=== PATIENT | female | born 1945 | race Two or more races ===

== ENCOUNTER 2024-02-03 14:28 | Inpatient (IN) | payer OTHER, MEDICARE, SELFPAY ==
[2024-02-03] VITALS (9 sets, daily range): BP systolic 108–140; BP diastolic 51–75; PULSE 58–90; RESP 14–18; TEMP 36.4–38.4; O2SAT 94–100; BMI 18.3; BMI 18.8
--- NOTE | 2024-02-03 14:46 | XR_ITS ---
Examination: CT maxillofacial, without intravenous contrast. 2-D sagittal reconstructions. 3-D reconstructions. Date and time of exam:February 03, 2024 at 1745 hours INDICATIONS: Patient fell today with injury to the face, facial pain CTDI: vol (mGy):13.5 DLP: (mGycm):289 Technique: Multiple axial images of maxillofacial region, 3.0 mm slice thickness. 2-D sagittal and coronal reconstructions. 3-D reconstructions. Low dose protocols were performed. One or more of the following dose reduction techniques were used; automated exposure control, adjustment of the mA and/or KV according to patient size, use of iterative reconstruction technique. Findings: Frontal sinuses intact Orbital rims intact No nasal bone fracture No depression zygomatic arches Pterygoid plates maxilla and the mandible intact IMPRESSION: No acute facial fracture.
--- NOTE | 2024-02-03 14:46 | XR_ITS ---
Examination: AP chest single view TECHNIQUE: AP portable semiupright chest single view Exam date and time: February 03, 2024 1518 hours Comparison November 03, 2023 INDICATIONS: Onset SOB today. FINDINGS: Normal heart size Left subclavian Port-A-Cath tip satisfactory position Mild vascular congestion. No lobar pneumonia or pulmonary edema Prominent osteopenia IMPRESSION: Mild vascular congestion
--- NOTE | 2024-02-03 14:46 | EKG_ITS ---
[facility] Test Date: 2024-02-03 Pat Name: DIMAS MAGDALENO Department: Room: - Gender: Female State'S Attorney: : 1945 Requested By: Laron Bowers Order Number: [id number] Reading MD: Laron Bowers Measurements Intervals [place] Rate: 60 P: 66 MI: 186 QRS: 34 QRSD: 83 T: 54 QT: 436 QTc: 436 Interpretive Statements SINUS RHYTHM MINIMAL ST DEPRESSION [0.025+ mV ST DEPRESSION] Compared to ECG 11/19/2023 04:00:02 ST (T wave) deviation now present Atrial fibrillation no longer present /store/S0/[id number].pdf
--- NOTE | 2024-02-03 14:47 | XR_ITS ---
Examination: CT brain head without contrast. 2-D sagittal coronal reconstructions Date and time of exam:February 03, 2024 1745 hours Comparison 11/14/2023 INDICATIONS: Patient fell today with injury to the head, head pain CTDI: vol (mGy):4.2 DLP: (mGycm):941 Technique: Multiple CT axial sections of the brain have been obtained, 5 mm slice thickness. Contrast has not been administered. 2-D sagittal, coronal reconstructions have been obtained Low dose protocols were performed. One or more of the following dose reduction techniques were used; automated exposure control, adjustment of the mA and/or KV according to patient size, use of iterative reconstruction technique. Findings: No significant ventricular enlargement. Intra-axial or extra-axial hemorrhage density is not seen. No mass effect or midline shift Basal cisterns are not remarkable. Fourth ventricle is midline. There is a large defect in the right frontal bone 28 mm, most consistent with fracture, not seen on the 11/14/2023 exam Impression: Negative for acute hemorrhage, mass effect or midline shift There is a large bony defect in the right frontal bone, likely posttraumatic, not seen on the CT brain scan 11/14/2023, the appearance should be clinically correlated, recommend close clinical observation of this patient and CT brain scans follow-up as clinically warranted
--- NOTE | 2024-02-03 14:47 | XR_ITS ---
Examination: CT abdomen with intravenous contrast CT pelvis with intravenous contrast 2-D coronal reconstructions 2-D sagittal reconstructions Date and time of exam:January 14, 2024 at 1812 hours INDICATIONS: Patient fell today with into the abdomen, abdomen pain. CTDI: vol (mGy) 14.09 DLP: (mGycm) 432 Technique: Multiple axial sections of the abdomen and pelvis have been obtained. 64 slice high-resolution scanner used. 3 mm axial sections have been obtained, post intravenous injection 100 cc Isovue-370 2-D sagittal, coronal reconstructions obtained. Low dose protocols were performed. One or more of the following dose reduction techniques were used; automated exposure control, adjustment of the mA and/or KV according to patient size, use of iterative reconstruction technique. Findings: No liver splenic or renal laceration End-stage right hydronephrotic sac again noted, described on CT abdomen 11/14/2023 Abdominal aorta intact, no free blood in the abdomen Contracted gallbladder Negative for pneumoperitoneum Normal appendix Again noted large soft tissue tumor mass in the right tim-pelvis, which has further increased in size compared to the 11/14/2023 exam Transverse dimension of this solid pelvic mass is 11.5 cm compared to 8.1 cm on 11/14/2023 Urinary bladder is intact Sacral segments bones of the pelvis and hips intact IMPRESSION: No abdominal parenchymal laceration Abdominal aorta intact with no free blood in the pelvis Enlarging soft tissue tumor mass in the right hemipelvis
--- NOTE | 2024-02-03 14:47 | XR_ITS ---
Examination: CT lumbar spine, without contrast. 2-D sagittal reconstructions. 2-D coronal reconstructions. 3-D reconstructions. Date and time of exam:February 03, 2024 at 1753 hours INDICATIONS: Patient fell today lower back, lower back pain CTDI: vol (mGy):14.9 DLP: (mGycm):452 Technique: Multiple 1.25 mm axial sections of the lumbar spine without intravenous contrast have been obtained. 2-D sagittal and coronal reconstructions have been obtained. 3-D reconstructions have been obtained. Low dose protocols were performed. One or more of the following dose reduction techniques were used; automated exposure control, adjustment of the mA and/or KV according to patient size, use of iterative reconstruction technique. Findings: Significant osteopenia Grade 1 anterolisthesis L4 on L5 No acute lumbar fracture Lumbar pedicles, laminae, transverse and posterior spinous processes intact L4-L5 moderate overall spinal stenosis, 3 mm central lumbar disc bulge, facet arthropathy and thickening of ligamentum flavum circumferentially narrowing the thecal sac There is a end-stage right renal hydronephrotic sac IMPRESSION: No lumbar fracture End-stage right renal hydronephrotic sac, noted on the CT scan abdomen 11/14/2023
--- NOTE | 2024-02-03 14:47 | XR_ITS ---
Examination: CT thoracic spine, without contrast. 2-D sagittal reconstructions. 2-D coronal reconstructions. 3-D reconstructions. Date and time of exam:February 03, 2024 1553 hours INDICATIONS: Patient fell today with injury to the upper back, upper back pain CTDI: vol (mGy):12.6 DLP: (mGycm):393 Technique: Multiple 1.25 mm axial sections of the thoracic spine without intravenous contrast have been obtained. 2-D sagittal and coronal reconstructions have been obtained. 3-D reconstructions have been obtained. Low dose protocols were performed. One or more of the following dose reduction techniques were used; automated exposure control, adjustment of the mA and/or KV according to patient size, use of iterative reconstruction technique. Findings: Adequate alignment thoracic vertebral bodies on the lateral view No thoracic vertebral body compression fracture Mild diffuse thoracic disc narrowing Thoracic pedicles, laminae and transverse processes intact IMPRESSION: No acute thoracic fracture
--- NOTE | 2024-02-03 14:47 | XR_ITS ---
Examination: CTA chest with intravenous contrast 2-D reconstructions 3-D reconstructions, vascular Date and time of exam: February 03, 2024 1803 hours Hypoxia shortness of breath chest pain today after falling CTDI: vol (mGy) 6.55 DLP: (mGycm) 203 Technique: Multiple axial sections of the thorax have been obtained. 3 mm slice thickness, from below the hemidiaphragms to above the apices of the lungs. Mediastinal and lung density settings have been obtained. 2-D sagittal and coronal reconstructions. 3-D angiographic renderings, 3-D volume renderings, 3D post processing, vascular maximum intensity projections obtained. Contrast administered is 60 cc Isovue-300. Low dose protocols were performed. One or more of the following dose reduction techniques were used; automated exposure control, adjustment of the mA and/or KV according to patient size, use of iterative reconstruction technique. Findings: Thoracic aorta intact No pulmonary artery emboli No hemopericardium No pneumothorax pulmonary contusion or hemothorax 3 mm pulmonary nodule right upper lobe image 67 6 mm pulmonary nodule right upper lobe image 85 6 mm pulmonary nodule posterior left lung image 156 Manubrium thoracic vertebral bodies intact Ribs appear intact IMPRESSION: Negative for pulmonary artery emboli No pneumothorax pulmonary contusion or hemothorax Subcentimeter pulmonary nodules as above, recommend 6 month follow-up CT chest without contrast to document stability of these pulmonary nodules
--- NOTE | 2024-02-03 14:47 | XR_ITS ---
Examination: CT cervical spine without contrast 2-D sagittal reconstructions 2-D coronal reconstructions 3-D reconstructions. Exam date and time:February 03, 2024 1745 hours INDICATIONS: Patient fell today with injury to the neck, neck pain CTDI:vol (mGy) 11.4 DLP: (mGycm) 264 Technique: Multiple 2 mm axial sections of the cervical spine have been obtained. The coronal and sagittal reconstructions have been obtained. 3-D reconstructions have been obtained. Low dose protocols were performed. One or more of the following dose reduction techniques were used; automated exposure control, adjustment of the mA and/or KV according to patient size, use of iterative reconstruction technique. Findings: Axial sections demonstrate intact base of the skull. C1 exhibit satisfactory relationship to the odontoid. No acute cervical vertebral body fracture seen. Alignment posterior spinous processes satisfactory. Impression: No acute cervical fracture.
--- NOTE | 2024-02-03 15:15 | EDNOTE_ITS ---
Altered Mental Status RME/HPI General Stated Complaint: AMS Time Seen by Provider: 02/03/24 14:39 Arrival date/time: 02/03/24 14:28 RME / HPI RME / HPI narrative: This section includes all my notes and documentations, including HPI, PE, MDM, Procedure Notes, and PLAN. Laron Tapia MD HPI: 79 year old female with history of dementia, diffuse B-cell lymphoma with abdominal metastases, AFib on Eliquis, CKD presents to the ED BIBA from home for evaluation of altered mental status today. Per medics report, family on scene stated at around 01:40 this morning patient was found on the bathroom floor, time down unknown. Reported they assisted her up and into bed. Noted as the day progressed patient appears is confused and slower to respond. On their arrival noted patient to be GCS of 13, evidently at baseline is GCS of 14. Prehospital BS 86. While in the ED patient does not know why she is here and unable to provide any additional history. ROS: Unobtainable due to mental status. Physical Exam: General: Alert and orientedx0. No acute distress. Eyes: Conjunctivae and lids clear. EOMI. PERRL. ENT: No nasal congestion. Pharynx normal. Tympanic membrane normal bilaterally. Neck: Supple. No lymphadenopathy. No JVD. Heart: RRR. Lungs: No respiratory distress. Air movement moderately diminished with wheezing. Chest: No tenderness. Abdomen: Soft and nontender. Normal bowel sounds. No distension. No rebound or guarding. Back: No CVA tenderness. Legs: No clubbing, cyanosis, edema. Skin: Warm and dry. Neuro: Alert and oriented X 0. Musculoskeletal: All major joints and bones are not tender. I ordered Solu-Medrol and DuoNeb and diagnostic tests. At 6 PM, the care of the patient was transferred to Dr. Juarez. Laron Tapia MD Related Data Home Medications ?Medication ?Instructions ?Recorded ?Confirmed amiodarone 200 mg tablet 200 mg PO DAILY 02/03/24 02/03/24 apixaban 2.5 mg tablet (Eliquis) 2.5 mg PO BID 02/03/24 02/03/24 Allergies Allergy/AdvReac Type Severity Reaction Status Date / Time Penicillins Allergy Severe Rash Verified 02/03/24 15:28 Review of Systems Review of Systems ROS Unobtainable: unobtainable due to mental status Past Medical History Past Medical History CARDIAC: Positive Cardiac Disorders (a.fib) and Hypertension RESPIRATORY: Positive Pneumonia OTHER HISTORY: Positive Falls, Chemotherapy, Radiation Therapy and Cancer (lymphoma) Social History SMOKING STATUS: Never smoker ED Exam Narrative Physical exam: As noted in HPI Course Quality Measures none Orders Category Date Time Status Bedside COVID-19 Antigen Test NOW Care 02/03/24 14:45 Active Bedside Influenza A&B Antigen Test NOW Care 02/03/24 14:45 Completed COVID-19 Screening Questionnaire NOW Care 02/03/24 20:[address] Screening NOW Care 02/03/24 14:47 Active Decision to Admit X1 Care 02/03/24 20:02 Completed EKG (ED ONLY) *Do not use* NOW Care 02/03/24 14:46 Completed Saline [Insert IV] NOW Care 02/03/24 14:46 Active Straight [In and Out Catheter] X1 Care 02/03/24 14:[address] abdomen pelvis w con Stat Exams 02/03/24 14:[address] angio chest Stat Exams 02/03/24 14:[address] cervical spine wo con Stat Exams 02/03/24 14:[address] facial bones wo con Stat Exams 02/03/24 14:[address] head/brain wo con Stat Exams 02/03/24 14:[address] lumbar spine wo con Stat Exams 02/03/24 14:[address] thoracic spine wo con Stat Exams 02/03/24 14:47 Completed EKG (ED Only) Stat Exams 02/03/24 14:46 Draft XR chest 1V portable Stat Exams 02/03/24 14:46 Completed ABG [Arterial Blood Gas] Stat Lab 02/03/24 15:09 Completed Alcohol, Blood Medical Stat Lab 02/03/24 15:09 Completed Ammonia Stat Lab 02/03/24 15:09 Completed BNP [B-Type Natriuretic Peptide] Stat Lab 02/03/24 15:09 Completed Blood Culture (Lab) Stat Lab 02/03/24 15:09 Results CBC Stat Lab 02/03/24 15:09 Completed CK [Creatine Kinase] Stat Lab 02/03/24 15:09 Completed CMP [Comprehensive Metabolic Panel] Stat Lab 02/03/24 15:09 Completed CRP [C-Reactive Protein] Stat Lab 02/03/24 15:09 Completed D-Dimer Stat Lab 02/03/24 15:09 Completed ESR [Sed Rate (ESR)] Stat Lab 02/03/24 15:09 Completed Lactate (Lactic Acid) Stat Lab 02/03/24 15:09 Completed Magnesium Stat Lab 02/03/24 15:09 Completed PT [Prothrombin Time with INR] Stat Lab 02/03/24 15:09 Completed PTT [Partial Thromboplastin Time] Stat Lab 02/03/24 15:09 Completed Procalcitonin Stat Lab 02/03/24 15:09 Completed RSV [Respiratory Syncytial Virus Ag] Stat Lab 02/03/24 15:44 Completed TSH [Thyroid Stimulating Hormone] Stat Lab 02/03/24 15:09 Completed Troponin I Stat Lab 02/03/24 15:09 Completed UA [Urinalysis] Stat Lab 02/03/24 15:19 Completed Acetaminophen Supp [Tylenol Supp] Med 02/03/24 18:25 Discontinued 650 mg SD X1 ONE Albuterol/Ipratr Rt Digna [Duoneb Rt Digna] Med 02/03/24 14:46 Discontinued 3 ml INH X1 ONE Cefepime Inj [Maxipime Inj] 2 gm Med 02/03/24 18:36 Discontinued Sodium Chloride 0.9% (P) [Ns 0.9% (P)] 50 ml IV X1 MethylPREDNISolone.* [SoluMEDROL Inj] Med 02/03/24 14:46 Discontinued 125 mg IVP X1 ONE Sodium Chloride 0.9% 1000 ml [Ns] 1,000 ml Med 02/03/24 18:25 Discontinued IV 999 mls/hr Vital Signs Vital signs: Vital Signs Temperature 101.2 F H 02/03/24 15:07 Pulse Rate 66 02/03/24 15:07 Respiratory Rate 18 02/03/24 15:07 Blood Pressure 140/70 H 02/03/24 15:07 Pulse Oximetry (%) 98 02/03/24 15:07 Oxygen Delivery Method Room Air 02/03/24 15:07 Pulse ox is 98% on room air which is adequate. Altered Mental Status MDM Narrative MDM Narrative:: Shantel Tierney am scribing for and in the presence of Dr. Tapia. Patient data External records reviewed:: [facility] previous records (I reviewed admission from 11/15/2023 through 11/21/2023) and EMS form Clinical information provided by:: patient Social determinants that could affect healthcare access:: none Patient has the following chronic illnesses:: dementia, diffuse B-cell lymphoma with abdominal metastases, AFib on Eliquis, CKD How is presenting disease/condition affected by chronic disease/condition?: exacerbated by Evaluation data The following diagnostics were reviewed and interpreted by me:: lab results, radiology exam(s) and EKG tracing(s) (My interpretation of the EKG is: Sinus rhythm (60 bpm) with nonspecific ST-T changes. Laron Tapia MD) Lab and/or radiology exams considered but not ordered:: None Interpretation Summary: Ordering Physician: Laron Tapia MD Date of Service: 02/03/24 Procedure(s): XR chest 1V portable Accession Number(s): [id number] cc: Laron Tapia MD; Landon Stevens MD~ Examination: AP chest single view TECHNIQUE: AP portable semiupright chest single view Exam date and time: February 03, 2024 1518 hours Comparison November 03, 2023 INDICATIONS: Onset SOB today. FINDINGS: Normal heart size Left subclavian Port-A-Cath tip satisfactory position Mild vascular congestion. No lobar pneumonia or pulmonary edema Prominent osteopenia IMPRESSION: Mild vascular congestion Dictated By: Landon Stevens MD Signed By: <Electronically signed by Landon Stevens MD in OV> 02/03/24 1548 Medications / Prescriptions Medications or Prescriptions considered but not ordered:: None Medication administrations:: Medication Administration History Amiodarone HCl (Amiodarone Hcl 200 Mg Tablet) 200 mg PO QDAY GENE Stop: 03/05/24 08:59 Last Admin: 02/04/24 09:16 Dose: 200 mg Documented By: CATARINA Heparin Sodium (Porcine) (Heparin Sod Inj 5000 Unit/Ml Vial) 5,000 unit SC Q12HR GENE Stop: 02/17/24 20:59 Last Admin: 02/04/24 21:28 Dose: 5,000 unit Documented By: RAVI Co-signed By: FF Admin: 02/04/24 09:16 Dose: 5,000 unit Documented By: CATARINA Co-signed By: CARISSA Admin: 02/03/24 20:57 Dose: Not Given Documented By: GB Non-Admin Reason: Patient Refused Cefepime HCl 1 gm/ Sodium (Chloride) 50 mls @ 100 mls/hr IV QDAY@1400 [facility] Stop: 02/11/24 13:59 Last Admin: 02/04/24 13:19 Dose: 100 mls/hr Documented By: CATARINA Ondansetron HCl (Ondansetron Inj 2 Mg/Ml Inj 2 Ml) 4 mg IV Q6H PRN; Protocol PRN Reason: NAUSEA OR VOMITING Stop: 03/04/24 20:06 Pantoprazole Sodium (Pantoprazole Inj 40 Mg Vial) 40 mg IVP QDAY GENE Stop: 03/05/24 08:59 Last Admin: 02/04/24 09:17 Dose: 40 mg Documented By: CATARINA Sennosides (Senna Tablet) 1 tab PO QDAY PRN; Protocol PRN Reason: CONSTIPATION Stop: 03/05/24 11:53 Discontinued Medications Acetaminophen (Acetaminophen Supp 650 Mg Supp) 650 mg SD X1 ONE Stop: 02/03/24 18:26 Last Admin: 02/03/24 18:41 Dose: 650 mg Documented By: ANOOP Albuterol/Ipratropium (Albuterol/Ipratropium (Duoneb) Rt Digna 3 Ml Nebu) 3 ml INH X1 ONE Stop: 02/03/24 14:47 Last Admin: 02/03/24 15:20 Dose: 3 ml Documented By: ANNE Sodium Chloride (Ns) 1,000 mls @ 999 mls/hr IV .Q1H1M ONE Stop: 02/03/24 19:25 Last Infusion: 02/03/24 19:48 Dose: Infused Documented By: Admin: 02/03/24 18:33 Dose: 999 mls/hr Documented By: ANOOP Cefepime HCl 2 gm/ Sodium (Chloride) 50 mls @ 100 mls/hr IV X1 ONE Stop: 02/03/24 19:05 Last Infusion: 02/03/24 19:48 Dose: Infused Documented By: Admin: 02/03/24 18:52 Dose: 100 mls/hr Documented By: LUPE Comments: ok to give Sodium Chloride (Ns) 1,000 mls @ 75 mls/hr IV .[id number] GENE Stop: 02/04/24 20:14 Last Admin: 02/04/24 13:19 Dose: 75 mls/hr Documented By: Infusion: 02/04/24 09:53 Dose: Infused Documented By: Admin: 02/03/24 20:33 Dose: 75 mls/hr Documented By: FERNANDO Methylprednisolone Sodium Succinate (Methylprednisolone Sod Succ 62.5 Mg/Ml 2ml Vial) 125 mg IVP X1 ONE Stop: 02/03/24 14:47 Last Admin: 02/03/24 15:30 Dose: 125 mg Documented By: AM See above Consultations Consultation(s) initiated? (list below): No Diagnosis Most likely diagnosis given after review of the tests above:: Altered mental status Admission Indicated Admission indicated?: not indicated Explain why admission is indicated or not indicated:: Patient signed out to Dr. Juarez pending head CT. Admission Request Was there a request for admission?: No Disposition Plan Disposition Plan: other (specify) (Patient signed out to Dr. Juarez pending CT's. ) Discharge Plan Plan Patient Disposition: Admit Acute Care w/in Hospital Problem List Clinical Impression: Acute febrile illness, History of pelvic mass, Acute alteration in mental status, Acute dehydration
--- NOTE | 2024-02-03 15:16 | PD.EDADULT ---
ED General RME/HPI General Stated complaint: AMS Time Seen by Provider: 02/03/24 14:39 Arrival date/time: 02/03/24 14:28 Related Data Allergies Allergy/AdvReac Type Severity Reaction Status Date / Time Penicillins Allergy Severe Rash Verified 11/03/23 17:20 Course Orders Category Date Time Status Bedside COVID-19 Antigen Test NOW Care 02/03/24 14:45 Active Bedside Influenza A&B Antigen Test NOW Care 02/03/24 14:[address] Screening NOW Care 02/03/24 14:47 Active EKG (ED ONLY) *Do not use* NOW Care 02/03/24 14:46 Completed Saline [Insert IV] NOW Care 02/03/24 14:46 Active Straight [In and Out Catheter] X1 Care 02/03/24 14:[address] abdomen pelvis w con Stat Exams 02/03/24 14:[address] angio chest Stat Exams 02/03/24 14:[address] cervical spine wo con Stat Exams 02/03/24 14:[address] facial bones wo con Stat Exams 02/03/24 14:[address] head/brain wo con Stat Exams 02/03/24 14:[address] lumbar spine wo con Stat Exams 02/03/24 14:[address] thoracic spine wo con Stat Exams 02/03/24 14:47 Ordered EKG (ED Only) Stat Exams 02/03/24 14:46 Ordered XR chest 1V portable Stat Exams 02/03/24 14:46 Ordered ABG [Arterial Blood Gas] Stat Lab 02/03/24 14:49 Ordered Alcohol, Blood Medical Stat Lab 02/03/24 14:49 Ordered Ammonia Stat Lab 02/03/24 14:49 Ordered BNP [B-Type Natriuretic Peptide] Stat Lab 02/03/24 14:49 Ordered Blood Culture (Lab) Stat Lab 02/03/24 14:49 Ordered CBC Stat Lab 02/03/24 14:49 Ordered CK [Creatine Kinase] Stat Lab 02/03/24 14:49 Ordered CMP [Comprehensive Metabolic Panel] Stat Lab 02/03/24 14:49 Ordered CRP [C-Reactive Protein] Stat Lab 02/03/24 14:49 Ordered D-Dimer Stat Lab 02/03/24 14:49 Ordered ESR [Sed Rate (ESR)] Stat Lab 02/03/24 14:49 Ordered Lactate (Lactic Acid) Stat Lab 02/03/24 14:49 Ordered Magnesium Stat Lab 02/03/24 14:49 Ordered PT [Prothrombin Time with INR] Stat Lab 02/03/24 14:49 Ordered PTT [Partial Thromboplastin Time] Stat Lab 02/03/24 14:49 Ordered Procalcitonin Stat Lab 02/03/24 14:49 Ordered RSV [Respiratory Syncytial Virus Ag] Stat Lab 02/03/24 14:49 Ordered TSH [Thyroid Stimulating Hormone] Stat Lab 02/03/24 14:49 Ordered Troponin I Stat Lab 02/03/24 14:49 Ordered UA [Urinalysis] Stat Lab 02/03/24 14:50 Ordered Albuterol/Ipratr Rt Digna [Duoneb Rt Digna] Med 02/03/24 14:46 Discontinued 3 ml INH X1 ONE MethylPREDNISolone.* [SoluMEDROL Inj] Med 02/03/24 14:46 Discontinued 125 mg IVP X1 ONE Vital Signs Vital signs: Vital Signs Temperature 101.2 F H 02/03/24 15:07 Pulse Rate 66 02/03/24 15:07 Respiratory Rate 18 02/03/24 15:07 Blood Pressure 140/70 H 02/03/24 15:07 Pulse Oximetry (%) 98 02/03/24 15:07 Oxygen Delivery Method Room Air 02/03/24 15:07 MDM Evaluation data The following diagnostics were reviewed and interpreted by me:: EKG tracing(s) (My interpretation of the EKG is: Sinus rhythm (60 bpm) with nonspecific ST-T changes. Laron Tapia MD) Medications Medication administrations:: Medication Administration History Discontinued Medications Albuterol/Ipratropium (Albuterol/Ipratropium (Duoneb) Rt Digna 3 Ml Nebu) 3 ml INH X1 ONE Stop: 02/03/24 14:47 Methylprednisolone Sodium Succinate (Methylprednisolone Sod Succ 62.5 Mg/Ml 2ml Vial) 125 mg IVP X1 ONE Stop: 02/03/24 14:47 Discharge Plan Patient/Caregiver Discharge Instructions Print Language: Malian
[2024-02-03] MEDS: ALBUTEROL/IPRATROPIUM (Duoneb) RT SOL 3 ML NEBU INH (15:20)
[2024-02-03 15:23] LABS: Base Excess 2 (-3-3); HCO3 26 mEq/L (20-26); Inspired Oxygen, FIO2 21 %; O2 Saturation 95 % (91-98); PCO2 37 mmHg (32.0-48.0); PO2 65 mmHg (83-108); pH, Arterial 7.46 (7.35-7.45)
[2024-02-03 15:25] LABS: Allen Test Performed/OK; Basophils % (Auto) 0 % (0-2.5); Eosinophils # (Auto) 0.1 Thou/mm3 (0.0-0.5); Eosinophils % (Auto) 0 % (0-10); Hematocrit 36.3 % (36.0-46.0); Hemoglobin 11.6 g/dL (12.0-16.0); Immature Granulocytes % (Auto) 0 % (0-0); Immature Granulocytes Auto 0.05 Thou/mm3 (0.00-0.00); Lymphocytes # (Auto) 0.7 Thou/mm3 (1.0-4.8); Lymphocytes % (Auto) 5 % (10-50); Mean Corpuscular Hemoglobin 26.9 pg (25.0-35.0); Mean Corpuscular Volume 84 fL (80-100); Monocytes # (Auto) 1.2 Thou/mm3 (0.0-0.8); Monocytes % (Auto) 9 % (0-12); Neutrophils # (Auto) 11.1 Thou/mm3 (1.8-7.7); Neutrophils % (Auto) 84 % (37-80); Nucleated Red Blood Cell % 0 /100 WBC (0); Platelet Count 225 Thou/mm3 (140-440); Puncture Site Right Radial; RDW Standard Deviation 52.9 fL (36.4-46.3); Red Blood Count 4.31 Miln/mm3 (4.00-5.20); White Blood Count 13.2 Thou/mm3 (3.6-11.0)
[2024-02-03] MEDS: MethylPREDNISolone SOD SUCC 62.5 MG/ML 2ML VIAL 125 MG IVP (15:30)
[2024-02-03 15:35] LABS: Collection Type, Urine Clean Catch; Squamous Epithelial Cell,Urine 0 /hpf (0-5)
[2024-02-03 15:38] LABS: Ammonia < 10 uMol/L (11-32)
[2024-02-03 15:40] LABS: Prothrombin Time 10.9 Seconds (9.0-12.2)
[2024-02-03 15:41] LABS: B-Type Natriuretic Peptide 83 pg/mL (0-100)
[2024-02-03 15:54] LABS: Bacteria,Urine Rare; Bilirubin,Urine Negative (Negative); Blood,Urine 1+ (Negative); Clarity,Urine Clear (Clear/Hazy); Color,Urine Lt-Yellow (Lt Yel-Yel); Glucose, Urine Negative (Negative); Ketones,Urine Negative (Negative); Leukocyte Esterase,Urine Negative (Negative); Nitrite,Urine Negative (Negative); PH,Urine 6.5 (5.0-7.0); Protein,Urine 1+ (Neg - Trace); RBC,Urine 18 /hpf (0-3); Specific Gravity,Urine 1.017 (1.001-1.035); Urobilinogen,Urine Negative mg/dL (0.0-1.0); WBC,Urine < 1 /hpf (0-5)
[2024-02-03 16:03] LABS: Sed Rate (ESR) 21 mm/hr (0-30)
[2024-02-03 16:24] LABS: Alanine Aminotransferase < 7 U/L (10-49); Albumin, Serum 4.1 gm/dL (3.4-4.8); Albumin/Globulin Ratio 1.9 (1.2-2.2); Alcohol, Blood Medical < 3.0 mg/dL (0-10.0); Alkaline Phosphatase 96 U/L (46-116); Anion Gap 7 (7-16); Aspartate Amino Transferase 20 U/L (0-34); BUN/Creatinine Ratio 14 Ratio (12-20); Bilirubin,Total 0.7 mg/dL (0.3-1.2); Blood Urea Nitrogen 24 mg/dL (9-23); Calcium 9.1 mg/dL (8.3-10.6); Calcium (Corrected) 9.1 mg/dL (8.5-10.1); Carbon Dioxide 23.4 mMol/L (20.0-31.0); Chloride 103 mMol/L (98-107); Creatine Kinase 39 U/L (34-171); Creatinine (Component) 1.7 mg/dL (0.6-1.3); Estimated Creatinine Clearance 19.2 mL/min (>60); Globulin 2.2 gm/dL (2.3-3.5); Glucose 109 mg/dL (74-106); Magnesium 1.9 mg/dL (1.6-2.6); Osmolality,Calculated 271 (275-295); Potassium 4.2 mMol/L (3.4-5.1); Procalcitonin 0.13 ng/ml (0.0-0.49); Sodium 133 mMol/L (136-145); Thyroid Stimulating Hormone 3.35 uIU/mL (0.55-4.78); Total Protein 6.3 gm/dL (5.7-8.2); Troponin I < 0.020 ng/mL (0.0-0.045); eGFR 30 See Note
[2024-02-03 16:41] LABS: Respiratory Syncytial Virus Ag Negative (Negative)
[2024-02-03 17:24] LABS: D-Dimer < 250 ng/mL (<600)
[2024-02-03] MEDS: SODIUM CHLORIDE 0.9% 1000 ML 1,000 ML 999 ML IV (18:33)
--- NOTE | 2024-02-03 18:37 | PD.EDADDENDU ---
Emergency Room Addendum Addendum Narrative: 6:[address] Juarez's note: This patient had come in much earlier during the day shift; the previous doctor was not aware that she had a fever upon presentation. Her temperature was 101.2 rectally. Patient is awake but disoriented x 3. She has clear speech and she is able to talk without any distress. Her mucosa are very dry. She has no pain. I ordered a liter of normal saline IV wide open and 650 of Tylenol per rectum. I also gave her cefepime 2 g IV empirically; she is allergic to penicillin. I am waiting for her CAT scan results. Patient will have to be admitted to the hospital. Her lactic acid and also her procalcitonin are negative. At 6:45 PM, some of the CAT scans are back and they are all negative. The CT of the abdomen and pelvis with IV contrast shows an enlargement of her pelvic mass at 11.5 cm. Then I looked at her old records and it seems like that her previous CAT scan of the abdomen and pelvis with IV contrast done on 11/14/2023 showed that same pelvic mass at 8.1 cm; therefore, this tumor is enlarging. On abdominal exam, she says that she has no abdominal pain; however when I palpate her pelvis she says that it hurts in the suprapubic and right pelvic areas, without guarding or rebound tenderness. There is no abdominal distention. At 7 PM, I discussed this case with Dr. Gomez, her PMD, who informed me that patient has lymphoma and she will be started on chemotherapy soon. She does not want admit her herself but she will call the resident to admit the pt. to the hospital.
[2024-02-03] MEDS: ACETAMINOPHEN SUPP 650 MG SUPP PR (18:41)
[2024-02-03] MEDS: CEFEPIME INJ 2 GM in SODIUM CHLORIDE 0.9% (P) 50 ML IV (18:52)
--- NOTE | 2024-02-03 20:06 | PD.RESHP ---
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 Son was present at bedside to help provide further history given patient's clinical status. He states that patient was found on bathroom floor at 1 AM in the morning, and appeared to be slightly confused and slow to respond. Patient is taking care of by son and daughter, who do not report any decreased appetite, nausea, vomiting, or diarrhea. However, he does note patient has orthostatic hypotension. Son also states that at baseline patient's mentation waxes and wanes throughout the day, where she is at her best in the middle of the day and declines in the evening. Primary concern of family is that patient had a fall on Eliquis and were instructed to bring patient to the ED if she experienced any falls. Son also notes that patient is to have chemotherapy within the next week with oncologist in [place]. Last chemotherapy was approximately 1 year ago. ED course: Initial vitals: BP 140/70, temp 101.2 ?F, on room air WBC 13.2, chronic anemia (Hgb 11.6, BL 11), Cr 1.7 BL 1.0), CK wnl, Trop wnl, BMP wnl, Pro-Garret wnl, lactate wnl CT A/P: Enlarging soft tissue mass in right hemipelvis CTA chest: 2 subcentimeter nodules and right lung, 1 subcentimeter nodule in left lung CT head: Negative for hemorrhage, fracture in right frontal bone CT spine and face: Negative for fractures CXR: Mild vascular congestion PMHx: as noted above Medications: eliquis 2.5 mg BID, amiodarone 200 mg daily SHx: denies smoking, alcohol, or illicit drug use Review of Systems Review of Systems Systems Reviewed: All systems reviewed, normal except as documented Exam Vital Signs Temp Pulse Resp BP Pulse Ox O2 Del Method 98.7 F 64 16 117/74 97 Room Air 02/03/24 18:41 02/03/24 19:23 02/03/24 19:23 02/03/24 19:23 02/03/24 19:23 02/03/24 19:23 Narrative Exam General: alert, orientated to self and place, no acute distress, able to speak full sentences HEENT: NC/AT, mucous membranes moist, bilateral sclera anicteric Cardiovascular: systolic murmur appreciated at right sternal border, regular rate and rhythm, S1/S2 present Pulmonary: clear to auscultation bilaterally, no rales/rhonchi/wheezes Abdominal: mild tenderness to palpation in LLQ, soft, non-distended, no rebound/guarding Musculoskeletal: normal ROM, no peripheral edema Skin: warm and dry, intact, no rashes Results: Labs 02/05/24 05:05 02/05/24 05:05 Labs: Short CBC 02/03/24 Range/Units 15:09 WBC 13.2 H (3.6-11.0) Thou/mm3 Hgb 11.6 L (12.0-16.0) g/dL Hct 36.3 (36.0-46.0) % Plt Count 225 (140-440) Thou/mm3 BMP 02/03/24 15:09 Sodium 133 L Potassium 4.2 Chloride 103 Carbon Dioxide 23.4 BUN 24 H Creatinine 1.7 H Glucose 109 H Calcium 9.1 Cardiac Enzymes 02/03/24 Range/Units 15:09 Total Creatine Kinase 39 (34-171) U/L Troponin I < 0.020 (0.0-0.045) ng/mL Liver Function 02/03/24 Range/Units 15:09 Total Bilirubin 0.7 (0.3-1.2) mg/dL AST 20 (0-34) U/L ALT < 7 L (10-49) U/L Alkaline Phosphatase 96 (46-116) U/L Albumin 4.1 (3.4-4.8) gm/dL Urine 02/03/24 Range/Units 15:19 Urine Color Lt-Yellow (Lt Yel-Yel) Urine Clarity Clear (Clear/Hazy) Urine pH 6.5 (5.0-7.0) Ur Specific [place] 1.017 (1.001-1.035) Urine Protein 1+ A (Neg - Trace) Urine Glucose (UA) Negative (Negative) ABG Interpretation ABG results: 02/03/24 15:09 ABG pH 7.46 H ABG pCO2 37 ABG pO2 65 L ABG HCO3 26 ABG O2 Saturation 95 ABG Base Excess 2 Quality Measures Quality Measures none Advance care planning discussed with:: patient Medications Home Medications and Allergies Home Medications ?Medication ?Instructions ?Recorded ?Confirmed ?Type amiodarone 200 mg tablet 200 mg PO DAILY 02/03/24 02/03/24 History apixaban 2.5 mg tablet (Eliquis) 2.5 mg PO BID 02/03/24 02/03/24 History Allergies Allergy/AdvReac Type Severity Reaction Status Date / Time Penicillins Allergy Severe Rash Verified 02/03/24 15:28 Visit Medications Discontinued Medications Acetaminophen (Acetaminophen Supp 650 Mg Supp) 650 mg OH X1 ONE Stop: 02/03/24 18:26 Last Admin: 02/03/24 18:41 Dose: 650 mg Albuterol/Ipratropium (Albuterol/Ipratropium (Duoneb) Rt Digna 3 Ml Nebu) 3 ml INH X1 ONE Stop: 02/03/24 14:47 Last Admin: 02/03/24 15:20 Dose: 3 ml Sodium Chloride (Ns) 1,000 mls @ 999 mls/hr IV .Q1H1M ONE Stop: 02/03/24 19:25 Last Infusion: 02/03/24 19:48 Dose: Infused Cefepime HCl 2 gm/ Sodium (Chloride) 50 mls @ 100 mls/hr IV X1 ONE Stop: 02/03/24 19:05 Last Infusion: 02/03/24 19:48 Dose: Infused Methylprednisolone Sodium Succinate (Methylprednisolone Sod Succ 62.5 Mg/Ml 2ml Vial) 125 mg IVP X1 ONE Stop: 02/03/24 14:47 Last Admin: 02/03/24 15:30 Dose: 125 mg Assessment & Plan Plan Sofia Hill is a 79-year-old female with past medical history of lymphoma status post remission and recurrence with abdominal (and pulmonary?) metastasis, CKD, dementia, atrial fibrillation on Eliquis who is admitted for acute encephalopathy and acute kidney injury in setting of CKD. #Acute encephalopathy #SIRS Presents after being found on bathroom floor for unknown period of time. Patient cannot recall events leading up to hospitalization. Family reports patient has had good appetite without episodes of nausea, vomiting, or diarrhea. Son does report that patient has history of orthostatic hypotension. SIRS 2/: T 101.2 ?F, WBC 13.2. No source. CK, procal, and lactate wnl. ? Cefepime 1 g IV twice daily ? Patient has penicillin allergy, deferred Zosyn ? NS at 75 mL/h ? Follow-up urine and blood cultures ? Physical therapy #Acute on chronic kidney injury #Acute kidney injury #CKD, stage IIIb ? Nephrology consulted, appreciate recommendations ? IVF as above #Atrial fibrillation ? Amiodarone 200 mg PO daily ? Eliquis held in setting of fall Hospital management: Disposition: 2-3 hospital nights Fluids: IVF, NS at 75 mL/hr Diet: regular Lines: peripheral DVT prophylaxis: heparin SC BID GI prophylaxis: not indicated CODE STATUS: full code ----- Plan discussed with attending physician Dr. Valeria Cam MD PGY-1 Internal Medicine Attending Provider Attestation/Addendum I reviewed labs, imaging, EKG, home medications and prior available records. Face to face evaluation was performed by me. I have personally examined the patient and discussed assessment and plan with the IM team. I reviewed the resident note and agree with the plan with exceptions as below. 79-year-old female with history of dementia and diffuse B-cell lymphoma with abdominal mass, A-fib on Eliquis, who presented with generalized weakness, altered mental status, and fall. She was found to have SIRS/possible sepsis and KARMEN. SIRS/possible sepsis: Her fevers and leukocytosis can be in the setting of viral illness versus malignancy versus bacterial infection of unclear source. Given that the patient is immunocompromised due to lymphoma, will empirically start IV cefepime and send blood/urine cultures. Will start IV Zosyn. Trend WBC. Tylenol as needed for fevers. KARMEN: Possibly due to dehydration. Started IV fluids. Monitor kidney function. Avoid nephrotoxins. Renally dosed medication Acute encephalopathy: In the setting of history of baseline dementia. Likely in the setting of acute febrile illness versus dehydration versus pain. Management of the underlying conditions as above. Treatment of pain as needed. Atrial fibrillation on Eliquis: Resume amiodarone. Holding Eliquis in the setting of frequent falls. Discussed resuming with her configuration management advisor. Fall: Likely in the setting of weakness and deconditioning from acute febrile illness. Obtain PT evaluation. Management of the febrile illness as above.
[2024-02-03] MEDS: SODIUM CHLORIDE 0.9% 1000 ML 1,000 ML 75 ML IV (20:33)
--- NOTE | 2024-02-03 23:35 | PC.NURSE ---
spoke with patients son and caregiver CYNDEE over the telephone to obtain admission questions.
[2024-02-04] VITALS (11 sets, daily range): BP systolic 105–125; BP diastolic 49–69; PULSE 58–65; RESP 16–17; TEMP 36.1–37; O2SAT 96–100; BMI 19.0
[2024-02-04 06:05] LABS: Basophils % (Auto) 0 % (0-2.5); Eosinophils % (Auto) 0 % (0-10); Hematocrit 37.3 % (36.0-46.0); Hemoglobin 11.9 g/dL (12.0-16.0); Immature Granulocytes % (Auto) 0 % (0-0); Immature Granulocytes Auto 0.03 Thou/mm3 (0.00-0.00); Lymphocytes # (Auto) 0.4 Thou/mm3 (1.0-4.8); Lymphocytes % (Auto) 4 % (10-50); Mean Corpuscular HGB Conc 31.9 g/dl (31.0-37.0); Mean Corpuscular Hemoglobin 26.9 pg (25.0-35.0); Mean Corpuscular Volume 84 fL (80-100); Monocytes # (Auto) 0.2 Thou/mm3 (0.0-0.8); Monocytes % (Auto) 3 % (0-12); Neutrophils # (Auto) 7.9 Thou/mm3 (1.8-7.7); Neutrophils % (Auto) 93 % (37-80); Nucleated Red Blood Cell % 0 /100 WBC (0); Platelet Count 195 Thou/mm3 (140-440); RDW Standard Deviation 52.8 fL (36.4-46.3); Red Blood Count 4.42 Miln/mm3 (4.00-5.20); White Blood Count 8.5 Thou/mm3 (3.6-11.0)
[2024-02-04 07:16] LABS: Anion Gap 8 (7-16); BUN/Creatinine Ratio 19 Ratio (12-20); Blood Urea Nitrogen 29 mg/dL (9-23); Calcium 9.4 mg/dL (8.3-10.6); Carbon Dioxide 24.3 mMol/L (20.0-31.0); Chloride 105 mMol/L (98-107); Creatinine (Component) 1.5 mg/dL (0.6-1.3); Estimated Creatinine Clearance 22.5 mL/min (>60); Glucose 133 mg/dL (74-106); Magnesium 2.2 mg/dL (1.6-2.6); Osmolality,Calculated 281 (275-295); Phosphorous 4.3 mg/dL (2.4-5.1); Potassium 4.5 mMol/L (3.4-5.1); Sodium 137 mMol/L (136-145); eGFR 35 See Note
[2024-02-04] MEDS: HEPARIN SOD INJ 5000 UNIT/ML VIAL SC ×2 (09:16→21:28)
[2024-02-04] MEDS: AMIODARONE HCL 200 MG TABLET PO (09:16)
[2024-02-04] MEDS: PANTOPRAZOLE INJ 40 MG VIAL IVP (09:17)
--- NOTE | 2024-02-04 11:21 | ESCONSULT_ITS ---
History of Present Illness Data of Consult Consult date: 02/04/24 Requesting Physician: Sg Shaw MD Primary Care Provider: Sandip Gomez MD Consult Narrative Reason for consult: KARMEN History of present illness: Ms. Hill is a 79-year-old lady who is well-known to me from my clinic with past medical history significant for metastatic non-small cell lymphoma (under the care of Dr. Julito Meier), CKD stage III, dementia, atrial fibrillation-on Eliquis presented to the emergency department with altered mental status. No family around. Chart review done. Apparently she was found laying on her bathroom floor with confusion and slow to respond that son called the paramedics and she was brought to the emergency department. In the ER she was noted to have orthostatic hypotension confused. Being on Eliquis patient had extensive workup in the emergency department to rule out brain bleed. Patient supposed to have chemotherapy with Dr. Murguia next week. I had a phone appointment last week with the patient and she was able to converse with me. In the emergency department blood pressure 140/70, temp 101.2 WBC 13.2, hemoglobin 11.6, Platelets 2 sodium 133, potassium 4.2, BUN 24, creatinine 1.7 ( Baseline creatinine 1.2) lactic acid 1, phosphorus 4.3, LFTs normal, ammonia normal, BNP normal, TSH normal, Pro-Garret normal urinalysis shows 1+ protein/18 RBCs and 1+ blood. CT A/P: Enlarging soft tissue mass in right hemipelvis CTA chest: 2 subcentimeter nodules and right lung, 1 subcentimeter nodule in left lung CT head: Negative for hemorrhage, fracture in right frontal bone CT spine and face: Negative for fractures CXR: Mild vascular congestion I was called by the ER provider for KARMEN. Hospitalist team admitted and renal was consulted for KARMEN. Patient was started on IV fluids. This morning she seems to be more Conversant. cc:: cc: Sg Shaw MD Review of Systems Review of Systems Narrative Review of Systems: Limited due to her mental status. She is able to recognize me. Denies any chest pain, shortness of breath does admit to having lower abdominal discomfort probably from the mass. Past Medical History Past Medical History NEUROLOGIC: Positive Neurological Disorders and Dementia CARDIAC: Positive Cardiac Disorders, Atrial Fibrillation and Hypertension; Negative Congestive Heart Failure RESPIRATORY: Positive Respiratory Disorders and Pneumonia; Negative Chronic Obstructive Pulmonary Disease (COPD) or Asthma GASTROINTESTINAL: Negative Gastrointestinal Disorders GENITOURINARY: Positive Genitourinary Disorders and Chronic Kidney Disease; Negative Renal Disease REPRODUCTIVE: Negative Pelvic Inflammatory Disease MUSCULOSKELETAL: Negative Musculoskeletal Disorders ENT: Negative History of ENT Problems ENDOCRINE: Negative Endocrine Disorders, Diabetes Mellitus Type 1 or Diabetes Mellitus Type 2 HEMATOLOGIC: Negative Blood Disorders or Sickle Cell Disease OTHER HISTORY: Positive Falls, Chemotherapy, Radiation Therapy and Cancer (hodgkins lymphoma, mass to abdomen); Negative Autoimmune Disease, Blood Transfusions, Organ Transplant, MRSA, VRSA, Vancomycin-Resistant Enterococci, Human Immunodeficiency Virus (HIV), Chicken Pox, Measles, Mumps, Rubella ([place] Measles), Pertussis or Clostridium Difficile Family History FAMILY HISTORY: Negative Family Psychiatric Problems, Family Respiratory Disorders, Family Cardiac Disorders, Family Gastrointestinal Problems, Family Genitourinary Problems, Family Endocrine Disorders, Family Reproductive Disorders, Family Musculoskeletal Disorders, Family Cancer, Family Surgery or Family Anesthesia Reaction Surgical History SURGICAL: Negative Cardiac Surgery, Endocrine Surgery, Ear Surgery, Abdominal Surgery, Nephrectomy, Joint Replacement, Neurologic Surgery, Mastectomy or Organ Transplant Social History SMOKING STATUS: Never smoker Meds Home Medications and Allergies Home Medications ?Medication ?Instructions ?Recorded ?Confirmed ?Type amiodarone 200 mg tablet 200 mg PO DAILY 02/03/24 02/03/24 History apixaban 2.5 mg tablet (Eliquis) 2.5 mg PO BID 02/03/24 02/03/24 History Allergies Allergy/AdvReac Type Severity Reaction Status Date / Time Penicillins Allergy Severe Rash Verified 02/03/24 15:28 Exam Vital Signs Temp Pulse Resp BP Pulse Ox O2 Del Method 36.2 C 63 16 121/54 L 96 Room Air 02/04/24 08:00 02/04/24 09:16 02/04/24 08:00 02/04/24 09:16 02/04/24 08:00 02/04/24 08:00 Narrative Exam GENERAL APPEARANCE: Fragile lady currently seen in medical floor NECK: Neck supple, no JVD or bruit CARDIOVASCULAR: Heart regular, no murmurs LUNGS/CHEST: Chest clear to auscultation. No rales, rhonchi, wheezing ABDOMEN: Soft, discomfort noted in the lower abdomen fullness noted in the lower abdomen. Normal bowel sounds. EXTREMITIES: No edema, clubbing or cyanosis. SKIN: Skin exam normal without any rashes MUSCULOSKELETAL: In bed NEUROLOGICAL : slow in response although alert and awake Results Labs 02/04/24 05:03 02/04/24 05:03 Labs: Short CBC 02/03/24 02/04/24 Range/Units 15:09 05:03 WBC 13.2 H 8.5 (3.6-11.0) Thou/mm3 Hgb 11.6 L 11.9 L (12.0-16.0) g/dL Hct 36.3 37.3 (36.0-46.0) % Plt Count 225 195 D (140-440) Thou/mm3 BMP 02/03/24 02/04/24 15:09 05:03 Sodium 133 L 137 Potassium 4.2 4.5 Chloride 103 105 Carbon Dioxide 23.4 24.3 BUN 24 H 29 H Creatinine 1.7 H 1.5 H Glucose 109 H 133 H Calcium 9.1 9.4 Cardiac Enzymes 02/03/24 Range/Units 15:09 Total Creatine Kinase 39 (34-171) U/L Troponin I < 0.020 (0.0-0.045) ng/mL Liver Function 02/03/24 Range/Units 15:09 Total Bilirubin 0.7 (0.3-1.2) mg/dL AST 20 (0-34) U/L ALT < 7 L (10-49) U/L Alkaline Phosphatase 96 (46-116) U/L Albumin 4.1 (3.4-4.8) gm/dL Urine 02/03/24 Range/Units 15:19 Urine Color Lt-Yellow (Lt Yel-Yel) Urine Clarity Clear (Clear/Hazy) Urine pH 6.5 (5.0-7.0) Ur Specific [place] 1.017 (1.001-1.035) Urine Protein 1+ A (Neg - Trace) Urine Glucose (UA) Negative (Negative) ABG Interpretation ABG results: 02/03/24 15:09 ABG pH 7.46 H ABG pCO2 37 ABG pO2 65 L ABG HCO3 26 ABG O2 Saturation 95 ABG Base Excess 2 Assessment & Plan Assessment and plan (1) Acute renal failure (ARF): Status: Acute Assessment and plan: Acute on chronic renal failure secondary to prerenal azotemia. Baseline creatinine 1.2. Continue with gentle IV fluids. CT showed no hydronephrosis. (2) Acute dehydration: Status: Acute Assessment and plan: Continue with gentle IV fluids (3) Acute alteration in mental status: Status: Acute Assessment and plan: Secondary to metabolic encephalopathy. Today she seems to be improving (4) Paroxysmal A-fib: Status: Acute Assessment and plan: History of paroxysmal A-fib-on amiodarone and Eliquis rate controlled (5) History of pelvic mass: Status: Acute Assessment and plan: Patient has a huge pelvic mass on CT.. Under the care of Dr. Murguia (6) Lymphoma: Status: Acute Assessment and plan: Patient has a huge pelvic mass on CT, bilateral pulmonary nodules--metastatic lymphoma.. Under the care of Dr. Murguia Additional Assessment & Plan Additional Plan: Thank you Dr. Gandhi for allowing me to participate in the care of Ms. Black
[2024-02-04] MEDS: SODIUM CHLORIDE 0.9% 1000 ML 1,000 ML 75 ML IV (13:19)
[2024-02-04] MEDS: CEFEPIME INJ 1 GM in SODIUM CHLORIDE 0.9% (P) 50 ML IV (13:19)
[2024-02-04 15:01] LABS: Cardiac Risk Estimate 2.5 RATIO (3.7-5.6); Cholesterol 173 mg/dL (132-200); HDL Cholesterol 68 mg/dL (40-60); LDL Cholesterol,Calculated 96 mg/dL (0-130); Triglycerides 45 mg/dL (30-150)
--- NOTE | 2024-02-04 15:40 | ESPR_ITS ---
<Statement entered by Ozzie Faustin DO - 02/04/24 21:52> Senior attestation: Patient was examined and case was reviewed with team including attending physician. Note reviewed, I agree with most of its contents and agree with the patient's care. Pending final blood cultures, will continue cefepime, physical therapy ordered. Ozzie Faustin DO PGY-3 Documentation for date of: 02/04/24 Subjective Subjective Interval history: Patient seen at bedside Patient admitted overnight for acute encephalopathy Patient is alert oriented x 3, recalls events leading to her fall Patient follows up with oncologist in [place] Per chart review patient's blood culture from previous visit were positive for bacteremia Will continue IV antibiotics Pending physical therapy evaluation Scheduled senna as needed for constipation Will continue to monitor patient Exam Vital Signs Temp Pulse Resp BP Pulse Ox O2 Del Method 98.6 F 61 16 105/49 L 97 Room Air 02/04/24 15:35 02/04/24 15:35 02/04/24 15:35 02/04/24 15:35 02/04/24 15:35 02/04/24 15:35 Narrative Exam General: Alert and oriented x 3, no acute distress, able to speak full sentences, slow to respond HEENT: NC/AT, mucous membranes moist, bilateral sclera anicteric Cardiovascular: Regular rate and rhythm, S1/S2 present Pulmonary: clear to auscultation bilaterally, no rales/rhonchi/wheezes Abdominal: mild generalized tenderness to palpation, soft, non-distended, no rebound/guarding Musculoskeletal: normal ROM, no peripheral edema Skin: warm and dry, intact, no rashes Objective Labs 02/06/24 05:14 02/06/24 05:14 Labs: Laboratory Results - last 24 hr 02/03/24 02/03/24 02/03/24 15:09 15:19 15:44 WBC RBC Hgb Hct MCV MCH MCHC RDW Std Deviation Plt Count Neut % (Auto) Lymph % (Auto) [place] % (Auto) Eos % (Auto) Baso % (Auto) Neut # (Auto) Lymph # (Auto) [place] # (Auto) Eos # (Auto) Baso # (Auto) Immature Gran # (Auto) Absolute Nucleated RBC Immature Gran % Nucleated RBC % ESR 21 PT 10.9 INR 1.0 APTT 27.0 D-Dimer < 250 Sodium 133 L Potassium 4.2 Chloride 103 Carbon Dioxide 23.4 Anion Gap 7 BUN 24 H Creatinine 1.7 H Estim Creat Clear Calc 19.2 L eGFR 30 L BUN/Creatinine Ratio 14 Glucose 109 H Calculated Osmolality 271 L Calcium 9.1 Corrected Calcium 9.1 Phosphorus Magnesium 1.9 Total Bilirubin 0.7 AST 20 ALT < 7 L Alkaline Phosphatase 96 Total Creatine Kinase 39 Troponin I < 0.020 C-Reactive Prot, Quant 1.0 H B-Natriuretic Peptide 83 Total Protein 6.3 Albumin 4.1 Globulin 2.2 L Albumin/Globulin Ratio 1.9 Triglycerides Cholesterol LDL Cholesterol, Calc HDL Cholesterol Cholesterol/HDL Ratio Procalcitonin 0.13 TSH 3.35 Ur Collection Type Clean Catch Urine Color Lt-Yellow Urine Clarity Clear Urine pH 6.5 Ur Specific [place] 1.017 Urine Protein 1+ A Urine Glucose (UA) Negative Urine Ketones Negative Urine Blood 1+ A Urine Nitrite Negative Urine Bilirubin Negative Urine Urobilinogen (Auto) Negative Ur Leukocyte Esterase Negative Urine RBC 18 H Urine WBC < 1 Ur Squamous Epith Cells 0 Urine Bacteria Rare Ethyl Alcohol < 3.0 RSV Rapid Negative 02/04/24 05:03 WBC 8.5 RBC 4.42 Hgb 11.9 L Hct 37.3 MCV 84 MCH 26.9 MCHC 31.9 RDW Std Deviation 52.8 H Plt Count 195 D Neut % (Auto) 93 H Lymph % (Auto) 4 L [place] % (Auto) 3 Eos % (Auto) 0 Baso % (Auto) 0 Neut # (Auto) 7.9 H Lymph # (Auto) 0.4 L [place] # (Auto) 0.2 Eos # (Auto) 0.0 Baso # (Auto) 0.0 Immature Gran # (Auto) 0.03 H Absolute Nucleated RBC 0.00 Immature Gran % 0 Nucleated RBC % 0 ESR PT INR APTT D-Dimer Sodium 137 Potassium 4.5 Chloride 105 Carbon Dioxide 24.3 Anion Gap 8 BUN 29 H Creatinine 1.5 H Estim Creat Clear Calc 22.5 L eGFR 35 L BUN/Creatinine Ratio 19 Glucose 133 H Calculated Osmolality 281 Calcium 9.4 Corrected Calcium Phosphorus 4.3 Magnesium 2.2 Total Bilirubin AST ALT Alkaline Phosphatase Total Creatine Kinase Troponin I C-Reactive Prot, Quant B-Natriuretic Peptide Total Protein Albumin Globulin Albumin/Globulin Ratio Triglycerides 45 Cholesterol 173 LDL Cholesterol, Calc 96 HDL Cholesterol 68 H Cholesterol/HDL Ratio 2.5 L Procalcitonin TSH Ur Collection Type Urine Color Urine Clarity Urine pH Ur Specific [place] Urine Protein Urine Glucose (UA) Urine Ketones Urine Blood Urine Nitrite Urine Bilirubin Urine Urobilinogen (Auto) Ur Leukocyte Esterase Urine RBC Urine WBC Ur Squamous Epith Cells Urine Bacteria Ethyl Alcohol RSV Rapid ABG Interpretation ABG results: 02/03/24 15:09 ABG pH 7.46 H ABG pCO2 37 ABG pO2 65 L ABG HCO3 26 ABG O2 Saturation 95 ABG Base Excess 2 Quality Measures Quality Measures none Advance care planning discussed with:: patient Assessment & Plan Assessment Current Active Medications: Generic Name Dose Route Start Last Admin Trade Name Freq PRN Reason Stop Dose Admin Amiodarone HCl 200 mg 02/04/24 09:00 02/04/24 09:16 Amiodarone Hcl 200 Mg Tablet PO 03/05/24 08:59 200 mg QDAY GENE Administration Heparin Sodium (Porcine) 5,000 unit 02/03/24 21:00 02/04/24 09:16 Heparin Sod Inj 5000 Unit/Ml Vial SC 02/17/24 20:59 5,000 unit Q12HR GENE Administration Sodium Chloride 1,000 mls @ 75 mls/hr 02/03/24 20:15 02/04/24 13:19 Ns IV 02/04/24 20:14 75 mls/hr .[id number] GENE Administration Cefepime HCl 1 gm/ Sodium 50 mls @ 100 mls/hr 02/04/24 14:00 02/04/24 13:19 Chloride IV 02/11/24 13:59 100 mls/hr QDAY@1400 GENE Administration Ondansetron HCl 4 mg 02/03/24 20:07 Ondansetron Inj 2 Mg/Ml Inj 2 Ml IV 03/04/24 20:06 Q6H PRN NAUSEA OR VOMITING Protocol Pantoprazole Sodium 40 mg 02/04/24 09:00 02/04/24 09:17 Pantoprazole Inj 40 Mg Vial IVP 03/05/24 08:59 40 mg QDAY GENE Administration Sennosides 1 tab 02/04/24 11:54 Senna Tablet PO 03/05/24 11:53 QDAY PRN CONSTIPATION Protocol Plan Assessment and plan: Summary: Ms. 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 #Acute on chronic encephalopathy #SIRS 2/ # Dementia Presents after being found on bathroom floor for unknown period of time. Patient was not able to recall events leading up to hospitalization on admission. On admission SIRS 2/: T 101.2 ?F, WBC 13.2. No source. CK, procal, and lactate wnl. She has waxing and waning mentation throughout the day per son, son is a reliable historian, patient lives with son at home. UA was negative for leukocyte esterase, nitrites, patient denies dysuria. 02/03: Patient alert and oriented x 3, recalls events leading to hospitalization, per family at bedside patient is back to baseline. Plan: ?Continue cefepime 1 g IV twice daily ?Continue NS at 75 mL/h ? Follow-up urine and blood cultures ?Referred to physical therapy -Monitor vitals closely -Follow CBC CMP in a.m. # Status post ground-level fall # History of orthostatic hypotension Per son patient has history of orthostatic hypotension. Patient presented status post ground-level fall, denies hitting head. Patient is on Eliquis at home for A-fib. Face CT, head CT, lumbar spine CT and thoracic spine CT negative Plan: -Obtain orthostatic vitals -Physical therapy evaluation -Continue maintenance fluid #Acute on chronic kidney injury #Acute kidney injury #CKD, stage IIIb Patient's kidney injury likely prerenal as kidney function is improving with IV fluids Plan: ?Nephrology consulted, appreciate recommendations ?Will continue IVF as above -Avoid nephrotoxic agents -Renally dose medications #Atrial fibrillation [id number] score 3 Patient's home medication include amiodarone and Eliquis 2.5 mg Plan: ? Amiodarone 200 mg PO daily ? Eliquis held in setting of fall -Continue telemonitoring #Lymphoma by history Patient has history of lymphoma with abdominal and pulmonary metastasis CT abdomen pelvis shows Enlarging of soft tissue tumor mass in the right hemipelvis Patient follows up with oncologist in [place] Suspicion of pulmonary metastasis as CTA chest positive for pulmonary nodules Plan: -Continue outpatient follow-up Hospital management: Disposition: 2-3 hospital nights Fluids: IVF, NS at 75 mL/hr Diet: regular Lines: peripheral DVT prophylaxis: heparin SC BID GI prophylaxis: not indicated CODE STATUS: full code Case discussed with Attending Dr. Yi and Dr. Faustin PGY3. Randall Mancilla PGY1 Attending Provider Attestation/Addendum I have discussed and was present for the essential components of the history, physical examination, diagnosis, and treatment plan with the resident. I agree with the patient's care as documented by the resident and amended herein by me. Fidel Yi, DO. Although this document has been carefully reviewed, there may still be some phonetic and other typographical errors. These errors are purely grammatical due to imperfections in the software program and should not be construed in any way to compromise the substance of the patient's medical care during this visit.
[2024-02-05] VITALS (8 sets, daily range): BP systolic 114–136; BP diastolic 54–87; PULSE 51–68; RESP 15–19; TEMP 36.4–36.9; O2SAT 95–99; BMI 19.0
[2024-02-05 05:49] LABS: Basophils % (Auto) 0 % (0-2.5); Eosinophils # (Auto) 0.2 Thou/mm3 (0.0-0.5); Eosinophils % (Auto) 1 % (0-10); Hematocrit 33.1 % (36.0-46.0); Hemoglobin 10.9 g/dL (12.0-16.0); Immature Granulocytes % (Auto) 0 % (0-0); Immature Granulocytes Auto 0.05 Thou/mm3 (0.00-0.00); Lymphocytes # (Auto) 0.3 Thou/mm3 (1.0-4.8); Lymphocytes % (Auto) 3 % (10-50); Mean Corpuscular HGB Conc 32.9 g/dl (31.0-37.0); Mean Corpuscular Hemoglobin 27.8 pg (25.0-35.0); Mean Corpuscular Volume 84 fL (80-100); Monocytes # (Auto) 1.3 Thou/mm3 (0.0-0.8); Monocytes % (Auto) 11 % (0-12); Neutrophils # (Auto) 10.3 Thou/mm3 (1.8-7.7); Neutrophils % (Auto) 85 % (37-80); Nucleated Red Blood Cell % 0 /100 WBC (0); Platelet Count 173 Thou/mm3 (140-440); RDW Standard Deviation 53.1 fL (36.4-46.3); Red Blood Count 3.92 Miln/mm3 (4.00-5.20); White Blood Count 12.1 Thou/mm3 (3.6-11.0)
[2024-02-05 06:50] LABS: Anion Gap 9 (7-16); BUN/Creatinine Ratio 21 Ratio (12-20); Blood Urea Nitrogen 31 mg/dL (9-23); Calcium 8.7 mg/dL (8.3-10.6); Carbon Dioxide 20.1 mMol/L (20.0-31.0); Chloride 105 mMol/L (98-107); Creatinine (Component) 1.5 mg/dL (0.6-1.3); Estimated Creatinine Clearance 22.5 mL/min (>60); Glucose 72 mg/dL (74-106); Osmolality,Calculated 273 (275-295); Potassium 4.3 mMol/L (3.4-5.1); Sodium 134 mMol/L (136-145); eGFR 35 See Note
[2024-02-05] MEDS: PANTOPRAZOLE INJ 40 MG VIAL IVP (10:25)
[2024-02-05] MEDS: AMIODARONE HCL 200 MG TABLET PO (10:26)
[2024-02-05] MEDS: HEPARIN SOD INJ 5000 UNIT/ML VIAL SC (10:26)
--- NOTE | 2024-02-05 12:06 | PD.RESPRO ---
Documentation for date of: 02/05/24 Subjective Subjective Interval history: Ms. Hill is a 79-year-old lady who is well-known to me from my clinic with past medical history significant for metastatic non-small cell lymphoma (under the care of Dr. Julito Meier), CKD stage III, dementia, atrial fibrillation-on Eliquis presented to the emergency department with altered mental status. No family around. Chart review done. Apparently she was found laying on her bathroom floor with confusion and slow to respond that son called the paramedics and she was brought to the emergency department. In the ER she was noted to have orthostatic hypotension confused. Being on Eliquis patient had extensive workup in the emergency department to rule out brain bleed. Patient supposed to have chemotherapy with Dr. Murguia next week. I had a phone appointment last week with the patient and she was able to converse with me. In the emergency department blood pressure 140/70, temp 101.2 WBC 13.2, hemoglobin 11.6, Platelets 2 sodium 133, potassium 4.2, BUN 24, creatinine 1.7 ( Baseline creatinine 1.2) lactic acid 1, phosphorus 4.3, LFTs normal, ammonia normal, BNP normal, TSH normal, Pro-Garret normal urinalysis shows 1+ protein/18 RBCs and 1+ blood. CT A/P: Enlarging soft tissue mass in right hemipelvis CTA chest: 2 subcentimeter nodules and right lung, 1 subcentimeter nodule in left lung CT head: Negative for hemorrhage, fracture in right frontal bone CT spine and face: Negative for fractures CXR: Mild vascular congestion I was called by the ER provider for KARMEN. Hospitalist team admitted and renal was consulted for KARMEN. Patient was started on IV fluids. This morning she seems to be more conversant. 02/04: Patient seen and examined on the floors. Patient resting comfortably in bed. Patient appears somewhat disoriented, conversant, alert. Urinary output not measured. Sodium 134, potassium 4.3, bicarb 20.1, BUN 31, creatinine 1.5, eGFR 35. Exam Vital Signs Temp Pulse Resp BP Pulse Ox O2 Del Method 98.1 F 60 18 124/72 97 Room Air 02/05/24 08:00 02/05/24 10:26 02/05/24 08:00 02/05/24 10:26 02/05/24 08:00 02/05/24 08:00 Narrative Exam PE: Gen: Well-developed and well-nourished. HEENT: NCAT, PERRLA, EOMI, MMM, anicteric conjunctivae. CVS: normal S1 and S2. RRR. No M/R/G. Resp: CTA B/L. No rhonchi, rales, crackles or wheezing. Abd: soft, non-tender, non-distended. MSK: Good ROM in BUE & BLE. No edema or rash. Neuro: Patient still disoriented, slow in response Objective Labs 02/05/24 05:05 02/05/24 05:05 Labs: Laboratory Results - last 24 hr 02/04/24 02/05/24 05:03 05:05 WBC 12.1 H D RBC 3.92 L Hgb 10.9 L Hct 33.1 L MCV 84 MCH 27.8 MCHC 32.9 RDW Std Deviation 53.1 H Plt Count 173 Neut % (Auto) 85 H Lymph % (Auto) 3 L [place] % (Auto) 11 Eos % (Auto) 1 Baso % (Auto) 0 Neut # (Auto) 10.3 H Lymph # (Auto) 0.3 L [place] # (Auto) 1.3 H Eos # (Auto) 0.2 Baso # (Auto) 0.0 Immature Gran # (Auto) 0.05 H Absolute Nucleated RBC 0.00 Immature Gran % 0 Nucleated RBC % 0 Sodium 134 L Potassium 4.3 Chloride 105 Carbon Dioxide 20.1 Anion Gap 9 BUN 31 H Creatinine 1.5 H Estim Creat Clear Calc 22.5 L eGFR 35 L BUN/Creatinine Ratio 21 H Glucose 72 L D Calculated Osmolality 273 L Calcium 8.7 Triglycerides 45 Cholesterol 173 LDL Cholesterol, Calc 96 HDL Cholesterol 68 H Cholesterol/HDL Ratio 2.5 L ABG Interpretation ABG results: 02/03/24 15:09 ABG pH 7.46 H ABG pCO2 37 ABG pO2 65 L ABG HCO3 26 ABG O2 Saturation 95 ABG Base Excess 2 Quality Measures Quality Measures VTE prophylaxis Advance care planning discussed with:: patient Assessment & Plan Assessment Current Active Medications: Generic Name Dose Route Start Last Admin Trade Name Freq PRN Reason Stop Dose Admin Amiodarone HCl 200 mg 02/04/24 09:00 02/05/24 10:26 Amiodarone Hcl 200 Mg Tablet PO 03/05/24 08:59 200 mg QDAY GENE Administration Apixaban 2.5 mg 02/05/24 10:45 Apixaban 2.5 Mg Tablet PO 03/06/24 10:44 BID GENE Cefepime HCl 1 gm/ Sodium 50 mls @ 100 mls/hr 02/04/24 14:00 02/04/24 13:19 Chloride IV 02/11/24 13:59 100 mls/hr QDAY@1400 GENE Administration Sodium Chloride 250 mls @ 75 mls/hr 02/05/24 10:41 Ns IV 02/05/24 14:00 .Q3H20M GENE Ondansetron HCl 4 mg 02/03/24 20:07 Ondansetron Inj 2 Mg/Ml Inj 2 Ml IV 03/04/24 20:06 Q6H PRN NAUSEA OR VOMITING Protocol Pantoprazole Sodium 40 mg 02/04/24 09:00 02/05/24 10:25 Pantoprazole Inj 40 Mg Vial IVP 03/05/24 08:59 40 mg QDAY GENE Administration Sennosides 1 tab 02/04/24 11:54 Senna Tablet PO 03/05/24 11:53 QDAY PRN CONSTIPATION Protocol Plan 79-year-old female with past medical history of lymphoma status post remission and recurrence with abdominal (and pulmonary?) metastasis, CKD, dementia, atrial fibrillation on Eliquis who is admitted for acute encephalopathy and acute kidney injury in setting of CKD. #Acute on chronic kidney injury #Acute kidney injury #CKD, stage IIIb Acute on chronic renal failure secondary to prerenal azotemia. Baseline creatinine 1.2. Continue with gentle IV fluids. CT showed no hydronephrosis. Plan: -Avoid nephrotoxic agents -Renally dose medications -Monitor daily labs #Acute on chronic encephalopathy-much better #SIRS 2/4 # Dementia # Status post ground-level fall # History of orthostatic hypotension #Atrial fibrillation #Lymphoma by history Management as per primary team. Thank you for chest pain the care of this patient. Plan of care discussed with attending Dr. Gomez. William Espinoza MD PGY-1 Attending Provider Attestation/Addendum Patient seen and examined with resident physician Dr. Espinoza. Note reviewed, agree with findings and recommendations. Patient today seems to be more alert and awake although still disoriented. Creatinine improved with IV fluids. Renal mohamud stable for discharge. She has an outpatient oncologist in [place].
[2024-02-05] MEDS: APIXABAN 2.5 MG TABLET PO ×2 (12:19→21:33)
[2024-02-05] MEDS: SODIUM CHLORIDE 0.9% 250 ML 250 ML 75 ML IV ×2 (12:19→17:29)
--- NOTE | 2024-02-05 13:14 | ESPR_ITS ---
<Statement entered by Ozzie Faustin DO - 02/05/24 15:15> Senior attestation: Patient was examined and case was reviewed with team including attending physician. Note reviewed, I agree with most of its contents and agree with the patient's care. Blood cultures negative on 24 hour preliminary reads, will continue Cefepime for now until blood cultures are negative at 48 hours. Will resume home eliquis dose today. Will give gentle fluids today 500 cc total at 75 cc/hr. PT advised SNF, however patient's son advises that patient would prefer home with home health. Ozzie Faustin DO PGY-3 Documentation for date of: 02/05/24 Subjective Subjective Interval history: Patient seen at bedside Patient is alert oriented x 3, reports she is anxious to go home Per chart review patient's blood culture from previous visit were positive for bacteremia Will follow blood cultures today, if negative will discontinue cefepime Physical therapy recommended discharge to intermediate facility, patient's son at bedside requests discharge to home with home health. Resumed home dose Eliquis. Scheduled senna as needed for constipation Will continue to monitor patient Exam Vital Signs Temp Pulse Resp BP Pulse Ox O2 Del Method 97.8 F 55 L 19 122/56 L 99 Room Air 02/05/24 12:00 02/05/24 12:00 02/05/24 12:00 02/05/24 12:00 02/05/24 12:00 02/05/24 12:00 Narrative Exam General: Alert and oriented x 3, no acute distress, able to speak full sentences, slow to respond HEENT: NC/AT, mucous membranes moist, bilateral sclera anicteric Cardiovascular: Regular rate and rhythm, S1/S2 present Pulmonary: clear to auscultation bilaterally, no rales/rhonchi/wheezes Abdominal: mild generalized tenderness to palpation, soft, non-distended, no rebound/guarding Musculoskeletal: normal ROM, no peripheral edema Skin: warm and dry, intact, no rashes Objective Labs 02/06/24 05:14 02/06/24 05:14 Labs: Laboratory Results - last 24 hr 02/04/24 02/05/24 05:03 05:05 WBC 12.1 H D RBC 3.92 L Hgb 10.9 L Hct 33.1 L MCV 84 MCH 27.8 MCHC 32.9 RDW Std Deviation 53.1 H Plt Count 173 Neut % (Auto) 85 H Lymph % (Auto) 3 L [place] % (Auto) 11 Eos % (Auto) 1 Baso % (Auto) 0 Neut # (Auto) 10.3 H Lymph # (Auto) 0.3 L [place] # (Auto) 1.3 H Eos # (Auto) 0.2 Baso # (Auto) 0.0 Immature Gran # (Auto) 0.05 H Absolute Nucleated RBC 0.00 Immature Gran % 0 Nucleated RBC % 0 Sodium 134 L Potassium 4.3 Chloride 105 Carbon Dioxide 20.1 Anion Gap 9 BUN 31 H Creatinine 1.5 H Estim Creat Clear Calc 22.5 L eGFR 35 L BUN/Creatinine Ratio 21 H Glucose 72 L D Calculated Osmolality 273 L Calcium 8.7 Triglycerides 45 Cholesterol 173 LDL Cholesterol, Calc 96 HDL Cholesterol 68 H Cholesterol/HDL Ratio 2.5 L ABG Interpretation ABG results: 02/03/24 15:09 ABG pH 7.46 H ABG pCO2 37 ABG pO2 65 L ABG HCO3 26 ABG O2 Saturation 95 ABG Base Excess 2 Quality Measures Quality Measures VTE prophylaxis Advance care planning discussed with:: patient and child Assessment & Plan Assessment Current Active Medications: Generic Name Dose Route Start Last Admin Trade Name Freq PRN Reason Stop Dose Admin Amiodarone HCl 200 mg 02/04/24 09:00 02/05/24 10:26 Amiodarone Hcl 200 Mg Tablet PO 03/05/24 08:59 200 mg QDAY GENE Administration Apixaban 2.5 mg 02/05/24 10:45 02/05/24 12:19 Apixaban 2.5 Mg Tablet PO 03/06/24 10:44 2.5 mg BID GENE Administration Cefepime HCl 1 gm/ Sodium 50 mls @ 100 mls/hr 02/04/24 14:00 02/04/24 13:19 Chloride IV 02/11/24 13:59 100 mls/hr QDAY@1400 GENE Administration Sodium Chloride 250 mls @ 75 mls/hr 02/05/24 10:41 02/05/24 12:19 Ns IV 02/05/24 14:00 75 mls/hr .Q3H20M GENE Administration Ondansetron HCl 4 mg 02/03/24 20:07 Ondansetron Inj 2 Mg/Ml Inj 2 Ml IV 03/04/24 20:06 Q6H PRN NAUSEA OR VOMITING Protocol Pantoprazole Sodium 40 mg 02/06/24 09:00 Pantoprazole 40 Mg Tablet PO 03/05/24 08:59 QDAY GENE Sennosides 1 tab 02/04/24 11:54 Senna Tablet PO 03/05/24 11:53 QDAY PRN CONSTIPATION Protocol Plan Assessment and plan: Summary: Ms. 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 #Acute on chronic encephalopathy #SIRS 2/4 # Dementia Presents after being found on bathroom floor for unknown period of time. Patient was not able to recall events leading up to hospitalization on admission. On admission SIRS 2/4: T 101.2 ?F, WBC 13.2. No source. CK, procal, and lactate wnl. She has waxing and waning mentation throughout the day per son, son is a reliable historian, patient lives with son at home. UA was negative for leukocyte esterase, nitrites, patient denies dysuria. Patient alert and oriented x 3, recalls events leading to hospitalization, per family at bedside patient is back to baseline. Plan: ?Continue cefepime 1 g IV twice daily ?Patient will be given a 250 cc bolus of NS today ?Follow-up urine and blood cultures ?Referred to physical therapy -Monitor vitals closely -Follow CBC CMP in a.m. -Physical therapy recommends intermediate facility for discharge, patient wants to go home with home health. # Status post ground-level fall # History of orthostatic hypotension Per son patient has history of orthostatic hypotension. Patient presented status post ground-level fall, denies hitting head. Patient is on Eliquis at home for A-fib. Face CT, head CT, lumbar spine CT and thoracic spine CT negative Orthostatic vitals negative Plan: -Fall precautions -Referral to physical therapy #Acute on chronic kidney injury #Acute kidney injury #CKD, stage IIIb Patient's kidney injury likely prerenal as kidney function is improving with IV fluids Plan: ?Nephrology consulted, appreciate recommendations ?Will continue IVF as above -Avoid nephrotoxic agents -Renally dose medications #Atrial fibrillation [id number] score 3 Patient's home medication include amiodarone and Eliquis 2.5 mg Plan: ? Amiodarone 200 mg PO daily ? Resumed Eliquis 2.5 mg twice daily -Continue telemonitoring #Lymphoma by history Patient has history of lymphoma with abdominal and pulmonary metastasis CT abdomen pelvis shows Enlarging of soft tissue tumor mass in the right hemipelvis Patient follows up with oncologist in [place] Suspicion of pulmonary metastasis as CTA chest positive for pulmonary nodules Plan: -Continue outpatient follow-up Hospital management: Disposition: 2-3 hospital nights Fluids: IVF, NS at 75 mL/hr Diet: regular Lines: peripheral DVT prophylaxis: Eliquis GI prophylaxis: not indicated CODE STATUS: full code Case discussed with Attending Dr. Oswald and Dr. Faustin PGY3. Randall Mancilla PGY1 Attending Provider Attestation/Addendum Face to face evaluation was performed by me. I have personally seen and examined the patient. I discussed the assessment and plan with the entire medicine team. I reviewed available medical records, imaging studies, laboratory results. I agree with the above subjective data, objective findings, assessment and plan except as corrected by me or noted below Acute kidney injury, likely prerenal due to dehydration low oral intake on chronic kidney disease stage IIIa?B Generalized weakness History of atrial fibrillation on amiodarone as well as low-dose Eliquis 2.5 mg twice daily Ground-level fall -Gentle IV hydration, avoid nephrotoxic agents, therapy Continue home amiodarone as well as Eliquis DVT prophylaxis covered with Eliquis
[2024-02-05] MEDS: CEFEPIME INJ 1 GM in SODIUM CHLORIDE 0.9% (P) 50 ML IV (14:23)
[2024-02-06] VITALS: BP 141/66; PULSE 57; RESP 17; TEMP 36.6; O2SAT 97
[2024-02-06 04:00] VITALS: BP 136/71; PULSE 53; PULSE 56; RESP 17; TEMP 36.6; O2SAT 99
[2024-02-06 05:53] LABS: Basophils % (Auto) 1 % (0-2.5); Eosinophils # (Auto) 0.3 Thou/mm3 (0.0-0.5); Eosinophils % (Auto) 3 % (0-10); Hematocrit 36.2 % (36.0-46.0); Hemoglobin 11.8 g/dL (12.0-16.0); Immature Granulocytes % (Auto) 0 % (0-0); Immature Granulocytes Auto 0.03 Thou/mm3 (0.00-0.00); Lymphocytes # (Auto) 0.4 Thou/mm3 (1.0-4.8); Lymphocytes % (Auto) 4 % (10-50); Mean Corpuscular HGB Conc 32.6 g/dl (31.0-37.0); Mean Corpuscular Volume 83 fL (80-100); Monocytes # (Auto) 1.2 Thou/mm3 (0.0-0.8); Monocytes % (Auto) 14 % (0-12); Neutrophils # (Auto) 6.8 Thou/mm3 (1.8-7.7); Neutrophils % (Auto) 78 % (37-80); Nucleated Red Blood Cell % 0 /100 WBC (0); Platelet Count 240 Thou/mm3 (140-440); RDW Standard Deviation 51.1 fL (36.4-46.3); Red Blood Count 4.37 Miln/mm3 (4.00-5.20); White Blood Count 8.8 Thou/mm3 (3.6-11.0)
[2024-02-06 06:00] VITALS: BMI 19.0
[2024-02-06 06:17] LABS: Anion Gap 6 (7-16); BUN/Creatinine Ratio 18 Ratio (12-20); Blood Urea Nitrogen 25 mg/dL (9-23); Calcium 9.2 mg/dL (8.3-10.6); Carbon Dioxide 26.1 mMol/L (20.0-31.0); Chloride 104 mMol/L (98-107); Creatinine (Component) 1.4 mg/dL (0.6-1.3); Estimated Creatinine Clearance 24.1 mL/min (>60); Glucose 82 mg/dL (74-106); Osmolality,Calculated 275 (275-295); Potassium 4.4 mMol/L (3.4-5.1); Sodium 136 mMol/L (136-145); eGFR 38 See Note
[2024-02-06 08:00] VITALS: BP 112/55; PULSE 52; RESP 17; TEMP 37.1; O2SAT 97
[2024-02-06 08:20] VITALS: PULSE 53
[2024-02-06 08:45] VITALS: BP 112/55; PULSE 52
[2024-02-06] MEDS: AMIODARONE HCL 200 MG TABLET PO (08:45)
[2024-02-06] MEDS: PANTOPRAZOLE 40 MG TABLET PO (08:45)
[2024-02-06] MEDS: APIXABAN 2.5 MG TABLET PO (08:46)
--- NOTE | 2024-02-06 10:28 | PC.CM ---
Addendum entered by Sadie Terry RN 02/07/24 10:36: Home health orders sent to [facility]. Original Note: HH orders sent to [facility] through [employer], awaiting response.
--- NOTE | 2024-02-06 13:04 | ESDS_ITS ---
<Statement entered by Ozzie Faustin DO - 02/06/24 15:36> Senior attestation: Patient was examined and case was reviewed with team including attending physician. Note reviewed, I agree with most of its contents and agree with the patient's care. Ozzie Faustin DO PGY-3 Planned Discharge Date 02/06/24 DS: Providers Provider Date of admission: 02/03/24 20:07 Primary care physician: Sandip Gomez MD Admitting Provider: Sg Shaw MD Attending Provider on Admission: Lukasz Yi DO Consults: 02/03/24 20:12 Referral Physical Therapy Routine Comment: Physician Instructions: 02/05/24 11:01 Referral Occupational Therapy Stat Comment: OT!!!! Attending Provider on DC: Didier Oswald MD Discharging Provider: Didier Oswald MD Anticipated date of discharge: 02/06/24 DS: Diagnosis Problem List Completed Was Problem List Reviewed/Reconciled?: Yes Hospital Course Hospital Course Hospital course: Hospital Course: Ms. Kinney is a 79-year-old female medical history of lymphoma status post remission and recurrence with abdominal metastasis, CKD, dementia, atrial fibrillation on Eliquis who was admitted to [facility] for acute on chronic encephalopathy. Patient underlying dementia but per patient's family patient's mental status status worsened, patient was SIRS positive on admission, labs significant for acute kidney injury. Patient was given IV fluids, nephrology was consulted, patient was given IV antibiotics due to concern of underlying infection, patient's blood culture were negative, urine culture negative and no source infection was identified hence antibiotics were discontinued. Physical therapy evaluation was done who recommended care home facility placement, patient's son declined SNF and home health and wanted patient to be discharged home. Further plan is to discharge patient home and follow-up with primary care physician in 1 week with [facility]. Recommend outpatient Holter monitoring due to events of bradycardia and follow-up with wearing apparel presser outpatient to optimize medications for atrial fibrillation. Patient is stable for discharge. Patient to follow-up with oncology outpatient. Discharge Diagnoses: #Acute on chronic encephalopathy #Acute on chronic kidney injury #Acute kidney injury #CKD, stage IIIb # SIRS 2/4 # Dementia # Status post ground-level fall # History of orthostatic hypotension #Atrial fibrillation #Lymphoma by history Case discussed with Attending Dr. Oswald and Dr. Faustin PGY3. Randall Mancilla PGY1 Status at Discharge Functional status at discharge: uses cane/walker Overall status at discharge: patient is progressing back to baseline Time Spent with Patient Time attestation: Total time spent providing and/or coordinating discharge services: Greater than 30 mins. Time spent: Greater than 30 minutes Exam Vital Signs Temp Pulse Resp BP Pulse Ox O2 Del Method 98.8 F 52 L 17 112/55 L 97 Room Air 02/06/24 08:00 02/06/24 08:45 02/06/24 08:00 02/06/24 08:45 02/06/24 08:00 02/06/24 08:00 Narrative Exam General: Alert and oriented x 2, no acute distress, able to speak full sentences, slow to respond HEENT: NC/AT, mucous membranes moist, bilateral sclera anicteric Cardiovascular: Regular rate and rhythm, S1/S2 present Pulmonary: clear to auscultation bilaterally, no rales/rhonchi/wheezes Abdominal: mild generalized tenderness to palpation, soft, non-distended, no rebound/guarding Musculoskeletal: normal ROM, no peripheral edema Skin: warm and dry, intact, no rashes Discharge Plan Plan Patient Disposition: HOME (Self Care) Patient condition on transfer: Stable Care Plan Goals: Follow up with PCP in 1 week with repeat CMP. Continue Home Medications. Encourage Oral Fluid Intake. Recommend follow up with cardiology outpatient for Holter Monitoring. Consider changeing Amiodarone due to episodes of bradycardia after discussion with Petroleum Production Engineer. Prescriptions/Referrals Prescriptions/Med Rec: Continued amiodarone 200 mg Tablet 200 mg PO DAILY Eliquis 2.5 mg Tablet 2.5 mg PO BID Referrals: Sandip Gomez MD [Primary Care Provider] - Patient/Caregiver Discharge Instructions Discharge Activity: as per physical therapy Other Discharge Activity Instructions:: Follow up with PCP in 1 week with repeat CMP. Continue Home Medications. Encourage Oral Fluid Intake. Recommend follow up with cardiology outpatient for Holter Monitoring. Consider changeing Amiodarone due to episodes of bradycardia after discussion with Petroleum Production Engineer. Education Materials: The Science of Slips, Trips, and Falls, Preventing Falls in the Home, Fall Prevention Assessing Risk Print Language: Cameroonian Stand Alone Forms: [facility] Award Info., Patient Portal Info Letter Discharge Order Discharge Orders: Discharge (Routine); Ordered 02/06/24 Ordered By: Didier (HOSPITALIST) Margret Quality Discharge Quality Measures VTE prophylaxis
--- NOTE | 2024-02-06 13:11 | ESPR_ITS ---
Documentation for date of: 02/06/24 Subjective Subjective Interval history: Ms. Hill is a 79-year-old lady who is well-known to me from my clinic with past medical history significant for metastatic non-small cell lymphoma (under the care of Dr. Julito Meier), CKD stage III, dementia, atrial fibrillation-on Eliquis presented to the emergency department with altered mental status. No family around. Chart review done. Apparently she was found laying on her bathroom floor with confusion and slow to respond that son called the paramedics and she was brought to the emergency department. In the ER she was noted to have orthostatic hypotension confused. Being on Eliquis patient had extensive workup in the emergency department to rule out brain bleed. Patient supposed to have chemotherapy with Dr. Murguia next week. I had a phone appointment last week with the patient and she was able to converse with me. In the emergency department blood pressure 140/70, temp 101.2 WBC 13.2, hemoglobin 11.6, Platelets 2 sodium 133, potassium 4.2, BUN 24, creatinine 1.7 ( Baseline creatinine 1.2) lactic acid 1, phosphorus 4.3, LFTs normal, ammonia normal, BNP normal, TSH normal, Pro-Garret normal urinalysis shows 1+ protein/18 RBCs and 1+ blood. CT A/P: Enlarging soft tissue mass in right hemipelvis CTA chest: 2 subcentimeter nodules and right lung, 1 subcentimeter nodule in left lung CT head: Negative for hemorrhage, fracture in right frontal bone CT spine and face: Negative for fractures CXR: Mild vascular congestion I was called by the ER provider for KARMEN. Hospitalist team admitted and renal was consulted for KARMEN. Patient was started on IV fluids. This morning she seems to be more conversant. 02/04: Patient seen and examined on the floors. Patient resting comfortably in bed. Patient appears somewhat disoriented, conversant, alert. Urinary output not measured. Sodium 134, potassium 4.3, bicarb 20.1, BUN 31, creatinine 1.5, eGFR 35. 02/05: Patient seems on the floors. Patient was comfortable in bed. Patient alert, oriented, conversant. Notes poor memory, attributes to poor sleep. Kidney function continues to improve: BUN 25, creatinine 1.4, eGFR 38. Patient cleared for discharge from nephrology perspective. Exam Vital Signs Temp Pulse Resp BP Pulse Ox O2 Del Method 98.8 F 52 L 17 112/55 L 97 Room Air 02/06/24 08:00 02/06/24 08:45 02/06/24 08:00 02/06/24 08:45 02/06/24 08:00 02/06/24 08:00 Narrative Exam PE: Gen: Well-developed and well-nourished. HEENT: NCAT, PERRLA, EOMI, MMM, anicteric conjunctivae. CVS: normal S1 and S2. RRR. No M/R/G. Resp: CTA B/L. No rhonchi, rales, crackles or wheezing. Abd: soft, non-tender, non-distended. MSK: Good ROM in BUE & BLE. No edema or rash. Neuro: Patient oriented, poor memory. Objective Labs 02/06/24 05:14 02/06/24 05:14 Labs: Laboratory Results - last 24 hr 02/06/24 05:14 WBC 8.8 RBC 4.37 Hgb 11.8 L Hct 36.2 MCV 83 MCH 27.0 MCHC 32.6 RDW Std Deviation 51.1 H Plt Count 240 D Neut % (Auto) 78 Lymph % (Auto) 4 L Beckham % (Auto) 14 H Eos % (Auto) 3 Baso % (Auto) 1 Neut # (Auto) 6.8 Lymph # (Auto) 0.4 L Beckham # (Auto) 1.2 H Eos # (Auto) 0.3 Baso # (Auto) 0.0 Immature Gran # (Auto) 0.03 H Absolute Nucleated RBC 0.00 Immature Gran % 0 Nucleated RBC % 0 Sodium 136 Potassium 4.4 Chloride 104 Carbon Dioxide 26.1 Anion Gap 6 L BUN 25 H Creatinine 1.4 H Estim Creat Clear Calc 24.1 L eGFR 38 L BUN/Creatinine Ratio 18 Glucose 82 Calculated Osmolality 275 Calcium 9.2 ABG Interpretation ABG results: 02/03/24 15:09 ABG pH 7.46 H ABG pCO2 37 ABG pO2 65 L ABG HCO3 26 ABG O2 Saturation 95 ABG Base Excess 2 Quality Measures Quality Measures VTE prophylaxis Advance care planning discussed with:: patient and child Assessment & Plan Assessment Current Active Medications: Generic Name Dose Route Start Last Admin Trade Name Freq PRN Reason Stop Dose Admin Amiodarone HCl 200 mg 02/04/24 09:00 02/05/24 10:26 Amiodarone Hcl 200 Mg Tablet PO 03/05/24 08:59 200 mg QDAY GENE Administration Apixaban 2.5 mg 02/05/24 10:45 Apixaban 2.5 Mg Tablet PO 03/06/24 10:44 BID GENE Cefepime HCl 1 gm/ Sodium 50 mls @ 100 mls/hr 02/04/24 14:00 02/04/24 13:19 Chloride IV 02/11/24 13:59 100 mls/hr QDAY@1400 GENE Administration Sodium Chloride 250 mls @ 75 mls/hr 02/05/24 10:41 Ns IV 02/05/24 14:00 .Q3H20M GENE Ondansetron HCl 4 mg 02/03/24 20:07 Ondansetron Inj 2 Mg/Ml Inj 2 Ml IV 03/04/24 20:06 Q6H PRN NAUSEA OR VOMITING Protocol Pantoprazole Sodium 40 mg 02/04/24 09:00 02/05/24 10:25 Pantoprazole Inj 40 Mg Vial IVP 03/05/24 08:59 40 mg QDAY GENE Administration Sennosides 1 tab 02/04/24 11:54 Senna Tablet PO 03/05/24 11:53 QDAY PRN CONSTIPATION Protocol Plan 79-year-old female with past medical history of lymphoma status post remission and recurrence with abdominal (and pulmonary?) metastasis, CKD, dementia, atrial fibrillation on Eliquis who is admitted for acute encephalopathy and acute kidney injury in setting of CKD. #Acute on chronic kidney injury #Acute kidney injury #CKD, stage IIIb Acute on chronic renal failure secondary to prerenal azotemia. Baseline creatinine 1.2. Continue with gentle IV fluids. CT showed no hydronephrosis. Kidney function improving. Plan: -Avoid nephrotoxic agents -Renally dose medications -Monitor daily labs -Cleared for discharge from nephrology perspective. #Acute on chronic encephalopathy-much better #SIRS 2/4 # Dementia # Status post ground-level fall # History of orthostatic hypotension #Atrial fibrillation #Lymphoma by history Management as per primary team. Thank you for allowing me to participate in the care of this patient. Plan of care discussed with attending Dr. Gomez. William Espinoza MD PGY-1 Attending Provider Attestation/Addendum Patient seen and examined with resident physician Dr. Espinoza. Note reviewed, agree with findings and recommendations. Renal mohamud stable for discharge. Follow-up with Dr. Murguia on Wednesday. Plan of care discussed with son at bedside
--- NOTE | 2024-02-06 13:12 | PD.ADDDSCHGE ---
Addendum Discharge Addendum Date of report being addended: 02/06/24 Narrative: Face to face evaluation was performed by me. I have personally seen and examined the patient. I discussed the assessment and plan with the entire medicine team. I reviewed available medical records, imaging studies, laboratory results. I agree with the above subjective data, objective findings, assessment and plan except as corrected by me or noted below Acute kidney injury, likely prerenal etiology cannot rule out ATN, on CKD stage IIIa?B History of atrial fibrillation on Ketan Murali and amiodarone Acute encephalopathy, due to above, likely metabolic History of weakness. Family would like to take her home, they do not even want home health. Patient to follow-up with PCP after discharge. Patient having bradycardia intermittently looks like sinus still, monitor heart rate recommend referral to cardiology for Holter monitor in case amiodarone needs to be stopped or decreased.
== END 2024-02-06 10:45 | disposition home health service (06) | DRG 71 ==
LOC: SERX 18:51 → SERHOLD 20:42 → S3SX 23:01
PROVIDERS: Emergency Medicine; Admitting Provider Student in an Organized Health Care Education/Training Program; Emergency Provider Emergency Medicine; PCP Internal Medicine; Visit Provider Student in an Organized Health Care Education/Training Program
DX: G93.40 Encephalopathy, unspecified (principal); C79.89 Secondary malignant neoplasm of other specified sites; C85.90 Non-Hodgkin lymphoma, unspecified, unspecified site; R65.10 Systemic inflammatory response syndrome (SIRS) of non-infectious origin without acute organ dysfunction; N17.9 Acute kidney failure, unspecified; Z79.01 Long term (current) use of anticoagulants; I48.91 Unspecified atrial fibrillation; N18.32 Chronic kidney disease, stage 3b; F03.90 Unspecified dementia, unspecified severity, without behavioral disturbance, psychotic disturbance, mood disturbance, and anxiety; R91.1 Solitary pulmonary nodule; E86.0 Dehydration; I95.1 Orthostatic hypotension
CPT/HCPCS: 36415; 36600; 70450; 70486; 71045; 71275; 72125; 72128; 72131; 74177; 80048; 80053; 80061; 80320; 81001; 82140; 82550; 82803; 83605; 83735; 83880; 84100; 84145; 84443; 84484; 85025; 85379; 85610; 85652; 85730; 86140; 87040; 87400; 87634; 87811; 93005; 93225; 94640; 96365; 96375; 97162; 99285; A4649; A9270; J0692; J1643; J2470; J2919; J7030; J7050; Q9967; G0480; J1644

== ENCOUNTER 2024-02-06 16:00 | Inpatient (IN) | payer OTHER, MEDICARE, SELFPAY ==
[2024-02-06] VITALS (10 sets, daily range): BP systolic 129–149; BP diastolic 52–63; PULSE 58–90; RESP 14–20; TEMP 36.8–37.4; O2SAT 95–99; BMI 20.9
--- NOTE | 2024-02-06 16:34 | XR_ITS ---
Examination: CT brain head without contrast. 2-D sagittal coronal reconstructions Date and time of exam:February 09, 2024 1738 hrs. Comparison: February 03, 2024 Indications: Onset altered mental status today CTDI: vol (mGy):45.2 DLP: (mGycm):939 Technique: Multiple CT axial sections of the brain have been obtained, 5 mm slice thickness. Contrast has not been administered. 2-D sagittal, coronal reconstructions have been obtained Low dose protocols were performed. One or more of the following dose reduction techniques were used; automated exposure control, adjustment of the mA and/or KV according to patient size, use of iterative reconstruction technique. Findings: No significant ventricular enlargement. 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 No mass effect or midline shift Basal cisterns are not remarkable. Fourth ventricle is midline. The large right frontal bone defect is again noted,, consider osteolytic lesion destroying the right frontal bone, axial image 23, measuring 26 mm. 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
--- NOTE | 2024-02-06 16:34 | EKG_ITS ---
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
[2024-02-06 16:43] LABS: Basophils % (Auto) 0 % (0-2.5); Eosinophils # (Auto) 0.2 Thou/mm3 (0.0-0.5); Eosinophils % (Auto) 2 % (0-10); Hematocrit 39.5 % (36.0-46.0); Hemoglobin 12.8 g/dL (12.0-16.0); Immature Granulocytes % (Auto) 0 % (0-0); Immature Granulocytes Auto 0.04 Thou/mm3 (0.00-0.00); Lymphocytes # (Auto) 0.5 Thou/mm3 (1.0-4.8); Lymphocytes % (Auto) 4 % (10-50); Mean Corpuscular HGB Conc 32.4 g/dl (31.0-37.0); Mean Corpuscular Hemoglobin 27.1 pg (25.0-35.0); Mean Corpuscular Volume 84 fL (80-100); Monocytes # (Auto) 1.2 Thou/mm3 (0.0-0.8); Monocytes % (Auto) 12 % (0-12); Neutrophils # (Auto) 8.3 Thou/mm3 (1.8-7.7); Neutrophils % (Auto) 81 % (37-80); Nucleated Red Blood Cell % 0 /100 WBC (0); Platelet Count 261 Thou/mm3 (140-440); RDW Standard Deviation 52.2 fL (36.4-46.3); Red Blood Count 4.72 Miln/mm3 (4.00-5.20); White Blood Count 10.3 Thou/mm3 (3.6-11.0)
--- NOTE | 2024-02-06 16:50 | EDNOTE_ITS ---
Altered Mental Status RME/HPI General Chief Complaint: Altered Mental Status Stated Complaint: POSSIBLE STROKE Time Seen by Provider: 02/06/24 16:07 Arrival date/time: 02/06/24 16:00 RME / HPI RME / HPI narrative: Patient was just discharged from the hospital for metabolic encephalitis and delirium. Went to sleep around 11 AM and woke up confused, not speaking and not obeying commands. She has a history of prior episodes similar to this without any physical findings in the past. 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 On arrival patient does have left-sided facial droop but is moving arms and legs and when asked questions, simply answers that is a very good question . Related Data Home Medications ?Medication ?Instructions ?Recorded ?Confirmed amiodarone 200 mg tablet 200 mg PO DAILY 02/03/24 02/06/24 apixaban 2.5 mg tablet (Eliquis) 2.5 mg PO BID 02/03/24 02/06/24 Allergies Allergy/AdvReac Type Severity Reaction Status Date / Time Penicillins Allergy Severe Rash Verified 02/03/24 15:28 Review of Systems Review of Systems ROS Unobtainable: unobtainable due to mental status Narrative Review of Systems: Patient denies any headache or chest pain. Beyond that, her answer is that is a very good question . ED Exam General General appearance: Present alert and in no apparent distress Head Head exam: Present atraumatic Eye Eye exam: Present PERRL and EOMI ENT ENT exam: Present normal oropharynx Neck Neck exam: Present normal inspection Chest Chest inspection: Present normal inspection Respiratory Respiratory exam: Present normal lung sounds bilaterally Cardiovascular Cardiovascular exam: Present regular rate and normal rhythm Abdominal Exam Abdominal exam: Present soft and normal bowel sounds Extremities Exam Extremities exam: Present normal inspection Back Exam Back exam: Present normal inspection Neurological Exam Neurological exam: Present alert and other (See HPI. Unable to have the patient walk for neurological examination. Only the mandibular part of her treatment is drooping.) Psychiatric Psychiatric exam: Present flat affect Skin Skin exam: Present warm and dry Course Quality Measures none Orders Category Date Time Status Bedside COVID-19 Antigen Test NOW Care 02/07/24 00:17 Active Bedside Influenza A&B Antigen Test NOW Care 02/07/24 00:17 Completed COVID-19 Screening Questionnaire NOW Care 02/07/24 01:30 Active Decision to Admit X1 Care 02/07/24 01:30 Completed EKG (ED ONLY) *Do not use* NOW Care 02/06/24 16:35 Completed Saline [Insert IV] NOW Care 02/07/24 00:17 Active Referral Physical Therapy Stat Cons 02/06/24 19:45 Completed Ensure Max Protein Diet 02/06/[address] angio stroke protocol Stat Exams 02/07/24 02:[address] head/brain wo con Stat Exams 02/06/24 16:[address] stroke protocol Stat Exams 02/07/24 02:48 Completed EKG (ED Only) Stat Exams 02/06/24 16:34 Draft XR chest 1V portable Stat Exams 02/07/24 00:18 Completed ABG [Arterial Blood Gas] Stat Lab 02/07/24 01:46 Completed BNP [B-Type Natriuretic Peptide] Stat Lab 02/07/24 00:30 Completed Blood Culture (Lab) Stat Lab 02/07/24 00:42 Results CBC Stat Lab 02/06/24 16:00 Completed CMP [Comprehensive Metabolic Panel] Stat Lab 02/06/24 16:00 Completed CRP [C-Reactive Protein] Stat Lab 02/07/24 00:30 Completed ESR [Sed Rate (ESR)] Stat Lab 02/07/24 00:30 Completed Lactate (Lactic Acid) Stat Lab 02/07/24 00:30 Completed Magnesium Stat Lab 02/07/24 00:30 Completed [place] Screen Stat Lab 02/07/24 00:30 Received Procalcitonin Stat Lab 02/07/24 00:30 Completed RSV [Respiratory Syncytial Virus Ag] Stat Lab 02/07/24 00:48 Completed Strep A Rapid Stat Lab 02/07/24 00:48 Completed TSH [Thyroid Stimulating Hormone] Stat Lab 02/07/24 00:30 Completed Troponin I Stat Lab 02/06/24 16:00 Completed Troponin I Stat Lab 02/07/24 00:30 Completed UA [Urinalysis] Stat Lab 02/06/24 17:04 Completed Urine Culture Stat Lab 02/06/24 17:04 Completed Acetaminophen Supp [Tylenol Supp] Med 02/07/24 00:18 Discontinued 650 mg DC X1 ONE Ketorolac Inj [Toradol Inj] Med 02/07/24 00:18 Discontinued 7.5 mg IVP X1 ONE Sodium Chloride 0.9% 1000 ml [Ns] 1,000 ml Med 02/07/24 00:16 Discontinued IV 999 mls/hr Sodium Chloride 0.9% 1000 ml [Ns] 1,000 ml Med 02/07/24 00:53 Discontinued IV 999 mls/hr Vancomycin Inj 1,000 mg Med 02/07/24 00:40 Discontinued Sodium Chloride 0.9% 250 ml [Ns] 250 ml IV X1 cefTRIAXone/D5w 1gm IV premix [Rocephin/D5w 1gm IV Med 02/07/24 00:16 Discontinued premix] 50 ml IV X1 Reevaluation(s) Reevaluation #1: 1801 Patient is now alert and oriented and normally conversive. Vital Signs Vital signs: Vital Signs Temperature 98.3 F 02/06/24 16:06 Pulse Rate 60 02/06/24 16:06 Respiratory Rate 19 02/06/24 16:06 Blood Pressure 140/52 H 02/06/24 16:06 Pulse Oximetry (%) 98 02/06/24 16:06 Oxygen Delivery Method Room Air 02/06/24 16:06 Altered Mental Status Patient data External records reviewed:: [facility] previous records Clinical information provided by:: patient and EMS Social determinants that could affect healthcare access:: none Patient has the following chronic illnesses:: Dementia and delirium How is presenting disease/condition affected by chronic disease/condition?: caused by Evaluation data The following diagnostics were reviewed and interpreted by me:: lab results Lab and/or radiology exams considered but not ordered:: NA Interpretation Summary: NA Medications / Prescriptions Medications or Prescriptions considered but not ordered:: NA Medication administrations:: Medication Administration History Acetaminophen (Acetaminophen Supp 650 Mg Supp) 650 mg DC Q6HR PRN PRN Reason: [id number] Stop: 03/08/24 03:31 Amiodarone HCl (Amiodarone Hcl 200 Mg Tablet) 200 mg PO QDAY GENE Stop: 03/09/24 08:59 Last Admin: 02/09/24 09:01 Dose: Not Given Documented By: SS Non-Admin Reason: NPO Admin: 02/08/24 09:42 Dose: Not Given Documented By: MGD Non-Admin Reason: Patient Refused Apixaban (Apixaban 2.5 Mg Tablet) 2.5 mg PO BID GENE Stop: 03/10/24 20:59 Last Admin: 02/09/24 21:10 Dose: Not Given Documented By: WB Non-Admin Reason: Unable to Swallow Comments: Dr. Cam aware. Ok to hold Atorvastatin Calcium (Atorvastatin Calcium 20 Mg Tablet) 40 mg PO HS GENE Stop: 03/08/24 20:59 Last Admin: 02/09/24 21:10 Dose: Not Given Documented By: WB Non-Admin Reason: Unable to Swallow Comments: Dr. Cam aware. Ok to hold Admin: 02/08/24 20:55 Dose: Not Given Documented By: NL Non-Admin Reason: Patient Refused Admin: 02/07/24 21:15 Dose: Not Given Documented By: NL Non-Admin Reason: Patient Refused Dexamethasone Sodium Phosphate (Dexamethasone Sod Phos Inj 10 Mg/Ml Vial) 4 mg IV Q6H GENE Stop: 03/08/24 08:59 Last Admin: 02/10/24 03:04 Dose: 4 mg Documented By: WB Comments: Admin: 02/09/24 21:06 Dose: 4 mg Documented By: Admin: 02/09/24 14:31 Dose: 4 mg Documented By: Admin: 02/09/24 08:58 Dose: 4 mg Documented By: Admin: 02/09/24 03:15 Dose: 4 mg Documented By: Admin: 02/08/24 20:45 Dose: 4 mg Documented By: Admin: 02/08/24 16:36 Dose: 4 mg Documented By: PATRICK Comments: back from mri Admin: 02/08/24 08:10 Dose: 4 mg Documented By: Admin: 02/08/24 02:42 Dose: 4 mg Documented By: Admin: 02/07/24 21:11 Dose: 4 mg Documented By: Admin: 02/07/24 16:25 Dose: 4 mg Documented By: Admin: 02/07/24 08:42 Dose: 4 mg Documented By: MGD Cefepime HCl 2 gm/ Sodium (Chloride) 50 mls @ 100 mls/hr IV Q8HR GENE Stop: 02/14/24 13:59 Last Admin: 02/10/24 05:29 Dose: 100 mls/hr Documented By: Infusion: 02/09/24 21:39 Dose: Infused Documented By: Admin: 02/09/24 21:09 Dose: 100 mls/hr Documented By: Infusion: 02/09/24 14:57 Dose: Infused Documented By: Admin: 02/09/24 14:27 Dose: 100 mls/hr Documented By: Infusion: 02/09/24 05:46 Dose: Infused Documented By: Admin: 02/09/24 05:16 Dose: 100 mls/hr Documented By: Infusion: 02/08/24 21:14 Dose: Infused Documented By: Admin: 02/08/24 20:44 Dose: 100 mls/hr Documented By: Infusion: 02/08/24 17:05 Dose: Infused Documented By: Admin: 02/08/24 16:35 Dose: 100 mls/hr Documented By: Infusion: 02/08/24 05:57 Dose: Infused Documented By: Admin: 02/08/24 05:27 Dose: 100 mls/hr Documented By: Infusion: 02/07/24 21:39 Dose: Infused Documented By: Admin: 02/07/24 21:09 Dose: 100 mls/hr Documented By: Infusion: 02/07/24 13:49 Dose: Infused Documented By: Admin: 02/07/24 13:19 Dose: 100 mls/hr Documented By: MGD Sodium Chloride (Ns) 1,000 mls @ 50 mls/hr IV .Q20H ONE Stop: 02/10/24 10:26 Last Admin: 02/09/24 14:43 Dose: 50 mls/hr Documented By: SAMANTHA Ondansetron HCl (Ondansetron Inj 2 Mg/Ml Inj 2 Ml) 4 mg IV Q6H PRN; Protocol PRN Reason: NAUSEA OR VOMITING Stop: 03/08/24 03:31 Pantoprazole Sodium (Pantoprazole Inj 40 Mg Vial) 40 mg IVP QDAY GENE Stop: 03/08/24 08:59 Last Admin: 02/09/24 08:58 Dose: 40 mg Documented By: Admin: 02/08/24 08:10 Dose: 40 mg Documented By: Admin: 02/07/24 08:42 Dose: 40 mg Documented By: MGD Discontinued Medications Acetaminophen (Acetaminophen Supp 650 Mg Supp) 650 mg DC X1 ONE Stop: 02/07/24 00:19 Last Admin: 02/07/24 00:42 Dose: 650 mg Documented By: AARON Apixaban (Apixaban 2.5 Mg Tablet) 2.5 mg PO BID [facility] Stop: 03/09/24 14:59 Aspirin (Aspirin 300 Mg Supp) 300 mg DC X1 ONE Stop: 02/07/24 04:54 Last Admin: 02/07/24 05:18 Dose: 300 mg Documented By: FERNANDO Aspirin (Aspirin 81 Mg Chew) 81 mg PO QDAY GENE Stop: 03/08/24 08:59 Last Admin: 02/08/24 09:43 Dose: Not Given Documented By: PATRICK Non-Admin Reason: Patient Refused Admin: 02/07/24 08:41 Dose: 81 mg Documented By: PATRICK Dexamethasone Sodium Phosphate (Dexamethasone Sod Phos Inj 10 Mg/Ml Vial) 10 mg IV X1 ONE Stop: 02/07/24 03:33 Last Admin: 02/07/24 04:55 Dose: 10 mg Documented By: BRI Ceftriaxone Sodium/Dextrose (Rocephin/D5w 1gm Iv Premix) 50 mls @ 100 mls/hr IV X1 ONE Stop: 02/07/24 00:45 Last Infusion: 02/07/24 01:14 Dose: Infused Documented By: Admin: 02/07/24 00:43 Dose: 100 mls/hr Documented By: AARON Sodium Chloride (Ns) 1,000 mls @ 999 mls/hr IV .Q1H1M ONE Stop: 02/07/24 01:16 Last Infusion: 02/07/24 01:43 Dose: Infused Documented By: Admin: 02/07/24 00:40 Dose: 999 mls/hr Documented By: AARON Vancomycin HCl 1,000 mg/ (Sodium Chloride) 250 mls @ 150 mls/hr IV X1 ONE Stop: 02/07/24 02:19 Last Infusion: 02/07/24 02:35 Dose: Infused Documented By: Admin: 02/07/24 00:49 Dose: 150 mls/hr Documented By: AARON Sodium Chloride (Ns) 1,000 mls @ 999 mls/hr IV .Q1H1M ONE Stop: 02/07/24 01:53 Last Infusion: 02/07/24 02:35 Dose: Infused Documented By: Admin: 02/07/24 00:59 Dose: 999 mls/hr Documented By: AARON Sodium Chloride (Ns) 1,000 mls @ 75 mls/hr IV .[id number] [facility] Stop: 03/08/24 03:44 Last Admin: 02/09/24 05:15 Dose: 75 mls/hr Documented By: Infusion: 02/09/24 05:05 Dose: Infused Documented By: Admin: 02/08/24 15:45 Dose: 75 mls/hr Documented By: Infusion: 02/08/24 14:10 Dose: Infused Documented By: Admin: 02/08/24 00:50 Dose: 75 mls/hr Documented By: Infusion: 02/07/24 18:15 Dose: Infused Documented By: Admin: 02/07/24 04:55 Dose: 75 mls/hr Documented By: BRI Cefepime HCl 2 gm/ Sodium (Chloride) 50 mls @ 100 mls/hr IV X1 ONE Stop: 02/07/24 05:14 Last Infusion: 02/07/24 05:34 Dose: Infused Documented By: Admin: 02/07/24 04:54 Dose: 100 mls/hr Documented By: BRI Magnesium Sulfate (Magnesium Sulfate Ivpb) 2 gm in 50 mls @ 25 mls/hr IV X1 ONE Stop: 02/08/24 11:38 Last Admin: 02/08/24 09:46 Dose: 25 mls/hr Documented By: PATRICK Ketorolac Tromethamine (Ketorolac Inj 30 Mg/Ml Vial) 7.5 mg IVP X1 ONE Stop: 02/07/24 00:19 Last Admin: 02/07/24 00:41 Dose: 7.5 mg Documented By: AARON Mupirocin (Mupirocin Oint 2% 22 Gm Tube) 0 gm TOP X1 ONE Stop: 02/08/24 15:04 Last Admin: 02/08/24 16:37 Dose: 1 appln Documented By: PATRICK Pharmacy Consult (Vancomycin Pharmacy To Dose 1 Each Each) 1 each IV QDAY PRN PRN Reason: PROTOCOL Stop: 03/08/24 08:59 noted Consultations Consultation(s) initiated? (list below): Yes Diagnosis Most likely diagnosis given after review of the tests above:: Delirium Admission Indicated Admission indicated?: not indicated Admission Request Was there a request for admission?: No Disposition Plan Disposition Plan: other (specify) (Care transitioned, pending placement) Discharge Plan Plan Patient Disposition: Admit Acute Care w/in Hospital Problem List Clinical Impression: Fever, AMS (altered mental status)
[2024-02-06 17:10] LABS: Collection Type, Urine Clean Catch
[2024-02-06 17:13] LABS: Alanine Aminotransferase 9 U/L (10-49); Albumin, Serum 4.2 gm/dL (3.4-4.8); Albumin/Globulin Ratio 1.8 (1.2-2.2); Alkaline Phosphatase 103 U/L (46-116); Anion Gap 6 (7-16); Aspartate Amino Transferase 14 U/L (0-34); BUN/Creatinine Ratio 20 Ratio (12-20); Bilirubin,Total 0.5 mg/dL (0.3-1.2); Blood Urea Nitrogen 28 mg/dL (9-23); Calcium 9.3 mg/dL (8.3-10.6); Calcium (Corrected) 9.3 mg/dL (8.5-10.1); Carbon Dioxide 27.4 mMol/L (20.0-31.0); Chloride 101 mMol/L (98-107); Creatinine (Component) 1.4 mg/dL (0.6-1.3); Estimated Creatinine Clearance 30.3 mL/min (>60); Globulin 2.3 gm/dL (2.3-3.5); Glucose 81 mg/dL (74-106); Osmolality,Calculated 272 (275-295); Potassium 4.2 mMol/L (3.4-5.1); Sodium 134 mMol/L (136-145); Total Protein 6.5 gm/dL (5.7-8.2); Troponin I < 0.020 ng/mL (0.0-0.045); eGFR 38 See Note
[2024-02-06 17:24] LABS: Bilirubin,Urine Negative (Negative); Blood,Urine 1+ (Negative); Clarity,Urine Clear (Clear/Hazy); Color,Urine Colorless (Lt Yel-Yel); Glucose, Urine Negative (Negative); Ketones,Urine Negative (Negative); Leukocyte Esterase,Urine Negative (Negative); Nitrite,Urine Negative (Negative); PH,Urine 6.5 (5.0-7.0); Protein,Urine Trace (Neg - Trace); RBC,Urine 7 /hpf (0-3); Specific Gravity,Urine 1.014 (1.001-1.035); Squamous Epithelial Cell,Urine < 1 /hpf (0-5); Urobilinogen,Urine Negative mg/dL (0.0-1.0); WBC,Urine 1 /hpf (0-5)
--- NOTE | 2024-02-06 19:10 | PC.NURSE ---
Assume care for this 79 year old female and got full report from Ludwig RN. I spoke with pediatric social worker and the plan of care for this Pt is to hold the Pt in the ER till the morning so PT can eval the Pt for possible SNF placement. Pt is a GCS of 12, family at bedside. Pt was provide with raúl-care, given new lien, gown, and warm blankets. Pt on nurse monitoring. Pt given ensure protein drink. Call light within reach.
--- NOTE | 2024-02-06 19:26 | PC.CC ---
Pt Sofia Hill is a 79 yr old female to ED for possible stroke. Pt D/c from hospital floor this AM 02/06/2024. From provider documentation, family declined SNF. There are no supporting SS notes regrading family meeting and family declining SNF. [employer] approached by ED attending Dr. Mari, with pts son Dilip Hill [phone], requesting SNF placement at this time. Per pts son, family is unable to care for pt currently in the home. Pt has increased weakness and is max assist with all her needs. Upon review of pts chart, [employer] SUPER[employer] was able to inform family that pt will need a PT eval , which will be completed on 02/07/24. Inquiry will be sent for placement and authorization. [employer] SUPER[employer] CC will provide updates on insurance review and outcome and present accepting SNFs. Pt will remain in ED over night pending PT eval and inquiry upload and auth.
--- NOTE | 2024-02-06 22:35 | PC.NURSE ---
Pt clam at this time, easily to arouse, not c/o of any discomfort.
[2024-02-07] VITALS (18 sets, daily range): BP systolic 105–145; BP diastolic 50–72; PULSE 48–80; RESP 14–26; TEMP 35.9–39.2; O2SAT 93–100; BMI 12.0
--- NOTE | 2024-02-07 00:18 | XR_ITS ---
Examination: AP chest single view TECHNIQUE: AP portable semiupright chest single view Exam date and time: February 07, 2024 at 1235 hours Comparison February 03, 2024 INDICATIONS: Sepsis protocol FINDINGS: Normal heart size No lobar pneumonia or pulmonary edema Left subclavian Port-A-Cath tip satisfactory position Prominent osteopenia IMPRESSION: No pneumonia or pulmonary edema
[2024-02-07] MEDS: SODIUM CHLORIDE 0.9% 1000 ML 1,000 ML 999 ML IV ×2 (00:40→00:59)
[2024-02-07] MEDS: KETOROLAC INJ 30 MG/ML VIAL 7.5 MG IVP (00:41)
[2024-02-07] MEDS: ACETAMINOPHEN SUPP 650 MG SUPP PR (00:42)
[2024-02-07] MEDS: cefTRIAXone/D5w 1gm IV premix 50 ML IV (00:43)
[2024-02-07] MEDS: Vancomycin Inj 1,000 MG in SODIUM CHLORIDE 0.9% 250 ML 250 ML 150 MG IV (00:49)
--- NOTE | 2024-02-07 00:49 | PD.EDADDENDU ---
Emergency Room Addendum Addendum Narrative: I took over the care from Domingo Muñoz NP at 11 PM on 02/06/2024, see his notes for complete H&P and ED course. I reviewed all diagnostic test results. My interpretation of the EKG is sinus rhythm with nonspecific ST-T changes. My interpretation of the chest x-ray is no acute findings. Blood tests and urine tests are unremarkable, including negative troponin X 2. At this point, diagnoses include chest pain due to anxiety, she improved with Ativan. Recommended more outpatient cardiac workup. Based on my best medical judgment, made decision no further evaluation or treatment indicated at this time. Patient understands and agrees to the discharge instructions customized and printed, see below. Discharge instructions from Dr. Tapia: 1. After extensive evaluation, there is no life-threatening condition. Such as heart attack or pulmonary embolism (blood clots in your lungs) or pneumothorax (collapsed lung). 2. Your symptoms may be due to underlying stress or anxiety or nerves. This is fairly common. 3. Take Xanax as needed. Whether this helps or not will be valuable information to your private doctors. 4. See a private doctor on 02/08/2024. To make sure there is no serious underlying heart condition, ask to help you get more tests for your heart that cannot be done here in the ER. Such as Holter Monitor (cardiac monitoring at home from a day to even a month), heart stress test (on treadmill or with medication), echocardiogram (imaging of your heart structures), heart catherization (checking for blockages in your heart arteries), and a referral to see a [employer]. 5. Seek immediate medical care with worsening or with any concerns. Laron Tapia MD
[2024-02-07 00:51] LABS: Lactate (Lactic Acid) 0.9 mMol/L (0.4-2.0)
[2024-02-07 01:00] LABS: Sed Rate (ESR) 33 mm/hr (0-30)
[2024-02-07 01:18] LABS: B-Type Natriuretic Peptide 108 pg/mL (0-100)
[2024-02-07 01:20] LABS: Strep A Rapid Negative (Negative)
[2024-02-07 01:31] LABS: Respiratory Syncytial Virus Ag Negative (Negative)
[2024-02-07 01:33] LABS: Procalcitonin 0.16 ng/ml (0.0-0.49); Thyroid Stimulating Hormone 4.01 uIU/mL (0.55-4.78); Troponin I < 0.020 ng/mL (0.0-0.045)
[2024-02-07 01:43] LABS: C-Reactive Protein 0.9 mg/dL (0.0-0.9)
[2024-02-07 01:52] LABS: Base Excess -4 (-3-3); HCO3 20 mEq/L (20-26); O2 Saturation 100 % (91-98); PCO2 30 mmHg (32.0-48.0); PO2 163 mmHg (83-108); pH, Arterial 7.43 (7.35-7.45)
[2024-02-07 01:53] LABS: Allen Test Not Performed; Inspired O2, VO2 Liters 2 L/min; Puncture Site Left Radial
--- NOTE | 2024-02-07 01:59 | PC.NURSE ---
Joslyn alert called at 0157hr.
--- NOTE | 2024-02-07 01:59 | PC.NURSE ---
[facility] CASE# [id number].
--- NOTE | 2024-02-07 02:02 | PC.NURSE ---
Hermelinda Rojas assessing Pt at this time
--- NOTE | 2024-02-07 02:27 | XR_ITS ---
Examination: CTA carotids with intravenous contrast CTA brain, head with intravenous contrast. 2-D sagittal, coronal reconstructions. 3-D reconstructions. Exam date and time: February 06, 2022 0252 hrs. Indications: Stroke alert, onset focal neurologic deficit, altered mental status, weakness in the right arm and leg beginning one hour ago CTDI: vol (mGy) 15.78 DLP: (mGycm) 412 Technique: Multiple CTA axial brain, head carotid images post intravenous contrast injection 75 cc, [id number]. 2-D sagittal, coronal reconstructions. 3-D reconstructions, 3-D post processing including vascular maximum intensity projection images. Low dose protocols were performed. One or more of the following dose reduction techniques were used; automated exposure control, adjustment of the mA and/or KV according to patient size, use of iterative reconstruction technique. Findings: No significant common carotid carotid bifurcation or internal carotid artery stenoses Essentially codominant vertebral arteries with no critical stenoses No cerebral large vessel arterial occlusions, thrombus, dissection or cerebral aneurysm Impression: No significant neck arterial stenoses No cerebral large vessel arterial occlusions, thrombus, dissection or cerebral aneurysm
--- NOTE | 2024-02-07 02:44 | ESCONSULT_ITS ---
Tele Neuro Consultation Consultation Date 02/07/24 Most Recent Vital Signs Last Vital Signs Temp 98.9 F 02/07/24 02:35 Pulse 60 02/07/24 01:00 Resp 17 02/07/24 01:00 BP 136/55 H 02/07/24 01:00 Pulse Ox 99 02/07/24 01:00 O2 Del Method Room Air 02/07/24 00:16 Consultation Narrative [facility] Tele[facility]rology Consult [facility] Patient Name:???DIMAS MAGDALENO Date of :???1945 Identification Number:??? Date of Service:???02/07/2024 01:58:51 Diagnosis:?G93.49 - Encephalopathy Multifactorial Impression: ?the patient presents with recurrent altered mental status, not following commands, aphasic. On exam NIHSS is 10 with aphasia and RLE weakness. She is outside the window for IV thrombolysis. Family insists she was normal at baseline when she got home 02/05 at 1124AM but later became worse. She currently has a fever, has dementia, and KARMEN so highly likely metabolic/infectious encephalopathy. However she does have risk factors such as afib and metastatic lymphoma, so stroke cannot be ruled out so CTA will be done to assess for LVO. If CTA shows no LVO, MRI will also be needed. Our recommendations are outlined below. Recommendations: ? Stroke/Telemetry Floor ? Neuro Checks ? Bedside Swallow Eval ? DVT Prophylaxis ? IV Fluids, Normal Saline ? Head of Bed 30 Degrees ? Euglycemia and Avoid Hyperthermia (PRN Acetaminophen) ? Hold Anticoagulation for Now ? Aspirin per rectum ? Antihypertensives PRN if Blood pressure is greater than 220/120 or there is a concern for End organ damage/contraindications for permissive HTN. If blood pressure is greater than 220/120 give labetalol PO or IV or Vasotec IV with a goal of 15% reduction in BP during the first 24 hours. ?Please f/u CTA to rule out LVO. I will followup CTA results. However, if you receive a report that shows large vessel occlusion please call [facility] for a Dr to Dr call so I can help facilitate LEX consultation. ?If no LVO, then admit for further stroke workup. ?Get WORKUP for TOXIC/METABOLIC/INFECTIOUS causes Sign Out: ? Discussed with Emergency Department Provider Advanced Imaging: Advanced imaging has been ordered. Results pending. Metrics: Last Known Well: 02/06/2024 11:24:00 Dispatch Time: 02/07/2024 01:58:51 Arrival Time: 02/06/2024 16:00:00 Initial Response Time: 02/07/2024 02:01:33Symptoms: confusion. Initial patient interaction: 02/07/2024 02:20:10 NIHSS Assessment Completed: 02/07/2024 02:22:48Patient is not a candidate for Thrombolytic. Thrombolytic Medical Decision: 02/07/2024 02:25:58Patient was not deemed candidate for Thrombolytic because of following reasons: LKW outside 4.[address] head showed no acute hemorrhage or acute core infarct. Primary Provider Notified of Diagnostic Impression and Management Plan on: 02/07/2024 02:38:43 History of Present Illness:Patient is a 79 year old Female. Patient was brought by EMS for symptoms of confusion. 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 She has been to ED a few times recently, presents for altered mental status. the patient was discharged yesterday after coming in for acute renal injury and pneumonia. She was recommended to go to SNF but family declined and took her home. LKW per the family was 11:24am yesterday morning after she got home she was okay and talking with her son. After that they called EMS because she was getting unresponsive. She is not following commands. She currently has a fever. Prior visits was also for altered mental status. Yesterday after discharge she was weak and not eating well with diarrhea and also altered. At baseline, she is hard of hearing, has dementia, uses walker, can go to the bathroom on her own. Past Medical History: ?Atrial Fibrillation, lymphoma, dementia Medications: Anticoagulant use:??Yes?eliquis No Antiplatelet use Reviewed EMR for current medications Allergies:? Reviewed Social History: Unable To Obtain Due To Patient Status :?Patient Is Confused Family History: There is no family history of premature cerebrovascular disease pertinent to this consultation ROS : 14 Points Review of Systems was performed and was negative except mentioned in HPI. Past Surgical History: There Is No Surgical History Contributory To Today?s Visit Examination: BP(136/55),?Pulse(60), 1A: Level of Consciousness - Requires repeated stimulation to arouse?+ 2 1B: Ask Month and Age - Could Not Answer Either Question Correctly?+ 2 1C: Blink Eyes & Squeeze Hands - Performs 0 Tasks?+ 2 2: Test Horizontal Extraocular Movements - Normal?+ 0 3: Test Visual Baldwin - No Visual Loss?+ 0 4: Test Facial Palsy (Use Grimace if Obtunded) - Normal symmetry?+ 0 5A: Test Left Arm Motor Drift - No Drift for 10 Seconds?+ 0 5B: Test Right Arm Motor Drift - No Drift for 10 Seconds?+ 0 6A: Test Left Leg Motor Drift - No Drift for 5 Seconds?+ 0 6B: Test Right Leg Motor Drift - No Movement?+ 4 7: Test Limb Ataxia (FNF/Heel-Gonzalez) - Does Not Understand?+ 0 8: Test Sensation - Normal; No sensory loss?+ 0 9: Test Language/Aphasia - Severe Aphasia: Fragmentary Expression, Inference Ne eded, Cannot Identify Materials?+ 2 10: Test Dysarthria - Normal?+ 0 11: Test Extinction/Inattention - No abnormality?+ 0 NIHSS Score:?12 NIHSS Free Text :?she can name a couple items only Pre-Morbid Modified [place] Scale:3 Points = Moderate disability; requiring some help, but able to walk without assistance Spoke with :?ED physician on video This consult was conducted in real time using interactive audio and video technology. Patient was informed of the technology being used for this visit and agreed to proceed. Patient located in hospital and provider located at home/office setting. Patient is being evaluated for possible acute neurologic impairment and high probability of imminent or life-threatening deterioration. I spent total of 30 minutes providing care to this patient, including time for face to face visit via telemedicine, review of medical records, imaging studies and discussion of findings with providers, the patient and/or family. Dr Shashi Rojas [facility] For Inpatient follow-up with [facility] physician please call [facility] at . As we are not an outpatient service for any post hospital discharge needs please contact the hospital for assistance. If you have any questions for the [facility] physicians or need to reconsult for clinical or diagnostic changes please contact us via [facility] at .
--- NOTE | 2024-02-07 02:48 | XR_ITS ---
Examination: CT brain head without contrast. 2-D sagittal coronal reconstructions Date and time of exam:February 07, 2024 0252 hrs. Indications: Stroke alert, onset altered mental status focal neurologic deficit beginning one hour ago, onset altered mental status February 06, 2024 CTDI: vol (mGy):42.1 DLP: (mGycm):920 Technique: Multiple CT axial sections of the brain have been obtained, 5 mm slice thickness. Contrast has not been administered. 2-D sagittal, coronal reconstructions have been obtained Low dose protocols were performed. One or more of the following dose reduction techniques were used; automated exposure control, adjustment of the mA and/or KV according to patient size, use of iterative reconstruction technique. Findings: No significant ventricular enlargement. Intra-axial or extra-axial hemorrhage density is not seen. No mass effect or midline shift Basal cisterns are not remarkable. Fourth ventricle is midline. Again noted 33 x 32 mm right frontal bone lesion with soft tissue component Impression: Negative for acute hemorrhage, mass effect or midline shift Again noted 33 x 32 mm right frontal bone lesion with soft tissue component, differential would include primary or metastatic osseous lesion, recommend MRI brain follow-up pre and postcontrast Consider metastatic plain film bone survey follow-up as well as whole body bone scan
--- NOTE | 2024-02-07 03:25 | PRELIM_ITS ---
CT scan of the head without intravenous contrast (axial sections with sagittal and coronal reformats) February 07, 2024 0250 hoursClinical history: AMS Findings:There is no evidence of intracranial hemo rrhage or midline shift. No definitive wedge-shaped acute infarcts are detected. There are periventri cular and subcortical white matter hypodensities, compatible with chronic small vessel ischemia. Ther e is moderate volume loss. There is a 3.3 x 2.4 x 3 cm ill-defined lytic lesion in the right frontal calvarium, with central sclerotic area, soft tissue component in the right frontal scalp (measuring up to 5 mm in maximum thickness), eroding the outer table of the right frontal calvarium and a dural/ subdural component, measuring up to 4 mm in maximum thickness. The visualized paranasal sinuses are c lear. There is partial opacification of the left mastoid air cells.Impression:No evidence of acute in farct, intracranial hemorrhage or midline shift. Right frontal calvarial lesion as described, of conc tomás for primary/secondary neoplasm. Recommend follow-up. Chronic small vessel ischemia and volume los s.Discussion Details: Results verbally communicated to : Dr. Blanco at 03:13 AM 02/07/2024 Repo rt Electronically Signed By: Donaldo Kwon 02/07/2024 3:24:40 AM [EST]
--- NOTE | 2024-02-07 03:26 | PRELIM_ITS ---
CT angiogram of the head and neck with intravenous contrast (axial sections with sagittal and coronal reformats) February 07, 2024 0252 hours Clinical History: altered mental status and Right leg weakne ssComparison: Compared with concurrent non-contrast CT head study performed today.Findings:Head: Raul lei of ground-glass opacity noted in the cavernous, clinoid and supraclinoid segments of bilateral in ternal carotid arteries causing mild stenosis. The internal carotid, middle and anterior cerebral art eries are otherwise patent bilaterally. The intracranial vertebral arteries are patent. The vertebrob asilar junction, basilar and posterior cerebral arteries are patent. No evidence of large vessel occl usion, critical stenosis or aneurysm.Neck: The aortic arch to the extent visualized as well as the or igins of the right brachiocephalic, left common carotid, and left subclavian arteries are patent. Garret cified atheromatous plaques are noted in the right carotid bulb and right proximal internal carotid a rtery causing minimal stenosis. The common carotid arteries, carotid bulbs, and internal and external carotid arteries are otherwise patent. The origins of the vertebral arteries are unremarkable. The v ertebral arteries are codominant. No evidence of vascular occlusion, critical stenosis, dissection or aneurysm. The soft tissues of the neck are unremarkable. Degenerative changes are identified in the spine. There are hemangiomas in the C7 and T3 vertebral bodies. Emphysematous changes are noted in th e lungs. Impression: Head: No evidence of large vessel occlusion, critical stenosis or aneurysm.Other findings as described above. Neck: No evidence of vascular occlusion, critical stenosis, dissection or aneurysm.Other findings as described above. Discussion Details: Results verbally communicated to : Dr. Blanco at 03:22 AM 02/07/2024 Report Electronically Signed By: Donaldo Kwon 02/07/2024 3:25 :34 AM [EST]
--- NOTE | 2024-02-07 03:32 | ECHO_ITS ---
Transthoracic Echo Report Ht (in): 66 Wt (lb): 130 Exam Location: Portable Status: Emergency Smearer: Bettie Horton Indications: Procedure Performed: BP: 106 / 57 HR: 57 Rhythm: Bradycardia Technical Quality: Fair Contrast: Agitated Saline Total Dose (mL): MEASUREMENTS (Male / Female) Normal Values 2D ECHO LV Diastolic Diameter PLAX 4.2 cm 4.2 - 5.9 / 3.9 - 5.3 cm LV Systolic Diameter PLAX 2.6 cm IVS Diastolic Thickness 0.9 cm 0.6 - 1.0 / 0.6 - 0.9 cm LVPW Diastolic Thickness 0.9 cm 0.6 - 1.0 / 0.6 - 0.9 cm LV Relative Wall Thickness 0.4 LVOT Diameter 1.7 cm LA Volume Index 25.7 cm?/m? 16 - 28 cm?/m? Ascending Aorta Diameter 2.4 cm M-MODE Aortic Root Diameter MM 2.1 cm LA Systolic Diameter MM 3.3 cm LA Ao Ratio MM 1.6 AV Cusp Separation MM 1.7 cm DOPPLER AV Peak Velocity 244.5 cm/s AV Peak Gradient 23.9 mmHg AV Mean Gradient 10.5 mmHg AV Velocity Time Integral 54.4 cm AI Peak Velocity 384.5 cm/s AI Peak Gradient 59.1 mmHg AI Pressure Half Time 453.5 ms LVOT Peak Velocity 149.0 cm/s LVOT Peak Gradient 8.9 mmHg LVOT Velocity Time Integral 33.6 cm LVOT Cardiac Index 2625.7 cm?/min?m? AV Area Cont Eq vti 1.4 cm? AV Area Cont Eq pk 1.4 cm? MV Peak Velocity 119.0 cm/s MV Peak Gradient 5.7 mmHg MV Mean Velocity 72.1 cm/s MV Mean Gradient 3.0 mmHg MV Area PHT 3.0 cm? MR Peak Velocity 240.0 cm/s MR Peak Gradient 23.0 mmHg Mitral E Point Velocity 112.0 cm/s Mitral A Point Velocity 112.0 cm/s Mitral E to A Ratio 1.0 LV E' Lateral Velocity 8.2 cm/s Mitral E to LV E' Lateral Ratio 13.7 LV E' Septal Velocity 7.1 cm/s Mitral E to LV E' Septal Ratio 15.8 TR Peak Velocity 177.0 cm/s TR Peak Gradient 12.5 mmHg FINDINGS Left Ventricle Normal left ventricular size, wall thickness, systolic function with no obvious regional wall motion abnormalities. The ejection fraction is visually estimated at 60-65 %. Right Ventricle The right ventricle is normal in size and systolic function. The estimated right ventricular systoli c pressure, 26mmHg. RAP 5. Left Atrium The left atrium is normal by two-dimensional, color flow and Doppler imaging with no structural abnormalities, no thrombus formation present. Right Atrium The right atrium is normal by two-dimensional imaging, color flow and Doppler imaging with no struct ural abnormalities, no thrombus formation present. Atrial Septum The interatrial septum appears normal with no evidence of a shunt. Aorta The aorta is normal by two-dimensional, color flow and Doppler interrogation. Mitral Valve The mitral valve is normal by two-dimensional, color flow and Doppler interrogation. There is mild m itral valve regurgitation. Aortic Valve The aortic valve is trileaflet. Mild stenosis, mean gradient 12mmHg, vmax 2.6m/s. There is moderate aortic valve regurgitation. Tricuspid Valve The tricuspid valve is normal by two-dimensional, color flow and Doppler interrogation. There is mil d tricuspid valve regurgitation. Pulmonic Valve There is no significant pulmonic valve regurgitation. Vessels The pulmonary artery appears normal. The inferior vena cava pulmonary and hepatic veins appear samaria l. Pericardium The pericardium is normal by two-dimensional imaging. There is no significant pericardial effusion. CONCLUSIONS Indication: Stroke Negative bubble study. No evidence of PFO or ASD. Consider MEAGAN if high clinical suspicion. Normal LV size and function. Estimated EF 60-65% Normal RV size and function. Mild AV stenosis, mean gradient 12mmHg, vmax 2.6m/s. Mild to moderate AI. Mild MR, TR. Fabio Wagner (Electronically Signed) Final Date: 07 February 2024 16:33
--- NOTE | 2024-02-07 03:34 | ESHP_ITS ---
Addendum History & Physical Addendum Date of report being addended: 02/07/24 Narrative: Attending's attestation: I reviewed labs, imaging, EKG, home medications and prior available records. Face to face evaluation was performed by me. I have personally examined the patient and discussed assessment and plan with the IM team. I reviewed the resident note and agree with the plan with exceptions as below. 79-year-old female with history of A-fib on Eliquis, dementia, lymphoma with abd ominal metastases, who presented with fevers, altered mental status, and reported right sided weakness. She was admitted for CVA workup. CVA symptoms: CT head is negative for acute bleed however showed 3.3 x 2.4 x 3 cm ill-defined lytic lesion in the right frontal calvarium with concern for malignancy. Patient does have history of lymphoma with metastases. Unclear if this is related to her initial presentation versus other etiologies such as acute febrile illness or dehydration. CTA of the head/neck is negative for major vessel occlusion. Will admit and start IV fluids. Management of fevers as needed. Ordered brain MRI. Consult neurology for further recommendations. Acute febrile illness: Differential diagnosis includes viral illness versus lymphoma versus bacterial infection. Tylenol as needed for fevers. Send blood cultures. Trend WBC.
--- NOTE | 2024-02-07 03:55 | PD.EDADDENDU ---
Emergency Room Addendum Addendum Narrative: I took over the care from Dr. Mari at 6 PM on 02/06/2024, see his notes for complete H&P and ED course. I reviewed all diagnostic test results. I discussed the case with our hospitalist. About the presentation and exam and diagnostics and treatments here. And need of further care in the hospital. Will accept the patient. Laron Tapia MD
--- NOTE | 2024-02-07 04:27 | PD.RESHP ---
Documentation for date of: 02/07/24 HPI History of Present Illness History of present illness: 79-year-old female with past medical history of lymphoma status post remission and recurrence with abdominal metastasis, history of CKD, dementia, A-fib on Eliquis who was recently admitted to [facility] for acute on chronic encephalopathy, discharged yesterday to home as family declined group home placement. Patient was here for sepsis that was causing acute metabolic encephalopathy. After appropriate treatment patient was discharged yesterday to home. However today son stating that after getting home initially she was doing well however throughoutthe day she was feeling more weak, she was able to follow some commands but has been having a severe diarrhea, foul-smelling, and patient was progressively getting worse, feeling weak, and reached the point where she was not able to follow commands, was completely encephalopathic. At that point son decided to bring her in for further workup. Last well-known per son was at 11:24 AM yesterday morning after she got home, she was okay and talking with her son. Also at baseline she is hard of hearing, has dementia, uses a walker, however is able to go bathroom and dress by her own. Patient was seen in ED today, en route, stroke alert was called, they did a CT head which was negative for hemorrhage, mass or midline shift, Showed large right frontal lobe defect, differentials would include osteolytic lesion destroying the right frontal lobe. However teleneuro did not consulted in the morning,after acute encephalopathy workup, at 02/06/2024, at 16;50 patient was discharged home. Today at 0049 patient was Biba due to worsening mentation. In ED patient had 1 episode of fever, sepsis alert was initiated, sepsis workup was done, WBC was negative, lactic acid was negative Pro-Garret was negative, CMP revealed creatinine of 1.4, BUN is 28. We received a call to admit the patient for sepsis of unknown origin. When we evaluated the patient patient was AOx0, was not completely following the commands, patient was not like this 4 days ago, this is not appears to be her baseline, for that reason we called the stroke alert, teleneuro was consulted, CTA was negative for any acute LVO, CT head(update) read right frontal calvarium lesion, concern of primary/secondary neoplasm Patient will be admitted for acute encephalopathy secondary due to sepsis versus primary/secondary malignancy as well as CVA/TIA rule out. PMHx: as noted above Medications: eliquis 2.5 mg BID, amiodarone 200 mg daily SHx: Per note. denies smoking, alcohol, or illicit drug use Review of Systems Review of Systems ROS Unobtainable: unobtainable due to mental status Exam Vital Signs Temp Pulse Resp BP Pulse Ox O2 Del Method O2 Flow Rate 98.5 F 53 L 16 111/54 L 100 High Flow Nasal Cannula 2 02/07/24 03:00 02/07/24 03:00 02/07/24 03:00 02/07/24 03:00 02/07/24 03:00 02/07/24 03:00 02/07/24 03:00 Narrative Exam GENERAL: no acute distress, AAO x0, not folloing comands HEENT: Head AT/ NC. Mucous membranes moist. PERRL. NECK: Supple, no lymphadenopathy, no carotid bruits. CARDIOVASCULAR: systolic murmur appreciated at right sternal border, regular rate and rhythm, S1/S2 present RESPIRATORY: CTAB. No wheezing, rhonchi, crackles. GASTROINTESTINAL: Abdomen soft, non tender Bowel sounds present in all 4 quadrants. MUSCULOSKELETAL:? No cyanosis or edema, no visible joint swelling. 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 Results: Labs 02/06/24 16:00 02/06/24 16:00 Labs: Short CBC 02/06/24 Range/Units 16:00 WBC 10.3 (3.6-11.0) Thou/mm3 Hgb 12.8 (12.0-16.0) g/dL Hct 39.5 (36.0-46.0) % Plt Count 261 (140-440) Thou/mm3 BMP 02/06/24 16:00 Sodium 134 L Potassium 4.2 Chloride 101 Carbon Dioxide 27.4 BUN 28 H Creatinine 1.4 H Glucose 81 Calcium 9.3 Cardiac Enzymes 02/06/24 02/07/24 Range/Units 16:00 00:30 Troponin I < 0.020 < 0.020 (0.0-0.045) ng/mL Liver Function 02/06/24 Range/Units 16:00 Total Bilirubin 0.5 (0.3-1.2) mg/dL AST 14 (0-34) U/L ALT 9 L (10-49) U/L Alkaline Phosphatase 103 (46-116) U/L Albumin 4.2 (3.4-4.8) gm/dL Urine 02/06/24 Range/Units 17:04 Urine Color Colorless A (Lt Yel-Yel) Urine Clarity Clear (Clear/Hazy) Urine pH 6.5 (5.0-7.0) Ur Specific [place] 1.014 (1.001-1.035) Urine Protein Trace (Neg - Trace) Urine Glucose (UA) Negative (Negative) ABG Interpretation ABG results: 02/07/24 01:46 ABG pH 7.43 ABG pCO2 30 L ABG pO2 163 H ABG HCO3 20 ABG O2 Saturation 100 H ABG Base Excess -4 L Quality Measures Quality Measures none Advance care planning discussed with:: child Medications Home Medications and Allergies Home Medications ?Medication ?Instructions ?Recorded ?Confirmed ?Type amiodarone 200 mg tablet 200 mg PO DAILY 02/03/24 02/06/24 History apixaban 2.5 mg tablet (Eliquis) 2.5 mg PO BID 02/03/24 02/06/24 History Allergies Allergy/AdvReac Type Severity Reaction Status Date / Time Penicillins Allergy Severe Rash Verified 02/03/24 15:28 Visit Medications Acetaminophen (Acetaminophen Supp 650 Mg Supp) 650 mg VA Q6HR PRN PRN Reason: [id number] Stop: 03/08/24 03:31 Dexamethasone Sodium Phosphate (Dexamethasone Sod Phos Inj 10 Mg/Ml Vial) 4 mg IV Q6H GENE Stop: 03/08/24 08:59 Sodium Chloride (Ns) 1,000 mls @ 75 mls/hr IV .[id number] GENE Stop: 03/08/24 03:44 Cefepime HCl 2 gm/ Sodium (Chloride) 50 mls @ 100 mls/hr IV Q8HR GENE Stop: 02/14/24 04:22 Ondansetron HCl (Ondansetron Inj 2 Mg/Ml Inj 2 Ml) 4 mg IV Q6H PRN; Protocol PRN Reason: NAUSEA OR VOMITING Stop: 03/08/24 03:31 Pantoprazole Sodium (Pantoprazole Inj 40 Mg Vial) 40 mg IVP QDAY GENE Stop: 03/08/24 08:59 Pharmacy Consult (Vancomycin Pharmacy To Dose 1 Each Each) 1 each IV QDAY GENE Stop: 03/08/24 08:59 Discontinued Medications Acetaminophen (Acetaminophen Supp 650 Mg Supp) 650 mg VA X1 ONE Stop: 02/07/24 00:19 Last Admin: 02/07/24 00:42 Dose: 650 mg Dexamethasone Sodium Phosphate (Dexamethasone Sod Phos Inj 10 Mg/Ml Vial) 10 mg IV X1 ONE Stop: 02/07/24 03:33 Ceftriaxone Sodium/Dextrose (Rocephin/D5w 1gm Iv Premix) 50 mls @ 100 mls/hr IV X1 ONE Stop: 02/07/24 00:45 Last Infusion: 02/07/24 01:14 Dose: Infused Sodium Chloride (Ns) 1,000 mls @ 999 mls/hr IV .Q1H1M ONE Stop: 02/07/24 01:16 Last Infusion: 02/07/24 01:43 Dose: Infused Vancomycin HCl 1,000 mg/ (Sodium Chloride) 250 mls @ 150 mls/hr IV X1 ONE Stop: 02/07/24 02:19 Last Infusion: 02/07/24 02:35 Dose: Infused Sodium Chloride (Ns) 1,000 mls @ 999 mls/hr IV .Q1H1M ONE Stop: 02/07/24 01:53 Last Infusion: 02/07/24 02:35 Dose: Infused Ketorolac Tromethamine (Ketorolac Inj 30 Mg/Ml Vial) 7.5 mg IVP X1 ONE Stop: 02/07/24 00:19 Last Admin: 02/07/24 00:41 Dose: 7.5 mg Assessment & Plan Plan 79-year-old female with past medical history of lymphoma status post remission and recurrence of his abdominal metastasis, history of CKD, dementia, A-fib on Eliquis was admitted for acute encephalopathy secondary due to sepsis versus primary/secondary malignancy as well as CVA/TIA rule out #Acute encephalopathy DDx would include metabolic in the setting of sepsis vs primary/secondary malignancy vs CVA/TIA CTA was negative for LVO CT head showed right frontal calvarium lesion, concern of primary/secondary neoplasm -Stroke alert was activated -NIH score 12 -Patient is not a candidate for tPA -Admit to telemetry -Neurocheck every 4 hours -Seizure precaution -Head of bed elevation 30 degree -N.p.o. for now -Bedside swallow evaluation -Lipitor 40 mg daily -Aspirin 300 VA was given , continue with 81 daily -Decadron daily to avoid elavation of intracranial pressure -Tylenol as needed as needed to avoid hyperthermia -Keep euglycemic state -Hemoglobin A1c follow-up with results -MR head/brain with and without contrast -Dr Holguin was consulted recommendations appreciated -Follow-up with EEG -Physical therapy evaluation -Hold Eliquis history of A-fib -DVT with SCDs due to decreased risk of bleeding -Control risk factors such as hypertension, hyperlipidemia -Continue close monitor and follow-up with the results #SIRS #Fever of unknown origin Patient met 2 out of 4 SIRS criteria, tachypneic, febrile Stroke alert initiated WBC, lactic acid and Pro-Garret is negative -Follow-up with blood culture/urine culture -Cefepime, patient is allergic to penicillin -Vancomycin -IVF -Continue monitor vital signs, follow-up with the lab results #CKD stage IIIb -IVF -Avoid nephrotoxic agents -Renally dose meds #A-fib -Patient patient is n.p.o. -Holding Eliquis to avoid bleeding, pending MRI -Amiodarone 200 mg p.o. after swallow evaluation restart # hx of Lymphoma CT concerns for primary/secondary neoplasm -Dr. Tapia was consuted , recs are appreciated Disposition: Telemetry DVT prophylaxis: SCDs, holding Eliquis GI prophylaxis: PPI Diet: N.p.o. Lines: PIV CODE STATUS:Full code Patient care was discussed with attending physician Dr. Valeria Blanco MD PGY-2 Attending Provider Attestation/Addendum I reviewed labs, imaging, EKG, home medications and prior available records. Face to face evaluation was performed by me. I have personally examined the patient and discussed assessment and plan with the IM team. I reviewed the resident note and agree with the plan with exceptions as below. 79-year-old female with history of A-fib on Eliquis, dementia, lymphoma with abdominal metastases, who presented with fevers, altered mental status, and reported right sided weakness. She was admitted for CVA workup. CVA symptoms: CT head is negative for acute bleed however showed 3.3 x 2.4 x 3 cm ill-defined lytic lesion in the right frontal calvarium with concern for malignancy. Patient does have history of lymphoma with metastases. Unclear if this is related to her initial presentation versus other etiologies such as acute febrile illness or dehydration. CTA of the head/neck is negative for major vessel occlusion. Will admit and start IV fluids. Management of fevers as needed. Ordered brain MRI. Consult neurology for further recommendations. Acute febrile illness: Differential diagnosis includes viral illness versus lymphoma versus bacterial infection. Tylenol as needed for fevers. Send blood cultures. Trend WBC.
[2024-02-07] MEDS: CEFEPIME INJ 2 GM in SODIUM CHLORIDE 0.9% (P) 50 ML IV ×3 (04:54→21:09)
[2024-02-07] MEDS: SODIUM CHLORIDE 0.9% 1000 ML 1,000 ML 75 ML IV (04:55)
[2024-02-07] MEDS: DEXAMETHASONE SOD PHOS INJ 10 MG/ML VIAL IV (04:55)
[2024-02-07] MEDS: ASPIRIN 300 MG SUPP PR (05:18)
[2024-02-07 06:14] LABS: Basophils % (Auto) 0 % (0-2.5); Eosinophils # (Auto) 0.1 Thou/mm3 (0.0-0.5); Eosinophils % (Auto) 1 % (0-10); Hemoglobin 10.3 g/dL (12.0-16.0); Immature Granulocytes % (Auto) 1 % (0-0); Immature Granulocytes Auto 0.06 Thou/mm3 (0.00-0.00); Lymphocytes # (Auto) 0.5 Thou/mm3 (1.0-4.8); Lymphocytes % (Auto) 5 % (10-50); Mean Corpuscular HGB Conc 32.2 g/dl (31.0-37.0); Mean Corpuscular Hemoglobin 27.6 pg (25.0-35.0); Mean Corpuscular Volume 86 fL (80-100); Monocytes # (Auto) 1.5 Thou/mm3 (0.0-0.8); Monocytes % (Auto) 13 % (0-12); Neutrophils # (Auto) 9.3 Thou/mm3 (1.8-7.7); Neutrophils % (Auto) 81 % (37-80); Nucleated Red Blood Cell % 0 /100 WBC (0); Platelet Count 201 Thou/mm3 (140-440); RDW Standard Deviation 53.6 fL (36.4-46.3); Red Blood Count 3.73 Miln/mm3 (4.00-5.20); White Blood Count 11.5 Thou/mm3 (3.6-11.0)
[2024-02-07 07:03] LABS: Alanine Aminotransferase < 7 U/L (10-49); Albumin, Serum 3.2 gm/dL (3.4-4.8); Albumin/Globulin Ratio 1.8 (1.2-2.2); Alkaline Phosphatase 70 U/L (46-116); Anion Gap 7 (7-16); Aspartate Amino Transferase 10 U/L (0-34); BUN/Creatinine Ratio 19 Ratio (12-20); Bilirubin,Total 0.4 mg/dL (0.3-1.2); Blood Urea Nitrogen 27 mg/dL (9-23); Calcium (Corrected) 8.6 mg/dL (8.5-10.1); Carbon Dioxide 23.5 mMol/L (20.0-31.0); Cardiac Risk Estimate 2.9 RATIO (3.7-5.6); Chloride 106 mMol/L (98-107); Cholesterol 140 mg/dL (132-200); Creatinine (Component) 1.4 mg/dL (0.6-1.3); Estimated Creatinine Clearance 24.1 mL/min (>60); Globulin 1.8 gm/dL (2.3-3.5); Glucose 91 mg/dL (74-106); HDL Cholesterol 49 mg/dL (40-60); LDL Cholesterol,Calculated 80 mg/dL (0-130); Magnesium 1.8 mg/dL (1.6-2.6); Osmolality,Calculated 277 (275-295); Sodium 136 mMol/L (136-145); Triglycerides 53 mg/dL (30-150); eGFR 38 See Note
[2024-02-07] MEDS: ASPIRIN 81 MG CHEW PO (08:41)
[2024-02-07] MEDS: PANTOPRAZOLE INJ 40 MG VIAL IVP (08:42)
[2024-02-07] MEDS: DEXAMETHASONE SOD PHOS INJ 10 MG/ML VIAL 4 MG IV ×3 (08:42→21:11)
--- NOTE | 2024-02-07 09:22 | PCS.ST ---
Swallow Evaluation completed. See report for details. Recommend Dysphagia 2 diet. Oral dysphagia with functional pharyngeal swallow.
--- NOTE | 2024-02-07 10:26 | XR_ITS ---
Examination: Metastatic bone survey, 15 views TECHNIQUE: Bruce skull, AP chest, AP pelvis, AP right femur, AP left femur, AP right humerus, AP left humerus, AP right forearm, AP left forearm, AP right tibia-fibula, AP left tibia fibula, lateral cervical spine, lateral skull lateral thoracic spine lateral lumbar spine 15 views views Exam date and time: 02/08/2023 1040 hours INDICATIONS: Frontal osteolytic bone lesion on CT brain scan this week FINDINGS: Lateral skull demonstrates osteolytic parietal lesion 11 mm AP film demonstrates the osteolytic lesion in the right frontal bone 37 mm Normal heart size Lungs are clear Suspicious for subtle osteolytic lesions left femoral head neck and intertrochanteric region No vertebral body fracture IMPRESSION: Osteolytic lesions right frontal bone, parietal bone, suspicious for osteolytic lesions left hip Considerable body bone scan follow-up
--- NOTE | 2024-02-07 10:55 | PC.SS ---
Update: MRI is pending. Neurology recommendations are pending.
--- NOTE | 2024-02-07 13:09 | ESCONSULT_ITS ---
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 Patient has had several recurrences including . in the abdominal region being followed by medical oncologist in [place], Dr. Murguia. Recent CT showed enlarging soft tissue tumor mass in the right hemipelvis. Patient was recently admitted with acute metabolic encephalopathy but now admitted for apparent sepsis. Brain CT showed showed 33 x 32 mm right frontal bone lesion with soft tissue component. Bone survey ordered. Brain MRI pending. cc:: cc: Lukasz Yi DO Past Medical History Past Medical History Comments PMH COMMENT: Diffuse large B-cell lymphoma for many years. Chronic kidney disease atrial fibrillation Meds Home Medications and Allergies Home Medications ?Medication ?Instructions ?Recorded ?Confirmed ?Type amiodarone 200 mg tablet 200 mg PO DAILY 02/03/24 02/06/24 History apixaban 2.5 mg tablet (Eliquis) 2.5 mg PO BID 02/03/24 02/06/24 History Allergies Allergy/AdvReac Type Severity Reaction Status Date / Time Penicillins Allergy Severe Rash Verified 02/03/24 15:28 Exam Vital Signs Temp Pulse Resp BP Pulse Ox O2 Del Method O2 Flow Rate 97.0 F 56 L 17 135/61 H 100 Nasal Cannula 2 02/07/24 12:20 02/07/24 12:20 02/07/24 12:20 02/07/24 12:20 02/07/24 12:20 02/07/24 12:20 02/07/24 12:20 Narrative Exam Patient appearing tired but in no acute distress Results Labs 02/07/24 05:54 02/07/24 05:54 Labs: Short CBC 02/06/24 02/07/24 Range/Units 16:00 05:54 WBC 10.3 11.5 H (3.6-11.0) Thou/mm3 Hgb 12.8 10.3 L D (12.0-16.0) g/dL Hct 39.5 32.0 L (36.0-46.0) % Plt Count 261 201 D (140-440) Thou/mm3 BMP 02/06/24 02/07/24 16:00 05:54 Sodium 134 L 136 Potassium 4.2 4.0 Chloride 101 106 Carbon Dioxide 27.4 23.5 BUN 28 H 27 H Creatinine 1.4 H 1.4 H Glucose 81 91 Calcium 9.3 8.0 L Cardiac Enzymes 02/06/24 02/07/24 Range/Units 16:00 00:30 Troponin I < 0.020 < 0.020 (0.0-0.045) ng/mL Liver Function 02/06/24 02/07/24 Range/Units 16:00 05:54 Total Bilirubin 0.5 0.4 (0.3-1.2) mg/dL AST 14 10 (0-34) U/L ALT 9 L < 7 L (10-49) U/L Alkaline Phosphatase 103 70 D (46-116) U/L Albumin 4.2 3.2 L D (3.4-4.8) gm/dL Urine 02/06/24 Range/Units 17:04 Urine Color Colorless A (Lt Yel-Yel) Urine Clarity Clear (Clear/Hazy) Urine pH 6.5 (5.0-7.0) Ur Specific [place] 1.014 (1.001-1.035) Urine Protein Trace (Neg - Trace) Urine Glucose (UA) Negative (Negative) ABG Interpretation ABG results: 02/07/24 01:46 ABG pH 7.43 ABG pCO2 30 L ABG pO2 163 H ABG HCO3 20 ABG O2 Saturation 100 H ABG Base Excess -4 L Assessment and Plan Additional Assessment & Plan Additional Plan: 1. History of diffuse large B-cell lymphoma prior chemotherapy in [place] and radiation to head and neck sites at [facility] 2. Appears to have active disease in the pelvis and skull region. 3. Awaiting bone survey and MRI of the brain. 4. Receving supportive care for atrial fibrillation fever of unknown origin cephalopathy. 5. Will follow. Thank for allowing me to evaluate this patient
--- NOTE | 2024-02-07 15:08 | PD.RESPRO ---
Documentation for date of: 02/07/24 Subjective Subjective Interval history: Patient seen at bedside. She is a 79-year-old female with a past medical history of lymphedema diffuse large B-cell lymphoma status post remission and metastasis who was recently discharged after being admitted for acute encephalopathy. Per son at bedside, patient seems to be doing better after discharge but about 6 hours later was difficult to converse with and seemed even worse than before admission after which she was brought into the ED. He also mentioned that patient had large bowel movements that were loose. At bedside, patient is AAOx0, recognizes son and states he is name but is not oriented to her person. Head CT was done and showed frontal bone lesion suspicious for osseous metastatic disease. Bone survey ordered, pending brain MRI. Per stroke protocol, echocardiogram also ordered, pending results. Will continue aspirin for now and follow-up with imaging. Patient's oncologist Dr. Tapia also consulted, appreciate recommendations. Neurology consulted. As patient was febrile on admission, the patient was started on IV cefepime. Will continue antibiotics, pending blood cultures. Exam Vital Signs Temp Pulse Resp BP Pulse Ox O2 Del Method O2 Flow Rate 97.0 F 56 L 17 135/61 H 100 Nasal Cannula 2 02/07/24 12:20 02/07/24 12:20 02/07/24 12:20 02/07/24 12:20 02/07/24 12:20 02/07/24 12:20 02/07/24 12:20 Narrative Exam GENERAL: AAOX0 NEURO: STUDIO RECEPTIONIST grossly intact, moves extremities x4 HEENT: Moist mucosa. Eyes open, symmetrical, & clear CARDIO: No chest pain on palpation. Heart RRR, no obvious murmurs PULM: No noted coughing/dyspnea. Lungs CTA B/L GI: Abdomen soft, nondistended, no pain on palpation. BSx4 URO/[employer]:: No further abnormalities noted. SKIN/MSK/EXT: No wounds/rashes/edema/amputations, no pain on palpation. Pedal pulses present B/L Objective Labs 02/08/24 04:54 02/08/24 04:54 Labs: Laboratory Results - last 24 hr 02/06/24 02/06/24 02/07/24 16:00 17:04 00:30 WBC 10.3 RBC 4.72 Hgb 12.8 Hct 39.5 MCV 84 MCH 27.1 MCHC 32.4 RDW Std Deviation 52.2 H Plt Count 261 Neut % (Auto) 81 H Lymph % (Auto) 4 L [place] % (Auto) 12 Eos % (Auto) 2 Baso % (Auto) 0 Neut # (Auto) 8.3 H Lymph # (Auto) 0.5 L [place] # (Auto) 1.2 H Eos # (Auto) 0.2 Baso # (Auto) 0.0 Immature Gran # (Auto) 0.04 H Absolute Nucleated RBC 0.00 Immature Gran % 0 Nucleated RBC % 0 ESR 33 H Puncture Site ABG pH ABG pCO2 ABG pO2 ABG HCO3 ABG O2 Saturation ABG Base Excess Oxygen Liter Flow Sodium 134 L Potassium 4.2 Chloride 101 Carbon Dioxide 27.4 Anion Gap 6 L BUN 28 H Creatinine 1.4 H Estim Creat Clear Calc 30.3 L eGFR 38 L BUN/Creatinine Ratio 20 Glucose 81 Calculated Osmolality 272 L Lactic Acid 0.9 Calcium 9.3 Corrected Calcium 9.3 Magnesium 2.0 Total Bilirubin 0.5 AST 14 ALT 9 L Alkaline Phosphatase 103 Troponin I < 0.020 < 0.020 C-Reactive Prot, Quant 0.9 B-Natriuretic Peptide 108 H Total Protein 6.5 Albumin 4.2 Globulin 2.3 Albumin/Globulin Ratio 1.8 Triglycerides Cholesterol LDL Cholesterol, Calc HDL Cholesterol Cholesterol/HDL Ratio Procalcitonin 0.16 TSH 4.01 Ur Collection Type Clean Catch Urine Color Colorless A Urine Clarity Clear Urine pH 6.5 Ur Specific [place] 1.014 Urine Protein Trace Urine Glucose (UA) Negative Urine Ketones Negative Urine Blood 1+ A Urine Nitrite Negative Urine Bilirubin Negative Urine Urobilinogen (Auto) Negative Ur Leukocyte Esterase Negative Urine RBC 7 H Urine WBC 1 Ur Squamous Epith Cells < 1 Urine Bacteria None RSV Rapid Group A Strep Rapid 02/07/24 02/07/24 02/07/24 00:48 01:46 05:54 WBC 11.5 H RBC 3.73 L Hgb 10.3 L D Hct 32.0 L MCV 86 MCH 27.6 MCHC 32.2 RDW Std Deviation 53.6 H Plt Count 201 D Neut % (Auto) 81 H Lymph % (Auto) 5 L [place] % (Auto) 13 H Eos % (Auto) 1 Baso % (Auto) 0 Neut # (Auto) 9.3 H Lymph # (Auto) 0.5 L [place] # (Auto) 1.5 H Eos # (Auto) 0.1 Baso # (Auto) 0.0 Immature Gran # (Auto) 0.06 H Absolute Nucleated RBC 0.00 Immature Gran % 1 H Nucleated RBC % 0 ESR Puncture Site Left Radial ABG pH 7.43 ABG pCO2 30 L ABG pO2 163 H ABG HCO3 20 ABG O2 Saturation 100 H ABG Base Excess -4 L Oxygen Liter Flow 2 Sodium 136 Potassium 4.0 Chloride 106 Carbon Dioxide 23.5 Anion Gap 7 BUN 27 H Creatinine 1.4 H Estim Creat Clear Calc 24.1 L eGFR 38 L BUN/Creatinine Ratio 19 Glucose 91 Calculated Osmolality 277 Lactic Acid Calcium 8.0 L Corrected Calcium 8.6 Magnesium 1.8 Total Bilirubin 0.4 AST 10 ALT < 7 L Alkaline Phosphatase 70 D Troponin I C-Reactive Prot, Quant B-Natriuretic Peptide Total Protein 5.0 L Albumin 3.2 L D Globulin 1.8 L Albumin/Globulin Ratio 1.8 Triglycerides 53 Cholesterol 140 LDL Cholesterol, Calc 80 HDL Cholesterol 49 Cholesterol/HDL Ratio 2.9 L Procalcitonin TSH Ur Collection Type Urine Color Urine Clarity Urine pH Ur Specific [place] Urine Protein Urine Glucose (UA) Urine Ketones Urine Blood Urine Nitrite Urine Bilirubin Urine Urobilinogen (Auto) Ur Leukocyte Esterase Urine RBC Urine WBC Ur Squamous Epith Cells Urine Bacteria RSV Rapid Negative Group A Strep Rapid Negative ABG Interpretation ABG results: 02/07/24 01:46 ABG pH 7.43 ABG pCO2 30 L ABG pO2 163 H ABG HCO3 20 ABG O2 Saturation 100 H ABG Base Excess -4 L Quality Measures Quality Measures none Advance care planning discussed with:: child Assessment & Plan Assessment Current Active Medications: Generic Name Dose Route Start Last Admin Trade Name Freq PRN Reason Stop Dose Admin Acetaminophen 650 mg 02/07/24 03:32 Acetaminophen Supp 650 Mg Supp RI 03/08/24 03:31 Q6HR PRN [id number] Aspirin 81 mg 02/07/24 09:00 02/07/24 08:41 Aspirin 81 Mg Chew PO 03/08/24 08:59 81 mg QDAY GENE Administration Atorvastatin Calcium 40 mg 02/07/24 21:00 Atorvastatin Calcium 20 Mg Tablet PO 03/08/24 20:59 HS GENE Dexamethasone Sodium Phosphate 4 mg 02/07/24 09:00 02/07/24 08:42 Dexamethasone Sod Phos Inj 10 Mg/Ml Vial IV 03/08/24 08:59 4 mg Q6H GENE Administration Sodium Chloride 1,000 mls @ 75 mls/hr 02/07/24 03:45 02/07/24 04:55 Ns IV 03/08/24 03:44 75 mls/hr .[id number] GENE Administration Cefepime HCl 2 gm/ Sodium 50 mls @ 100 mls/hr 02/07/24 14:00 02/07/24 13:19 Chloride IV 02/14/24 13:59 100 mls/hr Q8HR GENE Administration Ondansetron HCl 4 mg 02/07/24 03:32 Ondansetron Inj 2 Mg/Ml Inj 2 Ml IV 03/08/24 03:31 Q6H PRN NAUSEA OR VOMITING Protocol Pantoprazole Sodium 40 mg 02/07/24 09:00 02/07/24 08:42 Pantoprazole Inj 40 Mg Vial IVP 03/08/24 08:59 40 mg QDAY GENE Administration Plan Summary: The patient is a 79-year-old female with past medical history of lymphoma status post remission and recurrence with abdominal (and pulmonary?) metastasis, CKD, dementia, atrial fibrillation on Eliquis who is admitted for acute encephalopathy and acute kidney injury in setting of CKD. #Acute on chronic encephalopathy #SIRS 2/4 # Dementia Presents after being found on bathroom floor for unknown period of time. Patient was not able to recall events leading up to hospitalization on admission. On admission SIRS 2/4: T 101.2 ?F, WBC 13.2. No source. CK, procal, and lactate wnl. She has waxing and waning mentation throughout the day per son, son is a reliable historian, patient lives with son at home. UA was negative for leukocyte esterase, nitrites, patient denies dysuria. Patient alert and oriented x 3, recalls events leading to hospitalization, per family at bedside patient is back to baseline. Plan: ?Continue IV cefepime ?Follow-up urine and blood cultures -Pending brain MRI -Neurology consulted, appreciate recommendations -Monitor vitals closely -Follow CBC CMP in a.m. -Physical therapy recommends residential facility for discharge, family is agreeable. #Acute on chronic kidney injury #Acute kidney injury #CKD, stage IIIb Patient's kidney injury likely prerenal Plan: ?Will continue IVF at 75 cc/h -Avoid nephrotoxic agents -Renally dose medications #Atrial fibrillation [id number] score 3 Patient's home medication include amiodarone and Eliquis 2.5 mg Plan: ?Will restart amiodarone 200 mg PO daily ? Holding Eliquis 2.5 mg twice daily -Continue telemonitoring #Lymphoma by history Patient has history of lymphoma with abdominal and pulmonary metastasis CT abdomen pelvis shows Enlarging of soft tissue tumor mass in the right hemipelvis Patient follows up with oncologist in [place] Suspicion of pulmonary metastasis as CTA chest positive for pulmonary nodules Plan: -Oncologist consulted, appreciate recommendations -Bone survey ordered # Status post ground-level fall # History of orthostatic hypotension Per son patient has history of orthostatic hypotension. Patient presented status post ground-level fall, denies hitting head. Patient is on Eliquis at home for A-fib. Face CT, head CT, lumbar spine CT and thoracic spine CT negative Orthostatic vitals negative Plan: -Fall precautions -Referral to physical therapy Hospital management: Disposition: 2-3 hospital nights Fluids: IVF, NS at 75 mL/hr Diet: Dysphagia 2 Lines: peripheral DVT prophylaxis: SCDs GI prophylaxis: not indicated CODE STATUS: full code Case was discussed with attending physician, Dr Kd Turner MD PGY-1 Attending Provider Attestation/Addendum I have discussed and was present for the essential components of the history, physical examination, diagnosis, and treatment plan with the resident. I agree with the patient's care as documented by the resident and amended herein by me. Fidel Yi DO. Although this document has been carefully reviewed, there may still be some phonetic and other typographical errors. These errors are purely grammatical due to imperfections in the software program and should not be construed in any way to compromise the substance of the patient's medical care during this visit.
--- NOTE | 2024-02-07 18:35 | PD.RESCONSUL ---
HPI Data of Consult Patient: known to practice within the last 3 years Consult date: 02/07/24 Requesting Physician: Lukasz Yi DO Admitting Provider: Sg Shaw MD Attending Provider: Lukasz Yi DO Primary Care Provider: Physician No Primary/Family Consult Narrative Reason for consult: Afib History of present illness: HISTORY OF PRESENT ILLNESS : Patient currently nonverbal and history obtained from chart review. 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 She subsequently developed severe diarrhea which progressed as well as the weakness eventually confusion ensued and patient stopped following commands. At baseline patient is hearing impaired, has dementia and uses a walker to ambulate. She is able to perform some ADLs independently including bathing and dressing herself. Patient had a recent discharge on 02/05 for acute metabolic encephalopathy secondary to sepsis. Patient also had another recent discharge for COVID-pneumonia on 11/05/2023. Patient came back to the emergency department for altered mental status along with shortness of breath on 11/15/2023. ED course: CT head was negative for hemorrhage, mass effect or midline shift. A large frontal lobe defect was shown. CTA was significant for right frontal calvarium lesion, concern of primary/secondary neoplasm. CR was elevated at 1.4 and BUN 28 patient also had a temperature spike of 102.6F. Patient was given normal saline IVF 1L bolus, ceftriaxone and vancomycin IV. Transthoracic echocardiogram completed on 02/07/2024 findings include: Negative bubble study. No evidence of PFO or ASD. Consider MEAGAN if high clinical suspicion. Normal LV size and function. Estimated EF 60-65% Normal RV size and function. Mild AV stenosis, mean gradient 12mmHg, vmax 2.6m/s. Mild to moderate AI. Mild MR, TR. Patient was admitted for acute metabolic encephalopathy secondary to sepsis. Cardiology was consulted for A-fib HOME MEDICATIONS: ? Amiodarone 200 Mg p.o. daily ? Eliquis 2.5 Mg p.o. twice daily ? Olanzapine 2.5 Mg at bedtime cc:: cc: Lukasz Yi, DO Review of Systems Review of Systems ROS Unobtainable: unobtainable due to mental status Past Medical History Past Medical History Comments PMH COMMENT: Past medical history: ? Diffuse large B-cell lymphoma ? Paroxysmal atrial fibrillation ? Protein calorie malnutrition ? Progressive senile dementia ? CKD stage IIIb Exam Vital Signs Temp Pulse Resp BP Pulse Ox O2 Del Method O2 Flow Rate 98.2 F 62 18 143/62 H 100 Nasal Cannula 1 02/07/24 16:00 02/07/24 16:00 02/07/24 16:00 02/07/24 16:00 02/07/24 16:00 02/07/24 16:00 02/07/24 16:00 Narrative Exam General: Alert and oriented x 0, Non verbal Patient not able to provide much history and appears confused Eyes: Pupils are equal and reactive to light bilaterally. HEENT: Atraumatic, normocephalic. No JVD noted. Mucosa moist. Cardiovascular: Normal S1 and S2. Normal rate and regular rhythm. 2 or 6 ejection systolic murmur noted aortic area no peripheral pitting edema noted. Respiratory: No respiratory distress. Lungs are clear to auscultation bilaterally. No wheezing or crackles heard. Abdomen: Soft, nontender, nondistended. Skin: No rash. Warm to touch. Musculoskeletal: No gross injuries. Able to move all 4 extremities. Psych: Normal affect and mood Results Labs 02/07/24 05:54 02/07/24 05:54 Labs: Short CBC 02/07/24 Range/Units 05:54 WBC 11.5 H (3.6-11.0) Thou/mm3 Hgb 10.3 L D (12.0-16.0) g/dL Hct 32.0 L (36.0-46.0) % Plt Count 201 D (140-440) Thou/mm3 BMP 02/07/24 05:54 Sodium 136 Potassium 4.0 Chloride 106 Carbon Dioxide 23.5 BUN 27 H Creatinine 1.4 H Glucose 91 Calcium 8.0 L Cardiac Enzymes 02/07/24 Range/Units 00:30 Troponin I < 0.020 (0.0-0.045) ng/mL Liver Function 02/07/24 Range/Units 05:54 Total Bilirubin 0.4 (0.3-1.2) mg/dL AST 10 (0-34) U/L ALT < 7 L (10-49) U/L Alkaline Phosphatase 70 D (46-116) U/L Albumin 3.2 L D (3.4-4.8) gm/dL ABG Interpretation ABG results: 02/07/24 01:46 ABG pH 7.43 ABG pCO2 30 L ABG pO2 163 H ABG HCO3 20 ABG O2 Saturation 100 H ABG Base Excess -4 L Quality Measures Quality Measures none Advance care planning discussed with:: child Medications Home Medications and Allergies Home Medications ?Medication ?Instructions ?Recorded ?Confirmed ?Type amiodarone 200 mg tablet 200 mg PO DAILY 02/03/24 02/06/24 History apixaban 2.5 mg tablet (Eliquis) 2.5 mg PO BID 02/03/24 02/06/24 History Allergies Allergy/AdvReac Type Severity Reaction Status Date / Time Penicillins Allergy Severe Rash Verified 02/03/24 15:28 Visit Medications Acetaminophen (Acetaminophen Supp 650 Mg Supp) 650 mg MN Q6HR PRN PRN Reason: [id number] Stop: 03/08/24 03:31 Aspirin (Aspirin 81 Mg Chew) 81 mg PO QDAY GENE Stop: 03/08/24 08:59 Last Admin: 02/07/24 08:41 Dose: 81 mg Atorvastatin Calcium (Atorvastatin Calcium 20 Mg Tablet) 40 mg PO HS GENE Stop: 03/08/24 20:59 Dexamethasone Sodium Phosphate (Dexamethasone Sod Phos Inj 10 Mg/Ml Vial) 4 mg IV Q6H GENE Stop: 03/08/24 08:59 Last Admin: 02/07/24 16:25 Dose: 4 mg Sodium Chloride (Ns) 1,000 mls @ 75 mls/hr IV .[id number] GENE Stop: 03/08/24 03:44 Last Admin: 02/07/24 04:55 Dose: 75 mls/hr Cefepime HCl 2 gm/ Sodium (Chloride) 50 mls @ 100 mls/hr IV Q8HR GENE Stop: 02/14/24 13:59 Last Admin: 02/07/24 13:19 Dose: 100 mls/hr Ondansetron HCl (Ondansetron Inj 2 Mg/Ml Inj 2 Ml) 4 mg IV Q6H PRN; Protocol PRN Reason: NAUSEA OR VOMITING Stop: 03/08/24 03:31 Pantoprazole Sodium (Pantoprazole Inj 40 Mg Vial) 40 mg IVP QDAY GENE Stop: 03/08/24 08:59 Last Admin: 02/07/24 08:42 Dose: 40 mg Discontinued Medications Acetaminophen (Acetaminophen Supp 650 Mg Supp) 650 mg MN X1 ONE Stop: 02/07/24 00:19 Last Admin: 02/07/24 00:42 Dose: 650 mg Aspirin (Aspirin 300 Mg Supp) 300 mg MN X1 ONE Stop: 02/07/24 04:54 Last Admin: 02/07/24 05:18 Dose: 300 mg Dexamethasone Sodium Phosphate (Dexamethasone Sod Phos Inj 10 Mg/Ml Vial) 10 mg IV X1 ONE Stop: 02/07/24 03:33 Last Admin: 02/07/24 04:55 Dose: 10 mg Ceftriaxone Sodium/Dextrose (Rocephin/D5w 1gm Iv Premix) 50 mls @ 100 mls/hr IV X1 ONE Stop: 02/07/24 00:45 Last Infusion: 02/07/24 01:14 Dose: Infused Sodium Chloride (Ns) 1,000 mls @ 999 mls/hr IV .Q1H1M ONE Stop: 02/07/24 01:16 Last Infusion: 02/07/24 01:43 Dose: Infused Vancomycin HCl 1,000 mg/ (Sodium Chloride) 250 mls @ 150 mls/hr IV X1 ONE Stop: 02/07/24 02:19 Last Infusion: 02/07/24 02:35 Dose: Infused Sodium Chloride (Ns) 1,000 mls @ 999 mls/hr IV .Q1H1M ONE Stop: 02/07/24 01:53 Last Infusion: 02/07/24 02:35 Dose: Infused Cefepime HCl 2 gm/ Sodium (Chloride) 50 mls @ 100 mls/hr IV X1 ONE Stop: 02/07/24 05:14 Last Infusion: 02/07/24 05:34 Dose: Infused Ketorolac Tromethamine (Ketorolac Inj 30 Mg/Ml Vial) 7.5 mg IVP X1 ONE Stop: 02/07/24 00:19 Last Admin: 02/07/24 00:41 Dose: 7.5 mg Pharmacy Consult (Vancomycin Pharmacy To Dose 1 Each Each) 1 each IV QDAY PRN PRN Reason: PROTOCOL Stop: 03/08/24 08:59 Assessment & Plan Plan A 72-year-old female with a past medical history of diffuse large B-cell lymphoma status post radiation to head and neck sites at [facility] and chemotherapy in [place] and was in remission with recurrence to abdominal, was on treatment until March, CKD stage 3B, protein calorie malnutrition versus cachexia, progressive senile dementia as well as history of paroxysmal atrial fibrillation was brought into the emergency department initially for altered mental status diarrhea at home.Patient was admitted for acute metabolic encephalopathy secondary to sepsis. Cardiology was consulted for A-fib. 1. Paroxysmal atrial fibrillation with SVR Patient confused and unable to give any history of any chest pain/pressure or palpitations. EKG on admission showed sinus rhythm, rate 60 and repeat EKG showed sinus bradycardia with rate 59. At home patient on metoprolol XL and amiodarone 200 Mg p.o. daily. From telemetry review patient does not appear to be in A-fib on this admission. [id number] 3; 3.2% stroke risk per year [age, female] HAS-BLED : 1 points; low risk for major bleeding Transthoracic echocardiogram completed on 02/07/2024 findings include: Negative bubble study. No evidence of PFO or ASD. Consider MEAGAN if high clinical suspicion. Normal LV size and function. Estimated EF 60-65% Normal RV size and function. Mild AV stenosis, mean gradient 12mmHg, vmax 2.6m/s. Mild to moderate AI. Mild MR, TR. Plan: ? Recommend to resume home medication amiodarone 200 Mg p.o. daily for rhythm control. ? Patient may need to restart metoprolol XL for rate control if the blood pressure and heart rate are permissible. ? Recommend to resume anticoagulation with Eliquis 2.5 Mg p.o. twice daily if no further procedures planned ? Recommend to maintain potassium greater than 4 and Mg greater than 2 at all times to prevent any arrhythmias 2. Acute metabolic encephalopathy secondary to fever of unknown origin On admission SIRS 2/4 for tachypnea and temperature 102.6 F Blood and urine cultures currently pending and no obvious source of infection. Continue management as per primary team 3. History of diffuse large B-cell lymphoma s/p treatment in remission with recurrence in the abdomen on treatment until March status post radiation to head and neck sites at [facility] and chemotherapy in [place] Dr. Tapia, radiation oncologist was consulted. Brain CT showed showed 33 x 32 mm right frontal bone lesion with soft tissue component. Bone survey ordered. Brain MRI pending. Continue management as per radiation oncology 4. CKD stage III And admission CR 1.4. From chart review baseline appears to be between 1.2?1.4 Continue management as per primary team 5. Protein calorie malnutrition with cachexia 6 . Progressive senile dementia with possible delirium 7. Poor oral intake and patient is mildly dehydrated Continue management as per primary team Continue rest of management as per primary team. We are grateful to be able to participate in Ms. Hill's care. Thank you for the consult Plan of care discussed with attending [employer], Dr Kristy Eastman MD PGY 1 Attending Provider Attestation/Addendum I have personally seen and examined the patient separately on the above date of service and discussed the plan of care with the resident. I reviewed the resident Dr. Eastman consultation note and agree with the resident findings and plan in the note above and have also edited the documentation to reflect my findings and plan. Patient well-known to me from previous admission as well as my clinic recently A 72-year-old female with a past medical history of paroxysmal atrial fibrillation on amiodarone, metoprolol and Eliquis diagnosed in 2023, lymphoma status post treatment and was in remission with recurrence to abdominal, was on treatment until March, CKD stage 3, protein calorie malnutrition versus cachexia, progressive senile dementia as well as history of paroxysmal atrial fibrillation, recent COVID in December 2023, was brought into the emergency department initially for altered mental status and diarrhea at home. Patient unable to provide much history most of the history is obtained from the chart review. Patient apparently be discharged from the hospital yesterday and now been readmitted for further evaluation of altered mental status and ruling out stroke. Recommendations patient does have a history of paroxysmal atrial fibrillation but appears to be in sinus rhythm. Recommend to continue amiodarone 200 mg once daily and to maintain a sinus rhythm. Patient was on Eliquis 2.5 mg twice daily which was stopped and lieu of possible procedures. Recommend to restart Eliquis 2.5 mg twice daily given her age is almost 80 years and weight is less than 60 kg. Also patient to be restarted on metoprolol XL and heart rate and blood pressure permissible. Blood pressure appears to be adequately controlled. Rest of the vital signs appear to be normal and he is on nasal cannula at 1 L/min. Echocardiogram today does show again a mild aortic valve stenosis and not much change from the previous echocardiogram. Transthoracic echocardiogram completed on 02/07/2024 findings include: Negative bubble study. No evidence of PFO or ASD. Consider MEAGAN if high clinical suspicion. Normal LV size and function. Estimated EF 60-65% Normal RV size and function. Mild AV stenosis, mean gradient 12mmHg, vmax 2.6m/s. Mild to moderate AI. Mild MR, TR. Management of rest of the medical conditions as per primary team and other consultants. Thank you for the consult and allowing me to participate in the care of the patient. Cardiology will continue to follow. Fabio Wagner M.D. Interventional Cardiology
--- NOTE | 2024-02-07 23:52 | PD.NEUROCONS ---
History of Present Illness Data of Consult Requesting Physician: Lukasz Yi DO Primary Care Provider: Physician No Primary/Family Consult Narrative cc:: cc: Lukasz Yi, DO Meds Home Medications and Allergies Home Medications ?Medication ?Instructions ?Recorded ?Confirmed ?Type amiodarone 200 mg tablet 200 mg PO DAILY 02/03/24 02/06/24 History apixaban 2.5 mg tablet (Eliquis) 2.5 mg PO BID 02/03/24 02/06/24 History Allergies Allergy/AdvReac Type Severity Reaction Status Date / Time Penicillins Allergy Severe Rash Verified 02/03/24 15:28 Exam - Neurology Vital Signs Temp Pulse Resp BP Pulse Ox O2 Del Method O2 Flow Rate 98.2 F 64 19 127/72 99 Nasal Cannula 1 02/07/24 20:00 02/07/24 20:00 02/07/24 20:00 02/07/24 20:00 02/07/24 20:00 02/07/24 20:00 02/07/24 20:00 Results Labs 02/07/24 05:54 02/07/24 05:54 Labs: Short CBC 02/07/24 Range/Units 05:54 WBC 11.5 H (3.6-11.0) Thou/mm3 Hgb 10.3 L D (12.0-16.0) g/dL Hct 32.0 L (36.0-46.0) % Plt Count 201 D (140-440) Thou/mm3 BMP 02/07/24 05:54 Sodium 136 Potassium 4.0 Chloride 106 Carbon Dioxide 23.5 BUN 27 H Creatinine 1.4 H Glucose 91 Calcium 8.0 L Cardiac Enzymes 02/07/24 Range/Units 00:30 Troponin I < 0.020 (0.0-0.045) ng/mL Liver Function 02/07/24 Range/Units 05:54 Total Bilirubin 0.4 (0.3-1.2) mg/dL AST 10 (0-34) U/L ALT < 7 L (10-49) U/L Alkaline Phosphatase 70 D (46-116) U/L Albumin 3.2 L D (3.4-4.8) gm/dL ABG Interpretation ABG results: 02/07/24 01:46 ABG pH 7.43 ABG pCO2 30 L ABG pO2 163 H ABG HCO3 20 ABG O2 Saturation 100 H ABG Base Excess -4 L
[2024-02-08] VITALS (8 sets, daily range): BP systolic 119–140; BP diastolic 58–97; PULSE 54–67; RESP 16–21; TEMP 36.2–36.6; O2SAT 93–100; BMI 17.4
--- NOTE | 2024-02-08 | XR_ITS ---
Examinations: MRI Brain without intravenous contrast. MRA brain without intravenous contrast. MRA carotids without intravenous contrast 3-D vascular reconstructions Date and time of exam: February 08, 2024 1254 hours INDICATIONS: Delirium, altered mental status this week, confused, unable to speak Comparison: 11/18/2023 Technique: Multiple axial and sagittal images of the brain have been obtained MRA brain carotid images without contrast obtained, including 3-D postprocessing, vascular maximum intensity projection images Findings: Sellaturcica is not enlarged. The optic chiasm and infundibular stalk are not remarkable. Prepontine and interpeduncular cisterns are not enlarged. No localized enlargement of the medulla or alessandro. Fourth ventricle and cerebellar tonsils normal in position. Subacute hemorrhage is not seen. Fourth ventricle is midline. Mass in the cerebellopontine angle region is not evident. 7th and 8th nerve complexes exhibits symmetry. Globes are symmetrical with no retro-orbital mass. Increased white matter signal is again noted Diffusion-weighted images demonstrate no foci restricted diffusion Again noted right frontal bone lesion likely osseous metastatic disease Mass-effect upon the ventricular system is not identified. MRA brain images severely degraded by patient motion Impression: No interval acute infarct Again noted right frontal bone lesion
[2024-02-08] MEDS: SODIUM CHLORIDE 0.9% 1000 ML 1,000 ML 75 ML IV ×2 (00:50→15:45)
--- NOTE | 2024-02-08 00:58 | ESPR_ITS ---
Documentation for date of: 02/07/24 Subjective Subjective Interval history: Patient is a 79-year-old female with lymphoma status post remission and recurrence with abdominal metastasis, history of CKD, dementia, A-fib on Eliquis who was recently admitted to [facility] for altered mental status, discharged after being treated for sepsis, to home as family declined long term placement. As the weakness got progressively worse, with severe foul-smelling diarrhea, with altered mental status to the point of not able to follow commands, patient's son decided to bring her back for further workup and management. Workup in the ER: CT head was negative for acute intracranial abnormalities but large right frontal lobe defect with a differential diagnosis of osteolytic lesion involving the right frontal bone: concern of primary/secondary neoplasm and radiologist recommended further workup with skeletal survey/whole-body bone scan. Patient got admitted for acute encephalopathy due to sepsis, bony lesion involving the right frontal bone concerning for primary/secondary malignancy as well as CVA/TIA rule out. Neurology was consulted to evaluate further. No witnessed seizures or behavioral changes or worsening headaches or recent fall reported. Exam - Neurology Vital Signs Temp Pulse Resp BP Pulse Ox O2 Del Method O2 Flow Rate 97.2 F 60 18 120/62 100 Nasal Cannula 1 02/08/24 00:00 02/08/24 00:00 02/08/24 00:00 02/08/24 00:00 02/08/24 00:00 02/08/24 00:00 02/08/24 00:00 Narrative Exam GENERAL APPEARANCE: Well-developed, thin built female in no acute distress. HEENT: Normocephalic, atraumatic, extraocular movements intact. Pupils: Equal reacting to light NECK: Supple, no JVD or bruits. CARDIOVASULAR: Heart: S1, S2 heard, irregular without S3-S4 or murmur no rubs or gallops. LUNGS/CHEST: Clear to auscultation bilaterally. No rails, rhonchi, or wheezing. Normal inspection. ABDOMEN: Soft, nontender, with normal bowel sounds. No pulsatile masses. No rebound, rigidity, or guarding. Normal inspection and palpation. EXTREMITIES: Normal inspection and palpation. No edema, clubbing or cyanosis. SKIN: Warm and dry without rashes. Normal inspection. MUSCULOSKELETAL: No cervical, thoracic, lumbar or midline bony tenderness. Normal inspection. NEURO: Alert, awake and oriented x1. Cranial nerves: II through XII grossly intact. Speech and language: Hypophonic, hard to understand her speech. Rest of exam: Limited, no signs of meningeal irritation noted. PSYCHIATRIC: Limited Objective Labs 02/07/24 05:54 02/07/24 05:54 Labs: Laboratory Results - last 24 hr 02/07/24 02/07/24 02/07/24 00:30 00:48 01:46 WBC RBC Hgb Hct MCV MCH MCHC RDW Std Deviation Plt Count Neut % (Auto) Lymph % (Auto) Geary % (Auto) Eos % (Auto) Baso % (Auto) Neut # (Auto) Lymph # (Auto) Geary # (Auto) Eos # (Auto) Baso # (Auto) Immature Gran # (Auto) Absolute Nucleated RBC Immature Gran % Nucleated RBC % ESR 33 H Puncture Site Left Radial ABG pH 7.43 ABG pCO2 30 L ABG pO2 163 H ABG HCO3 20 ABG O2 Saturation 100 H ABG Base Excess -4 L Oxygen Liter Flow 2 Sodium Potassium Chloride Carbon Dioxide Anion Gap BUN Creatinine Estim Creat Clear Calc eGFR BUN/Creatinine Ratio Glucose Calculated Osmolality Lactic Acid 0.9 Calcium Corrected Calcium Magnesium 2.0 Total Bilirubin AST ALT Alkaline Phosphatase Troponin I < 0.020 C-Reactive Prot, Quant 0.9 B-Natriuretic Peptide 108 H Total Protein Albumin Globulin Albumin/Globulin Ratio Triglycerides Cholesterol LDL Cholesterol, Calc HDL Cholesterol Cholesterol/HDL Ratio Procalcitonin 0.16 TSH 4.01 RSV Rapid Negative Group A Strep Rapid Negative 02/07/24 05:54 WBC 11.5 H RBC 3.73 L Hgb 10.3 L D Hct 32.0 L MCV 86 MCH 27.6 MCHC 32.2 RDW Std Deviation 53.6 H Plt Count 201 D Neut % (Auto) 81 H Lymph % (Auto) 5 L Geary % (Auto) 13 H Eos % (Auto) 1 Baso % (Auto) 0 Neut # (Auto) 9.3 H Lymph # (Auto) 0.5 L Geary # (Auto) 1.5 H Eos # (Auto) 0.1 Baso # (Auto) 0.0 Immature Gran # (Auto) 0.06 H Absolute Nucleated RBC 0.00 Immature Gran % 1 H Nucleated RBC % 0 ESR Puncture Site ABG pH ABG pCO2 ABG pO2 ABG HCO3 ABG O2 Saturation ABG Base Excess Oxygen Liter Flow Sodium 136 Potassium 4.0 Chloride 106 Carbon Dioxide 23.5 Anion Gap 7 BUN 27 H Creatinine 1.4 H Estim Creat Clear Calc 24.1 L eGFR 38 L BUN/Creatinine Ratio 19 Glucose 91 Calculated Osmolality 277 Lactic Acid Calcium 8.0 L Corrected Calcium 8.6 Magnesium 1.8 Total Bilirubin 0.4 AST 10 ALT < 7 L Alkaline Phosphatase 70 D Troponin I C-Reactive Prot, Quant B-Natriuretic Peptide Total Protein 5.0 L Albumin 3.2 L D Globulin 1.8 L Albumin/Globulin Ratio 1.8 Triglycerides 53 Cholesterol 140 LDL Cholesterol, Calc 80 HDL Cholesterol 49 Cholesterol/HDL Ratio 2.9 L Procalcitonin TSH RSV Rapid Group A Strep Rapid ABG Interpretation ABG results: 02/07/24 01:46 ABG pH 7.43 ABG pCO2 30 L ABG pO2 163 H ABG HCO3 20 ABG O2 Saturation 100 H ABG Base Excess -4 L Assessment & Plan Assessment and plan (1) Abnormal CT of brain: Status: Acute Assessment and plan: Right frontal bone lesion: Suspicious for primary/secondary malignancy follow-up with MRI brain and EEG, bone scan when it becomes available (2) AMS (altered mental status): Status: Acute Assessment and plan: Continue to monitor for any behavioral problems or seizures (3) Paroxysmal A-fib: Status: Chronic Assessment and plan: Continue with rate control and Eliquis
[2024-02-08] MEDS: DEXAMETHASONE SOD PHOS INJ 10 MG/ML VIAL 4 MG IV ×4 (02:42→20:45)
[2024-02-08] MEDS: CEFEPIME INJ 2 GM in SODIUM CHLORIDE 0.9% (P) 50 ML IV ×3 (05:27→20:44)
[2024-02-08 05:43] LABS: Basophils % (Auto) 0 % (0-2.5); Eosinophils % (Auto) 0 % (0-10); Hematocrit 36.3 % (36.0-46.0); Hemoglobin 11.6 g/dL (12.0-16.0); Immature Granulocytes % (Auto) 1 % (0-0); Immature Granulocytes Auto 0.06 Thou/mm3 (0.00-0.00); Lymphocytes # (Auto) 0.4 Thou/mm3 (1.0-4.8); Lymphocytes % (Auto) 4 % (10-50); Mean Corpuscular Hemoglobin 27.3 pg (25.0-35.0); Mean Corpuscular Volume 85 fL (80-100); Monocytes # (Auto) 0.3 Thou/mm3 (0.0-0.8); Monocytes % (Auto) 3 % (0-12); Neutrophils # (Auto) 9.6 Thou/mm3 (1.8-7.7); Neutrophils % (Auto) 93 % (37-80); Nucleated Red Blood Cell % 0 /100 WBC (0); Platelet Count 227 Thou/mm3 (140-440); RDW Standard Deviation 52.4 fL (36.4-46.3); Red Blood Count 4.25 Miln/mm3 (4.00-5.20); White Blood Count 10.3 Thou/mm3 (3.6-11.0)
[2024-02-08 06:02] LABS: Partial Thromboplastin Time 25.3 Seconds (22.0-36.0); Prothrombin Time 10.5 Seconds (9.0-12.2)
[2024-02-08 06:34] LABS: Alanine Aminotransferase < 7 U/L (10-49); Albumin, Serum 3.7 gm/dL (3.4-4.8); Albumin/Globulin Ratio 1.9 (1.2-2.2); Alkaline Phosphatase 75 U/L (46-116); Anion Gap 10 (7-16); Aspartate Amino Transferase 11 U/L (0-34); BUN/Creatinine Ratio 21 Ratio (12-20); Bilirubin,Total 0.5 mg/dL (0.3-1.2); Blood Urea Nitrogen 27 mg/dL (9-23); Calcium (Corrected) 9.2 mg/dL (8.5-10.1); Carbon Dioxide 20.2 mMol/L (20.0-31.0); Chloride 105 mMol/L (98-107); Creatinine (Component) 1.3 mg/dL (0.6-1.3); Estimated Creatinine Clearance 27.2 mL/min (>60); Glucose 118 mg/dL (74-106); Magnesium 1.9 mg/dL (1.6-2.6); Osmolality,Calculated 276 (275-295); Phosphorous 3.8 mg/dL (2.4-5.1); Potassium 4.4 mMol/L (3.4-5.1); Sodium 135 mMol/L (136-145); Total Protein 5.7 gm/dL (5.7-8.2); eGFR 42 See Note
--- NOTE | 2024-02-08 08:03 | XR_ITS ---
Examination: Bone scan whole body, radioisotope Date and time of exam: February 09, 2024 1316 hours INDICATIONS: Osteolytic right frontal bone lesion on brain MRI February 08, 2024 Technique: Study has been performed with intravenous administration of 22.4 mci 99M technetium MDP. Anterior, posterior whole body images are obtained. Images have been obtained including the lower extremities. Findings: Abnormal increased uptake right frontal bone Abnormally increased uptake midshaft left tibia Asymmetric uptake about the left foot which may be positional IMPRESSION: Positive bone scan, increased uptake right frontal bone midshaft left tibia, differential would include metastatic disease
[2024-02-08] MEDS: PANTOPRAZOLE INJ 40 MG VIAL IVP (08:10)
[2024-02-08] MEDS: Magnesium Sulfate 2 GM Ivpb 2 GM/50 ML BAG IV (09:46)
--- NOTE | 2024-02-08 10:26 | ESPR_ITS ---
Documentation for date of: 02/08/24 Subjective Subjective Interval history: Patient was seen and examined at bedside this AM. No acute exents overnight. Patient tolerating diet, adequate urine output and A&O xO Patient non verbal. From telemetry review patient rate controlled with HR 60-80S overnight with no Afib Continue Amiodarone po and resume Eliquis once no further procedures planned Exam Vital Signs Temp Pulse Resp BP Pulse Ox O2 Del Method O2 Flow Rate 97.5 F 66 17 136/66 H 95 Nasal Cannula 1 02/08/24 08:00 02/08/24 08:00 02/08/24 08:00 02/08/24 08:00 02/08/24 08:00 02/08/24 08:00 02/08/24 08:00 Narrative Exam General: Alert and oriented x 0, Non verbal Patient not able to provide much history and appears confused Eyes: Pupils are equal and reactive to light bilaterally. HEENT: Atraumatic, normocephalic. No JVD noted. Mucosa moist. Cardiovascular: Normal S1 and S2. Normal rate and regular rhythm. 2 or 6 ejection systolic murmur noted aortic area no peripheral pitting edema noted. Respiratory: No respiratory distress. Lungs are clear to auscultation bilaterally. No wheezing or crackles heard. Abdomen: Soft, nontender, nondistended. Skin: No rash. Warm to touch. Musculoskeletal: No gross injuries. Able to move all 4 extremities. Psych: Normal affect and mood Objective Labs 02/09/24 04:43 02/09/24 04:43 Labs: Laboratory Results - last 24 hr 02/08/24 04:54 WBC 10.3 RBC 4.25 Hgb 11.6 L Hct 36.3 MCV 85 MCH 27.3 MCHC 32.0 RDW Std Deviation 52.4 H Plt Count 227 Neut % (Auto) 93 H Lymph % (Auto) 4 L Alexander % (Auto) 3 Eos % (Auto) 0 Baso % (Auto) 0 Neut # (Auto) 9.6 H Lymph # (Auto) 0.4 L Alexander # (Auto) 0.3 Eos # (Auto) 0.0 Baso # (Auto) 0.0 Immature Gran # (Auto) 0.06 H Absolute Nucleated RBC 0.00 Immature Gran % 1 H Nucleated RBC % 0 PT 10.5 INR 1.0 APTT 25.3 Sodium 135 L Potassium 4.4 Chloride 105 Carbon Dioxide 20.2 Anion Gap 10 BUN 27 H Creatinine 1.3 Estim Creat Clear Calc 27.2 L eGFR 42 L BUN/Creatinine Ratio 21 H Glucose 118 H Calculated Osmolality 276 Calcium 9.0 Corrected Calcium 9.2 Phosphorus 3.8 Magnesium 1.9 Total Bilirubin 0.5 AST 11 ALT < 7 L Alkaline Phosphatase 75 Total Protein 5.7 Albumin 3.7 D Globulin 2.0 L Albumin/Globulin Ratio 1.9 Random Vancomycin 7.0 ABG Interpretation ABG results: 02/07/24 01:46 ABG pH 7.43 ABG pCO2 30 L ABG pO2 163 H ABG HCO3 20 ABG O2 Saturation 100 H ABG Base Excess -4 L Quality Measures Quality Measures none Advance care planning discussed with:: other Assessment & Plan Assessment Current Active Medications: Generic Name Dose Route Start Last Admin Trade Name Freq PRN Reason Stop Dose Admin Acetaminophen 650 mg 02/07/24 03:32 Acetaminophen Supp 650 Mg Supp CA 03/08/24 03:31 Q6HR PRN [id number] Amiodarone HCl 200 mg 02/08/24 09:00 02/08/24 09:42 Amiodarone Hcl 200 Mg Tablet PO 03/09/24 08:59 Not Given QDAY GENE Aspirin 81 mg 02/07/24 09:00 02/08/24 09:43 Aspirin 81 Mg Chew PO 03/08/24 08:59 Not Given QDAY GENE Atorvastatin Calcium 40 mg 02/07/24 21:00 02/07/24 21:15 Atorvastatin Calcium 20 Mg Tablet PO 03/08/24 20:59 Not Given HS [facility] Dexamethasone Sodium Phosphate 4 mg 02/07/24 09:00 02/08/24 08:10 Dexamethasone Sod Phos Inj 10 Mg/Ml Vial IV 03/08/24 08:59 4 mg Q6H GENE Administration Sodium Chloride 1,000 mls @ 75 mls/hr 02/07/24 03:45 02/08/24 00:50 Ns IV 03/08/24 03:44 75 mls/hr .[id number] GENE Administration Cefepime HCl 2 gm/ Sodium 50 mls @ 100 mls/hr 02/07/24 14:00 02/08/24 05:27 Chloride IV 02/14/24 13:59 100 mls/hr Q8HR GENE Administration Magnesium Sulfate 2 gm in 50 mls @ 25 mls/hr 02/08/24 09:39 02/08/24 09:46 Magnesium Sulfate Ivpb IV 02/08/24 11:38 25 mls/hr X1 ONE Administration Ondansetron HCl 4 mg 02/07/24 03:32 Ondansetron Inj 2 Mg/Ml Inj 2 Ml IV 03/08/24 03:31 Q6H PRN NAUSEA OR VOMITING Protocol Pantoprazole Sodium 40 mg 02/07/24 09:00 02/08/24 08:10 Pantoprazole Inj 40 Mg Vial IVP 03/08/24 08:59 40 mg QDAY GENE Administration Plan A 72-year-old female with a past medical history of 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 Cardiology was consulted for A-fib. 1. Paroxysmal atrial fibrillation with SVR Patient confused and unable to give any history of any chest pain/pressure or palpitations. EKG on admission showed sinus rhythm, rate 60 and repeat EKG showed sinus bradycardia with rate 59. At home patient on metoprolol XL and amiodarone 200 Mg p.o. daily. From telemetry review patient does not appear to be in A-fib on this admission. [id number] 3; 3.2% stroke risk per year [age, female] HAS-BLED : 1 points; low risk for major bleeding Transthoracic echocardiogram completed on 02/07/2024 findings include: Negative bubble study. No evidence of PFO or ASD. Consider MEAGAN if high clinical suspicion. Normal LV size and function. Estimated EF 60-65% Normal RV size and function. Mild AV stenosis, mean gradient 12mmHg, vmax 2.6m/s. Mild to moderate AI. Mild MR, TR. From telemetry review patient rate controlled with HR 60-80S overnight with no a-fib Plan: ? Recommend to continue home medication amiodarone 200 Mg p.o. daily for rhythm control. ? Patient may need to restart metoprolol XL for rate control if the blood pressure and heart rate are permissible. ? Recommend to resume anticoagulation with Eliquis 2.5 Mg p.o. twice daily if no further procedures planned ? Recommend to maintain potassium greater than 4 and Mg greater than 2 at all times to prevent any arrhythmias 2. Acute metabolic encephalopathy secondary to fever of unknown origin On admission SIRS 2/4 for tachypnea and temperature 102.6 F Blood and urine cultures currently pending and no obvious source of infection. Patient scheduled for LP today to determine etiology of encephalopathy Continue management as per primary team and Neurology 3. History of diffuse large B-cell lymphoma s/p treatment in remission with recurrence in the abdomen on treatment until March status post radiation to head and neck sites at [facility] and chemotherapy in [place] Dr. Tapia, radiation oncologist was consulted. Brain CT showed showed 33 x 32 mm right frontal bone lesion with soft tissue component. Bone survey ordered. Brain MRI pending. Continue management as per radiation oncology 4. CKD stage III And admission CR 1.4. From chart review baseline appears to be between 1.2?1.4 Continue management as per primary team 5. Protein calorie malnutrition with cachexia 6 . Progressive senile dementia with possible delirium 7. Poor oral intake and patient is mildly dehydrated Continue management as per primary team Continue rest of management as per primary team. We are grateful to be able to participate in Ms. Hill's care. Thank you for the consult Plan of care discussed with attending Java Developer With Security Clearance, Dr Kristy Eastman MD PGY 1 Attending Provider Attestation/Addendum I have personally seen and examined the patient separately on the above date of service and discussed the plan of care with the resident. I reviewed the resident Dr. Eastman consultation progress note and agree with the resident findings and plan in the note above and have also edited the documentation to reflect my findings and plan. Fabio Wagner M.D. Interventional Cardiology
--- NOTE | 2024-02-08 15:00 | ESPR_ITS ---
<Statement entered by Ozzie Faustin DO - 02/08/24 19:32> Senior attestation: Patient was examined and case was reviewed with team including attending physician. Note reviewed, I agree with most of its contents and agree with the patient's care. Bone scan reveals evidence of osteolytic lesions in right frontal and parietal bones, as well as left hip lesions. Oncologist Dr. Tapia and neurologist Dr. Holguin following, will order for lumbar puncture given concerns of encephalitis. Given concerns of aspiration, patient will be placed NPO until speech therapy evaluated patient. Ozzie Faustin DO PGY-3 Documentation for date of: 02/08/24 Subjective Subjective Interval history: Patient seen at bedside. No acute overnight events. Mentation remains about the same, patient is AAO x 0. Grandson is at bedside today and states the patient does not recognize him either. Patient remained fever free overnight and continues to be on IV cefepime. Bone survey done yesterday showed osteolytic lesions in the right frontal and parietal lobe with suspicions for lesions in the left hip. Will follow-up with the bone scan. Oncologist Dr. Tapia evaluated patient, will follow-up after whole-body scan and MRI brain is done. Pending EEG as recommended by neurologist Dr Holguin, will probably follow- up with lumbar puncture. 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 Eyes open, symmetrical, & clear CARDIO: No chest pain on palpation. Heart RRR, no obvious murmurs PULM: No noted coughing/dyspnea. Lungs CTA B/L GI: Abdomen soft, nondistended, no pain on palpation. BSx4 URO/PURCHASING AND FISCAL CLERK:: No further abnormalities noted. SKIN/MSK/EXT: No wounds/rashes/edema/amputations, no pain on palpation. Pedal pulses present B/L Objective Labs 02/13/24 06:02 02/13/24 06:02 Labs: Laboratory Results - last 24 hr 02/08/24 04:54 WBC 10.3 RBC 4.25 Hgb 11.6 L Hct 36.3 MCV 85 MCH 27.3 MCHC 32.0 RDW Std Deviation 52.4 H Plt Count 227 Neut % (Auto) 93 H Lymph % (Auto) 4 L [place] % (Auto) 3 Eos % (Auto) 0 Baso % (Auto) 0 Neut # (Auto) 9.6 H Lymph # (Auto) 0.4 L [place] # (Auto) 0.3 Eos # (Auto) 0.0 Baso # (Auto) 0.0 Immature Gran # (Auto) 0.06 H Absolute Nucleated RBC 0.00 Immature Gran % 1 H Nucleated RBC % 0 PT 10.5 INR 1.0 APTT 25.3 Sodium 135 L Potassium 4.4 Chloride 105 Carbon Dioxide 20.2 Anion Gap 10 BUN 27 H Creatinine 1.3 Estim Creat Clear Calc 27.2 L eGFR 42 L BUN/Creatinine Ratio 21 H Glucose 118 H Calculated Osmolality 276 Calcium 9.0 Corrected Calcium 9.2 Phosphorus 3.8 Magnesium 1.9 Total Bilirubin 0.5 AST 11 ALT < 7 L Alkaline Phosphatase 75 Total Protein 5.7 Albumin 3.7 D Globulin 2.0 L Albumin/Globulin Ratio 1.9 Random Vancomycin 7.0 ABG Interpretation ABG results: 02/07/24 01:46 ABG pH 7.43 ABG pCO2 30 L ABG pO2 163 H ABG HCO3 20 ABG O2 Saturation 100 H ABG Base Excess -4 L Quality Measures Quality Measures none Advance care planning discussed with:: child Assessment & Plan Assessment Current Active Medications: Generic Name Dose Route Start Last Admin Trade Name Marti PRN Reason Stop Dose Admin Acetaminophen 650 mg 02/07/24 03:32 Acetaminophen Supp 650 Mg Supp MS 03/08/24 03:31 Q6HR PRN [id number] Amiodarone HCl 200 mg 02/08/24 09:00 02/08/24 09:42 Amiodarone Hcl 200 Mg Tablet PO 03/09/24 08:59 Not Given QDAY GENE Atorvastatin Calcium 40 mg 02/07/24 21:00 02/07/24 21:15 Atorvastatin Calcium 20 Mg Tablet PO 03/08/24 20:59 Not Given HS GENE Dexamethasone Sodium Phosphate 4 mg 02/07/24 09:00 02/08/24 08:10 Dexamethasone Sod Phos Inj 10 Mg/Ml Vial IV 03/08/24 08:59 4 mg Q6H GENE Administration Sodium Chloride 1,000 mls @ 75 mls/hr 02/07/24 03:45 02/08/24 00:50 Ns IV 03/08/24 03:44 75 mls/hr .[id number] GENE Administration Cefepime HCl 2 gm/ Sodium 50 mls @ 100 mls/hr 02/07/24 14:00 02/08/24 05:27 Chloride IV 02/14/24 13:59 100 mls/hr Q8HR GENE Administration Ondansetron HCl 4 mg 02/07/24 03:32 Ondansetron Inj 2 Mg/Ml Inj 2 Ml IV 03/08/24 03:31 Q6H PRN NAUSEA OR VOMITING Protocol Pantoprazole Sodium 40 mg 02/07/24 09:00 02/08/24 08:10 Pantoprazole Inj 40 Mg Vial IVP 03/08/24 08:59 40 mg QDAY GENE Administration Plan Summary: The patient is a 79-year-old female with past medical history of lymphoma status post remission and recurrence with abdominal (and pulmonary?) metastasis, CKD, dementia, atrial fibrillation on Eliquis who is admitted for acute encephalopathy and acute kidney injury in setting of CKD. #Acute Encephalopathy #Acute CVA vs TIA-ruled out #Fever of unknown origin #SIRS 2/4 # Dementia Presents after being found on bathroom floor for unknown period of time. Patient was not able to recall events leading up to hospitalization on admission. On admission SIRS 2/4: T 101.2 ?F, WBC 13.2. No source. CK, procal, and lactate wnl. She has waxing and waning mentation throughout the day per son, son is a reliable historian, patient lives with son at home. UA was negative for leukocyte esterase, nitrites, patient denies dysuria. Patient alert and oriented x 3, recalls events leading to hospitalization, per family at bedside patient is not back to baseline. 02/08/2024- Mentation remains about the same, patient is AAO x 0. Grandson is at bedside today and states the patient does not recognize him either. Patient remained fever free overnight and continues to be on IV cefepime. Bone survey done yesterday showed osteolytic lesions in the right frontal and parietal lobe with suspicions for lesions in the left hip. Will follow-up with the bone scan. Oncologist Dr. Tapia evaluated patient, will follow-up after whole-body scan and MRI brain is done. Pending EEG as recommended by neurologist Dr Holguin, will probably follow- up with lumbar puncture. Plan: ?Continue IV cefepime ?Follow-up urine and blood cultures, prelim blood negative -Mupirocin for MRSA nares -LP setup with CSF studies -Pending brain MRI -Neurology consulted, appreciate recommendations -Monitor vitals closely -Follow CBC CMP in a.m. -Physical therapy recommends long-term facility for discharge, family is agreeable. #Acute on chronic kidney injury- #Acute kidney injury-resolving #CKD, stage IIIb Patient's kidney injury likely prerenal. Bun, Cr- 27, 1.3 Plan: ?Will continue IVF at 75 cc/h -Avoid nephrotoxic agents -Renally dose medications #Atrial fibrillation [id number] score 3 Patient's home medication include amiodarone and Eliquis 2.5 mg Plan: ?Will restart amiodarone 200 mg PO daily ? Holding Eliquis 2.5 mg twice daily for LP -Continue telemonitoring #Lymphoma by history Patient has history of lymphoma with abdominal and pulmonary metastasis CT abdomen pelvis shows Enlarging of soft tissue tumor mass in the right hemipelvis Patient follows up with oncologist in [place] Suspicion of pulmonary metastasis as CTA chest positive for pulmonary nodules Plan: -Oncologist consulted, appreciate recommendations -Bone survey ordered # Status post ground-level fall # History of orthostatic hypotension Per son patient has history of orthostatic hypotension. Patient presented status post ground-level fall, denies hitting head. Patient is on Eliquis at home for A-fib. Face CT, head CT, lumbar spine CT and thoracic spine CT negative Orthostatic vitals negative Plan: -Fall precautions -Referral to physical therapy Hospital management: Disposition: 2-3 hospital nights Fluids: IVF, NS at 75 mL/hr Diet: Dysphagia 2 Lines: peripheral DVT prophylaxis: SCDs GI prophylaxis: not indicated CODE STATUS: full code Case was discussed with senior resident Dr Faustin PGY-3 and attending physician, Dr Randi Turner MD PGY-1 Attending Provider Attestation/Addendum 79-year-old female with history of A-fib on Eliquis, CKD, dementia and diffuse large B-cell lymphoma status post chemoradiation with multiple recurrences who presented to the ER on 02/07/2024 with confusion found to have acute encephalopathy. Initial workup including CT head with no acute intracranial abnormality and started on empiric IV antibiotic therapy pending LP and MRI. Will consult nephrology for further input. Patient is alert and oriented x 0 and opens eye to noxious stimuli. No further episodes of fevers. As of now suspect either encephali meningitis versus recurrence of lymphoma. I reviewed above note and agree with findings and plans. I have also personally examined the patient with medicine team and went over assessment and plan with medical team including pr internship and resident physician.
[2024-02-08] MEDS: MUPIROCIN OINT 2% 22 GM TUBE TOP (16:37)
--- NOTE | 2024-02-08 21:30 | PC.NURSE ---
Dr Billy here to assess patient, daughter in the room. MD got consent from family for lumbar puncture procedure at the bedside. Lumbar puncture procedure started using sterile technique at 2100, pt placed in position, pt nonverbal- tolerated procedure well. 4 tubes of CSF collected by and sent to lab. Procedure completed at 2130 and reponsitioned for comfort.
--- NOTE | 2024-02-08 23:27 | PD.NEUROPROG ---
Documentation for date of: 02/08/24 Subjective Subjective Interval history: Patient was seen in telemetry today with her daughter at the bedside. Continues to be awake but not communicative. Moves both upper and lower extremities purposefully with focal abnormal involuntary movements involving the right upper extremity and stimulus sensitive myoclonus in all extremities.. Exam - Neurology Vital Signs Temp Pulse Resp BP Pulse Ox O2 Del Method O2 Flow Rate 97.8 F 67 20 136/97 H 97 Room Air 1 02/08/24 20:00 02/08/24 20:01 02/08/24 20:01 02/08/24 20:00 02/08/24 20:01 02/08/24 20:00 02/08/24 20:01 Narrative Exam GENERAL APPEARANCE: Well-developed, thin built female in no acute distress. HEENT: Normocephalic, atraumatic, extraocular movements intact. Pupils: Equal reacting to light NECK: Supple, no JVD or bruits. CARDIOVASULAR: Heart: S1, S2 heard, irregular without S3-S4 or murmur no rubs or gallops. LUNGS/CHEST: Clear to auscultation bilaterally. No rails, rhonchi, or wheezing. Normal inspection. ABDOMEN: Soft, nontender, with normal bowel sounds. No pulsatile masses. No rebound, rigidity, or guarding. Normal inspection and palpation. EXTREMITIES: Normal inspection and palpation. No edema, clubbing or cyanosis. SKIN: Warm and dry without rashes. Normal inspection. MUSCULOSKELETAL: No cervical, thoracic, lumbar or midline bony tenderness. Normal inspection. NEURO: Alert, awake and nonverbal. Cranial nerves: II through XII grossly intact. Speech and language: Limited. Rest of exam: Limited, no signs of meningeal irritation noted. She has significant abnormal involuntary movements involving the right upper and lower extremities with stimulus sensitive myoclonus. Noted intermittent fasciculations in the right lower extremity and right upper extremity as well. No palatal myoclonus noted. PSYCHIATRIC: Limited Objective Labs 02/08/24 04:54 02/08/24 04:54 Labs: Laboratory Results - last 24 hr 02/08/24 04:54 WBC 10.3 RBC 4.25 Hgb 11.6 L Hct 36.3 MCV 85 MCH 27.3 MCHC 32.0 RDW Std Deviation 52.4 H Plt Count 227 Neut % (Auto) 93 H Lymph % (Auto) 4 L [place] % (Auto) 3 Eos % (Auto) 0 Baso % (Auto) 0 Neut # (Auto) 9.6 H Lymph # (Auto) 0.4 L [place] # (Auto) 0.3 Eos # (Auto) 0.0 Baso # (Auto) 0.0 Immature Gran # (Auto) 0.06 H Absolute Nucleated RBC 0.00 Immature Gran % 1 H Nucleated RBC % 0 PT 10.5 INR 1.0 APTT 25.3 Sodium 135 L Potassium 4.4 Chloride 105 Carbon Dioxide 20.2 Anion Gap 10 BUN 27 H Creatinine 1.3 Estim Creat Clear Calc 27.2 L eGFR 42 L BUN/Creatinine Ratio 21 H Glucose 118 H Calculated Osmolality 276 Calcium 9.0 Corrected Calcium 9.2 Phosphorus 3.8 Magnesium 1.9 Total Bilirubin 0.5 AST 11 ALT < 7 L Alkaline Phosphatase 75 Total Protein 5.7 Albumin 3.7 D Globulin 2.0 L Albumin/Globulin Ratio 1.9 Random Vancomycin 7.0 ABG Interpretation ABG results: 02/07/24 01:46 ABG pH 7.43 ABG pCO2 30 L ABG pO2 163 H ABG HCO3 20 ABG O2 Saturation 100 H ABG Base Excess -4 L Assessment & Plan Assessment and plan (1) Abnormal CT of brain: Status: Acute Assessment and plan: Right frontal bone lesion: Suspicious for primary/secondary malignancy follow-up with EEG, bone scan when it becomes available. MRI brain right frontal bone lesion unchanged and increased white matter signal changes consistent with age. (2) AMS (altered mental status): Status: Acute Assessment and plan: Continue to monitor for any behavioral problems or seizures Follow-up with the CSF analysis. (3) Paroxysmal A-fib: Status: Chronic Assessment and plan: Continue with rate control and Eliquis
--- NOTE | 2024-02-08 23:27 | PD.EVENT ---
Documentation for date of: 02/08/24 Date of procedure: 02/08/24 Pre-op diagnosis: Encephalopathy Post-op diagnosis: Same Consent signed by: Daughter Position: lateral decubitus Prep: betadine Anesthesia: 1 % Lidocaine Sedation: none Needle size: 22ga Needle length: 3.5 Interspace: L3-4 Number of attempts: 2 Opening pressure: # cm H2O (14) Fluids mLs collected: 15 Fluid description: clear Complications: No Patient tolerance: good Procedure performed by: Oswald Holguin Condition: Stable Disposition: no change
[2024-02-09] VITALS (9 sets, daily range): BP systolic 116–149; BP diastolic 59–97; PULSE 49–85; RESP 16–25; TEMP 35.9–37; O2SAT 94–98; BMI 17.4
[2024-02-09 00:09] LABS: Coccid Serology, CF CSF (UCD)* See Sep Rpt
[2024-02-09 00:38] LABS: CSF Cell Count Tube # Tube # 4; CSF Color Colorless (Colorless)
[2024-02-09 00:39] LABS: CSF Red Blood Cell 88 /cmm
[2024-02-09 00:42] LABS: CSF White Blood Cell 59 /cmm
[2024-02-09 00:47] LABS: Glucose,CSF 54 mg/dL (40-70); Protein Total,CSF 104 mg/dL (8-32)
[2024-02-09 01:44] LABS: CSF Gram Stain Alert Gram Stain Completed
[2024-02-09 01:45] LABS: CSF Mononuclear 10 %; CSF Polynuclear WBC 90 %; CSF, Appearance Clear (Clear)
[2024-02-09] MEDS: DEXAMETHASONE SOD PHOS INJ 10 MG/ML VIAL 4 MG IV ×4 (03:15→21:06)
[2024-02-09] MEDS: SODIUM CHLORIDE 0.9% 1000 ML 1,000 ML 75 ML IV (05:15)
[2024-02-09] MEDS: CEFEPIME INJ 2 GM in SODIUM CHLORIDE 0.9% (P) 50 ML IV ×3 (05:16→21:09)
[2024-02-09 05:53] LABS: Basophils % (Auto) 0 % (0-2.5); Eosinophils % (Auto) 0 % (0-10); Hematocrit 34.4 % (36.0-46.0); Hemoglobin 11.5 g/dL (12.0-16.0); Immature Granulocytes % (Auto) 1 % (0-0); Immature Granulocytes Auto 0.13 Thou/mm3 (0.00-0.00); Lymphocytes # (Auto) 0.2 Thou/mm3 (1.0-4.8); Lymphocytes % (Auto) 1 % (10-50); Mean Corpuscular HGB Conc 33.4 g/dl (31.0-37.0); Mean Corpuscular Hemoglobin 27.1 pg (25.0-35.0); Mean Corpuscular Volume 81 fL (80-100); Monocytes # (Auto) 1.6 Thou/mm3 (0.0-0.8); Monocytes % (Auto) 7 % (0-12); Neutrophils # (Auto) 22.2 Thou/mm3 (1.8-7.7); Neutrophils % (Auto) 92 % (37-80); Nucleated Red Blood Cell % 0 /100 WBC (0); Platelet Count 265 Thou/mm3 (140-440); RDW Standard Deviation 50.1 fL (36.4-46.3); Red Blood Count 4.24 Miln/mm3 (4.00-5.20)
[2024-02-09 05:57] LABS: White Blood Count 24.2 Thou/mm3 (3.6-11.0)
[2024-02-09 06:49] LABS: Alanine Aminotransferase < 7 U/L (10-49); Albumin, Serum 3.6 gm/dL (3.4-4.8); Albumin/Globulin Ratio 1.8 (1.2-2.2); Alkaline Phosphatase 68 U/L (46-116); Anion Gap 10 (7-16); Aspartate Amino Transferase < 8 U/L (0-34); BUN/Creatinine Ratio 25 Ratio (12-20); Bilirubin,Total 0.4 mg/dL (0.3-1.2); Blood Urea Nitrogen 33 mg/dL (9-23); Calcium 8.6 mg/dL (8.3-10.6); Calcium (Corrected) 8.9 mg/dL (8.5-10.1); Carbon Dioxide 17.8 mMol/L (20.0-31.0); Chloride 108 mMol/L (98-107); Creatinine (Component) 1.3 mg/dL (0.6-1.3); Estimated Creatinine Clearance 27.2 mL/min (>60); Glucose 120 mg/dL (74-106); Magnesium 2.4 mg/dL (1.6-2.6); Osmolality,Calculated 280 (275-295); Potassium 3.9 mMol/L (3.4-5.1); Sodium 136 mMol/L (136-145); Total Protein 5.6 gm/dL (5.7-8.2); eGFR 42 See Note
--- NOTE | 2024-02-09 07:51 | PCS.ST ---
Swallow Re-Eval. Pt is not responsive to PO activity. Not safe for PO diet or PO meds. ST following.
[2024-02-09] MEDS: PANTOPRAZOLE INJ 40 MG VIAL IVP (08:58)
--- NOTE | 2024-02-09 10:21 | PC.SS ---
Addendum entered and electronically signed by PHI Vaca 02/09/24 10:22: PLATING OPERATOR submitted SNF referrals on [facility]. Awaiting responses. Original Note: PLATING OPERATOR confirmed with patient's daughter discharge plan for the patient is for SNF placement. Preferred SNF is [facility].
--- NOTE | 2024-02-09 10:22 | PC.SS ---
PASSR completed. Patient meets Level I criteria. No PASSR follow up required.
--- NOTE | 2024-02-09 10:36 | ESPR_ITS ---
Documentation for date of: 02/09/24 Subjective Subjective Interval history: Patient was seen and examined at bedside this AM. No acute exents overnight. Patient tolerating diet, adequate urine output and A&O xO Patient non verbal. From telemetry review patient rate controlled with HR 50-60s in sinus rhythm overnight Continue Amiodarone po and resume Eliquis once no further procedures planned Patient had LP last night and nuclear bone scan done today. CSF analysis showed WBC 53 and protein 104. Neurology on board and recommended to continue current antibiotic regimen. Radiation oncology, Dr. Tapia also following for frontal lobe, parietal lobe and possible hip lesions Exam Vital Signs Temp Pulse Resp BP Pulse Ox O2 Del Method O2 Flow Rate 97.2 F 63 16 137/69 H 94 L Room Air 1 02/09/24 08:00 02/09/24 09:01 02/09/24 08:00 02/09/24 09:01 02/09/24 08:00 02/09/24 08:00 02/09/24 08:00 Narrative Exam General: Alert and oriented x 0, Non verbal Patient not able to provide much history and appears confused Eyes: Pupils are equal and reactive to light bilaterally. HEENT: Atraumatic, normocephalic. No JVD noted. Mucosa moist. Cardiovascular: Normal S1 and S2. Normal rate and regular rhythm. 2 or 6 ejection systolic murmur noted aortic area no peripheral pitting edema noted. Respiratory: No respiratory distress. Lungs are clear to auscultation bilaterally. No wheezing or crackles heard. Abdomen: Soft, nontender, nondistended. Skin: No rash. Warm to touch. Musculoskeletal: No gross injuries. Able to move all 4 extremities. Psych: Normal affect and mood Objective Labs 02/09/24 04:43 02/09/24 04:43 Labs: Laboratory Results - last 24 hr 02/08/24 02/09/24 02/09/24 21:32 00:33 04:43 WBC 24.2 H D RBC 4.24 Hgb 11.5 L Hct 34.4 L MCV 81 MCH 27.1 MCHC 33.4 RDW Std Deviation 50.1 H Plt Count 265 D Neut % (Auto) 92 H Lymph % (Auto) 1 L [place] % (Auto) 7 Eos % (Auto) 0 Baso % (Auto) 0 Neut # (Auto) 22.2 H Lymph # (Auto) 0.2 L [place] # (Auto) 1.6 H Eos # (Auto) 0.0 Baso # (Auto) 0.0 Immature Gran # (Auto) 0.13 H Absolute Nucleated RBC 0.00 Immature Gran % 1 H Nucleated RBC % 0 Sodium 136 Potassium 3.9 D Chloride 108 H Carbon Dioxide 17.8 L Anion Gap 10 BUN 33 H Creatinine 1.3 Estim Creat Clear Calc 27.2 L eGFR 42 L BUN/Creatinine Ratio 25 H Glucose 120 H Calculated Osmolality 280 Calcium 8.6 Corrected Calcium 8.9 Phosphorus 3.0 Magnesium 2.4 Total Bilirubin 0.4 AST < 8 ALT < 7 L Alkaline Phosphatase 68 Total Protein 5.6 L Albumin 3.6 Globulin 2.0 L Albumin/Globulin Ratio 1.8 CSF Appearance Clear CSF Color Colorless CSF WBC 59 CSF RBC 88 CSF Cell Count Tube # Tube # 4 CSF Mononuclear WBCs 10 CSF Polynuclear WBCs 90 CSF Glucose 54 CSF Total Protein 104 H Misc Test Result Cancelled ABG Interpretation ABG results: 02/07/24 01:46 ABG pH 7.43 ABG pCO2 30 L ABG pO2 163 H ABG HCO3 20 ABG O2 Saturation 100 H ABG Base Excess -4 L Quality Measures Quality Measures none Advance care planning discussed with:: other Assessment & Plan Assessment Current Active Medications: Generic Name Dose Route Start Last Admin Trade Name Freq PRN Reason Stop Dose Admin Acetaminophen 650 mg 02/07/24 03:32 Acetaminophen Supp 650 Mg Supp [place] 03/08/24 03:31 Q6HR PRN [id number] Amiodarone HCl 200 mg 02/08/24 09:00 02/09/24 09:01 Amiodarone Hcl 200 Mg Tablet PO 03/09/24 08:59 Not Given QDAY GENE Atorvastatin Calcium 40 mg 02/07/24 21:00 02/08/24 20:55 Atorvastatin Calcium 20 Mg Tablet PO 03/08/24 20:59 Not Given HS GENE Dexamethasone Sodium Phosphate 4 mg 02/07/24 09:00 02/09/24 08:58 Dexamethasone Sod Phos Inj 10 Mg/Ml Vial IV 03/08/24 08:59 4 mg Q6H GENE Administration Sodium Chloride 1,000 mls @ 75 mls/hr 02/07/24 03:45 02/09/24 05:15 Ns IV 03/08/24 03:44 75 mls/hr .[id number] GENE Administration Cefepime HCl 2 gm/ Sodium 50 mls @ 100 mls/hr 02/07/24 14:00 02/09/24 05:16 Chloride IV 02/14/24 13:59 100 mls/hr Q8HR GENE Administration Ondansetron HCl 4 mg 02/07/24 03:32 Ondansetron Inj 2 Mg/Ml Inj 2 Ml IV 03/08/24 03:31 Q6H PRN NAUSEA OR VOMITING Protocol Pantoprazole Sodium 40 mg 02/07/24 09:00 02/09/24 08:58 Pantoprazole Inj 40 Mg Vial IVP 03/08/24 08:59 40 mg QDAY GENE Administration Plan A 72-year-old female with a past medical history of 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 Cardiology was consulted for A-fib. 1. Paroxysmal atrial fibrillation with SVR Patient confused and unable to give any history of any chest pain/pressure or palpitations. EKG on admission showed sinus rhythm, rate 60 and repeat EKG showed sinus bradycardia with rate 59. At home patient on metoprolol XL and amiodarone 200 Mg p.o. daily. From telemetry review patient does not appear to be in A-fib on this admission. [id number] 3; 3.2% stroke risk per year [age, female] HAS-BLED : 1 points; low risk for major bleeding Transthoracic echocardiogram completed on 02/07/2024 findings include: Negative bubble study. No evidence of PFO or ASD. Consider MEAGAN if high clinical suspicion. Normal LV size and function. Estimated EF 60-65% Normal RV size and function. Mild AV stenosis, mean gradient 12mmHg, vmax 2.6m/s. Mild to moderate AI. Mild MR, TR. Patient non verbal. From telemetry review patient rate controlled with HR 50-60s in sinus rhythm overnight Continue Amiodarone po and resume Eliquis once no further procedures planned Plan: ? Recommend to continue home medication amiodarone 200 Mg p.o. daily for rhythm control. ? Patient may need to restart metoprolol XL for rate control if the blood pressure and heart rate are permissible. ? Recommend to resume anticoagulation with Eliquis 2.5 Mg p.o. twice daily if no further procedures planned ? Recommend to maintain potassium greater than 4 and Mg greater than 2 at all times to prevent any arrhythmias 2. Acute metabolic encephalopathy secondary to fever of unknown origin On admission SIRS 2/4 for tachypnea and temperature 102.6 F Blood and urine cultures currently pending and no obvious source of infection. Patient had LP last night and nuclear bone scan done today. CSF analysis showed WBC 53 and protein 104. Neurology on board and recommended to continue current antibiotic regimen. Continue management as per primary team and Neurology 3. History of diffuse large B-cell lymphoma s/p treatment in remission with recurrence in the abdomen on treatment until March status post radiation to head and neck sites at [facility] and chemotherapy in [place] Dr. Tapia, radiation oncologist was consulted. Brain CT showed showed 33 x 32 mm right frontal bone lesion with soft tissue component. Bone survey completed Brain MRI significant for increased white matter signal, right frontal bone lesion, MRI brain images severely degraded by patient motion. Continue management as per radiation oncology 4. CKD stage III And admission CR 1.4. From chart review baseline appears to be between 1.2?1.4 Continue management as per primary team 5. Protein calorie malnutrition with cachexia 6 . Progressive senile dementia with possible delirium 7. Poor oral intake and patient is mildly dehydrated Continue management as per primary team Continue rest of management as per primary team. We are grateful to be able to participate in Ms. Hill's care. Thank you for the consult Plan of care discussed with attending Automotive Design Drafter, Dr Kristy Eastman MD PGY 1 Attending Provider Attestation/Addendum I have personally seen and examined the patient separately on the above date of service and discussed the plan of care with the resident. I reviewed the resident Dr. Eastman consultation progress note and agree with the resident findings and plan in the note above and have also edited the documentation to reflect my findings and plan. Fabio Wagner M.D. Interventional Cardiology
--- NOTE | 2024-02-09 14:22 | ESPR_ITS ---
<Statement entered by Ozzie Faustin DO - 02/09/24 19:30> Senior attestation: Patient was examined and case was reviewed with team including attending physician. Note reviewed, I agree with most of its contents and agree with the patient's care. Will continue with IV cefepime, neurology following and does not recommend antivirals at this time, CSF cultures pending. Ozzie Faustin DO PGY-3 Documentation for date of: 02/09/24 Subjective Subjective Interval history: Patient seen at bedside. No acute overnight events. LP was done yesterday to rule out encephalitis, CSF analysis sent out-WBC 59 protein 104. Neurology consulted again, recommends to continue on current antibiotics, pending results of remaining CSF studies. WBC elevated at 24, patient is on IV dexamethasone. Patient is extremely drowsy today, and barely opens her eyes with family at bedside reports that she was awake for most of the night and seems to be sleeping during the day now. Fever free overnight Will continue to monitor mental status, continue IV cefepime and dexamethasone. Blood culture negative after 24 hours, MRSA nares positive, added mupirocin. Exam Vital Signs Temp Pulse Resp BP Pulse Ox O2 Del Method O2 Flow Rate 96.6 F L 55 L 18 123/59 L 95 Room Air 0 02/09/24 12:00 02/09/24 12:00 02/09/24 12:00 02/09/24 12:00 02/09/24 12:00 02/09/24 12:00 02/09/24 12:00 Narrative Exam GENERAL: Drowsy/Sleepy today, awake to to touch and vigorous movements NEURO: BROOM MAN grossly intact, moves extremities x4 HEENT: Moist mucosa. Eyes open, symmetrical, & clear CARDIO: No chest pain on palpation. Heart RRR, no obvious murmurs PULM: No noted coughing/dyspnea. Lungs CTA B/L GI: Abdomen soft, nondistended, no pain on palpation. BSx4 URO/HAND CLOTH CUTTER:: No further abnormalities noted. SKIN/MSK/EXT: No wounds/rashes/edema/amputations, no pain on palpation. Pedal pulses present B/L Objective Labs 02/13/24 06:02 02/13/24 06:02 Labs: Laboratory Results - last 24 hr 02/08/24 02/09/24 02/09/24 21:32 00:33 04:43 WBC 24.2 H D RBC 4.24 Hgb 11.5 L Hct 34.4 L MCV 81 MCH 27.1 MCHC 33.4 RDW Std Deviation 50.1 H Plt Count 265 D Neut % (Auto) 92 H Lymph % (Auto) 1 L [place] % (Auto) 7 Eos % (Auto) 0 Baso % (Auto) 0 Neut # (Auto) 22.2 H Lymph # (Auto) 0.2 L [place] # (Auto) 1.6 H Eos # (Auto) 0.0 Baso # (Auto) 0.0 Immature Gran # (Auto) 0.13 H Absolute Nucleated RBC 0.00 Immature Gran % 1 H Nucleated RBC % 0 Sodium 136 Potassium 3.9 D Chloride 108 H Carbon Dioxide 17.8 L Anion Gap 10 BUN 33 H Creatinine 1.3 Estim Creat Clear Calc 27.2 L eGFR 42 L BUN/Creatinine Ratio 25 H Glucose 120 H Calculated Osmolality 280 Calcium 8.6 Corrected Calcium 8.9 Phosphorus 3.0 Magnesium 2.4 Total Bilirubin 0.4 AST < 8 ALT < 7 L Alkaline Phosphatase 68 Total Protein 5.6 L Albumin 3.6 Globulin 2.0 L Albumin/Globulin Ratio 1.8 CSF Appearance Clear CSF Color Colorless CSF WBC 59 CSF RBC 88 CSF Cell Count Tube # Tube # 4 CSF Mononuclear WBCs 10 CSF Polynuclear WBCs 90 CSF Glucose 54 CSF Total Protein 104 H Misc Test Result Cancelled ABG Interpretation ABG results: 02/07/24 01:46 ABG pH 7.43 ABG pCO2 30 L ABG pO2 163 H ABG HCO3 20 ABG O2 Saturation 100 H ABG Base Excess -4 L Quality Measures Quality Measures none Advance care planning discussed with:: child Assessment & Plan Assessment Current Active Medications: Generic Name Dose Route Start Last Admin Trade Name Freq PRN Reason Stop Dose Admin Acetaminophen 650 mg 02/07/24 03:32 Acetaminophen Supp 650 Mg Supp ND 03/08/24 03:31 Q6HR PRN [id number] Amiodarone HCl 200 mg 02/08/24 09:00 02/09/24 09:01 Amiodarone Hcl 200 Mg Tablet PO 03/09/24 08:59 Not Given QDAY GENE Atorvastatin Calcium 40 mg 02/07/24 21:00 02/08/24 20:55 Atorvastatin Calcium 20 Mg Tablet PO 03/08/24 20:59 Not Given HS GENE Dexamethasone Sodium Phosphate 4 mg 02/07/24 09:00 02/09/24 08:58 Dexamethasone Sod Phos Inj 10 Mg/Ml Vial IV 03/08/24 08:59 4 mg Q6H GENE Administration Sodium Chloride 1,000 mls @ 75 mls/hr 02/07/24 03:45 02/09/24 05:15 Ns IV 03/08/24 03:44 75 mls/hr .[id number] GENE Administration Cefepime HCl 2 gm/ Sodium 50 mls @ 100 mls/hr 02/07/24 14:00 02/09/24 05:16 Chloride IV 02/14/24 13:59 100 mls/hr Q8HR GENE Administration Ondansetron HCl 4 mg 02/07/24 03:32 Ondansetron Inj 2 Mg/Ml Inj 2 Ml IV 03/08/24 03:31 Q6H PRN NAUSEA OR VOMITING Protocol Pantoprazole Sodium 40 mg 02/07/24 09:00 02/09/24 08:58 Pantoprazole Inj 40 Mg Vial IVP 03/08/24 08:59 40 mg QDAY GENE Administration Plan Summary: The patient is a 79-year-old female with past medical history of lymphoma status post remission and recurrence with abdominal (and pulmonary?) metastasis, CKD, dementia, atrial fibrillation on Eliquis who is admitted for acute encephalopathy and acute kidney injury in setting of CKD. #Acute Encephalopathy #Acute CVA vs TIA-ruled out #Fever of unknown origin #Rule out encephalitis #SIRS 2/4 # Dementia Presents after being found on bathroom floor for unknown period of time. Patient was not able to recall events leading up to hospitalization on admission. On admission SIRS 2/4: T 101.2 ?F, WBC 13.2. No source. CK, procal, and lactate wnl. She has waxing and waning mentation throughout the day per son, son is a reliable historian, patient lives with son at home. UA was negative for leukocyte esterase, nitrites, patient denies dysuria. Patient alert and oriented x 3, recalls events leading to hospitalization, per family at bedside patient is not back to baseline. 02/08/2024- Mentation remains about the same, patient is AAO x 0. Grandson is at bedside today and states the patient does not recognize him either. Patient remained fever free overnight and continues to be on IV cefepime. Bone survey done yesterday showed osteolytic lesions in the right frontal and parietal lobe with suspicions for lesions in the left hip. Will follow-up with the bone scan. Oncologist Dr. Tapia evaluated patient, will follow-up after whole-body scan and MRI brain is done. Pending EEG as recommended by neurologist Dr Holguin, will probably follow- up with lumbar puncture. 02/09/2024- LP was done yesterday to rule out encephalitis, CSF analysis sent out-WBC 59 protein 104. Neurology consulted again, recommends to continue on current antibiotics, pending results of remaining CSF studies. WBC elevated at 24, patient is on IV dexamethasone. Patient is extremely drowsy today, and barely opens her eyes with family at bedside reports that she was awake for most of the night and seems to be sleeping during the day now. Fever free overnight Plan: ?Continue IV cefepime and dexamethasone -Mupirocin for MRSA nares -Pending remaining CSF studies -Neurology consulted, appreciate recommendations -Monitor vitals closely -Physical therapy recommends [facility] for [facility], family is agreeable. #Acute on chronic kidney injury- #Acute kidney injury-resolving #CKD, stage IIIb Patient's kidney injury likely prerenal. Bun, Cr- 33, 1.3 Plan: ?Will continue IVF at 50 cc/h -Avoid nephrotoxic agents -Renally dose medications #Atrial fibrillation [id number] score 3 Patient's home medication include amiodarone and Eliquis 2.5 mg Plan: ?Will restart amiodarone 200 mg PO daily ? Holding Eliquis 2.5 mg twice daily for LP -Continue telemonitoring #Lymphoma by history Patient has history of lymphoma with abdominal and pulmonary metastasis CT abdomen pelvis shows Enlarging of soft tissue tumor mass in the right hemipelvis Patient follows up with oncologist in [place] Suspicion of pulmonary metastasis as CTA chest positive for pulmonary nodules Bone survey done yesterday showed osteolytic lesions in the right frontal and parietal lobe with suspicions for lesions in the left hip. Will follow-up with the bone scan. Plan: -Oncologist consulted, appreciate recommendations -Bone scan ordered # Status post ground-level fall # History of orthostatic hypotension Per son patient has history of orthostatic hypotension. Patient presented status post ground-level fall, denies hitting head. Patient is on Eliquis at home for A-fib. Face CT, head CT, lumbar spine CT and thoracic spine CT negative Orthostatic vitals negative Plan: -Fall precautions -Referral to physical therapy Hospital management: Disposition: 2-3 hospital nights Fluids: IVF, NS at 75 mL/hr Diet: Dysphagia 2 Lines: peripheral DVT prophylaxis: SCDs GI prophylaxis: not indicated CODE STATUS: full code Case was discussed with senior resident Dr Faustin PGY-3 and attending physician, Dr Randi Turner MD PGY-1 Attending Provider Attestation/Addendum 79-year-old female with history of A-fib on Eliquis, CKD, dementia and diffuse large B-cell lymphoma status post chemoradiation with multiple recurrences who presented to the ER on 02/07/2024 with confusion found to have acute encephalopathy. Initial workup including CT head with no acute intracranial abnormality and started on empiric IV antibiotic therapy pending LP and MRI. Will consult nephrology for further input. Patient is alert and oriented x 0 and opens eye to noxious stimuli. No further episodes of fevers. As of now suspect either encephali meningitis versus recurrence of lymphoma. Currently, patient is status post MRI with no acute intracranial abnormality and LP which was inconclusive for encephalitis/meningitis. As of now, plan to continue IV acyclovir, Rocephin and vancomycin pending Gram stain. As for mentation, patient appears to be deteriorating and only responsive to painful stimuli. I reviewed above note and agree with findings and plans. I have also personally examined the patient with medicine team and went over assessment and plan with medical team including rn intern and resident physician.
[2024-02-09] MEDS: SODIUM CHLORIDE 0.9% 1000 ML 1,000 ML 50 ML IV (14:43)
--- NOTE | 2024-02-09 23:48 | VVPN_ITS ---
Telemedicine visit statement This visit was conducted with the use of phone was obtained on 02/09/24 at 2348. Documentation for date of: 02/09/24 Subjective Subjective Interval history: Patient continues to be lethargic and noncommunicative. Reportedly responding this morning only to sternal rub. She has intermittent focal myoclonic jerks in the right upper extremity more than the left and fasciculations in the lower extremities. Virtual exam Vital Signs Temp Pulse Resp BP Pulse Ox O2 Del Method O2 Flow Rate 97.2 F 62 19 125/97 H 98 Room Air 0 02/09/24 20:00 02/09/24 20:00 02/09/24 20:00 02/09/24 20:00 02/09/24 20:00 02/09/24 20:00 02/09/24 16:00 Objective Labs 02/09/24 04:43 02/09/24 04:43 Labs: Laboratory Results - last 24 hr 02/08/24 02/09/24 02/09/24 21:32 00:33 04:43 WBC 24.2 H D RBC 4.24 Hgb 11.5 L Hct 34.4 L MCV 81 MCH 27.1 MCHC 33.4 RDW Std Deviation 50.1 H Plt Count 265 D Neut % (Auto) 92 H Lymph % (Auto) 1 L [place] % (Auto) 7 Eos % (Auto) 0 Baso % (Auto) 0 Neut # (Auto) 22.2 H Lymph # (Auto) 0.2 L [place] # (Auto) 1.6 H Eos # (Auto) 0.0 Baso # (Auto) 0.0 Immature Gran # (Auto) 0.13 H Absolute Nucleated RBC 0.00 Immature Gran % 1 H Nucleated RBC % 0 Sodium 136 Potassium 3.9 D Chloride 108 H Carbon Dioxide 17.8 L Anion Gap 10 BUN 33 H Creatinine 1.3 Estim Creat Clear Calc 27.2 L eGFR 42 L BUN/Creatinine Ratio 25 H Glucose 120 H Calculated Osmolality 280 Calcium 8.6 Corrected Calcium 8.9 Phosphorus 3.0 Magnesium 2.4 Total Bilirubin 0.4 AST < 8 ALT < 7 L Alkaline Phosphatase 68 Total Protein 5.6 L Albumin 3.6 Globulin 2.0 L Albumin/Globulin Ratio 1.8 CSF Appearance Clear CSF Color Colorless CSF WBC 59 CSF RBC 88 CSF Cell Count Tube # Tube # 4 CSF Mononuclear WBCs 10 CSF Polynuclear WBCs 90 CSF Glucose 54 CSF Total Protein 104 H Misc Test Result Cancelled ABG Interpretation ABG results: 02/07/24 01:46 ABG pH 7.43 ABG pCO2 30 L ABG pO2 163 H ABG HCO3 20 ABG O2 Saturation 100 H ABG Base Excess -4 L Assessment & Plan Assessment 1) Abnormal CT of brain: Right frontal bone lesion: Suspicious for primary/secondary malignancy MRI brain right frontal bone lesion unchanged and increased white matter signal changes consistent with age. (2) AMS (altered mental status): Continue to monitor for any seizures Follow-up with EEG Follow-up with Gram stain and culture, CSF analysis showed slightly elevated protein, WBCs mostly pleomorphs. Continue with the current antibiotics and steroids. (3) Paroxysmal A-fib: Continue with rate control and Eliquis
[2024-02-10] VITALS (10 sets, daily range): BP systolic 117–149; BP diastolic 46–87; PULSE 49–76; RESP 15–98; TEMP 36.1–36.6; O2SAT 89–99
[2024-02-10] MEDS: DEXAMETHASONE SOD PHOS INJ 10 MG/ML VIAL 4 MG IV ×2 (03:04→08:33)
[2024-02-10] MEDS: CEFEPIME INJ 2 GM in SODIUM CHLORIDE 0.9% (P) 50 ML IV (05:29)
[2024-02-10 07:03] LABS: Basophils % (Auto) 0 % (0-2.5); Eosinophils % (Auto) 0 % (0-10); Hematocrit 35.3 % (36.0-46.0); Hemoglobin 11.9 g/dL (12.0-16.0); Immature Granulocytes % (Auto) 1 % (0-0); Immature Granulocytes Auto 0.09 Thou/mm3 (0.00-0.00); Lymphocytes # (Auto) 0.2 Thou/mm3 (1.0-4.8); Lymphocytes % (Auto) 1 % (10-50); Mean Corpuscular HGB Conc 33.7 g/dl (31.0-37.0); Mean Corpuscular Hemoglobin 27.5 pg (25.0-35.0); Mean Corpuscular Volume 82 fL (80-100); Monocytes # (Auto) 0.6 Thou/mm3 (0.0-0.8); Monocytes % (Auto) 4 % (0-12); Neutrophils # (Auto) 15.4 Thou/mm3 (1.8-7.7); Neutrophils % (Auto) 94 % (37-80); Nucleated Red Blood Cell % 0 /100 WBC (0); Platelet Count 280 Thou/mm3 (140-440); RDW Standard Deviation 51.4 fL (36.4-46.3); Red Blood Count 4.32 Miln/mm3 (4.00-5.20); White Blood Count 16.3 Thou/mm3 (3.6-11.0)
--- NOTE | 2024-02-10 08:17 | ESPR_ITS ---
Documentation for date of: 02/10/24 Subjective Subjective Interval history: Patient was seen and examined at bedside this AM. No acute exents overnight. Patient tolerating diet, adequate urine output and A&O xO Patient non verbal. From telemetry review patient rate controlled with HR 50-70s in sinus rhythm overnight Continue Amiodarone po and resume Eliquis once no further procedures planned This a.m. potassium 4.3 and magnesium 2.5. Please maintain potassium >4 and magnesium >2 at all times to prevent any further arrhythmias. CSF analysis showed WBC 53 and protein 104. Neurology on board and recommended to continue current antibiotic regimen. Radiation oncology, Dr. Tapia also following for frontal lobe, parietal lobe and possible hip lesions Exam Vital Signs Temp Pulse Resp BP Pulse Ox O2 Del Method O2 Flow Rate 97.2 F 67 20 149/61 H 97 Room Air 0 02/10/24 04:00 02/10/24 04:18 02/10/24 04:18 02/10/24 04:00 02/10/24 04:00 02/10/24 04:00 02/09/24 16:00 Narrative Exam General: Alert and oriented x 0, Non verbal Patient not able to provide much history and appears confused Eyes: Pupils are equal and reactive to light bilaterally. HEENT: Atraumatic, normocephalic. No JVD noted. Mucosa moist. Cardiovascular: Normal S1 and S2. Normal rate and regular rhythm. 2/ 6 ejection systolic murmur noted aortic area no peripheral pitting edema noted. Respiratory: No respiratory distress. Lungs are clear to auscultation bilaterally. No wheezing or crackles heard. Abdomen: Soft, nontender, nondistended. Skin: No rash. Warm to touch. Musculoskeletal: No gross injuries. Able to move all 4 extremities. Psych: Normal affect and mood Objective Labs 02/11/24 05:07 02/11/24 05:07 Labs: Laboratory Results - last 24 hr 02/10/24 05:05 WBC 16.3 H D RBC 4.32 Hgb 11.9 L Hct 35.3 L MCV 82 MCH 27.5 MCHC 33.7 RDW Std Deviation 51.4 H Plt Count 280 Neut % (Auto) 94 H Lymph % (Auto) 1 L [place] % (Auto) 4 Eos % (Auto) 0 Baso % (Auto) 0 Neut # (Auto) 15.4 H Lymph # (Auto) 0.2 L [place] # (Auto) 0.6 Eos # (Auto) 0.0 Baso # (Auto) 0.0 Immature Gran # (Auto) 0.09 H Absolute Nucleated RBC 0.00 Immature Gran % 1 H Nucleated RBC % 0 ABG Interpretation ABG results: 02/07/24 01:46 ABG pH 7.43 ABG pCO2 30 L ABG pO2 163 H ABG HCO3 20 ABG O2 Saturation 100 H ABG Base Excess -4 L Quality Measures Quality Measures none Advance care planning discussed with:: other Assessment & Plan Assessment Current Active Medications: Generic Name Dose Route Start Last Admin Trade Name Freq PRN Reason Stop Dose Admin Acetaminophen 650 mg 02/07/24 03:32 Acetaminophen Supp 650 Mg Supp MS 03/08/24 03:31 Q6HR PRN [id number] Amiodarone HCl 200 mg 02/08/24 09:00 02/09/24 09:01 Amiodarone Hcl 200 Mg Tablet PO 03/09/24 08:59 Not Given QDAY GENE Apixaban 2.5 mg 02/09/24 21:00 02/09/24 21:10 Apixaban 2.5 Mg Tablet PO 03/10/24 20:59 Not Given BID GENE Atorvastatin Calcium 40 mg 02/07/24 21:00 02/09/24 21:10 Atorvastatin Calcium 20 Mg Tablet PO 03/08/24 20:59 Not Given HS GENE Dexamethasone Sodium Phosphate 4 mg 02/07/24 09:00 02/10/24 03:04 Dexamethasone Sod Phos Inj 10 Mg/Ml Vial IV 03/08/24 08:59 4 mg Q6H GENE Administration Cefepime HCl 2 gm/ Sodium 50 mls @ 100 mls/hr 02/07/24 14:00 02/10/24 05:29 Chloride IV 02/14/24 13:59 100 mls/hr Q8HR GENE Administration Sodium Chloride 1,000 mls @ 50 mls/hr 02/09/24 14:27 02/09/24 14:43 Ns IV 02/10/24 10:26 50 mls/hr .Q20H ONE Administration Ondansetron HCl 4 mg 02/07/24 03:32 Ondansetron Inj 2 Mg/Ml Inj 2 Ml IV 03/08/24 03:31 Q6H PRN NAUSEA OR VOMITING Protocol Pantoprazole Sodium 40 mg 02/07/24 09:00 02/09/24 08:58 Pantoprazole Inj 40 Mg Vial IVP 03/08/24 08:59 40 mg QDAY GENE Administration Plan A 72-year-old female with a past medical history of 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 Cardiology was consulted for A-fib. 1. Paroxysmal atrial fibrillation with SVR Patient confused and unable to give any history of any chest pain/pressure or palpitations. EKG on admission showed sinus rhythm, rate 60 and repeat EKG showed sinus bradycardia with rate 59. At home patient on metoprolol XL and amiodarone 200 Mg p.o. daily. From telemetry review patient does not appear to be in A-fib on this admission. [id number] 3; 3.2% stroke risk per year [age, female] HAS-BLED : 1 points; low risk for major bleeding Transthoracic echocardiogram completed on 02/07/2024 findings include: Negative bubble study. No evidence of PFO or ASD. Consider MEAGAN if high clinical suspicion. Normal LV size and function. Estimated EF 60-65% Normal RV size and function. Mild AV stenosis, mean gradient 12mmHg, vmax 2.6m/s. Mild to moderate AI. Mild MR, TR. Patient non verbal. From telemetry review patient rate controlled with HR 50-70s in sinus rhythm overnight Continue Amiodarone po and resume Eliquis once no further procedures planned This a.m. potassium 4.3 and magnesium 2.5. Please maintain potassium >4 and magnesium >2 at all times to prevent any further arrhythmias. Plan: ? Recommend to continue home medication amiodarone 200 Mg p.o. daily for rhythm control. ? Patient may need to restart metoprolol XL for rate control if the blood pressure and heart rate are permissible. ? Recommend to resume anticoagulation with Eliquis 2.5 Mg p.o. twice daily if no further procedures planned ? Recommend to maintain potassium greater than 4 and Mg greater than 2 at all times to prevent any arrhythmias 2. Acute metabolic encephalopathy secondary to fever of unknown origin On admission SIRS 2/4 for tachypnea and temperature 102.6 F Blood and urine cultures currently pending and no obvious source of infection. Patient had LP last night and nuclear bone scan done today. CSF analysis showed WBC 53 and protein 104. Neurology on board and recommended to continue current antibiotic regimen. Continue management as per primary team and Neurology 3. History of diffuse large B-cell lymphoma s/p treatment in remission with recurrence in the abdomen on treatment until March status post radiation to head and neck sites at [facility] and chemotherapy in [place] Dr. Tapia, radiation oncologist was consulted. Brain CT showed showed 33 x 32 mm right frontal bone lesion with soft tissue component. Bone survey completed Brain MRI significant for increased white matter signal, right frontal bone lesion, MRI brain images severely degraded by patient motion. Continue management as per radiation oncology 4. CKD stage III And admission CR 1.4. From chart review baseline appears to be between 1.2?1.4 Continue management as per primary team 5. Protein calorie malnutrition with cachexia 6 . Progressive senile dementia with possible delirium 7. Poor oral intake and patient is mildly dehydrated Continue management as per primary team Continue rest of management as per primary team. We are grateful to be able to participate in Ms. Hill's care. Thank you for the consult Plan of care discussed with attending Diagnostics Sales Developer, Dr Kristy Eastman MD PGY 1 Attending Provider Attestation/Addendum I reviewed the resident Dr. Eastman consultation progress note and agree with the resident findings and plan in the note above and have also edited the documentation to reflect my findings and plan. Fabio Wagner M.D. Interventional Cardiology
[2024-02-10] MEDS: PANTOPRAZOLE INJ 40 MG VIAL IVP (08:32)
[2024-02-10 08:54] LABS: Alanine Aminotransferase < 7 U/L (10-49); Albumin, Serum 3.7 gm/dL (3.4-4.8); Albumin/Globulin Ratio 2.2 (1.2-2.2); Alkaline Phosphatase 71 U/L (46-116); Anion Gap 10 (7-16); Aspartate Amino Transferase < 8 U/L (0-34); BUN/Creatinine Ratio 30 Ratio (12-20); Bilirubin,Total 0.5 mg/dL (0.3-1.2); Blood Urea Nitrogen 39 mg/dL (9-23); Calcium 8.7 mg/dL (8.3-10.6); Calcium (Corrected) 8.9 mg/dL (8.5-10.1); Carbon Dioxide 17.7 mMol/L (20.0-31.0); Chloride 110 mMol/L (98-107); Creatinine (Component) 1.3 mg/dL (0.6-1.3); Estimated Creatinine Clearance 32.8 mL/min (>60); Globulin 1.7 gm/dL (2.3-3.5); Glucose 122 mg/dL (74-106); Magnesium 2.5 mg/dL (1.6-2.6); Osmolality,Calculated 286 (275-295); Phosphorous 3.3 mg/dL (2.4-5.1); Potassium 4.3 mMol/L (3.4-5.1); Sodium 138 mMol/L (136-145); Total Protein 5.4 gm/dL (5.7-8.2); eGFR 42 See Note
--- NOTE | 2024-02-10 09:53 | PCS.ST ---
Pt is not communicative. Not able to follow directions. Not safe for PO diet or PO meds. MEDICAL RECRUITER following
--- NOTE | 2024-02-10 11:19 | ESPR_ITS ---
<Statement entered by Ozzie Faustin DO - 02/10/24 14:14> Senior attestation: Patient was examined and case was reviewed with team including attending physician. Note reviewed, I agree with most of its contents and agree with the patient's care. Neurology team following, will stop IV cefepime and start IV rocephin, IV acyclovir, and IV vancomycin. Will stop dexamethasone tabs. Ozzie Faustin DO PGY-3 Documentation for date of: 02/10/24 Subjective Subjective Interval history: Patient seen at bedside today. She is difficult to arouse even with a sternal rub and only moans. Bone scan does confirm osteolytic lesions, possible osseous metastasis, however no brain lesions have been seen. Still pending remaining of CSF analysis studies. WBC downtrending at 16.3 today. Neurology consulted, will DC IV cefepime and dexamethasone and start IV ceftriaxone 2 g twice daily, vancomycin and acyclovir to cover medical encephalitis. Consider goals of care conversation with family. Exam Vital Signs Temp Pulse Resp BP Pulse Ox O2 Del Method O2 Flow Rate 97.0 F 64 16 138/46 H 98 Room Air 0 02/10/24 08:00 02/10/24 09:45 02/10/24 09:45 02/10/24 08:33 02/10/24 08:00 02/10/24 08:00 02/09/24 16:00 Narrative Exam NEURO: Difficult to arouse, moans on sternal rub HEENT: Moist mucosa. Eyes open, symmetrical, & clear CARDIO: No chest pain on palpation. Heart RRR, no obvious murmurs PULM: No noted coughing/dyspnea. Lungs CTA B/L GI: Abdomen soft, nondistended, no pain on palpation. BSx4 URO/MANAGER OF TRAINING:: No further abnormalities noted. SKIN/MSK/EXT: No wounds/rashes/edema/amputations, no pain on palpation. Pedal pulses present B/L Objective Labs 02/13/24 06:02 02/13/24 06:02 Labs: Laboratory Results - last 24 hr 02/10/24 05:05 WBC 16.3 H D RBC 4.32 Hgb 11.9 L Hct 35.3 L MCV 82 MCH 27.5 MCHC 33.7 RDW Std Deviation 51.4 H Plt Count 280 Neut % (Auto) 94 H Lymph % (Auto) 1 L [place] % (Auto) 4 Eos % (Auto) 0 Baso % (Auto) 0 Neut # (Auto) 15.4 H Lymph # (Auto) 0.2 L [place] # (Auto) 0.6 Eos # (Auto) 0.0 Baso # (Auto) 0.0 Immature Gran # (Auto) 0.09 H Absolute Nucleated RBC 0.00 Immature Gran % 1 H Nucleated RBC % 0 Sodium 138 Potassium 4.3 Chloride 110 H Carbon Dioxide 17.7 L Anion Gap 10 BUN 39 H Creatinine 1.3 Estim Creat Clear Calc 32.8 L eGFR 42 L BUN/Creatinine Ratio 30 H Glucose 122 H Calculated Osmolality 286 Calcium 8.7 Corrected Calcium 8.9 Phosphorus 3.3 Magnesium 2.5 Total Bilirubin 0.5 AST < 8 ALT < 7 L Alkaline Phosphatase 71 Total Protein 5.4 L Albumin 3.7 Globulin 1.7 L Albumin/Globulin Ratio 2.2 ABG Interpretation ABG results: 02/07/24 01:46 ABG pH 7.43 ABG pCO2 30 L ABG pO2 163 H ABG HCO3 20 ABG O2 Saturation 100 H ABG Base Excess -4 L Quality Measures Quality Measures none Advance care planning discussed with:: child Assessment & Plan Assessment Current Active Medications: Generic Name Dose Route Start Last Admin Trade Name Freq PRN Reason Stop Dose Admin Acetaminophen 650 mg 02/07/24 03:32 Acetaminophen Supp 650 Mg Supp ND 03/08/24 03:31 Q6HR PRN [id number] Amiodarone HCl 200 mg 02/08/24 09:00 02/10/24 08:33 Amiodarone Hcl 200 Mg Tablet PO 03/09/24 08:59 Not Given QDAY GENE Apixaban 2.5 mg 02/09/24 21:00 02/10/24 08:34 Apixaban 2.5 Mg Tablet PO 03/10/24 20:59 Not Given BID GENE Atorvastatin Calcium 40 mg 02/07/24 21:00 02/09/24 21:10 Atorvastatin Calcium 20 Mg Tablet PO 03/08/24 20:59 Not Given HS GENE Ceftriaxone Sodium 2 gm/ 50 mls @ 100 mls/hr 02/10/24 21:00 Sodium Chloride IV 02/17/24 20:59 Q12HR GENE Acyclovir Sodium 540 mg/ 110.8 mls @ 100 mls/hr 02/10/24 14:00 Sodium Chloride IV 02/17/24 13:59 Q8HR [facility] Ondansetron HCl 4 mg 02/07/24 03:32 Ondansetron Inj 2 Mg/Ml Inj 2 Ml IV 03/08/24 03:31 Q6H PRN NAUSEA OR VOMITING Protocol Pantoprazole Sodium 40 mg 02/07/24 09:00 02/10/24 08:32 Pantoprazole Inj 40 Mg Vial IVP 03/08/24 08:59 40 mg QDAY [facility] Administration Pharmacy Consult 1 each 02/10/24 11:15 Vancomycin Pharmacy To Dose 1 Each Each IV 03/11/24 11:14 QDAY [facility] Plan Summary: The patient is a 79-year-old female with past medical history of lymphoma status post remission and recurrence with abdominal (and pulmonary?) metastasis, CKD, dementia, atrial fibrillation on Eliquis who is admitted for acute encephalopathy and acute kidney injury in setting of CKD. #Acute Encephalopathy #Acute CVA vs TIA-ruled out #Fever of unknown origin #Rule out encephalitis #SIRS 2/4 # Dementia Presents after being found on bathroom floor for unknown period of time. Patient was not able to recall events leading up to hospitalization on admission. On admission SIRS 2/4: T 101.2 ?F, WBC 13.2. No source. CK, procal, and lactate wnl. She has waxing and waning mentation throughout the day per son, son is a reliable historian, patient lives with son at home. UA was negative for leukocyte esterase, nitrites, patient denies dysuria. Patient alert and oriented x 3, recalls events leading to hospitalization, per family at bedside patient is not back to baseline. 02/10/2024- Still pending remaining of CSF analysis studies. WBC downtrending at 16.3 today. Neurology consulted, will DC IV cefepime and dexamethasone and start IV ceftriaxone 2 g twice daily, vancomycin and acyclovir to cover medical encephalitis. Plan: ?DC IV cefepime and dexamethasone -Commence IV ceftriaxone, vancomycin and azithromycin -Mupirocin for MRSA nares -Pending remaining CSF studies -Neurology consulted, appreciate recommendations -Monitor vitals closely -Physical therapy recommends [facility] facility for [facility], family is agreeable. #Acute on chronic kidney injury #Acute kidney injury-resolving #CKD, stage IIIb Patient's kidney injury likely prerenal. Bun, Cr- 33, 1.3 Plan: ?Will continue IVF at 50 cc/h -Avoid nephrotoxic agents -Renally dose medications #Atrial fibrillation [id number] score 3 Patient's home medication include amiodarone and Eliquis 2.5 mg Plan: ?Will restart amiodarone 200 mg PO daily ? Holding Eliquis 2.5 mg twice daily- NPO -Continue telemonitoring #Lymphoma by history Patient has history of lymphoma with abdominal and pulmonary metastasis CT abdomen pelvis shows Enlarging of soft tissue tumor mass in the right hemipelvis Patient follows up with oncologist in [place] Suspicion of pulmonary metastasis as CTA chest positive for pulmonary nodules Bone survey done yesterday showed osteolytic lesions in the right frontal and parietal lobe with suspicions for lesions in the left hip. Will follow-up with the bone scan. Plan: -Oncologist consulted, appreciate recommendations -Bone scan ordered # Status post ground-level fall # History of orthostatic hypotension Per son patient has history of orthostatic hypotension. Patient presented status post ground-level fall, denies hitting head. Patient is on Eliquis at home for A-fib. Face CT, head CT, lumbar spine CT and thoracic spine CT negative Orthostatic vitals negative Plan: -Fall precautions -Referral to physical therapy Hospital management: Disposition: 2-3 hospital nights Fluids: IVF, NS at 75 mL/hr Diet: Dysphagia 2 Lines: peripheral DVT prophylaxis: SC Heparin GI prophylaxis: not indicated CODE STATUS: full code Case was discussed with senior resident Dr Faustin PGY-3 and attending physician, Dr Randi Turner MD PGY-1 Attending Provider Attestation/Addendum 79-year-old female with history of A-fib on Eliquis, CKD, dementia and diffuse large B-cell lymphoma status post chemoradiation with multiple recurrences who presented to the ER on 02/07/2024 with confusion found to have acute encephalopathy. Initial workup including CT head with no acute intracranial abnormality and started on empiric IV antibiotic therapy pending LP and MRI. Will consult nephrology for further input. Patient is alert and oriented x 0 and opens eye to noxious stimuli. No further episodes of fevers. As of now suspect either encephali meningitis versus recurrence of lymphoma. Currently, patient is status post MRI with no acute intracranial abnormality and LP which was inconclusive for encephalitis/meningitis. As of now, plan to continue IV acyclovir, Rocephin and vancomycin pending Gram stain. As for mentation, patient appears to be deteriorating and only responsive to painful stimuli. I reviewed above note and agree with findings and plans. I have also personally examined the patient with medicine team and went over assessment and plan with medical team including civil engineering intern and resident physician.
[2024-02-10] MEDS: VANCOMYCIN/NS 1 GM IVPB 200 ML IV (12:07)
[2024-02-10] MEDS: SODIUM CHLORIDE 0.9% 1000 ML 1,000 ML 50 ML IV (12:08)
[2024-02-10] MEDS: ACYCLOVIR IV ×2 (14:08→22:16)
[2024-02-10] MEDS: SODIUM CHLORIDE 0.9% IV ×2 (14:08→22:16)
[2024-02-10] MEDS: HEPARIN SOD INJ 5000 UNIT/ML VIAL SC (20:58)
[2024-02-10] MEDS: cefTRIAXone 2 GM in SODIUM CHLORIDE 0.9% (P) 50 ML IV (20:59)
--- NOTE | 2024-02-10 23:23 | PD.NEUROPROG ---
Documentation for date of: 02/10/24 Subjective Subjective Interval history: Patient was seen in telemetry today with her daughter at the bedside. Continues to be lethargic and not communicative. Moves both upper and lower extremities purposefully with focal abnormal involuntary movements involving the right upper extremity and stimulus sensitive myoclonus in all extremities.. Exam - Neurology Vital Signs Temp Pulse Resp BP Pulse Ox O2 Del Method O2 Flow Rate 97.0 F 66 20 136/87 H 98 Room Air 2 02/10/24 20:00 02/10/24 20:00 02/10/24 20:00 02/10/24 20:00 02/10/24 20:00 02/10/24 20:00 02/10/24 16:00 Narrative Exam GENERAL APPEARANCE: Well-developed, thin built female in no acute distress. HEENT: Normocephalic, atraumatic, extraocular movements intact. Pupils: Equal reacting to light NECK: Supple, no JVD or bruits. CARDIOVASULAR: Heart: S1, S2 heard, irregular without S3-S4 or murmur no rubs or gallops. LUNGS/CHEST: Clear to auscultation bilaterally. No rails, rhonchi, or wheezing. Normal inspection. ABDOMEN: Soft, nontender, with normal bowel sounds. No pulsatile masses. No rebound, rigidity, or guarding. Normal inspection and palpation. EXTREMITIES: Normal inspection and palpation. No edema, clubbing or cyanosis. SKIN: Warm and dry without rashes. Normal inspection. MUSCULOSKELETAL: No cervical, thoracic, lumbar or midline bony tenderness. Normal inspection. NEURO: Continues to be lethargic, barely opens her eyes but not tracking. Brainstem function: Intact, rest of the exam: Limited PSYCHIATRIC: Limited Objective Labs 02/12/24 05:11 02/12/24 05:11 Labs: Laboratory Results - last 24 hr 02/10/24 05:05 WBC 16.3 H D RBC 4.32 Hgb 11.9 L Hct 35.3 L MCV 82 MCH 27.5 MCHC 33.7 RDW Std Deviation 51.4 H Plt Count 280 Neut % (Auto) 94 H Lymph % (Auto) 1 L [place] % (Auto) 4 Eos % (Auto) 0 Baso % (Auto) 0 Neut # (Auto) 15.4 H Lymph # (Auto) 0.2 L [place] # (Auto) 0.6 Eos # (Auto) 0.0 Baso # (Auto) 0.0 Immature Gran # (Auto) 0.09 H Absolute Nucleated RBC 0.00 Immature Gran % 1 H Nucleated RBC % 0 Sodium 138 Potassium 4.3 Chloride 110 H Carbon Dioxide 17.7 L Anion Gap 10 BUN 39 H Creatinine 1.3 Estim Creat Clear Calc 32.8 L eGFR 42 L BUN/Creatinine Ratio 30 H Glucose 122 H Calculated Osmolality 286 Calcium 8.7 Corrected Calcium 8.9 Phosphorus 3.3 Magnesium 2.5 Total Bilirubin 0.5 AST < 8 ALT < 7 L Alkaline Phosphatase 71 Total Protein 5.4 L Albumin 3.7 Globulin 1.7 L Albumin/Globulin Ratio 2.2 ABG Interpretation ABG results: 02/07/24 01:46 ABG pH 7.43 ABG pCO2 30 L ABG pO2 163 H ABG HCO3 20 ABG O2 Saturation 100 H ABG Base Excess -4 L Assessment & Plan Assessment and plan (1) Abnormal CT of brain: Status: Acute (2) AMS (altered mental status): Status: Acute Assessment and plan: Etiology: Difficult to obtain MRI brain: Not significantly abnormal, chronic white matter changes CSF analysis shows pleomorphic leukocytosis, normal glucose and elevated protein, Gram stain and culture: So far negative. Continue with acyclovir ceftriaxone and vancomycin for 3 days and then decide about the CODE STATUS and next step in management, likely hospice care if no improvement in the mental status. Discussed with the family regarding the plan and they agreed. (3) Paroxysmal A-fib: Status: Chronic Assessment and plan: Used to be on amiodarone for rate control, but on hold now as hypothyroidism was suspected Now on heparin
[2024-02-11] VITALS (11 sets, daily range): BP systolic 123–162; BP diastolic 57–89; PULSE 51–78; RESP 13–100; TEMP 36.1–36.9; O2SAT 97–100
[2024-02-11 06:13] LABS: Basophils % (Auto) 0 % (0-2.5); Eosinophils % (Auto) 0 % (0-10); Hematocrit 33.7 % (36.0-46.0); Hemoglobin 11.1 g/dL (12.0-16.0); Immature Granulocytes % (Auto) 1 % (0-0); Immature Granulocytes Auto 0.09 Thou/mm3 (0.00-0.00); Lymphocytes # (Auto) 0.2 Thou/mm3 (1.0-4.8); Lymphocytes % (Auto) 1 % (10-50); Mean Corpuscular HGB Conc 32.9 g/dl (31.0-37.0); Mean Corpuscular Hemoglobin 27.3 pg (25.0-35.0); Mean Corpuscular Volume 83 fL (80-100); Monocytes # (Auto) 1.9 Thou/mm3 (0.0-0.8); Monocytes % (Auto) 12 % (0-12); Neutrophils # (Auto) 13.3 Thou/mm3 (1.8-7.7); Neutrophils % (Auto) 86 % (37-80); Nucleated Red Blood Cell % 0 /100 WBC (0); Platelet Count 252 Thou/mm3 (140-440); RDW Standard Deviation 52.9 fL (36.4-46.3); Red Blood Count 4.06 Miln/mm3 (4.00-5.20); White Blood Count 15.6 Thou/mm3 (3.6-11.0)
[2024-02-11 06:56] LABS: Alanine Aminotransferase < 7 U/L (10-49); Albumin, Serum 3.5 gm/dL (3.4-4.8); Albumin/Globulin Ratio 2.1 (1.2-2.2); Alkaline Phosphatase 64 U/L (46-116); Anion Gap 10 (7-16); Aspartate Amino Transferase < 10 U/L (0-34); BUN/Creatinine Ratio 24 Ratio (12-20); Bilirubin,Total 0.3 mg/dL (0.3-1.2); Blood Urea Nitrogen 34 mg/dL (9-23); Calcium 8.4 mg/dL (8.3-10.6); Calcium (Corrected) 8.8 mg/dL (8.5-10.1); Carbon Dioxide 16.7 mMol/L (20.0-31.0); Chloride 113 mMol/L (98-107); Creatinine (Component) 1.4 mg/dL (0.6-1.3); Estimated Creatinine Clearance 26.7 mL/min (>60); Globulin 1.7 gm/dL (2.3-3.5); Glucose 94 mg/dL (74-106); Magnesium 2.4 mg/dL (1.6-2.6); Osmolality,Calculated 287 (275-295); Phosphorous 2.5 mg/dL (2.4-5.1); Potassium 3.8 mMol/L (3.4-5.1); Sodium 140 mMol/L (136-145); Total Protein 5.2 gm/dL (5.7-8.2); Vancomycin,Random 13.4 mcg/mL; eGFR 38 See Note
[2024-02-11] MEDS: HEPARIN SOD INJ 5000 UNIT/ML VIAL SC (08:45)
[2024-02-11] MEDS: ACYCLOVIR IV ×2 (08:45→21:41)
[2024-02-11] MEDS: SODIUM CHLORIDE 0.9% IV ×2 (08:45→21:41)
[2024-02-11] MEDS: PANTOPRAZOLE INJ 40 MG VIAL IVP (08:45)
[2024-02-11] MEDS: cefTRIAXone 2 GM in SODIUM CHLORIDE 0.9% (P) 50 ML IV ×2 (08:45→20:41)
--- NOTE | 2024-02-11 10:12 | PC.SS ---
Addendum entered by PHI Joy 02/11/24 13:50: Attempted contact with [employer], patient's insurance carrier. They were closed and voicemail was provided regarding review for authorization for SNF. Addendum entered by PHI Joy 02/11/24 12:36: [facility] staff, declined to accept the patient at this time. Spoke with [facility] staff, Yadi, they are agreeable to accept the patient if patient/family are agreeable. Attempted contact with patient's daughter, Barbara to make aware, she was not available. Voicemail provided. Addendum entered by PHI Joy 02/11/24 11:39: Contacted patient's daughter Barbara, to present SNF options. She informs she will discuss with her brother and give a call a back. Informed her patient will require insurance authorization for SNF. Addendum entered by PHI Joy 02/11/24 11:35: Attempted contact with Mel at . She was unavailable and voicemail provided. Original Note: SS update: contacted Mel at [facility] to identify if they are willing to accept the patient as that is their preferred SNF. Mel informs she will discuss with their DON and provide with follow up after.
[2024-02-11] MEDS: VANCOMYCIN/NS 500 MG IVPB 100 ML 120 MG IV (10:33)
[2024-02-11] MEDS: DEXTROSE 5%-LACTATED RINGERS 1,000 ML 70 ML IV (10:42)
--- NOTE | 2024-02-11 13:07 | ESPR_ITS ---
<Statement entered by Ozzie Faustin DO - 02/11/24 14:48> Senior attestation: Patient was examined and case was reviewed with team including attending physician. Note reviewed, I agree with most of its contents and agree with the patient's care. Will continue IV antibiotics and antivirals. Will hold amiodarone today due to possible toxicity contributing to mentation changes. Lovenox adjusted renally for anticoagulation. Will consider starting ppn tomorrow if patient is unable to tolerate PO feeds. Ozzie Faustin DO PGY-3 Documentation for date of: 02/11/24 Subjective Subjective Interval history: Patient seen at bedside today. Patient's mentation is same as yesterday. MRI was negative for any brain metastasis, will continue IV antibiotics and antivirals for an additional day to cover for encephalitis as per discussion with neurology. Patient will be given IV thiamine, will hold amiodarone due to suspicion of amiodarone toxicity. CSF Gram stain negative, pending culture. Patient started on Lovenox 52 mg daily, heparin discontinued. Patient started on D5LR, will consider PPN in a.m. if patient is unable to tolerate diet Consider goals of care discussion with family if no improvement in patient's mentation. Will continue to monitor patient Exam Vital Signs Temp Pulse Resp BP Pulse Ox O2 Del Method O2 Flow Rate 97.2 F 77 16 154/67 H 99 Room Air 2 02/11/24 12:00 02/11/24 12:00 02/11/24 12:00 02/11/24 12:00 02/11/24 12:00 02/11/24 12:00 02/10/24 16:00 Narrative Exam NEURO: Difficult to arouse, moans on sternal rub HEENT: Moist mucosa. Eyes open, symmetrical, & clear CARDIO: No chest pain on palpation. Heart RRR, no obvious murmurs PULM: No noted coughing/dyspnea. Lungs CTA B/L GI: Abdomen soft, nondistended, no pain on palpation. BSx4 URO/ENVIRONMENTAL EMERGENCIES PLANNER:: No further abnormalities noted. SKIN/MSK/EXT: No wounds/rashes/edema/amputations, no pain on palpation. Pedal pulses present B/L. Gross movement noted in all limbs. Objective Labs 02/13/24 06:02 02/13/24 06:02 Labs: Laboratory Results - last 24 hr 02/11/24 05:07 WBC 15.6 H RBC 4.06 Hgb 11.1 L Hct 33.7 L MCV 83 MCH 27.3 MCHC 32.9 RDW Std Deviation 52.9 H Plt Count 252 Neut % (Auto) 86 H Lymph % (Auto) 1 L [place] % (Auto) 12 Eos % (Auto) 0 Baso % (Auto) 0 Neut # (Auto) 13.3 H Lymph # (Auto) 0.2 L [place] # (Auto) 1.9 H Eos # (Auto) 0.0 Baso # (Auto) 0.0 Immature Gran # (Auto) 0.09 H Absolute Nucleated RBC 0.00 Immature Gran % 1 H Nucleated RBC % 0 Sodium 140 Potassium 3.8 D Chloride 113 H Carbon Dioxide 16.7 L Anion Gap 10 BUN 34 H Creatinine 1.4 H Estim Creat Clear Calc 26.7 L eGFR 38 L BUN/Creatinine Ratio 24 H Glucose 94 Calculated Osmolality 287 Calcium 8.4 Corrected Calcium 8.8 Phosphorus 2.5 Magnesium 2.4 Total Bilirubin 0.3 AST < 10 ALT < 7 L Alkaline Phosphatase 64 Total Protein 5.2 L Albumin 3.5 Globulin 1.7 L Albumin/Globulin Ratio 2.1 Random Vancomycin 13.4 ABG Interpretation ABG results: 02/07/24 01:46 ABG pH 7.43 ABG pCO2 30 L ABG pO2 163 H ABG HCO3 20 ABG O2 Saturation 100 H ABG Base Excess -4 L Quality Measures Quality Measures none Advance care planning discussed with:: patient Assessment & Plan Assessment Current Active Medications: Generic Name Dose Route Start Last Admin Trade Name Freq PRN Reason Stop Dose Admin Acetaminophen 650 mg 02/07/24 03:32 Acetaminophen Supp 650 Mg Supp AR 03/08/24 03:31 Q6HR PRN [id number] Amiodarone HCl 200 mg 02/08/24 09:00 02/11/24 08:35 Amiodarone Hcl 200 Mg Tablet PO 03/09/24 08:59 Not Given QDAY GENE Atorvastatin Calcium 40 mg 02/07/24 21:00 02/10/24 21:12 Atorvastatin Calcium 20 Mg Tablet PO 03/08/24 20:59 Not Given HS GENE Heparin Sodium (Porcine) 5,000 unit 02/10/24 21:00 02/11/24 08:45 Heparin Sod Inj 5000 Unit/Ml Vial SC 02/24/24 20:59 5,000 unit Q12HR GENE Administration Ceftriaxone Sodium 2 gm/ 50 mls @ 100 mls/hr 02/10/24 21:00 02/11/24 08:45 Sodium Chloride IV 02/17/24 20:59 100 mls/hr Q12HR GENE Administration Acyclovir Sodium 540 mg/ 110.8 mls @ 100 mls/hr 02/10/24 14:00 02/11/24 08:45 Sodium Chloride IV 02/17/24 13:59 100 mls/hr BID GENE Administration Protocol Dextrose/Lactated Ringer's 1,000 mls @ 70 mls/hr 02/11/24 10:30 02/11/24 10:42 D5-Lr IV 02/12/24 00:47 70 mls/hr .[id number] GENE Administration Ondansetron HCl 4 mg 02/07/24 03:32 Ondansetron Inj 2 Mg/Ml Inj 2 Ml IV 03/08/24 03:31 Q6H PRN NAUSEA OR VOMITING Protocol Pantoprazole Sodium 40 mg 02/07/24 09:00 02/11/24 08:45 Pantoprazole Inj 40 Mg Vial IVP 03/08/24 08:59 40 mg QDAY [facility]ENE Administration Pharmacy Consult 1 each 02/10/24 11:15 Vancomycin Pharmacy To Dose 1 Each Each IV 03/11/24 11:14 QDAY PRN CONSULT Plan Summary: The patient is a 79-year-old female with past medical history of lymphoma status post remission and recurrence with abdominal (and pulmonary?) metastasis, CKD, dementia, atrial fibrillation on Eliquis who is admitted for acute encephalopathy and acute kidney injury in setting of CKD. #Acute Encephalopathy #Acute CVA vs TIA-ruled out #Fever of unknown origin #Rule out Encephalitis #SIRS 2/4 # Dementia Presents after being found on bathroom floor for unknown period of time. Patient was not able to recall events leading up to hospitalization on admission. On admission SIRS 2/: T 101.2 ?F, WBC 13.2. No source. CK, procal, and lactate wnl. She has waxing and waning mentation throughout the day per son, son is a reliable historian, patient lives with son at home. UA was negative for leukocyte esterase, nitrites, patient denies dysuria. Patient alert and oriented x 3, recalls events leading to hospitalization, per family at bedside patient is not back to baseline. 02/11/2024- Patient's mentation is same as yesterday. MRI was negative for any brain metastasis, will continue IV antibiotics and antivirals for an additional day to cover for encephalitis as per discussion with neurology. Patient will be given IV thiamine, will hold amiodarone due to suspicion of amiodarone toxicity. CSF Gram stain negative, pending culture. Patient started on Lovenox 52 mg daily, heparin discontinued. Patient started on D5LR, will consider PPN in a.m. if patient is unable to tolerate diet. Consider goals of care discussion with family if no improvement in patient's mentation. Plan: -Will continue IV ceftriaxone, vancomycin and azithromycin -Mupirocin for MRSA nares -Follow remaining CSF studies -Neurology consulted, appreciate recommendations -Monitor vitals closely -Started on IV thiamine -Will hold amiodarone due to suspicion of amiodarone toxicity -Pending EEG will follow -Physical therapy recommends correction facility for discharge, family is agreeable. #Acute on chronic kidney injury #Acute kidney injury-resolving #CKD, stage IIIb Patient's kidney injury likely prerenal. BUN 34, creatinine 1.4, GFR 38 Plan: ?Started on D5 LR, will continue -Avoid nephrotoxic agents -Renally dose medications #Atrial fibrillation [id number] score 3 Patient's home medication include amiodarone and Eliquis 2.5 mg Plan: ? Hold amiodarone ? Started on Lovenox -Continue telemonitoring #Lymphoma by history Patient has history of lymphoma with abdominal and pulmonary metastasis CT abdomen pelvis shows Enlarging of soft tissue tumor mass in the right hemipelvis Patient follows up with oncologist in [place] Suspicion of pulmonary metastasis as CTA chest positive for pulmonary nodules Bone survey done yesterday showed osteolytic lesions in the right frontal and parietal lobe with suspicions for lesions in the left hip. Will follow-up with the bone scan. Bone scan positive for increased uptake in right frontal bone, midshaft left tibia, metastatic disease possible differential Plan: -Oncologist consulted, appreciate recommendations # Status post ground-level fall # History of orthostatic hypotension Per son patient has history of orthostatic hypotension. Patient presented status post ground-level fall, denies hitting head. Patient is on Eliquis at home for A-fib. Face CT, head CT, lumbar spine CT and thoracic spine CT negative Orthostatic vitals negative Plan: -Fall precautions -Referral to physical therapy DVT prophylaxis: Lovenox GI prophylaxis: Protonix Diet: N.p.o. 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 Initial workup including CT head with no acute intracranial abnormality and started on empiric IV antibiotic therapy pending LP and MRI. Will consult nephrology for further input. Patient is alert and oriented x 0 and opens eye to noxious stimuli. No further episodes of fevers. As of now suspect either encephali meningitis versus recurrence of lymphoma. Currently, patient is status post MRI with no acute intracranial abnormality and LP which was inconclusive for encephalitis/meningitis. As of now, plan to continue IV acyclovir, Rocephin and vancomycin pending Gram stain. As for mentation, patient appears to be deteriorating and only responsive to painful stimuli. No improvement in mentation. I reviewed above note and agree with findings and plans. I have also personally examined the patient with medicine team and went over assessment and plan with medical team including college intern and resident physician.
[2024-02-11] MEDS: THIAMINE INJ 250 MG in SODIUM CHLORIDE 0.9% 100 ML 205 MG IV (13:38)
[2024-02-11] MEDS: ENOXAPARIN SOD INJ 60 MG/0.6 ML SYRINGE 52 MG SC (14:14)
--- NOTE | 2024-02-11 14:24 | PC.SS ---
Rounding note: patient will be staying. Continue to receive IV ABX.
--- NOTE | 2024-02-11 18:38 | PD.IMPROG ---
Documentation for date of: 02/11/24 Subjective Subjective Interval history: Patient was seen and examined at bedside this AM. Patient is lethargic and is not alert awake oriented during my any examination. Neurology is following the patient but unclear of the diagnosis. Working diagnosis encephalitis and MRI was performed and did not show any major acute pathology It still only shows MRI brain right frontal bone lesion which is unchanged with increased white matter signal consistent with age. EEG has been ordered along with Gram stain culture and CSF analysis which showed slightly elevated proteins and WBC with mostly pleomorphic. Patient does not seem to be doing well patient does have a history of non-Hodgkin's lymphoma previously and did not receive significant chemotherapy. Unlikely amiodarone is the cause of the altered mental status but it has already been stopped by the primary team as well as neurology. Eliquis is also on hold in view of possible procedures which has been restarted. Patient unable to take anything orally. Patient still is in normal sinus rhythm at the present point of time. On examination patient is definitely cachectic with severe temporal wasting and patient also losing significant weight recently. Patient family at the bedside including the son as well as the [id number] as well as the grandchildren. Had a long discussion for more than 20 minutes with the patient family. Considering her significant prolonged course with the lymphoma and other comorbidities family wanted to make the patient DNR and DNI at the present moment. Recommended the son and the family to also speak to the primary team for further goals of care discussion in the long-term care plan. Exam Vital Signs Temp Pulse Resp BP Pulse Ox O2 Del Method O2 Flow Rate 98.4 F 57 L 17 137/57 H 99 Room Air 2 02/11/24 16:02/11/24 16:02/11/24 16:02/11/24 16:02/11/24 16:00 02/11/24 16:00 02/10/24 16:00 Narrative Exam General: Alert and oriented x 0, Non verbal Patient not able to provide much history and appears confused Eyes: Pupils are equal and reactive to light bilaterally. HEENT: Atraumatic, normocephalic. No JVD noted. Mucosa moist. Cardiovascular: Normal S1 and S2. Normal rate and regular rhythm. 2/ 6 ejection systolic murmur noted aortic area no peripheral pitting edema noted. Respiratory: No respiratory distress. Lungs are clear to auscultation bilaterally. No wheezing or crackles heard. Abdomen: Soft, nontender, nondistended. Skin: No rash. Warm to touch. Musculoskeletal: No gross injuries. Able to move all 4 extremities. Psych: Normal affect and mood Objective Labs 02/12/24 05:11 02/12/24 05:11 Labs: Laboratory Results - last 24 hr 02/11/24 05:07 WBC 15.6 H RBC 4.06 Hgb 11.1 L Hct 33.7 L MCV 83 MCH 27.3 MCHC 32.9 RDW Std Deviation 52.9 H Plt Count 252 Neut % (Auto) 86 H Lymph % (Auto) 1 L [place] % (Auto) 12 Eos % (Auto) 0 Baso % (Auto) 0 Neut # (Auto) 13.3 H Lymph # (Auto) 0.2 L [place] # (Auto) 1.9 H Eos # (Auto) 0.0 Baso # (Auto) 0.0 Immature Gran # (Auto) 0.09 H Absolute Nucleated RBC 0.00 Immature Gran % 1 H Nucleated RBC % 0 Sodium 140 Potassium 3.8 D Chloride 113 H Carbon Dioxide 16.7 L Anion Gap 10 BUN 34 H Creatinine 1.4 H Estim Creat Clear Calc 26.7 L eGFR 38 L BUN/Creatinine Ratio 24 H Glucose 94 Calculated Osmolality 287 Calcium 8.4 Corrected Calcium 8.8 Phosphorus 2.5 Magnesium 2.4 Total Bilirubin 0.3 AST < 10 ALT < 7 L Alkaline Phosphatase 64 Total Protein 5.2 L Albumin 3.5 Globulin 1.7 L Albumin/Globulin Ratio 2.1 Random Vancomycin 13.4 ABG Interpretation ABG results: 02/07/24 01:46 ABG pH 7.43 ABG pCO2 30 L ABG pO2 163 H ABG HCO3 20 ABG O2 Saturation 100 H ABG Base Excess -4 L Assessment & Plan A&P Narrative A 72-year-old female with a past medical history of diffuse large B-cell lymphoma status post radiation to head and neck sites at [facility] and chemotherapy in [place] and was in remission with recurrence to abdominal, was on treatment until March, CKD stage 3B, protein calorie malnutrition versus cachexia, progressive senile dementia as well as history of paroxysmal atrial fibrillation was brought into the emergency department initially for altered mental status diarrhea at home.Patient was admitted for acute metabolic encephalopathy secondary to sepsis. Cardiology was consulted for A-fib. 1. Paroxysmal atrial fibrillation with SVR Patient confused and unable to give any history of any chest pain/pressure or palpitations. EKG on admission showed sinus rhythm, rate 60 and repeat EKG showed sinus bradycardia with rate 59. At home patient on metoprolol XL and amiodarone 200 Mg p.o. daily. From telemetry review patient does not appear to be in A-fib on this admission. [id number] 3; 3.2% stroke risk per year [age, female] HAS-BLED : 1 points; low risk for major bleeding Transthoracic echocardiogram completed on 02/07/2024 findings include: Negative bubble study. No evidence of PFO or ASD. Consider MEAGAN if high clinical suspicion. Normal LV size and function. Estimated EF 60-65% Normal RV size and function. Mild AV stenosis, mean gradient 12mmHg, vmax 2.6m/s. Mild to moderate AI. Mild MR, TR. Patient non verbal. From telemetry review patient rate controlled with HR 50-70s in sinus rhythm overnight Continue Amiodarone po and resume Eliquis once no further procedures planned This a.m. potassium 4.3 and magnesium 2.5. Please maintain potassium >4 and magnesium >2 at all times to prevent any further arrhythmias. Plan: ? Recommend to continue home medication amiodarone 200 Mg p.o. daily for rhythm control. ? Patient may need to restart metoprolol XL for rate control if the blood pressure and heart rate are permissible. ? Recommend to resume anticoagulation with Eliquis 2.5 Mg p.o. twice daily if no further procedures planned ? Recommend to maintain potassium greater than 4 and Mg greater than 2 at all times to prevent any arrhythmias 2. Acute metabolic encephalopathy secondary to fever of unknown origin On admission SIRS 2/4 for tachypnea and temperature 102.6 F Blood and urine cultures currently pending and no obvious source of infection. Patient had LP and nuclear bone scan. CSF analysis showed WBC 53 and protein 104. Neurology on board and recommended to continue current antibiotic regimen. Continue management as per primary team and Neurology 02/12/2024 Patient is lethargic and is not alert awake oriented during my any examination. Neurology is following the patient but unclear of the diagnosis. Working diagnosis encephalitis and MRI was performed and did not show any major acute pathology It still only shows MRI brain right frontal bone lesion which is unchanged with increased white matter signal consistent with age. EEG has been ordered along with Gram stain culture and CSF analysis which showed slightly elevated proteins and WBC with mostly pleomorphic. Patient does not seem to be doing well patient does have a history of non-Hodgkin's lymphoma previously and did not receive significant chemotherapy. Unlikely amiodarone is the cause of the altered mental status but it has already been stopped by the primary team as well as neurology. Eliquis is also on hold in view of possible procedures which has been restarted. Patient unable to take anything orally. Patient still is in normal sinus rhythm at the present point of time. On examination patient is definitely cachectic with severe temporal wasting and patient also losing significant weight recently. Patient family at the bedside including the son as well as the [id number] as well as the grandchildren. Had a long discussion for more than 20 minutes with the patient family. Considering her significant prolonged course with the lymphoma and other comorbidities family wanted to make the patient DNR and DNI at the present moment. Recommended the son and the family to also speak to the primary team for further goals of care discussion in the long-term care plan. 3. History of diffuse large B-cell lymphoma s/p treatment in remission with recurrence in the abdomen on treatment until March status post radiation to head and neck sites at [facility] and chemotherapy in [place] Dr. Tapia, radiation oncologist was consulted. Brain CT showed showed 33 x 32 mm right frontal bone lesion with soft tissue component. Bone survey completed Brain MRI significant for increased white matter signal, right frontal bone lesion, MRI brain images severely degraded by patient motion. Continue management as per radiation oncology 4. CKD stage III And admission CR 1.4. From chart review baseline appears to be between 1.2?1.4 Continue management as per primary team 5. Protein calorie malnutrition with cachexia 6 . Progressive senile dementia with possible delirium 7. Poor oral intake and patient is mildly dehydrated Continue management as per primary team Continue rest of management as per primary team. We are grateful to be able to participate in Ms. Hill's care. Thank you for the consult Plan of care discussed with attending [employer], Dr Kristy Eastman MD PGY 1 Attending Provider Attestation/Addendum I reviewed the resident Dr. Eastman consultation progress note and agree with the resident findings and plan in the note above and have also edited the documentation to reflect my findings and plan. Fabio Wagner M.D. Interventional Cardiology Time Spent With Patient Time: Total time spent is greater than 50% in coordination of care (as documented) at patient's floor/unit and/or counseling patient:
--- NOTE | 2024-02-11 20:33 | EVENTNT_ITS ---
Documentation for date of: 02/11/24
--- NOTE | 2024-02-11 20:33 | PD.RESEVENT ---
Documentation for date of: 02/11/24
--- NOTE | 2024-02-11 21:59 | PD.RESEVENT ---
Documentation for date of: CODE STATUS CHANGED TO DNR: On 02/11/24 20:24, family at bedside had requested to speak with care team regarding CODE STATUS. In light of situation with the worsening overall condition, persistent encephalopathy despite aggressive management, family had decided to change CODE STATUS to DNR. The hospitalist team will honor the family's decision. Patient case was discussed with attending, Dr. Veronica BENNETT and senior resident Dr. Yi. Heather Fernando DO PGYI
--- NOTE | 2024-02-11 23:37 | VVPN_ITS ---
Telemedicine visit statement This visit was conducted with the use of phone was obtained on 02/11/24. Documentation for date of: 02/11/24 Subjective Subjective Interval history: Patient continues to be lethargic and noncommunicative. Reportedly responding this morning only to sternal rub. No more abnormal involuntary movements/fasciculations/myoclonus noted Virtual exam Vital Signs Temp Pulse Resp BP Pulse Ox O2 Del Method O2 Flow Rate 97.9 F 61 16 149/77 H 100 Room Air 2 02/11/24 19:56 02/11/24 21:43 02/11/24 21:43 02/11/24 19:56 02/11/24 19:56 02/11/24 19:56 02/10/24 16:00 Objective Labs 02/12/24 05:11 02/12/24 05:11 Labs: Laboratory Results - last 24 hr 02/11/24 05:07 WBC 15.6 H RBC 4.06 Hgb 11.1 L Hct 33.7 L MCV 83 MCH 27.3 MCHC 32.9 RDW Std Deviation 52.9 H Plt Count 252 Neut % (Auto) 86 H Lymph % (Auto) 1 L [place] % (Auto) 12 Eos % (Auto) 0 Baso % (Auto) 0 Neut # (Auto) 13.3 H Lymph # (Auto) 0.2 L [place] # (Auto) 1.9 H Eos # (Auto) 0.0 Baso # (Auto) 0.0 Immature Gran # (Auto) 0.09 H Absolute Nucleated RBC 0.00 Immature Gran % 1 H Nucleated RBC % 0 Sodium 140 Potassium 3.8 D Chloride 113 H Carbon Dioxide 16.7 L Anion Gap 10 BUN 34 H Creatinine 1.4 H Estim Creat Clear Calc 26.7 L eGFR 38 L BUN/Creatinine Ratio 24 H Glucose 94 Calculated Osmolality 287 Calcium 8.4 Corrected Calcium 8.8 Phosphorus 2.5 Magnesium 2.4 Total Bilirubin 0.3 AST < 10 ALT < 7 L Alkaline Phosphatase 64 Total Protein 5.2 L Albumin 3.5 Globulin 1.7 L Albumin/Globulin Ratio 2.1 Random Vancomycin 13.4 ABG Interpretation ABG results: 02/07/24 01:46 ABG pH 7.43 ABG pCO2 30 L ABG pO2 163 H ABG HCO3 20 ABG O2 Saturation 100 H ABG Base Excess -4 L Assessment & Plan Assessment 1) AMS (altered mental status): Status: Acute Assessment and plan: Etiology: Difficult to obtain MRI brain: Not significantly abnormal, chronic white matter changes CSF analysis shows pleomorphic leukocytosis, normal glucose and elevated protein, Gram stain and culture: So far negative. Continue with acyclovir ceftriaxone and vancomycin for 2 more days and then decide about the CODE STATUS and next step in management, likely hospice care if no improvement. (2) Paroxysmal A-fib: Status: Chronic Assessment and plan: Used to be on amiodarone for rate control, but on hold now as hypothyroidism was suspected Now on heparin
[2024-02-12] VITALS (10 sets, daily range): BP systolic 143–166; BP diastolic 62–76; PULSE 60–73; RESP 15–100; TEMP 36.1–37.2; O2SAT 98–100
[2024-02-12 06:48] LABS: Basophils % (Auto) 0 % (0-2.5); Eosinophils # (Auto) 0.1 Thou/mm3 (0.0-0.5); Eosinophils % (Auto) 1 % (0-10); Hematocrit 34.6 % (36.0-46.0); Hemoglobin 11.1 g/dL (12.0-16.0); Immature Granulocytes % (Auto) 1 % (0-0); Immature Granulocytes Auto 0.12 Thou/mm3 (0.00-0.00); Lymphocytes # (Auto) 0.2 Thou/mm3 (1.0-4.8); Lymphocytes % (Auto) 1 % (10-50); Mean Corpuscular HGB Conc 32.1 g/dl (31.0-37.0); Mean Corpuscular Hemoglobin 27.1 pg (25.0-35.0); Mean Corpuscular Volume 85 fL (80-100); Monocytes # (Auto) 2.1 Thou/mm3 (0.0-0.8); Monocytes % (Auto) 13 % (0-12); Neutrophils # (Auto) 13.9 Thou/mm3 (1.8-7.7); Neutrophils % (Auto) 85 % (37-80); Nucleated Red Blood Cell % 0 /100 WBC (0); Platelet Count 243 Thou/mm3 (140-440); RDW Standard Deviation 53.9 fL (36.4-46.3); Red Blood Count 4.09 Miln/mm3 (4.00-5.20); White Blood Count 16.4 Thou/mm3 (3.6-11.0)
[2024-02-12 07:03] LABS: Alanine Aminotransferase < 7 U/L (10-49); Albumin, Serum 3.6 gm/dL (3.4-4.8); Alkaline Phosphatase 66 U/L (46-116); Anion Gap 10 (7-16); Aspartate Amino Transferase < 10 U/L (0-34); BUN/Creatinine Ratio 18 Ratio (12-20); Bilirubin,Total 0.3 mg/dL (0.3-1.2); Blood Urea Nitrogen 23 mg/dL (9-23); Calcium 8.7 mg/dL (8.3-10.6); Carbon Dioxide 21.9 mMol/L (20.0-31.0); Chloride 107 mMol/L (98-107); Creatinine (Component) 1.3 mg/dL (0.6-1.3); Estimated Creatinine Clearance 28.2 mL/min (>60); Globulin 1.8 gm/dL (2.3-3.5); Glucose 90 mg/dL (74-106); Magnesium 1.8 mg/dL (1.6-2.6); Osmolality,Calculated 281 (275-295); Potassium 3.2 mMol/L (3.4-5.1); Sodium 139 mMol/L (136-145); Total Protein 5.4 gm/dL (5.7-8.2); Vancomycin,Random 14.8 mcg/mL; eGFR 42 See Note
[2024-02-12] MEDS: THIAMINE INJ 100 MG/ML VIAL 2 ML IVP (08:16)
[2024-02-12] MEDS: PANTOPRAZOLE INJ 40 MG VIAL IVP (08:16)
[2024-02-12] MEDS: cefTRIAXone 2 GM in SODIUM CHLORIDE 0.9% (P) 50 ML IV ×2 (08:17→22:38)
[2024-02-12] MEDS: Magnesium Sulfate 2 GM Ivpb 2 GM/50 ML BAG IV (08:17)
[2024-02-12] MEDS: POTASSIUM PHOS 22.5 MMOL in SODIUM CHLORIDE 0.9% 500 ML 500 ML 82.778 MMOL IV (08:17)
--- NOTE | 2024-02-12 08:43 | PC.SS ---
SS follow up note; SS contacted patients daughter, Barbara and provided accepting SNF's. Barbara informed SS that she will discuss with her brother what facility she would like patient to discharge and would contact SS back. SS will stand by for further needs.
[2024-02-12] MEDS: ACYCLOVIR IV (09:07)
[2024-02-12] MEDS: SODIUM CHLORIDE 0.9% IV (09:07)
[2024-02-12] MEDS: VANCOMYCIN/NS 500 MG IVPB 100 ML 120 MG IV (10:21)
--- NOTE | 2024-02-12 11:05 | ESPR_ITS ---
<Statement entered by Ozzie Faustin DO - 02/12/24 20:37> Senior attestation: Patient was examined and case was reviewed with team including attending physician. Note reviewed, I agree with most of its contents and agree with the patient's care. Overnight code status was changed to DNR, has been confirmed by our team as well. Although amiodarone not likely a cause of patient's condition, will continue to trial amiodarone cessation today, may resume if arrthymias occur. Continue IV rocoephin, acyclovir, and vancomycin. CSF studies pending with remaining CSF studies to be sent-out on 02/13, if patient's condition does not improve, may consider goals of care discussion tomorrow 02/12. If patient is unable to tolerate feeds tomorrow, may consider PPN at that time. Ozzie Faustin DO PGY-3 Documentation for date of: 02/12/24 Subjective Subjective Interval history: Patient seen at bedside today. Patient's mentation is same as yesterday. Overnight patient's family decided to change the patient's CODE STATUS to DNR. Discussed with patient's family at bedside about patient's prognosis and will continue to monitor for improvement in a.m. Patient's son at bedside confirmed the CODE STATUS of DNR. If no improvement is noted in patient's mentation, will consider goals of care discussion tomorrow. Will continue IV thiamine and will hold amiodarone for suspicion of amiodarone toxicity Patient's CSF studies will be sent out by lab on Wednesday. Consider discussion to start PPN on patient in a.m. Will continue to monitor patient Exam Vital Signs Temp Pulse Resp BP Pulse Ox O2 Del Method O2 Flow Rate 98.6 F 73 17 155/64 H 99 Nasal Cannula 1 02/12/24 08:00 02/12/24 08:00 02/12/24 08:00 02/12/24 08:00 02/12/24 08:00 02/12/24 08:00 02/12/24 08:00 Narrative Exam NEURO: Difficult to arouse, moans on sternal rub HEENT: Moist mucosa. Eyes open, symmetrical, & clear CARDIO: No chest pain on palpation. Heart RRR, no obvious murmurs PULM: No noted coughing/dyspnea. Lungs CTA B/L GI: Abdomen soft, nondistended, no pain on palpation. BSx4 URO/PUBLIC HEALTH PROFESSOR:: No further abnormalities noted. SKIN/MSK/EXT: No wounds/rashes/edema/amputations, no pain on palpation. Pedal pulses present B/L. Gross movement noted in all limbs. Objective Labs 02/13/24 06:02 02/13/24 06:02 Labs: Laboratory Results - last 24 hr 02/12/24 05:11 WBC 16.4 H RBC 4.09 Hgb 11.1 L Hct 34.6 L MCV 85 MCH 27.1 MCHC 32.1 RDW Std Deviation 53.9 H Plt Count 243 Neut % (Auto) 85 H Lymph % (Auto) [address] % (Auto) 13 H Eos % (Auto) 1 Baso % (Auto) 0 Neut # (Auto) 13.9 H Lymph # (Auto) 0.[address] # (Auto) 2.1 H Eos # (Auto) 0.1 Baso # (Auto) 0.0 Immature Gran # (Auto) 0.12 H Absolute Nucleated RBC 0.00 Immature Gran % 1 H Nucleated RBC % 0 Sodium 139 Potassium 3.2 L D Chloride 107 Carbon Dioxide 21.9 Anion Gap 10 BUN 23 Creatinine 1.3 Estim Creat Clear Calc 28.2 L eGFR 42 L BUN/Creatinine Ratio 18 Glucose 90 Calculated Osmolality 281 Calcium 8.7 Corrected Calcium 9.0 Phosphorus 2.0 L Magnesium 1.8 Total Bilirubin 0.3 AST < 10 ALT < 7 L Alkaline Phosphatase 66 Total Protein 5.4 L Albumin 3.6 Globulin 1.8 L Albumin/Globulin Ratio 2.0 Random Vancomycin 14.8 ABG Interpretation ABG results: 02/07/24 01:46 ABG pH 7.43 ABG pCO2 30 L ABG pO2 163 H ABG HCO3 20 ABG O2 Saturation 100 H ABG Base Excess -4 L Quality Measures Quality Measures none Advance care planning discussed with:: child Assessment & Plan Assessment Current Active Medications: Generic Name Dose Route Start Last Admin Trade Name Freq PRN Reason Stop Dose Admin Acetaminophen 650 mg 02/12/24 09:53 Acetaminophen Supp 650 Mg Supp ME 03/08/24 03:31 Q6HR PRN FEVER>101.5 Amiodarone HCl 200 mg 02/08/24 09:00 02/11/24 08:35 Amiodarone Hcl 200 Mg Tablet PO 03/09/24 08:59 Not Given QDAY GENE Atorvastatin Calcium 40 mg 02/07/24 21:00 02/11/24 20:40 Atorvastatin Calcium 20 Mg Tablet PO 03/08/24 20:59 Not Given HS GENE Enoxaparin Sodium 52 mg 02/11/24 14:00 02/11/24 14:14 Enoxaparin Sod Inj 60 Mg/0.6 Ml Syringe SC 02/25/24 13:59 52 mg QDAY@1400 GENE Administration Ceftriaxone Sodium 2 gm/ 50 mls @ 100 mls/hr 02/10/24 21:00 02/12/24 08:17 Sodium Chloride IV 02/17/24 20:59 100 mls/hr Q12HR GENE Administration Potassium Phosphate 22.5 mmol/ 507.5 mls @ 82.778 mls/hr 02/12/24 07:35 02/12/24 08:17 Sodium Chloride IV 02/12/24 13:42 82.778 mls/hr X1 ONE Administration Acyclovir Sodium 500 mg/ 110 mls @ 99.273 mls/hr 02/12/24 21:00 Sodium Chloride IV 02/17/24 13:59 BID GENE Protocol Ondansetron HCl 4 mg 02/07/24 03:32 Ondansetron Inj 2 Mg/Ml Inj 2 Ml IV 03/08/24 03:31 Q6H PRN NAUSEA OR VOMITING Protocol Pantoprazole Sodium 40 mg 02/07/24 09:00 02/12/24 08:16 Pantoprazole Inj 40 Mg Vial IVP 03/08/24 08:59 40 mg QDAY GENE Administration Pharmacy Consult 1 each 02/10/24 11:15 Vancomycin Pharmacy To Dose 1 Each Each IV 03/11/24 11:14 QDAY PRN CONSULT Thiamine HCl 100 mg 02/12/24 09:00 02/12/24 08:16 Thiamine Inj 100 Mg/Ml Vial 2 Ml IVP 03/13/24 08:59 100 mg QDAY GENE Administration Plan Summary: The patient is a 79-year-old female with past medical history of lymphoma status post remission and recurrence with abdominal (and pulmonary?) metastasis, CKD, dementia, atrial fibrillation on Eliquis who is admitted for acute encephalopathy and acute kidney injury in setting of CKD. #Acute Encephalopathy #Acute CVA vs TIA-ruled out #Fever of unknown origin #Rule out Encephalitis #SIRS 2/ # Dementia Presents after being found on bathroom floor for unknown period of time. Patient was not able to recall events leading up to hospitalization on admission. On admission SIRS 2/4: T 101.2 ?F, WBC 13.2. No source. CK, procal, and lactate wnl. She has waxing and waning mentation throughout the day per son, son is a reliable historian, patient lives with son at home. UA was negative for leukocyte esterase, nitrites, patient denies dysuria. Patient alert and oriented x 3, recalls events leading to hospitalization, per family at bedside patient is not back to baseline. 02/11/2024- Overnight patient's family decided to change the patient's CODE STATUS to DNR. Discussed with patient's family at bedside about patient's prognosis and will continue to monitor for improvement in a.m. Patient's son at bedside confirmed the CODE STATUS of DNR. If no improvement is noted in patient's mentation, will consider goals of care discussion tomorrow. Will continue IV thiamine and will hold amiodarone for suspicion of amiodarone toxicity Patient's CSF studies will be sent out by lab on Wednesday. Consider discussion to start PPN on patient in a.m. Plan: -Will continue IV ceftriaxone, vancomycin and azithromycin -Mupirocin for MRSA nares -Follow remaining CSF studies, lab will send out studies on Wednesday -Neurology consulted, appreciate recommendations -Monitor vitals closely -Continue IV thiamine -Will hold amiodarone due to suspicion of amiodarone toxicity -Pending EEG will follow -Physical therapy recommends long term facility for discharge, family is agreeable. #Acute on chronic kidney injury #Acute kidney injury-resolving #CKD, stage IIIb Patient's kidney injury likely prerenal. BUN 34, creatinine 1.4, GFR 38 Plan: -Avoid nephrotoxic agents -Renally dose medications #Atrial fibrillation [id number] score 3 Patient's home medication include amiodarone and Eliquis 2.5 mg Plan: ? Hold amiodarone, due to suspicion of toxicity ? Started on Lovenox therapeutic dose -Continue telemonitoring #Lymphoma by history Patient has history of lymphoma with abdominal and pulmonary metastasis CT abdomen pelvis shows Enlarging of soft tissue tumor mass in the right hemipelvis Patient follows up with oncologist in [place] Suspicion of pulmonary metastasis as CTA chest positive for pulmonary nodules Bone survey done yesterday showed osteolytic lesions in the right frontal and parietal lobe with suspicions for lesions in the left hip. Will follow-up with the bone scan. Bone scan positive for increased uptake in right frontal bone, midshaft left tibia, metastatic disease possible differential Plan: -Oncologist consulted, appreciate recommendations # Status post ground-level fall # History of orthostatic hypotension Per son patient has history of orthostatic hypotension. Patient presented status post ground-level fall, denies hitting head. Patient is on Eliquis at home for A-fib. Face CT, head CT, lumbar spine CT and thoracic spine CT negative Orthostatic vitals negative Plan: -Fall precautions -Referral to physical therapy DVT prophylaxis: Lovenox GI prophylaxis: Protonix Diet: N.p.o. 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 Initial workup including CT head with no acute intracranial abnormality and started on empiric IV antibiotic therapy pending LP and MRI. Will consult nephrology for further input. Patient is alert and oriented x 0 and opens eye to noxious stimuli. No further episodes of fevers. As of now suspect either encephali meningitis versus recurrence of lymphoma. Currently, patient is status post MRI with no acute intracranial abnormality and LP which was inconclusive for encephalitis/meningitis. As of now, plan to continue IV acyclovir, Rocephin and vancomycin pending Gram stain. As for mentation, patient appears to be deteriorating and only responsive to painful stimuli. No improvement in mentation. Of note, discussed goals of care with family and wants patient to be DNR/DNI for which we will respect. If patient mentation does not improve in the next 48-72 hours will discuss goals of care and possible hospice as it was recommended by neurology. Overall prognosis extremely poor. I reviewed above note and agree with findings and plans. I have also personally examined the patient with medicine team and went over assessment and plan with medical team including recording studio intern and resident physician.
[2024-02-12 13:21] LABS: Mono Screen Negative (Negative)
[2024-02-12] MEDS: ENOXAPARIN SOD INJ 60 MG/0.6 ML SYRINGE 52 MG SC (14:25)
--- NOTE | 2024-02-12 18:34 | PD.IMPROG ---
Documentation for date of: 02/12/24 Subjective Subjective Interval history: Patient was seen and examined at bedside this AM. Patient is lethargic and is not alert awake oriented during my any examination. No change in clinical status since yesterday. Family did speak to the primary team and patient is now DNR and DNI. Okay to hold the amiodarone for now to rule out of one of the cause of the altered mental status. Eliquis is also on hold in view of possible procedures which has been restarted. Patient unable to take anything orally. Patient still is in normal sinus rhythm at the present point of time. Still all the CSF studies have not been sent and will be sent in the next 1 to 2 days as per the primary team Patient is still on IV antibiotic Rocephin and acyclovir as well as vancomycin. Patient has not been eating for few days and patient needs to be on PPN or TPN Neurology is following the patient but unclear of the diagnosis. Working diagnosis encephalitis and MRI was performed and did not show any major acute pathology It still only shows MRI brain right frontal bone lesion which is unchanged with increased white matter signal consistent with age. EEG has been ordered along with Gram stain culture and CSF analysis which showed slightly elevated proteins and WBC with mostly pleomorphic. Exam Vital Signs Temp Pulse Resp BP Pulse Ox O2 Del Method O2 Flow Rate 98.1 F 71 22 H 166/70 H 100 Nasal Cannula 1 02/12/24 16:00 02/12/24 16:00 02/12/24 16:00 02/12/24 16:00 02/12/24 16:00 02/12/24 16:00 02/12/24 16:00 Narrative Exam General: Alert and oriented x 0, Non verbal Patient not able to provide much history and appears confused Eyes: Pupils are equal and reactive to light bilaterally. HEENT: Atraumatic, normocephalic. No JVD noted. Mucosa moist. Cardiovascular: Normal S1 and S2. Normal rate and regular rhythm. 2/ 6 ejection systolic murmur noted aortic area no peripheral pitting edema noted. Respiratory: No respiratory distress. Lungs are clear to auscultation bilaterally. No wheezing or crackles heard. Abdomen: Soft, nontender, nondistended. Skin: No rash. Warm to touch. Musculoskeletal: No gross injuries. Able to move all 4 extremities. Psych: Normal affect and mood Objective Labs 02/12/24 05:11 02/12/24 05:11 Labs: Laboratory Results - last 24 hr 02/07/24 02/12/24 00:30 05:11 WBC 16.4 H RBC 4.09 Hgb 11.1 L Hct 34.6 L MCV 85 MCH 27.1 MCHC 32.1 RDW Std Deviation 53.9 H Plt Count 243 Neut % (Auto) 85 H Lymph % (Auto) 1 L [place] % (Auto) 13 H Eos % (Auto) 1 Baso % (Auto) 0 Neut # (Auto) 13.9 H Lymph # (Auto) 0.2 L [place] # (Auto) 2.1 H Eos # (Auto) 0.1 Baso # (Auto) 0.0 Immature Gran # (Auto) 0.12 H Absolute Nucleated RBC 0.00 Immature Gran % 1 H Nucleated RBC % 0 Sodium 139 Potassium 3.2 L D Chloride 107 Carbon Dioxide 21.9 Anion Gap 10 BUN 23 Creatinine 1.3 Estim Creat Clear Calc 28.2 L eGFR 42 L BUN/Creatinine Ratio 18 Glucose 90 Calculated Osmolality 281 Calcium 8.7 Corrected Calcium 9.0 Phosphorus 2.0 L Magnesium 1.8 Total Bilirubin 0.3 AST < 10 ALT < 7 L Alkaline Phosphatase 66 Total Protein 5.4 L Albumin 3.6 Globulin 1.8 L Albumin/Globulin Ratio 2.0 Random Vancomycin 14.8 Monoscreen Negative ABG Interpretation ABG results: 02/07/24 01:46 ABG pH 7.43 ABG pCO2 30 L ABG pO2 163 H ABG HCO3 20 ABG O2 Saturation 100 H ABG Base Excess -4 L Assessment & Plan A&P Narrative A 72-year-old female with a past medical history of diffuse large B-cell lymphoma status post radiation to head and neck sites at [facility] and chemotherapy in [place] and was in remission with recurrence to abdominal, was on treatment until March, CKD stage 3B, protein calorie malnutrition versus cachexia, progressive senile dementia as well as history of paroxysmal atrial fibrillation was brought into the emergency department initially for altered mental status diarrhea at home.Patient was admitted for acute metabolic encephalopathy secondary to sepsis. Cardiology was consulted for A-fib. 1. Paroxysmal atrial fibrillation with SVR Patient confused and unable to give any history of any chest pain/pressure or palpitations. EKG on admission showed sinus rhythm, rate 60 and repeat EKG showed sinus bradycardia with rate 59. At home patient on metoprolol XL and amiodarone 200 Mg p.o. daily. From telemetry review patient does not appear to be in A-fib on this admission. [id number] 3; 3.2% stroke risk per year [age, female] HAS-BLED : 1 points; low risk for major bleeding Transthoracic echocardiogram completed on 02/07/2024 findings include: Negative bubble study. No evidence of PFO or ASD. Consider MEAGAN if high clinical suspicion. Normal LV size and function. Estimated EF 60-65% Normal RV size and function. Mild AV stenosis, mean gradient 12mmHg, vmax 2.6m/s. Mild to moderate AI. Mild MR, TR. Plan: ? Okay to hold the amiodarone for now to rule out of one of the cause of the altered mental status. - Eliquis is also on hold in view of possible procedures which has been restarted. Patient unable to take anything orally. - Patient still is in normal sinus rhythm at the present point of time. ? Patient may need to restart metoprolol XL for rate control if the blood pressure and heart rate are permissible. ? Recommend to maintain potassium greater than 4 and Mg greater than 2 at all times to prevent any arrhythmias 2. Acute metabolic encephalopathy secondary to fever of unknown origin On admission SIRS 2/4 for tachypnea and temperature 102.6 F Blood and urine cultures currently pending and no obvious source of infection. Patient had LP and nuclear bone scan. CSF analysis showed WBC 53 and protein 104. Neurology on board and recommended to continue current antibiotic regimen. Continue management as per primary team and Neurology 02/11/2024 On examination patient is definitely cachectic with severe temporal wasting and patient also losing significant weight recently. Patient family at the bedside including the son as well as the [id number] as well as the grandchildren. Had a long discussion for more than 20 minutes with the patient family. Considering her significant prolonged course with the lymphoma and other comorbidities family wanted to make the patient DNR and DNI at the present moment. Recommended the son and the family to also speak to the primary team for further goals of care discussion in the long-term care plan.\ 02/12/2024 Patient is lethargic and is not alert awake oriented during my any examination. No change in clinical status since yesterday. Family did speak to the primary team and patient is now DNR and DNI. Still all the CSF studies have not been sent and will be sent in the next 1 to 2 days as per the primary team Patient is still on IV antibiotic Rocephin and acyclovir as well as vancomycin. Patient has not been eating for few days and patient needs to be on PPN or TPN Neurology is following the patient but unclear of the diagnosis. Working diagnosis encephalitis and MRI was performed and did not show any major acute pathology It still only shows MRI brain right frontal bone lesion which is unchanged with increased white matter signal consistent with age. EEG has been ordered along with Gram stain culture and CSF analysis which showed slightly elevated proteins and WBC with mostly pleomorphic. 3. History of diffuse large B-cell lymphoma s/p treatment in remission with recurrence in the abdomen on treatment until March status post radiation to head and neck sites at [facility] and chemotherapy in [place] Dr. Tapia, radiation oncologist was consulted. Brain CT showed showed 33 x 32 mm right frontal bone lesion with soft tissue component. Bone survey completed Brain MRI significant for increased white matter signal, right frontal bone lesion, MRI brain images severely degraded by patient motion. Continue management as per radiation oncology 4. CKD stage III And admission CR 1.4. From chart review baseline appears to be between 1.2?1.4 Continue management as per primary team 5. Protein calorie malnutrition with cachexia 6 . Progressive senile dementia with possible delirium 7. Poor oral intake and patient is mildly dehydrated Continue management as per primary team Continue rest of management as per primary team. We are grateful to be able to participate in Ms. Hill's care. Thank you for the consult Plan of care discussed with attending Curriculum Consultant, Dr Kristy Eastman MD PGY 1 Attending Provider Attestation/Addendum I reviewed the resident Dr. Eastman consultation progress note and agree with the resident findings and plan in the note above and have also edited the documentation to reflect my findings and plan. Fabio Wagner M.D. Interventional Cardiology Time Spent With Patient Time: Total time spent is greater than 50% in coordination of care (as documented) at patient's floor/unit and/or counseling patient:
[2024-02-12] MEDS: ACYCLOVIR INJ 500 MG in SODIUM CHLORIDE 0.9% 100 ML 99.273 MG IV (21:22)
--- NOTE | 2024-02-12 22:46 | ESPR_ITS ---
Documentation for date of: 02/12/24 Subjective Subjective Interval history: Patient was seen in telemetry today with her family at the bedside. Continues to be somnolent and not responsive. Exam - Neurology Vital Signs Temp Pulse Resp BP Pulse Ox O2 Del Method O2 Flow Rate 98.1 F 60 18 166/70 H 100 Nasal Cannula 1 02/12/24 16:00 02/12/24 19:42 02/12/24 19:42 02/12/24 16:00 02/12/24 16:00 02/12/24 16:00 02/12/24 16:00 Narrative Exam GENERAL APPEARANCE: Well-developed, thin built female in no acute distress. HEENT: Normocephalic, atraumatic, extraocular movements intact. Pupils: Equal reacting to light NECK: Supple, no JVD or bruits. CARDIOVASULAR: Heart: S1, S2 heard, irregular without S3-S4 or murmur no rubs or gallops. LUNGS/CHEST: Clear to auscultation bilaterally. No rails, rhonchi, or wheezing. Normal inspection. ABDOMEN: Soft, nontender, with normal bowel sounds. No pulsatile masses. No rebound, rigidity, or guarding. Normal inspection and palpation. EXTREMITIES: Normal inspection and palpation. No edema, clubbing or cyanosis. SKIN: Warm and dry without rashes. Normal inspection. MUSCULOSKELETAL: No cervical, thoracic, lumbar or midline bony tenderness. Normal inspection. NEURO: Continues to be lethargic, barely opens her eyes but not tracking. Brainstem function: Intact, rest of the exam: Limited PSYCHIATRIC: Limited Objective Labs 02/12/24 05:11 02/12/24 05:11 Labs: Laboratory Results - last 24 hr 02/07/24 02/12/24 00:30 05:11 WBC 16.4 H RBC 4.09 Hgb 11.1 L Hct 34.6 L MCV 85 MCH 27.1 MCHC 32.1 RDW Std Deviation 53.9 H Plt Count 243 Neut % (Auto) 85 H Lymph % (Auto) 1 L [place] % (Auto) 13 H Eos % (Auto) 1 Baso % (Auto) 0 Neut # (Auto) 13.9 H Lymph # (Auto) 0.2 L [place] # (Auto) 2.1 H Eos # (Auto) 0.1 Baso # (Auto) 0.0 Immature Gran # (Auto) 0.12 H Absolute Nucleated RBC 0.00 Immature Gran % 1 H Nucleated RBC % 0 Sodium 139 Potassium 3.2 L D Chloride 107 Carbon Dioxide 21.9 Anion Gap 10 BUN 23 Creatinine 1.3 Estim Creat Clear Calc 28.2 L eGFR 42 L BUN/Creatinine Ratio 18 Glucose 90 Calculated Osmolality 281 Calcium 8.7 Corrected Calcium 9.0 Phosphorus 2.0 L Magnesium 1.8 Total Bilirubin 0.3 AST < 10 ALT < 7 L Alkaline Phosphatase 66 Total Protein 5.4 L Albumin 3.6 Globulin 1.8 L Albumin/Globulin Ratio 2.0 Random Vancomycin 14.8 Monoscreen Negative ABG Interpretation ABG results: 02/07/24 01:46 ABG pH 7.43 ABG pCO2 30 L ABG pO2 163 H ABG HCO3 20 ABG O2 Saturation 100 H ABG Base Excess -4 L Assessment & Plan Assessment and plan (1) AMS (altered mental status): Status: Acute Assessment and plan: Etiology: Difficult to obtain MRI brain: Not significantly abnormal, chronic white matter changes CSF analysis shows pleomorphic leukocytosis, normal glucose and elevated protein, Gram stain and culture: So far negative. Continue with acyclovir ceftriaxone and vancomycin for 1 more day and then decide about the CODE STATUS and next step in management, likely hospice care. (2) Paroxysmal A-fib: Status: Chronic Assessment and plan: Used to be on amiodarone for rate control, but on hold now as hypothyroidism was suspected Now on heparin
[2024-02-13] VITALS (9 sets, daily range): BP systolic 136–170; BP diastolic 64–99; PULSE 65–83; RESP 17–100; TEMP 36–36.5; O2SAT 94–100
[2024-02-13 07:01] LABS: Basophils % (Auto) 0 % (0-2.5); Eosinophils % (Auto) 0 % (0-10); Hematocrit 36.5 % (36.0-46.0); Hemoglobin 11.9 g/dL (12.0-16.0); Immature Granulocytes % (Auto) 1 % (0-0); Lymphocytes # (Auto) 0.2 Thou/mm3 (1.0-4.8); Lymphocytes % (Auto) 1 % (10-50); Mean Corpuscular HGB Conc 32.6 g/dl (31.0-37.0); Mean Corpuscular Hemoglobin 27.2 pg (25.0-35.0); Mean Corpuscular Volume 84 fL (80-100); Monocytes # (Auto) 1.2 Thou/mm3 (0.0-0.8); Monocytes % (Auto) 5 % (0-12); Neutrophils # (Auto) 20.8 Thou/mm3 (1.8-7.7); Neutrophils % (Auto) 93 % (37-80); Nucleated Red Blood Cell % 0 /100 WBC (0); Platelet Count 250 Thou/mm3 (140-440); RDW Standard Deviation 52.2 fL (36.4-46.3); Red Blood Count 4.37 Miln/mm3 (4.00-5.20); White Blood Count 22.5 Thou/mm3 (3.6-11.0)
[2024-02-13 07:38] LABS: Alanine Aminotransferase < 7 U/L (10-49); Albumin, Serum 3.9 gm/dL (3.4-4.8); Albumin/Globulin Ratio 2.1 (1.2-2.2); Alkaline Phosphatase 70 U/L (46-116); Anion Gap 14 (7-16); Aspartate Amino Transferase < 8 U/L (0-34); BUN/Creatinine Ratio 19 Ratio (12-20); Bilirubin,Total 0.4 mg/dL (0.3-1.2); Blood Urea Nitrogen 25 mg/dL (9-23); Calcium 8.5 mg/dL (8.3-10.6); Calcium (Corrected) 8.6 mg/dL (8.5-10.1); Carbon Dioxide 20.3 mMol/L (20.0-31.0); Chloride 104 mMol/L (98-107); Creatinine (Component) 1.3 mg/dL (0.6-1.3); Estimated Creatinine Clearance 27.6 mL/min (>60); Globulin 1.9 gm/dL (2.3-3.5); Glucose 81 mg/dL (74-106); Magnesium 2.1 mg/dL (1.6-2.6); Osmolality,Calculated 279 (275-295); Phosphorous 3.4 mg/dL (2.4-5.1); Potassium 3.2 mMol/L (3.4-5.1); Sodium 138 mMol/L (136-145); Total Protein 5.8 gm/dL (5.7-8.2); eGFR 42 See Note
[2024-02-13] MEDS: hydrALAZINE INJ 20 MG/ML VIAL 10 MG IV (08:08)
[2024-02-13] MEDS: THIAMINE INJ 100 MG/ML VIAL 2 ML IVP (08:09)
[2024-02-13] MEDS: cefTRIAXone 2 GM in SODIUM CHLORIDE 0.9% (P) 50 ML IV ×2 (08:10→20:09)
--- NOTE | 2024-02-13 09:20 | PC.SS ---
Addendum entered by Becka Delgado 02/13/24 12:39: Goals of care meeting was conducted, however family does not want to pursue hospice services, family still deciding on [facility] placement and choice of facility. SS will need to follow up with patient's daughter on Wednesday. Original Note: SS attempted to contact patient's daughterBarbara to schedule a goals of care meeting, however patient's daughter did not answer, SS left Voicemail with call back number.
[2024-02-13 09:57] LABS: Vancomycin,Trough 13.6 mcg/mL (5.0-10.0)
[2024-02-13] MEDS: ACYCLOVIR INJ 500 MG in SODIUM CHLORIDE 0.9% 100 ML 99.273 MG IV ×2 (10:07→21:28)
--- NOTE | 2024-02-13 10:12 | ESPR_ITS ---
Documentation for date of: 02/13/24 Subjective Subjective Interval history: Patient was seen and examined at bedside this AM. Patient is lethargic and is not alert awake nor oriented during my any examination. No change in clinical status since yesterday. All p.o. medication is on hold as patient does not tolerate anything p.o. Patient still is in normal sinus rhythm with no PVCs or PACs overnight and heart rate in the 50s to 60s CSF studies are still pending and CSF Gram stain and cultures negative. Patient is still getting IV Rocephin, vancomycin, and acyclovir Patient has not eaten in the past few days, recommended to start PPN or TPN Exam Vital Signs Temp Pulse Resp BP Pulse Ox O2 Del Method O2 Flow Rate 97.7 F 70 19 170/81 H 97 Nasal Cannula 1 02/13/24 08:00 02/13/24 08:08 02/13/24 08:03 02/13/24 08:08 02/13/24 08:00 02/13/24 08:00 02/13/24 08:00 Narrative Exam General: Non verbal, non responsive Eyes:Moves eyes and seems to track, pupils sluggishly reactive to light. HEENT: Atraumatic, normocephalic. No JVD noted. Mucosa dry. Cardiovascular: Normal S1 and S2. Normal rate and regular rhythm. 2/ 6 ejection systolic murmur noted aortic area no peripheral pitting edema noted. Respiratory: No respiratory distress. Lungs are clear to auscultation bilaterally. No wheezing or crackles heard. Abdomen: Soft, nontender, nondistended. Skin: No rash. Warm to touch. Musculoskeletal: No gross injuries. randomly moves all extremities. Objective Labs 02/14/24 04:58 02/13/24 06:02 Labs: Laboratory Results - last 24 hr 02/07/24 02/13/24 02/13/24 00:30 06:02 09:11 WBC 22.5 H D RBC 4.37 Hgb 11.9 L Hct 36.5 MCV 84 MCH 27.2 MCHC 32.6 RDW Std Deviation 52.2 H Plt Count 250 Neut % (Auto) 93 H Lymph % (Auto) 1 L [place] % (Auto) 5 Eos % (Auto) 0 Baso % (Auto) 0 Neut # (Auto) 20.8 H Lymph # (Auto) 0.2 L [place] # (Auto) 1.2 H Eos # (Auto) 0.0 Baso # (Auto) 0.0 Immature Gran # (Auto) 0.20 H Absolute Nucleated RBC 0.00 Immature Gran % 1 H Nucleated RBC % 0 Sodium 138 Potassium 3.2 L Chloride 104 Carbon Dioxide 20.3 Anion Gap 14 BUN 25 H Creatinine 1.3 Estim Creat Clear Calc 27.6 L eGFR 42 L BUN/Creatinine Ratio 19 Glucose 81 Calculated Osmolality 279 Calcium 8.5 Corrected Calcium 8.6 Phosphorus 3.4 Magnesium 2.1 Total Bilirubin 0.4 AST < 8 ALT < 7 L Alkaline Phosphatase 70 Total Protein 5.8 Albumin 3.9 Globulin 1.9 L Albumin/Globulin Ratio 2.1 Vancomycin Trough 13.6 H Monoscreen Negative ABG Interpretation ABG results: 02/07/24 01:46 ABG pH 7.43 ABG pCO2 30 L ABG pO2 163 H ABG HCO3 20 ABG O2 Saturation 100 H ABG Base Excess -4 L Quality Measures Quality Measures none Advance care planning discussed with:: patient and other (grandson ) Assessment & Plan Assessment Current Active Medications: Generic Name Dose Route Start Last Admin Trade Name Freq PRN Reason Stop Dose Admin Acetaminophen 650 mg 02/12/24 09:53 Acetaminophen Supp 650 Mg Supp NJ 03/08/24 03:31 Q6HR PRN FEVER>101.5 Amiodarone HCl 200 mg 02/08/24 09:00 02/11/24 08:35 Amiodarone Hcl 200 Mg Tablet PO 03/09/24 08:59 Not Given QDAY GENE Atorvastatin Calcium 40 mg 02/07/24 21:00 02/12/24 21:27 Atorvastatin Calcium 20 Mg Tablet PO 03/08/24 20:59 Not Given HS GENE Enoxaparin Sodium 52 mg 02/11/24 14:00 02/12/24 14:25 Enoxaparin Sod Inj 60 Mg/0.6 Ml Syringe SC 02/25/24 13:59 52 mg QDAY@1400 GENE Administration Ceftriaxone Sodium 2 gm/ 50 mls @ 100 mls/hr 02/10/24 21:00 02/13/24 08:10 Sodium Chloride IV 02/17/24 20:59 100 mls/hr Q12HR GENE Administration Acyclovir Sodium 500 mg/ 110 mls @ 99.273 mls/hr 02/12/24 21:00 02/13/24 10:07 Sodium Chloride IV 02/17/24 13:59 99.273 mls/hr BID GENE Administration Protocol Vancomycin/Sodium Chloride 100 mls @ 120 mls/hr 02/13/24 10:00 Vancomycin/Ns 500 Mg Ivpb IV 02/20/24 09:59 Q24H GENE Ondansetron HCl 4 mg 02/07/24 03:32 Ondansetron Inj 2 Mg/Ml Inj 2 Ml IV 03/08/24 03:31 Q6H PRN NAUSEA OR VOMITING Protocol Pantoprazole Sodium 40 mg 02/07/24 09:00 02/12/24 08:16 Pantoprazole Inj 40 Mg Vial IVP 03/08/24 08:59 40 mg QDAY GENE Administration Pharmacy Consult 1 each 02/10/24 11:15 Vancomycin Pharmacy To Dose 1 Each Each IV 03/11/24 11:14 QDAY PRN CONSULT Thiamine HCl 100 mg 02/12/24 09:00 02/13/24 08:09 Thiamine Inj 100 Mg/Ml Vial 2 Ml IVP 03/13/24 08:59 100 mg QDAY GENE Administration Plan 72-year-old female with a past medical history of 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 Cardiology was consulted for A-fib. 1. Paroxysmal atrial fibrillation with SVR Patient confused and unable to give any history of any chest pain/pressure or palpitations on admission. EKG on admission showed sinus rhythm, rate 60 and repeat EKG showed sinus bradycardia with rate 59. At home patient on metoprolol XL and amiodarone 200 Mg p.o. daily. From telemetry review patient does not appear to be in A-fib on this admission. [id number] 3; 3.2% stroke risk per year [age, female] HAS-BLED : 1 points; low risk for major bleeding Transthoracic echocardiogram completed on 02/07/2024 findings include: Negative bubble study. No evidence of PFO or ASD. Consider MEAGAN if high clinical suspicion. Normal LV size and function. Estimated EF 60-65% Normal RV size and function. Mild AV stenosis, mean gradient 12mmHg, vmax 2.6m/s. Mild to moderate AI. Mild MR, TR. 02/13/2024 ?Patient did not have any sinus arrhythmias overnight ?Has maintained sinus rhythm with heart rate in the 50s to 60s ?Patient still nonverbal and not alert or awake, clinically unchanged from yesterday Plan: ? Amiodarone on hold as patient is unable to take p.o. medication - Eliquis is also on hold as patient is unable to take p.o. medications ? Patient may need to restart metoprolol XL for rate control if the blood pressure and heart rate are permissible and condition improves allowing for p.o. medication. ? Recommend to maintain potassium greater than 4 and Mg greater than 2 at all times to prevent any arrhythmias 2. Acute metabolic encephalopathy secondary to fever of unknown origin On admission SIRS 2/4 for tachypnea and temperature 102.6 F Blood and urine cultures currently pending and no obvious source of infection. Patient had LP and nuclear bone scan. CSF analysis showed WBC 53 and protein 104. Neurology on board and recommended to continue current antibiotic regimen. Continue management as per primary team and Neurology 02/11/2024 On examination patient is definitely cachectic with severe temporal wasting and patient also losing significant weight recently. Patient family at the bedside including the son as well as the [id number] as well as the grandchildren. Had a long discussion for more than 20 minutes with the patient family. Considering her significant prolonged course with the lymphoma and other comorbidities family wanted to make the patient DNR and DNI at the present moment. Recommended the son and the family to also speak to the primary team for further goals of care discussion in the long-term care plan.\ 02/12/2024 Patient is lethargic and is not alert awake oriented during my any examination. No change in clinical status since yesterday. Family did speak to the primary team and patient is now DNR and DNI. Still all the CSF studies have not been sent and will be sent in the next 1 to 2 days as per the primary team Patient is still on IV antibiotic Rocephin and acyclovir as well as vancomycin. Patient has not been eating for few days and patient needs to be on PPN or TPN Neurology is following the patient but unclear of the diagnosis. Working diagnosis encephalitis and MRI was performed and did not show any major acute pathology It still only shows MRI brain right frontal bone lesion which is unchanged with increased white matter signal consistent with age. EEG has been ordered along with Gram stain culture and CSF analysis which showed slightly elevated proteins and WBC with mostly pleomorphic. 02/13/2024 ?Patient still lethargic, nonverbal, and not awake or alert during examination ?No changes in clinical status ?Patient still on IV acyclovir, vancomycin and Rocephin ?Recommend PPN or TPN as patient has not had any oral intake for multiple days ?Recommend primary care team to have goals of care discussion with family 3. History of diffuse large B-cell lymphoma s/p treatment in remission with recurrence in the abdomen on treatment until March status post radiation to head and neck sites at [facility] and chemotherapy in [place] Dr. Tapia, radiation oncologist was consulted. Brain CT showed showed 33 x 32 mm right frontal bone lesion with soft tissue component. Bone survey completed Brain MRI significant for increased white matter signal, right frontal bone lesion, MRI brain images severely degraded by patient motion. Continue management as per radiation oncology 4. CKD stage III On admission CR 1.4. From chart review baseline appears to be between 1.2?1.4 Current Cr 1.3 Continue management as per primary team 5. Protein calorie malnutrition with cachexia 6 . Progressive senile dementia with possible delirium 7. Poor oral intake and patient is mildly dehydrated Continue management as per primary team Continue rest of management as per primary team. We are grateful to be able to participate in Ms. Hill's care. Thank you for the consult Plan of care discussed with attending Liner Machine Operator, Dr Kristy Sepulveda MD PGY-1 Attending Provider Attestation/Addendum I have personally seen and examined the patient separately on the above date of service and discussed the plan of care with the resident. I reviewed the resident Dr. Vo consultation progress note and agree with the resident findings and plan in the note above and have also edited the documentation to reflect my findings and plan. Fabio Wagner M.D. Interventional Cardiology
[2024-02-13] MEDS: PANTOPRAZOLE INJ 40 MG VIAL IVP (10:21)
[2024-02-13] MEDS: VANCOMYCIN/NS 500 MG IVPB 100 ML 120 MG IV (10:56)
[2024-02-13] MEDS: ENOXAPARIN SOD INJ 60 MG/0.6 ML SYRINGE 52 MG SC (14:16)
--- NOTE | 2024-02-13 15:28 | PD.RESPRO ---
Documentation for date of: 02/13/24 Subjective Subjective Interval history: Patient seen today at the bedside found somnolent and non-responsive to various stimuli. No overnight events reported. Vital signs at this time stable. Labs significant for some hypokalemia was replaced with IV KCL, rest of labs unremarkable. CSF cultures came back negative. Goals of care discussion with the family was had about the patients clinical status and stated that they wanted to continue with medical management, discussed patient possible need for PEG tube placement in order to give nutrition, hydration and medications, family states will discuss among themselves and give an answer at a later time. For now will continue with current management and continue to monitor for improvement in patients mentation. Exam Vital Signs Temp Pulse Resp BP Pulse Ox O2 Del Method O2 Flow Rate 97.5 F 75 17 147/64 H 100 Nasal Cannula 1 02/13/24 12:00 02/13/24 12:00 02/13/24 12:00 02/13/24 12:00 02/13/24 12:00 02/13/24 12:00 02/13/24 12:00 Narrative Exam Physical Exam GENERAL: NAD, obtunded not responsive to various stimuli, frail, temporal wasting HEENT: Moist mucosa. CARDIO: Heart RRR, no obvious murmurs PULM: No noted coughing/dyspnea. Lungs CTA B/L, no R/W/R GI: Abdomen soft, nondistended, no pain on palpation. BSx4 URO/FORESTER AIDE:: No further abnormalities noted. Wagner catheter SKIN/MSK/EXT: no pain on palpation. Pedal pulses present B/L Objective Labs 02/13/24 06:02 02/13/24 06:02 Labs: Laboratory Results - last 24 hr 02/13/24 02/13/24 06:02 09:11 WBC 22.5 H D RBC 4.37 Hgb 11.9 L Hct 36.5 MCV 84 MCH 27.2 MCHC 32.6 RDW Std Deviation 52.2 H Plt Count 250 Neut % (Auto) 93 H Lymph % (Auto) 1 L [place] % (Auto) 5 Eos % (Auto) 0 Baso % (Auto) 0 Neut # (Auto) 20.8 H Lymph # (Auto) 0.2 L [place] # (Auto) 1.2 H Eos # (Auto) 0.0 Baso # (Auto) 0.0 Immature Gran # (Auto) 0.20 H Absolute Nucleated RBC 0.00 Immature Gran % 1 H Nucleated RBC % 0 Sodium 138 Potassium 3.2 L Chloride 104 Carbon Dioxide 20.3 Anion Gap 14 BUN 25 H Creatinine 1.3 Estim Creat Clear Calc 27.6 L eGFR 42 L BUN/Creatinine Ratio 19 Glucose 81 Calculated Osmolality 279 Calcium 8.5 Corrected Calcium 8.6 Phosphorus 3.4 Magnesium 2.1 Total Bilirubin 0.4 AST < 8 ALT < 7 L Alkaline Phosphatase 70 Total Protein 5.8 Albumin 3.9 Globulin 1.9 L Albumin/Globulin Ratio 2.1 Vancomycin Trough 13.6 H ABG Interpretation ABG results: 02/07/24 01:46 ABG pH 7.43 ABG pCO2 30 L ABG pO2 163 H ABG HCO3 20 ABG O2 Saturation 100 H ABG Base Excess -4 L Quality Measures Quality Measures none Advance care planning discussed with:: patient Assessment & Plan Assessment Current Active Medications: Generic Name Dose Route Start Last Admin Trade Name Freq PRN Reason Stop Dose Admin Acetaminophen 650 mg 02/12/24 09:53 Acetaminophen Supp 650 Mg Supp [place] 03/08/24 03:31 Q6HR PRN FEVER>101.5 Amiodarone HCl 200 mg 02/08/24 09:00 02/11/24 08:35 Amiodarone Hcl 200 Mg Tablet PO 03/09/24 08:59 Not Given QDAY GENE Atorvastatin Calcium 40 mg 02/07/24 21:00 02/12/24 21:27 Atorvastatin Calcium 20 Mg Tablet PO 03/08/24 20:59 Not Given HS GENE Enoxaparin Sodium 52 mg 02/11/24 14:00 02/13/24 14:16 Enoxaparin Sod Inj 60 Mg/0.6 Ml Syringe SC 02/25/24 13:59 52 mg QDAY@1400 GENE Administration Ceftriaxone Sodium 2 gm/ 50 mls @ 100 mls/hr 02/10/24 21:00 02/13/24 08:10 Sodium Chloride IV 02/17/24 20:59 100 mls/hr Q12HR GENE Administration Acyclovir Sodium 500 mg/ 110 mls @ 99.273 mls/hr 02/12/24 21:00 02/13/24 10:07 Sodium Chloride IV 02/17/24 13:59 99.273 mls/hr BID GENE Administration Protocol Vancomycin/Sodium Chloride 100 mls @ 120 mls/hr 02/13/24 10:00 02/13/24 10:56 Vancomycin/Ns 500 Mg Ivpb IV 02/20/24 09:59 120 mls/hr Q24H GENE Administration Potassium Chloride 10 meq in 100 mls @ 100 mls/hr 02/13/24 15:18 Kcl Ivpb IV 02/13/24 19:17 Q1H GENE Ondansetron HCl 4 mg 02/07/24 03:32 Ondansetron Inj 2 Mg/Ml Inj 2 Ml IV 03/08/24 03:31 Q6H PRN NAUSEA OR VOMITING Protocol Pantoprazole Sodium 40 mg 02/07/24 09:00 02/13/24 10:21 Pantoprazole Inj 40 Mg Vial IVP 03/08/24 08:59 40 mg QDAY GENE Administration Pharmacy Consult 1 each 02/10/24 11:15 Vancomycin Pharmacy To Dose 1 Each Each IV 03/11/24 11:14 QDAY PRN CONSULT Thiamine HCl 100 mg 02/12/24 09:00 02/13/24 08:09 Thiamine Inj 100 Mg/Ml Vial 2 Ml IVP 03/13/24 08:59 100 mg QDAY GENE Administration Plan 79y/o F with PMHx of lymphoma status post remission and recurrence with abdominal and pulmonary metastasis, CKD, dementia, atrial fibrillation on Eliquis who is admitted for acute encephalopathy and acute kidney injury in setting of CKD. #Acute Encephalopathy #Acute CVA vs TIA-ruled out #Fever of unknown origin #Rule out Encephalitis #SIRS 2/4 #Dementia Patient was found on the bathroom floor for an unknown period of time. Patient was SIRS 2/4, fever, elevated WBCs on admission with no source identified. Mentation fluctuates throughout the day as per son who lives with her Family decided to have patients CODE STATUS changed to DNR UA was negative for leukocyte esterase, nitrites, patient denies dysuria. Will continue IV thiamine and will hold amiodarone for suspicion of amiodarone toxicity. Patient's CSF studies pending, gram stain and culture negative. Goals of Care discussion with patient's family at bedside about patient's prognosis and will continue medical management and monitor for improvement in a.m. Discussed with family about nutrition goals and possible requirement of PEG tube placement in near future, family will discuss among themselves and will give a decision at a later time. -Will continue IV ceftriaxone, vancomycin and acyclovir -Neurology on case, appreciate recommendations -Continue IV thiamine -Will hold amiodarone due to suspicion of amiodarone toxicity -Pending EEG will follow up -Physical therapy recommends snf facility for discharge, family is agreeable. #Acute on chronic kidney injury #Acute kidney injury-resolved #CKD IIIB Patient's kidney injury likely pre-renal. Creatinine 1.3 -Avoid nephrotoxic agents -Renally dose medications #Atrial fibrillation [id number] score 3 Patient's home medication include amiodarone and Eliquis 2.5 mg ? Hold amiodarone, due to suspicion of toxicity ? Started on Lovenox therapeutic dose - Monitor Telemetry #Hx of Lymphoma Patient has history of lymphoma with abdominal and pulmonary metastasis CT abdomen pelvis shows Enlarging of soft tissue tumor mass in the right hemipelvis Patient follows up with oncologist in [place] Suspicion of pulmonary metastasis as CTA chest positive for pulmonary nodules Bone survey done showed osteolytic lesions in the right frontal and parietal lobe with suspicions for lesions in the left hip. Bone scan positive for increased uptake in right frontal bone, midshaft left tibia, metastatic disease possible differential -Oncologist consulted, appreciate recommendations # Status post ground-level fall # History of orthostatic hypotension Per son patient has history of orthostatic hypotension. Patient presented status post ground-level fall, denies hitting head. Patient is on Eliquis at home for A-fib. Face CT, head CT, lumbar spine CT and thoracic spine CT negative Orthostatic vitals negative -Fall precautions Case discussed with my senior Dr. Stanley PGY-2, and my attending Dr. Randi Cleary MD PGY-1 Disposition: Telemetry, GOC discussion had with family Fluids: None Feeding: NPO Thrombo prophylaxis: SCDs Gastric Ulcer prophylaxis: Pantoprazole 40 mg IV daily CODE STATUS: DNR Attending Provider Attestation/Addendum 79-year-old female with history of A-fib on Eliquis, CKD, dementia and diffuse large B-cell lymphoma status post chemoradiation with multiple recurrences who presented to the ER on 02/07/2024 with confusion found to have acute encephalopathy. Initial workup including CT head with no acute intracranial abnormality and started on empiric IV antibiotic therapy pending LP and MRI. Will consult nephrology for further input. Patient is alert and oriented x 0 and opens eye to noxious stimuli. No further episodes of fevers. As of now suspect either encephali meningitis versus recurrence of lymphoma. Currently, patient is status post MRI with no acute intracranial abnormality and LP which was inconclusive for encephalitis/meningitis. As of now, plan to continue IV acyclovir, Rocephin and vancomycin pending Gram stain. As for mentation, patient appears to be deteriorating and only responsive to painful stimuli. No improvement in mentation. Of note, discussed goals of care with family and wants patient to be DNR/DNI for which we will respect. If patient mentation does not improve in the next 48-72 hours will discuss goals of care and possible hospice as it was recommended by neurology. Overall prognosis extremely poor. I reviewed above note and agree with findings and plans. I have also personally examined the patient with medicine team and went over assessment and plan with medical team including international travel consultant and resident physician.
[2024-02-13] MEDS: POTASSIUM CHL 10 mEq IVPB 10 MEQ/100 ML BAG 50 MEQ IV ×4 (16:20→22:32)
[2024-02-14] VITALS (16 sets, daily range): BP systolic 148–172; BP diastolic 68–105; PULSE 79–143; RESP 19–94; TEMP 36.2–37.1; O2SAT 90–99; BMI 16.7
[2024-02-14 05:44] LABS: Basophils # (Auto) 0.1 Thou/mm3 (0.0-0.2); Basophils % (Auto) 0 % (0-2.5); Eosinophils % (Auto) 0 % (0-10); Hematocrit 41.4 % (36.0-46.0); Hemoglobin 13.8 g/dL (12.0-16.0); Immature Granulocytes % (Auto) 1 % (0-0); Lymphocytes # (Auto) 0.3 Thou/mm3 (1.0-4.8); Lymphocytes % (Auto) 1 % (10-50); Mean Corpuscular HGB Conc 33.3 g/dl (31.0-37.0); Mean Corpuscular Hemoglobin 27.3 pg (25.0-35.0); Mean Corpuscular Volume 82 fL (80-100); Monocytes % (Auto) 7 % (0-12); Neutrophils % (Auto) 92 % (37-80); Nucleated Red Blood Cell % 0 /100 WBC (0); Platelet Count 220 Thou/mm3 (140-440); RDW Standard Deviation 51.4 fL (36.4-46.3); Red Blood Count 5.06 Miln/mm3 (4.00-5.20); White Blood Count 29.5 Thou/mm3 (3.6-11.0)
--- NOTE | 2024-02-14 05:45 | PC.NURSE ---
notified of patients hr 130's, will monitor and recall if it sustains
--- NOTE | 2024-02-14 07:16 | EKG_ITS ---
[facility] Test Date: 2024-02-14 Pat Name: DIMAS MAGDALENO [facility] Gender: Female Ex Assistant/Program Director: EVELIO : 1945 Requested By: Rogelio Stanley Order Number: [id number] Reading MD: Rogelio Stanley Measurements Intervals Taylor Rate: 101 P: 64 SC: 146 QRS: 34 QRSD: 78 T: 65 QT: 331 QTc: 430 Interpretive Statements SINUS TACHYCARDIA WITH FREQUENT ECTOPIC PREMATURE COMPLEXES IN A BIGEMINAL PATTERN MINIMAL ST DEPRESSION ABNORMAL RHYTHM ECG Compared to ECG 02/06/2024 17:14:27 ST (T wave) deviation now present Sinus bradycardia no longer present /store/S0/[id number]/[id number].pdf
[2024-02-14 07:19] LABS: Alanine Aminotransferase < 7 U/L (10-49); Albumin, Serum 4.2 gm/dL (3.4-4.8); Alkaline Phosphatase 74 U/L (46-116); Anion Gap 17 (7-16); Aspartate Amino Transferase < 8 U/L (0-34); BUN/Creatinine Ratio 20 Ratio (12-20); Bilirubin,Total 0.4 mg/dL (0.3-1.2); Blood Urea Nitrogen 32 mg/dL (9-23); Calcium 8.9 mg/dL (8.3-10.6); Calcium (Corrected) 8.9 mg/dL (8.5-10.1); Carbon Dioxide 17.5 mMol/L (20.0-31.0); Chloride 105 mMol/L (98-107); Creatinine (Component) 1.6 mg/dL (0.6-1.3); Estimated Creatinine Clearance 21.3 mL/min (>60); Globulin 2.1 gm/dL (2.3-3.5); Glucose 124 mg/dL (74-106); Magnesium 2.2 mg/dL (1.6-2.6); Osmolality,Calculated 285 (275-295); Phosphorous 2.7 mg/dL (2.4-5.1); Potassium 3.8 mMol/L (3.4-5.1); Sodium 139 mMol/L (136-145); Total Protein 6.3 gm/dL (5.7-8.2); Vancomycin,Random 14.8 mcg/mL; eGFR 33 See Note
--- NOTE | 2024-02-14 07:22 | PC.NURSE ---
Slime RT aware of EKG and ABG draw
[2024-02-14 07:41] LABS: Allen Test Performed/OK; Base Excess -2 (-3-3); HCO3 21 mEq/L (20-26); Inspired O2, VO2 Liters 3 L/min; Inspired Oxygen, FIO2 21 %; O2 Saturation 99 % (91-98); PCO2 30 mmHg (32.0-48.0); PO2 101 mmHg (83-108); Puncture Site Right Radial; pH, Arterial 7.45 (7.35-7.45)
[2024-02-14] MEDS: AMIODARONE 150 MG IVPB 150 MG/100 ML BAG 600 MG IV (07:50)
[2024-02-14] MEDS: RINGERS LACTATED 500 ML 500 ML 999 ML IV (08:02)
[2024-02-14] MEDS: THIAMINE INJ 100 MG/ML VIAL 2 ML IVP (08:04)
[2024-02-14] MEDS: PANTOPRAZOLE INJ 40 MG VIAL IVP (08:04)
[2024-02-14] MEDS: AMIODARONE 360 MG IVPB 360 MG/200 ML BAG 33.333 MG IV (08:05)
[2024-02-14 08:19] LABS: Lactate (Lactic Acid) 1.4 mMol/L (0.4-2.0)
--- NOTE | 2024-02-14 09:04 | ESPR_ITS ---
Documentation for date of: 02/14/24 Subjective Subjective Interval history: Patient was seen and examined at bedside this AM. Patient still unresponsive during my assessment. No change in clinical status since yesterday. p.o. medication con now be given through NG tube which was placed today. Patient went in/out of A-fib with PACs overnight and heart rate in the 130-140s. She was started on Amio drip. This morning patient was still in/out of A-fib. CSF studies are still pending and CSF Gram stain and cultures negative. Is not on IV Rocephin, vancomycin, or acyclovir anymore. Patient has not eaten in the past few days, had an NG tube placed for feeds. Exam Vital Signs Temp Pulse Resp BP Pulse Ox O2 Del Method O2 Flow Rate 97.1 F 79 20 148/74 H 99 Nasal Cannula 3 02/14/24 07:56 02/14/24 08:10 02/14/24 07:56 02/14/24 08:10 02/14/24 07:56 02/14/24 07:56 02/14/24 07:56 Narrative Exam General: Non verbal, non responsive Eyes:Moves eyes and seems to track, pupils sluggishly reactive to light. HEENT: Atraumatic, normocephalic. No JVD noted. Mucosa dry. Cardiovascular: Normal S1 and S2. irregularly irregular 2/ 6 ejection systolic murmur noted aortic area no peripheral pitting edema noted. Respiratory: No respiratory distress. Lungs are clear to auscultation bilaterally. No wheezing or crackles heard. Abdomen: Soft, nontender, nondistended. Skin: No rash. cold STEFANI hands. Musculoskeletal: No gross injuries. Objective Labs 02/15/24 05:19 02/15/24 05:19 Labs: Laboratory Results - last 24 hr 02/13/24 02/14/24 02/14/24 09:11 04:58 07:34 WBC 29.5 H D RBC 5.06 Hgb 13.8 Hct 41.4 MCV 82 MCH 27.3 MCHC 33.3 RDW Std Deviation 51.4 H Plt Count 220 D Neut % (Auto) 92 H Lymph % (Auto) 1 L [place] % (Auto) 7 Eos % (Auto) 0 Baso % (Auto) 0 Neut # (Auto) 27.0 H Lymph # (Auto) 0.3 L [place] # (Auto) 2.0 H Eos # (Auto) 0.0 Baso # (Auto) 0.1 Immature Gran # (Auto) 0.20 H Absolute Nucleated RBC 0.00 Immature Gran % 1 H Nucleated RBC % 0 Puncture Site Right Radial ABG pH 7.45 ABG pCO2 30 L ABG pO2 101 ABG HCO3 21 ABG O2 Saturation 99 H ABG Base Excess -2 Oxygen Liter Flow 3 FiO2 21 Sodium 139 Potassium 3.8 D Chloride 105 Carbon Dioxide 17.5 L Anion Gap 17 H BUN 32 H Creatinine 1.6 H Estim Creat Clear Calc 21.3 L eGFR 33 L BUN/Creatinine Ratio 20 Glucose 124 H D Calculated Osmolality 285 Lactic Acid Calcium 8.9 Corrected Calcium 8.9 Phosphorus 2.7 Magnesium 2.2 Total Bilirubin 0.4 AST < 8 ALT < 7 L Alkaline Phosphatase 74 Total Protein 6.3 Albumin 4.2 Globulin 2.1 L Albumin/Globulin Ratio 2.0 Vancomycin Trough 13.6 H Random Vancomycin 14.8 02/14/24 07:58 WBC RBC Hgb Hct MCV MCH MCHC RDW Std Deviation Plt Count Neut % (Auto) Lymph % (Auto) [place] % (Auto) Eos % (Auto) Baso % (Auto) Neut # (Auto) Lymph # (Auto) [place] # (Auto) Eos # (Auto) Baso # (Auto) Immature Gran # (Auto) Absolute Nucleated RBC Immature Gran % Nucleated RBC % Puncture Site ABG pH ABG pCO2 ABG pO2 ABG HCO3 ABG O2 Saturation ABG Base Excess Oxygen Liter Flow FiO2 Sodium Potassium Chloride Carbon Dioxide Anion Gap BUN Creatinine Estim Creat Clear Calc eGFR BUN/Creatinine Ratio Glucose Calculated Osmolality Lactic Acid 1.4 Calcium Corrected Calcium Phosphorus Magnesium Total Bilirubin AST ALT Alkaline Phosphatase Total Protein Albumin Globulin Albumin/Globulin Ratio Vancomycin Trough Random Vancomycin ABG Interpretation ABG results: 02/07/24 02/14/24 01:46 07:34 ABG pH 7.43 7.45 ABG pCO2 30 L 30 L ABG pO2 163 H 101 ABG HCO3 20 21 ABG O2 Saturation 100 H 99 H ABG Base Excess -4 L -2 Quality Measures Quality Measures none Advance care planning discussed with:: child Assessment & Plan Assessment Current Active Medications: Generic Name Dose Route Start Last Admin Trade Name Freq PRN Reason Stop Dose Admin Acetaminophen 650 mg 02/12/24 09:53 Acetaminophen Supp 650 Mg Supp [place] 03/08/24 03:31 Q6HR PRN FEVER>101.5 Atorvastatin Calcium 40 mg 02/07/24 21:00 02/13/24 23:56 Atorvastatin Calcium 20 Mg Tablet PO 03/08/24 20:59 Not Given HS GENE Enoxaparin Sodium 52 mg 02/11/24 14:00 02/13/24 14:16 Enoxaparin Sod Inj 60 Mg/0.6 Ml Syringe SC 02/25/24 13:59 52 mg QDAY@1400 GENE Administration Ceftriaxone Sodium 2 gm/ 50 mls @ 100 mls/hr 02/10/24 21:00 02/13/24 23:56 Sodium Chloride IV 02/17/24 20:59 Infused Q12HR GENE Infusion Acyclovir Sodium 500 mg/ 110 mls @ 99.273 mls/hr 02/12/24 21:00 02/13/24 23:56 Sodium Chloride IV 02/17/24 13:59 Infused BID GENE Infusion Protocol Vancomycin/Sodium Chloride 100 mls @ 120 mls/hr 02/13/24 10:00 02/13/24 19:39 Vancomycin/Ns 500 Mg Ivpb IV 02/20/24 09:59 Infused Q24H GENE Infusion Amiodarone HCl/Dextrose 360 mg in 200 mls @ 33.333 mls/hr 02/14/24 07:19 02/14/24 08:05 Nexterone Ivpb IV 02/14/24 13:18 33.333 mls/hr .Q6H ONE Administration Amiodarone HCl/Dextrose 360 mg in 200 mls @ 16.667 mls/hr 02/14/24 13:19 Nexterone Ivpb IV 02/15/24 13:18 .Q12H GENE Sodium Chloride 500 mls @ 250 mls/hr 02/14/24 08:19 Ns IV 02/14/24 10:18 .Q2H ONE Ondansetron HCl 4 mg 02/07/24 03:32 Ondansetron Inj 2 Mg/Ml Inj 2 Ml IV 03/08/24 03:31 Q6H PRN NAUSEA OR VOMITING Protocol Pantoprazole Sodium 40 mg 02/07/24 09:00 02/14/24 08:04 Pantoprazole Inj 40 Mg Vial IVP 03/08/24 08:59 40 mg QDAY GENE Administration Pharmacy Consult 1 each 02/10/24 11:15 Vancomycin Pharmacy To Dose 1 Each Each IV 03/11/24 11:14 QDAY PRN CONSULT Thiamine HCl 100 mg 02/12/24 09:00 02/14/24 08:04 Thiamine Inj 100 Mg/Ml Vial 2 Ml IVP 03/13/24 08:59 100 mg QDAY GENE Administration Plan 72-year-old female with a past medical history of 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 Cardiology was consulted for A-fib. 1. Paroxysmal atrial fibrillation with SVR Patient confused and unable to give any history of any chest pain/pressure or palpitations on admission. EKG on admission showed sinus rhythm, rate 60 and repeat EKG showed sinus bradycardia with rate 59. At home patient on metoprolol XL and amiodarone 200 Mg p.o. daily. From telemetry review patient does not appear to be in A-fib on this admission. [id number] 3; 3.2% stroke risk per year [age, female] HAS-BLED : 1 points; low risk for major bleeding Transthoracic echocardiogram completed on 02/07/2024 findings include: Negative bubble study. No evidence of PFO or ASD. Consider MEAGAN if high clinical suspicion. Normal LV size and function. Estimated EF 60-65% Normal RV size and function. Mild AV stenosis, mean gradient 12mmHg, vmax 2.6m/s. Mild to moderate AI. Mild MR, TR. 02/14/2024 ?Patient went in/out of A-fib with PAC's and HR ranging in the 130-140's. ?Has been in/out of A-fib still this morning. ?Patient still nonverbal and not alert or awake, clinically unchanged from yesterday Plan: ? Recommend to continue Amio drip. - Nitais was on hold given she could not tolerate PO, currently on Lovenox. ? Patient may need to restart metoprolol XL for rate control if the blood pressure and heart rate are permissible and condition improves allowing for p.o. medication. ? Recommend to maintain potassium greater than 4 and Mg greater than 2 at all times to prevent any arrhythmias 2. Acute metabolic encephalopathy secondary to fever of unknown origin 3. High anion gap metabolic acidosis likely secondary to starvation ketoacidosis On admission SIRS 2/4 for tachypnea and temperature 102.6 F Blood and urine cultures currently pending and no obvious source of infection. Patient had LP and nuclear bone scan. CSF analysis showed WBC 53 and protein 104. Neurology on board and recommended to continue current antibiotic regimen. Continue management as per primary team and Neurology 02/11/2024 On examination patient is definitely cachectic with severe temporal wasting and patient also losing significant weight recently. Patient family at the bedside including the son as well as the [id number] as well as the grandchildren. Had a long discussion for more than 20 minutes with the patient family. Considering her significant prolonged course with the lymphoma and other comorbidities family wanted to make the patient DNR and DNI at the present moment. Recommended the son and the family to also speak to the primary team for further goals of care discussion in the long-term care plan.\ 02/12/2024 Patient is lethargic and is not alert awake oriented during my any examination. No change in clinical status since yesterday. Family did speak to the primary team and patient is now DNR and DNI. Still all the CSF studies have not been sent and will be sent in the next 1 to 2 days as per the primary team Patient is still on IV antibiotic Rocephin and acyclovir as well as vancomycin. Patient has not been eating for few days Neurology is following the patient but unclear of the diagnosis. Working diagnosis encephalitis and MRI was performed and did not show any major acute pathology It still only shows MRI brain right frontal bone lesion which is unchanged with increased white matter signal consistent with age. EEG has been ordered along with Gram stain culture and CSF analysis which showed slightly elevated proteins and WBC with mostly pleomorphic. 02/14/2024 ?Patient still lethargic, nonverbal, and not awake or alert during examination ?Anion gap 17 and bicarb 17.5 ?No changes in clinical status ?Patient off IV acyclovir, vancomycin and Rocephin ?Patient with NG tube now ?Continue current management as per primary team. 4. History of diffuse large B-cell lymphoma s/p treatment in remission with recurrence in the abdomen on treatment until March status post radiation to head and neck sites at [facility] and chemotherapy in [place] Dr. Tapia, radiation oncologist was consulted. Brain CT showed showed 33 x 32 mm right frontal bone lesion with soft tissue component. Bone survey completed Brain MRI significant for increased white matter signal, right frontal bone lesion, MRI brain images severely degraded by patient motion. Continue management as per radiation oncology 5. CKD stage III On admission CR 1.4. From chart review baseline appears to be between 1.2?1.4 Current Cr 1.6 Continue management as per primary team 6. Protein calorie malnutrition with cachexia 7 . Progressive senile dementia with possible delirium 8. Poor oral intake and patient is mildly dehydrated Continue management as per primary team Continue rest of management as per primary team. We are grateful to be able to participate in Ms. Hill's care. Thank you for the consult Plan of care discussed with attending Consolidation Accountant, Dr Kristy Sepulveda MD PGY-1 Attending Provider Attestation/Addendum I have personally seen and examined the patient separately on the above date of service and discussed the plan of care with the resident. I reviewed the resident Dr. Vo consultation progress note and agree with the resident findings and plan in the note above and have also edited the documentation to reflect my findings and plan. Fabio Wagner M.D. Interventional Cardiology
[2024-02-14] MEDS: cefTRIAXone 2 GM in SODIUM CHLORIDE 0.9% (P) 50 ML IV (09:15)
[2024-02-14] MEDS: ACYCLOVIR INJ 500 MG in SODIUM CHLORIDE 0.9% 100 ML 99.273 MG IV (09:21)
[2024-02-14] MEDS: SODIUM CHLORIDE 0.9% 500 ML 500 ML 250 ML IV (09:22)
[2024-02-14] MEDS: VANCOMYCIN/NS 500 MG IVPB 100 ML 120 MG IV (10:18)
--- NOTE | 2024-02-14 10:21 | PC.SS ---
Update: PEG tube placement pending family's decision.
--- NOTE | 2024-02-14 11:15 | PC.NURSE ---
Hand-off report taken from ARMANDO Gregg.
--- NOTE | 2024-02-14 11:27 | XR_ITS ---
Examination: AP chest single view TECHNIQUE: AP portable upright chest single view Exam date and time: February 14, 2024 1140 hours Comparison February 07, 2024 INDICATIONS: Post orogastric tube placement FINDINGS: Orogastric tube sidehole at the GE junction Left subclavian Port-A-Cath tip SVC satisfactory position Normal heart size Mild vascular congestion Prominent osteopenia IMPRESSION: Advance the orogastric tube 7 cm with follow-up KUB
--- NOTE | 2024-02-14 12:15 | PC.NURSE ---
Addendum entered by Kin Lou RN 02/14/24 14:31: Patient oxygen saturation 98% on 2L nasal cannula. Patient has pulse oximeter on ear- probe removed and replaced. Patient taken off oxygen mask at 1230. Original Note: Patient placed on 10L oxygen mask- saturating at 96%. Patient was desating to 81% on 2L NC while sleeping.
--- NOTE | 2024-02-14 12:27 | XR_ITS ---
Examination: AP chest single view Technique one AP portable sitting chest single view Exam date and time: February 14, 2024 1234 hours Comparison February 14, 2024 1140 hours INDICATIONS: Reposition orogastric tube IMPRESSION: Orogastric tube satisfactory position Normal heart size Mild vascular congestion
[2024-02-14] MEDS: ENOXAPARIN SOD INJ 60 MG/0.6 ML SYRINGE 52 MG SC (13:36)
[2024-02-14] MEDS: AMIODARONE 360 MG IVPB 360 MG/200 ML BAG 16.667 MG IV (13:48)
--- NOTE | 2024-02-14 14:33 | PC.NURSE ---
Dr. Bolaños contacted regarding patients blood pressure- 168/109. No new orders received. Per Dr. Bolaños I will put something in for the patient.
[2024-02-14] MEDS: MULTIVITAMIN 15 ML UDC GT (14:46)
--- NOTE | 2024-02-14 14:55 | PC.DIETICIAN ---
Nutrition prescription Patient is at significant risk for refeeding syndrome given low BMI and poor oral intake. Already on thiamine 100mg IV. 1. Jevity 1.2 at 20 ml/hr via NG tube by pump. Advance 10 ml every 12 hrs to goal rate of 52 ml/hr x 24 hrs. If no IV fluids, water flushes of 25 ml/hr (or per MD). 2. Multivitamins/Minerals. 3. Continue Thiamine 100mg/day.
--- NOTE | 2024-02-14 15:00 | PC.NURSE ---
Dr. Bolaños at bedside speaking with patients family.
--- NOTE | 2024-02-14 15:59 | ESPR_ITS ---
<Statement entered by Diego Bryan MD - 02/28/24 16:10> I reviewed above note and agree with findings and plans. I have also personally examined the patient with medicine team and went over assessment and plan with medical team including manufacturing intern and resident physician. Documentation for date of: 02/14/24 Subjective Subjective Interval history: Patient seen today at the bedside found obtunded and unresponsive. Overnight patient developed atrial fibrillation, received call in the am about episodes of A-fib with RVR and elevated BP, for which amiodarone drip was started and 500ml bolus given. ABGs today showed some metabolic acidosis with elevated Anion gap with respiratory compensation likely due to starvation ketosis. NGT was placed and started on tube feeds. Spoke to the family who are still undecided about proceding with PEG tube placement. Neurology spoke to family and discontinued antibiotic tx for patient. Plan for Goals of care discussion tomorrow. Exam Vital Signs Temp Pulse Resp BP Pulse Ox O2 Del Method O2 Flow Rate 97.5 F 124 H 22 H 160/105 H 98 Nasal Cannula 3 02/14/24 12:00 02/14/24 13:48 02/14/24 12:00 02/14/24 13:48 02/14/24 12:00 02/14/24 12:00 02/14/24 12:00 Narrative Exam Physical Exam GENERAL: NAD, obtunded not responsive to various stimuli, frail, temporal wasting HEENT: Moist mucosa. CARDIO: Heart RRR, no obvious murmurs PULM: No noted coughing/dyspnea. Lungs CTA B/L, no R/W/R GI: Abdomen soft, nondistended, no pain on palpation. BSx4 URO/STRETCHING MACHINE TENDER FRAME:: No further abnormalities noted. Wagner catheter SKIN/MSK/EXT: no pain on palpation. Pedal pulses present B/L Objective Labs 02/15/24 05:19 02/15/24 05:19 Labs: Laboratory Results - last 24 hr 02/14/24 02/14/24 02/14/24 04:58 07:34 07:58 WBC 29.5 H D RBC 5.06 Hgb 13.8 Hct 41.4 MCV 82 MCH 27.3 MCHC 33.3 RDW Std Deviation 51.4 H Plt Count 220 D Neut % (Auto) 92 H Lymph % (Auto) 1 L [place] % (Auto) 7 Eos % (Auto) 0 Baso % (Auto) 0 Neut # (Auto) 27.0 H Lymph # (Auto) 0.3 L [place] # (Auto) 2.0 H Eos # (Auto) 0.0 Baso # (Auto) 0.1 Immature Gran # (Auto) 0.20 H Absolute Nucleated RBC 0.00 Immature Gran % 1 H Nucleated RBC % 0 Puncture Site Right Radial ABG pH 7.45 ABG pCO2 30 L ABG pO2 101 ABG HCO3 21 ABG O2 Saturation 99 H ABG Base Excess -2 Oxygen Liter Flow 3 FiO2 21 Sodium 139 Potassium 3.8 D Chloride 105 Carbon Dioxide 17.5 L Anion Gap 17 H BUN 32 H Creatinine 1.6 H Estim Creat Clear Calc 21.3 L eGFR 33 L BUN/Creatinine Ratio 20 Glucose 124 H D Calculated Osmolality 285 Lactic Acid 1.4 Calcium 8.9 Corrected Calcium 8.9 Phosphorus 2.7 Magnesium 2.2 Total Bilirubin 0.4 AST < 8 ALT < 7 L Alkaline Phosphatase 74 Total Protein 6.3 Albumin 4.2 Globulin 2.1 L Albumin/Globulin Ratio 2.0 Random Vancomycin 14.8 ABG Interpretation ABG results: 02/07/24 02/14/24 01:46 07:34 ABG pH 7.43 7.45 ABG pCO2 30 L 30 L ABG pO2 163 H 101 ABG HCO3 20 21 ABG O2 Saturation 100 H 99 H ABG Base Excess -4 L -2 Quality Measures Quality Measures none Advance care planning discussed with:: patient and child Assessment & Plan Assessment Current Active Medications: Generic Name Dose Route Start Last Admin Trade Name Freq PRN Reason Stop Dose Admin Acetaminophen 650 mg 02/12/24 09:53 Acetaminophen Supp 650 Mg Supp MD 03/08/24 03:31 Q6HR PRN FEVER>101.5 Atorvastatin Calcium 40 mg 02/07/24 21:00 02/13/24 23:56 Atorvastatin Calcium 20 Mg Tablet PO 03/08/24 20:59 Not Given HS GENE Enoxaparin Sodium 52 mg 02/11/24 14:00 02/14/24 13:36 Enoxaparin Sod Inj 60 Mg/0.6 Ml Syringe SC 02/25/24 13:59 52 mg QDAY@1400 GENE Administration Amiodarone HCl/Dextrose 360 mg in 200 mls @ 16.667 mls/hr 02/14/24 13:19 02/14/24 13:48 Nexterone Ivpb IV 02/15/24 13:18 16.667 mls/hr .Q12H GENE Administration Multivitamins/Minerals 15 ml 02/14/24 14:15 02/14/24 14:46 Multivitamin 15 Ml Udc GT 03/15/24 14:14 15 ml QDAY GENE Administration Ondansetron HCl 4 mg 02/07/24 03:32 Ondansetron Inj 2 Mg/Ml Inj 2 Ml IV 03/08/24 03:31 Q6H PRN NAUSEA OR VOMITING Protocol Pantoprazole Sodium 40 mg 02/07/24 09:00 02/14/24 08:04 Pantoprazole Inj 40 Mg Vial IVP 03/08/24 08:59 40 mg QDAY GENE Administration Thiamine HCl 100 mg 02/12/24 09:00 02/14/24 08:04 Thiamine Inj 100 Mg/Ml Vial 2 Ml IVP 03/13/24 08:59 100 mg QDAY GENE Administration Plan 79y/o F with PMHx of lymphoma status post remission and recurrence with abdominal and pulmonary metastasis, CKD, dementia, atrial fibrillation on Eliquis who is admitted for acute encephalopathy and acute kidney injury in setting of CKD. #Acute Encephalopathy #Acute CVA vs TIA-ruled out #Fever of unknown origin #Rule out Encephalitis #SIRS 2/4 #Dementia Patient was found on the bathroom floor for an unknown period of time. Patient was SIRS 2/4, fever, elevated WBCs on admission with no source identified. Mentation fluctuates throughout the day as per son who lives with her Family decided to have patients CODE STATUS changed to DNR UA was negative for leukocyte esterase, nitrites, patient denies dysuria. Will continue IV thiamine and will hold amiodarone for suspicion of amiodarone toxicity. Patient's CSF studies pending, gram stain and culture negative. Goals of Care discussion with patient's family at bedside about patient's prognosis and will continue medical management and monitor for improvement in a.m. Discussed with family about nutrition goals and possible requirement of PEG tube placement in near future, family will discuss among themselves and will give a decision at a later time. -IV ceftriaxone, vancomycin and acyclovir, discontinued by neurology -Neurology on case, appreciate recommendations -Continue IV thiamine -pending CSF studies send outs* -Pending EEG will follow up -Physical therapy recommends [facility] facility for discharge, family is agreeable. #Acute on chronic kidney injury #Acute kidney injury-resolved #CKD IIIB Patient's kidney injury likely pre-renal. Creatinine 1.6 -gave 500ml bolus -Avoid nephrotoxic agents -Renally dose medications #Atrial fibrillation [id number] score 3 Patient's home medication include amiodarone and Eliquis 2.5 mg This am patient has afib with rvr - on Amiodarone drip ? Started on Lovenox therapeutic dose - Monitor Telemetry #Metabolic acidosis with respiratory compensation likely startvation ketosis in the setting of high anion gap and no po intake for >5 days - NGT placed - started on tube feeds and multi vitamins through NGT #Hx of Lymphoma Patient has history of lymphoma with abdominal and pulmonary metastasis CT abdomen pelvis shows Enlarging of soft tissue tumor mass in the right hemipelvis Patient follows up with oncologist in [place] Suspicion of pulmonary metastasis as CTA chest positive for pulmonary nodules Bone survey done showed osteolytic lesions in the right frontal and parietal lobe with suspicions for lesions in the left hip. Bone scan positive for increased uptake in right frontal bone, midshaft left tibia, metastatic disease possible differential -Oncologist consulted, appreciate recommendations # Status post ground-level fall # History of orthostatic hypotension Per son patient has history of orthostatic hypotension. Patient presented status post ground-level fall, denies hitting head. Patient is on Eliquis at home for A-fib. Face CT, head CT, lumbar spine CT and thoracic spine CT negative Orthostatic vitals negative -Fall precautions Case discussed with my senior Dr. Stanley PGY-2, and my attending Dr. Randi Cleary MD PGY-1 Disposition: Telemetry, GOC discussion had with family Fluids: None Feeding: NPO Thrombo prophylaxis: SCDs Gastric Ulcer prophylaxis: Pantoprazole 40 mg IV daily CODE STATUS: DNR Senior resident attestation: I discussed with and supervised the manufacturing intern physician who took care of this patient. I personally saw and examined the patient and discussed the assessment and plan with the entire medicine team, including my attending , I agree with the assessment and plan as documented above. Goals of care discussion was held , plan to continue with hospice care, hospice referral was made, pending placement. alteration worker Rashard is on board. Antibiotics were discontinued yesterday by neurologist. Currently saturating well on room air, morphine pushes added for severe agitation. MD Lizeth PGY2
--- NOTE | 2024-02-14 16:15 | PC.NURSE ---
Tube feeding: Jevity 1.2 started at 20mL/hr with 25 mL/hr water flushes every 1 hour.
[2024-02-14] MEDS: ATORVASTATIN CALCIUM 20 MG TABLET 40 MG GT (20:48)
--- NOTE | 2024-02-14 21:06 | PD.NEUROPROG ---
Documentation for date of: 02/14/24 Subjective Subjective Interval history: Patient was seen in telemetry today at the bedside. Continues to be somnolent and not communicative. Exam - Neurology Vital Signs Temp Pulse Resp BP Pulse Ox O2 Del Method O2 Flow Rate 98 F 82 29 H 157/80 H 90 L Nasal Cannula 2 02/14/24 20:00 02/14/24 20:00 02/14/24 20:00 02/14/24 20:00 02/14/24 20:00 02/14/24 20:00 02/14/24 20:00 Narrative Exam GENERAL APPEARANCE: Well-developed, thin built female in no acute distress. HEENT: Normocephalic, atraumatic, extraocular movements intact. Pupils: Equal reacting to light NECK: Supple, no JVD or bruits. CARDIOVASULAR: Heart: S1, S2 heard, irregular without S3-S4 or murmur no rubs or gallops. LUNGS/CHEST: Clear to auscultation bilaterally. No rails, rhonchi, or wheezing. Normal inspection. ABDOMEN: Soft, nontender, with normal bowel sounds. No pulsatile masses. No rebound, rigidity, or guarding. Normal inspection and palpation. EXTREMITIES: Normal inspection and palpation. No edema, clubbing or cyanosis. SKIN: Warm and dry without rashes. Normal inspection. MUSCULOSKELETAL: No cervical, thoracic, lumbar or midline bony tenderness. Normal inspection. NEURO: Continues to be lethargic, barely opens her eyes but not tracking. Brainstem function: Intact, rest of the exam: Limited PSYCHIATRIC: Limited Objective Labs 02/14/24 04:58 02/14/24 04:58 Labs: Laboratory Results - last 24 hr 02/14/24 02/14/24 02/14/24 04:58 07:34 07:58 WBC 29.5 H D RBC 5.06 Hgb 13.8 Hct 41.4 MCV 82 MCH 27.3 MCHC 33.3 RDW Std Deviation 51.4 H Plt Count 220 D Neut % (Auto) 92 H Lymph % (Auto) 1 L [place] % (Auto) 7 Eos % (Auto) 0 Baso % (Auto) 0 Neut # (Auto) 27.0 H Lymph # (Auto) 0.3 L [place] # (Auto) 2.0 H Eos # (Auto) 0.0 Baso # (Auto) 0.1 Immature Gran # (Auto) 0.20 H Absolute Nucleated RBC 0.00 Immature Gran % 1 H Nucleated RBC % 0 Puncture Site Right Radial ABG pH 7.45 ABG pCO2 30 L ABG pO2 101 ABG HCO3 21 ABG O2 Saturation 99 H ABG Base Excess -2 Oxygen Liter Flow 3 FiO2 21 Sodium 139 Potassium 3.8 D Chloride 105 Carbon Dioxide 17.5 L Anion Gap 17 H BUN 32 H Creatinine 1.6 H Estim Creat Clear Calc 21.3 L eGFR 33 L BUN/Creatinine Ratio 20 Glucose 124 H D Calculated Osmolality 285 Lactic Acid 1.4 Calcium 8.9 Corrected Calcium 8.9 Phosphorus 2.7 Magnesium 2.2 Total Bilirubin 0.4 AST < 8 ALT < 7 L Alkaline Phosphatase 74 Total Protein 6.3 Albumin 4.2 Globulin 2.1 L Albumin/Globulin Ratio 2.0 Random Vancomycin 14.8 ABG Interpretation ABG results: 02/07/24 02/14/24 01:46 07:34 ABG pH 7.43 7.45 ABG pCO2 30 L 30 L ABG pO2 163 H 101 ABG HCO3 20 21 ABG O2 Saturation 100 H 99 H ABG Base Excess -4 L -2 Assessment & Plan Assessment and plan (1) AMS (altered mental status): Status: Acute Assessment and plan: MRI brain: chronic white matter changes CSF analysis shows pleomorphic leukocytosis, normal glucose and elevated protein, Gram stain and culture: negative. Discontinue acyclovir ceftriaxone and vancomycin. Her condition is critical and her prognosis is poor. (2) Paroxysmal A-fib: Status: Chronic Assessment and plan: Used to be on amiodarone for rate control, but on hold now as hypothyroidism was suspected Now on heparin
[2024-02-15] VITALS (9 sets, daily range): BP systolic 121–156; BP diastolic 66–88; PULSE 80–126; RESP 13–98; TEMP 36.1–37.1; O2SAT 89–100
[2024-02-15] MEDS: AMIODARONE 360 MG IVPB 360 MG/200 ML BAG 16.667 MG IV (01:58)
[2024-02-15 06:06] LABS: Basophils # (Auto) 0.1 Thou/mm3 (0.0-0.2); Basophils % (Auto) 0 % (0-2.5); Eosinophils % (Auto) 0 % (0-10); Hematocrit 36.2 % (36.0-46.0); Hemoglobin 12.1 g/dL (12.0-16.0); Immature Granulocytes % (Auto) 1 % (0-0); Immature Granulocytes Auto 0.34 Thou/mm3 (0.00-0.00); Lymphocytes # (Auto) 0.1 Thou/mm3 (1.0-4.8); Lymphocytes % (Auto) 0 % (10-50); Mean Corpuscular HGB Conc 33.4 g/dl (31.0-37.0); Mean Corpuscular Hemoglobin 27.2 pg (25.0-35.0); Mean Corpuscular Volume 81 fL (80-100); Monocytes # (Auto) 1.7 Thou/mm3 (0.0-0.8); Monocytes % (Auto) 5 % (0-12); Neutrophils # (Auto) 30.5 Thou/mm3 (1.8-7.7); Neutrophils % (Auto) 93 % (37-80); Nucleated Red Blood Cell # 0.02 Thou/mm3 (0.00-0.00); Nucleated Red Blood Cell % 0 /100 WBC (0); Platelet Count 261 Thou/mm3 (140-440); Red Blood Count 4.45 Miln/mm3 (4.00-5.20)
[2024-02-15 06:12] LABS: White Blood Count 32.7 Thou/mm3 (3.6-11.0)
[2024-02-15 06:51] LABS: Alanine Aminotransferase < 7 U/L (10-49); Albumin, Serum 3.7 gm/dL (3.4-4.8); Albumin/Globulin Ratio 1.9 (1.2-2.2); Alkaline Phosphatase 71 U/L (46-116); Anion Gap 15 (7-16); Aspartate Amino Transferase 17 U/L (0-34); BUN/Creatinine Ratio 17 Ratio (12-20); Bilirubin,Total 0.3 mg/dL (0.3-1.2); Blood Urea Nitrogen 45 mg/dL (9-23); Calcium 8.5 mg/dL (8.3-10.6); Calcium (Corrected) 8.7 mg/dL (8.5-10.1); Carbon Dioxide 20.3 mMol/L (20.0-31.0); Chloride 101 mMol/L (98-107); Creatinine (Component) 2.7 mg/dL (0.6-1.3); Estimated Creatinine Clearance 11.8 mL/min (>60); Glucose 273 mg/dL (74-106); Osmolality,Calculated 293 (275-295); Phosphorous 2.2 mg/dL (2.4-5.1); Potassium 3.4 mMol/L (3.4-5.1); Sodium 136 mMol/L (136-145); Total Protein 5.7 gm/dL (5.7-8.2); eGFR 17 See Note
[2024-02-15] MEDS: PANTOPRAZOLE INJ 40 MG VIAL IVP (09:07)
[2024-02-15] MEDS: POTASSIUM CHL 10 mEq IVPB 10 MEQ/100 ML BAG 75 MEQ IV ×4 (09:07→13:41)
[2024-02-15] MEDS: POTASSIUM CHLORIDE 10% 20 MEQ/15 ML UDC GT (09:07)
[2024-02-15] MEDS: THIAMINE INJ 100 MG/ML VIAL 2 ML IVP (09:07)
[2024-02-15] MEDS: MULTIVITAMIN 15 ML UDC GT (09:08)
--- NOTE | 2024-02-15 09:27 | ESPR_ITS ---
<Statement entered by Diego Bryan MD - 02/20/24 12:43> I reviewed above note and agree with findings and plans. I have also personally examined the patient with medicine team and went over assessment and plan with medical team including research intern and resident physician. Documentation for date of: 02/15/24 Subjective Subjective Interval history: Patient seen today found unresponsive to various stimuli. Grandson present during examination, discussed patients condition and set up an appointment in the afternoon in regards to the patients goals of care. GOALS OF CARE discussion was had with the family present about the patients poor prognosis and current state, and how patient care would proceed given that the patients condition continues to deteriorate, despite medical management. Respecting the family's wishes they decided to proceed with discontinuing aggressive medical management and proceed with comfort and hospice care. Exam Vital Signs Temp Pulse Resp BP Pulse Ox O2 Del Method O2 Flow Rate 97.0 F 88 24 H 155/88 H 95 Nasal Cannula 2 02/15/24 08:00 02/15/24 08:00 02/15/24 08:00 02/15/24 08:00 02/15/24 08:00 02/15/24 08:00 02/15/24 08:00 Narrative Exam Physical Exam GENERAL: NAD, obtunded not responsive to various stimuli, frail, temporal wasting HEENT: Moist mucosa. CARDIO: Heart RRR, no obvious murmurs PULM: No noted coughing/dyspnea. Lungs CTA B/L, no R/W/R GI: Abdomen soft, nondistended, no pain on palpation. BSx4 URO/HOSTING ENGINEER:: No further abnormalities noted. Wagner catheter SKIN/MSK/EXT: no pain on palpation. Pedal pulses present B/L Objective Labs 02/15/24 05:19 02/15/24 05:19 Labs: Laboratory Results - last 24 hr 02/15/24 02/21/24 05:19 00:06 WBC 32.7 H RBC 4.45 Hgb 12.1 Hct 36.2 MCV 81 MCH 27.2 MCHC 33.4 RDW Std Deviation 51.0 H Plt Count 261 D Neut % (Auto) 93 H Lymph % (Auto) 0 L [place] % (Auto) 5 Eos % (Auto) 0 Baso % (Auto) 0 Neut # (Auto) 30.5 H Lymph # (Auto) 0.1 L [place] # (Auto) 1.7 H Eos # (Auto) 0.0 Baso # (Auto) 0.1 Immature Gran # (Auto) 0.34 H Absolute Nucleated RBC 0.02 H Immature Gran % 1 H Nucleated RBC % 0 Sodium 136 Potassium 3.4 Chloride 101 Carbon Dioxide 20.3 Anion Gap 15 BUN 45 H Creatinine 2.7 H D Estim Creat Clear Calc 11.8 L eGFR 17 L BUN/Creatinine Ratio 17 Glucose 273 H D Calculated Osmolality 293 Calcium 8.5 Corrected Calcium 8.7 Phosphorus 2.2 L Magnesium 2.0 Total Bilirubin 0.3 AST 17 ALT < 7 L Alkaline Phosphatase 71 Total Protein 5.7 Albumin 3.7 D Globulin 2.0 L Albumin/Globulin Ratio 1.9 CSF Source Cancelled CSF VDRL Cancelled CSF Herpes I DNA (PCR) Cancelled CSF Herpes II DNA (PCR) Cancelled CSF West Nile IgG Ab Cancelled CSF West Nile IgM Ab Cancelled ABG Interpretation ABG results: 02/07/24 02/14/24 01:46 07:34 ABG pH 7.43 7.45 ABG pCO2 30 L 30 L ABG pO2 163 H 101 ABG HCO3 20 21 ABG O2 Saturation 100 H 99 H ABG Base Excess -4 L -2 Quality Measures Quality Measures none Advance care planning discussed with:: patient and child Assessment & Plan Assessment Current Active Medications: Generic Name Dose Route Start Last Admin Trade Name Freq PRN Reason Stop Dose Admin Acetaminophen 650 mg 02/12/24 09:53 Acetaminophen Supp 650 Mg Supp LA 03/08/24 03:31 Q6HR PRN FEVER>101.5 Atorvastatin Calcium 40 mg 02/14/24 21:00 02/14/24 20:48 Atorvastatin Calcium 20 Mg Tablet GT 03/15/24 20:59 40 mg HS GENE Administration Enoxaparin Sodium 52 mg 02/11/24 14:00 02/14/24 13:36 Enoxaparin Sod Inj 60 Mg/0.6 Ml Syringe SC 02/25/24 13:59 52 mg QDAY@1400 GENE Administration Amiodarone HCl/Dextrose 360 mg in 200 mls @ 16.667 mls/hr 02/14/24 13:19 02/15/24 01:58 Nexterone Ivpb IV 02/15/24 13:18 16.667 mls/hr .Q12H GENE Administration Potassium Chloride 10 meq in 100 mls @ 100 mls/hr 02/15/24 08:45 02/15/24 09:07 Kcl Ivpb IV 02/15/24 12:44 75 mls/hr Q1H GENE Administration Multivitamins/Minerals 15 ml 02/14/24 14:15 02/15/24 09:08 Multivitamin 15 Ml Udc GT 03/15/24 14:14 15 ml QDAY GENE Administration Ondansetron HCl 4 mg 02/07/24 03:32 Ondansetron Inj 2 Mg/Ml Inj 2 Ml IV 03/08/24 03:31 Q6H PRN NAUSEA OR VOMITING Protocol Pantoprazole Sodium 40 mg 02/07/24 09:00 02/15/24 09:07 Pantoprazole Inj 40 Mg Vial IVP 03/08/24 08:59 40 mg QDAY GENE Administration Thiamine HCl 100 mg 02/12/24 09:00 02/15/24 09:07 Thiamine Inj 100 Mg/Ml Vial 2 Ml IVP 03/13/24 08:59 100 mg QDAY GENE Administration Plan 79y/o F with PMHx of lymphoma status post remission and recurrence with abdominal and pulmonary metastasis, CKD, dementia, atrial fibrillation on Eliquis who is admitted for acute encephalopathy and acute kidney injury in setting of CKD. #Acute Encephalopathy #Acute CVA vs TIA-ruled out #Fever of unknown origin #Rule out Encephalitis #SIRS 2/4 #Dementia Patient was found on the bathroom floor for an unknown period of time. Patient was SIRS 2/4, fever, elevated WBCs on admission with no source identified. Mentation fluctuates throughout the day as per son who lives with her Family decided to have patients CODE STATUS changed to DNR UA was negative for leukocyte esterase, nitrites, patient denies dysuria. Will continue IV thiamine and will hold amiodarone for suspicion of amiodarone toxicity. Patient's CSF studies pending, gram stain and culture negative. Goals of Care discussion with patient's family at bedside about patient's prognosis and will continue medical management and monitor for improvement in a.m. Discussed with family about nutrition goals and possible requirement of PEG tube placement in near future, family will discuss among themselves and will give a decision at a later time. Goals of care discussion with patients family at bedside about the patients prognosis and decided to proceed with hospice care. - family decided to pursue comfort and hospice care #Acute on chronic kidney injury #Acute kidney injury #CKD IIIB #Atrial fibrillation [id number] score 3 Patient's home medication include amiodarone and Eliquis 2.5 mg #Hx of Lymphoma Patient has history of lymphoma with abdominal and pulmonary metastasis CT abdomen pelvis shows Enlarging of soft tissue tumor mass in the right hemipelvis Patient follows up with oncologist in [place] Suspicion of pulmonary metastasis as CTA chest positive for pulmonary nodules Bone survey done showed osteolytic lesions in the right frontal and parietal lobe with suspicions for lesions in the left hip. Bone scan positive for increased uptake in right frontal bone, midshaft left tibia, metastatic disease possible differential -Oncologist consulted, appreciate recommendations # Status post ground-level fall # History of orthostatic hypotension Per son patient has history of orthostatic hypotension. Patient presented status post ground-level fall, denies hitting head. Patient is on Eliquis at home for A-fib. Face CT, head CT, lumbar spine CT and thoracic spine CT negative Orthostatic vitals negative Case discussed with my senior Dr. Stanley PGY-2, and my attending Dr. Randi Cleary MD PGY-1 Disposition: Telemetry, comfort and hospice care Fluids: None Feeding: NPO Thrombo prophylaxis: SCDs Gastric Ulcer prophylaxis: none CODE STATUS: DNR Senior resident attestation: I discussed with and supervised the research intern physician who took care of this patient. I personally saw and examined the patient and discussed the assessment and plan with the entire medicine team, including my attending Dr. Bryan , I agree with the assessment and plan as documented above. The patient is a 79-year-old female with PMH of A-fib, CKD, dementia, B-cell lymphoma status post chemo/radiation and recurrence who presented to ER following a fall and following encephalopathy. The has been in a persistent vegetative state since admission. 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 Also noted A-fib RVR, amiodarone drip was started, family was undecided about PEG tube, but patient had been n.p.o. for the past few days, nasogastric tube was passed for initiating tube feeds as well as medications via G-tube. Neurology will follow the patient and discontinued antibiotics and antivirals after no improvement, recommended hospice care. 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 MD Lizeth PGY2
--- NOTE | 2024-02-15 09:41 | ESPR_ITS ---
Documentation for date of: 02/15/24 Subjective Subjective Interval history: Patient was seen and examined at bedside this AM. Patient still nonverbal and obtunded. Clinically patient has had no change Patient is getting tube feeds Patient did not have any PVCs overnight and this morning she was in sinus rhythm Heart rate has been in the 90s-100s. Primary care team spoke with family today and had a goals of care discussion and family decided to go with hospice and comfort at this time. Exam Vital Signs Temp Pulse Resp BP Pulse Ox O2 Del Method O2 Flow Rate 97.0 F 88 24 H 155/88 H 95 Nasal Cannula 2 02/15/24 08:00 02/15/24 08:00 02/15/24 08:00 02/15/24 08:00 02/15/24 08:00 02/15/24 08:00 02/15/24 08:00 Narrative Exam General: Non verbal, non responsive Eyes:Moves eyes and seems to track, pupils sluggishly reactive to light. HEENT: Atraumatic, normocephalic. No JVD noted. Mucosa dry. Cardiovascular: Normal S1 and S2. irregularly irregular 2/ 6 ejection systolic murmur noted aortic area no peripheral pitting edema noted. Respiratory: No respiratory distress. Lungs are clear to auscultation bilaterally. No wheezing or crackles heard. Abdomen: Soft, nontender, nondistended. Skin: No rash. cold STEFANI hands. Musculoskeletal: No gross injuries. Objective Labs 02/15/24 05:19 02/15/24 05:19 Labs: Laboratory Results - last 24 hr 02/15/24 02/21/24 05:19 00:06 WBC 32.7 H RBC 4.45 Hgb 12.1 Hct 36.2 MCV 81 MCH 27.2 MCHC 33.4 RDW Std Deviation 51.0 H Plt Count 261 D Neut % (Auto) 93 H Lymph % (Auto) 0 L [place] % (Auto) 5 Eos % (Auto) 0 Baso % (Auto) 0 Neut # (Auto) 30.5 H Lymph # (Auto) 0.1 L [place] # (Auto) 1.7 H Eos # (Auto) 0.0 Baso # (Auto) 0.1 Immature Gran # (Auto) 0.34 H Absolute Nucleated RBC 0.02 H Immature Gran % 1 H Nucleated RBC % 0 Sodium 136 Potassium 3.4 Chloride 101 Carbon Dioxide 20.3 Anion Gap 15 BUN 45 H Creatinine 2.7 H D Estim Creat Clear Calc 11.8 L eGFR 17 L BUN/Creatinine Ratio 17 Glucose 273 H D Calculated Osmolality 293 Calcium 8.5 Corrected Calcium 8.7 Phosphorus 2.2 L Magnesium 2.0 Total Bilirubin 0.3 AST 17 ALT < 7 L Alkaline Phosphatase 71 Total Protein 5.7 Albumin 3.7 D Globulin 2.0 L Albumin/Globulin Ratio 1.9 CSF Source Cancelled CSF VDRL Cancelled CSF Herpes I DNA (PCR) Cancelled CSF Herpes II DNA (PCR) Cancelled CSF West Nile IgG Ab Cancelled CSF West Nile IgM Ab Cancelled ABG Interpretation ABG results: 02/07/24 02/14/24 01:46 07:34 ABG pH 7.43 7.45 ABG pCO2 30 L 30 L ABG pO2 163 H 101 ABG HCO3 20 21 ABG O2 Saturation 100 H 99 H ABG Base Excess -4 L -2 Quality Measures Quality Measures none Advance care planning discussed with:: patient Assessment & Plan Assessment Current Active Medications: Generic Name Dose Route Start Last Admin Trade Name Freq PRN Reason Stop Dose Admin Acetaminophen 650 mg 02/12/24 09:53 Acetaminophen Supp 650 Mg Supp LA 03/08/24 03:31 Q6HR PRN FEVER>101.5 Atorvastatin Calcium 40 mg 02/14/24 21:00 02/14/24 20:48 Atorvastatin Calcium 20 Mg Tablet GT 03/15/24 20:59 40 mg HS GENE Administration Enoxaparin Sodium 52 mg 02/11/24 14:00 02/14/24 13:36 Enoxaparin Sod Inj 60 Mg/0.6 Ml Syringe SC 02/25/24 13:59 52 mg QDAY@1400 GENE Administration Amiodarone HCl/Dextrose 360 mg in 200 mls @ 16.667 mls/hr 02/14/24 13:19 02/15/24 01:58 Nexterone Ivpb IV 02/15/24 13:18 16.667 mls/hr .Q12H GENE Administration Potassium Chloride 10 meq in 100 mls @ 100 mls/hr 02/15/24 08:45 02/15/24 09:07 Kcl Ivpb IV 02/15/24 12:44 75 mls/hr Q1H GENE Administration Multivitamins/Minerals 15 ml 02/14/24 14:15 02/15/24 09:08 Multivitamin 15 Ml Udc GT 03/15/24 14:14 15 ml QDAY GENE Administration Ondansetron HCl 4 mg 02/07/24 03:32 Ondansetron Inj 2 Mg/Ml Inj 2 Ml IV 03/08/24 03:31 Q6H PRN NAUSEA OR VOMITING Protocol Pantoprazole Sodium 40 mg 02/07/24 09:00 02/15/24 09:07 Pantoprazole Inj 40 Mg Vial IVP 03/08/24 08:59 40 mg QDAY GENE Administration Thiamine HCl 100 mg 02/12/24 09:00 02/15/24 09:07 Thiamine Inj 100 Mg/Ml Vial 2 Ml IVP 03/13/24 08:59 100 mg QDAY GENE Administration Plan 72-year-old female with a past medical history of 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 Cardiology was consulted for A-fib. 1. Paroxysmal atrial fibrillation with SVR Patient confused and unable to give any history of any chest pain/pressure or palpitations on admission. EKG on admission showed sinus rhythm, rate 60 and repeat EKG showed sinus bradycardia with rate 59. At home patient on metoprolol XL and amiodarone 200 Mg p.o. daily. From telemetry review patient does not appear to be in A-fib on this admission. [id number] 3; 3.2% stroke risk per year [age, female] HAS-BLED : 1 points; low risk for major bleeding Transthoracic echocardiogram completed on 02/07/2024 findings include: Negative bubble study. No evidence of PFO or ASD. Consider MEAGAN if high clinical suspicion. Normal LV size and function. Estimated EF 60-65% Normal RV size and function. Mild AV stenosis, mean gradient 12mmHg, vmax 2.6m/s. Mild to moderate AI. Mild MR, TR. 02/15/2024 ?Patient in sinus rhythm this morning with no PVCs overnight and heart rate in the 90s to 100s ?Patient still nonverbal and not alert or awake, clinically unchanged from yesterday Plan: ? Can start amiodarone 200 mg twice daily ?Currently on Lovenox for anticoagulation ?Patient's family decided to go with hospice and comfort after the goals of care discussion with primary care team ? Recommend to maintain potassium greater than 4 and Mg greater than 2 at all times to prevent any arrhythmias 2. Acute metabolic encephalopathy secondary to fever of unknown origin 3. High anion gap metabolic acidosis likely secondary to starvation ketoacidosis On admission SIRS 2/4 for tachypnea and temperature 102.6 F Blood and urine cultures currently pending and no obvious source of infection. Patient had LP and nuclear bone scan. CSF analysis showed WBC 53 and protein 104. Neurology on board and recommended to continue current antibiotic regimen. Continue management as per primary team and Neurology 02/11/2024 On examination patient is definitely cachectic with severe temporal wasting and patient also losing significant weight recently. Patient family at the bedside including the son as well as the [id number] as well as the grandchildren. Had a long discussion for more than 20 minutes with the patient family. Considering her significant prolonged course with the lymphoma and other comorbidities family wanted to make the patient DNR and DNI at the present moment. Recommended the son and the family to also speak to the primary team for further goals of care discussion in the long-term care plan.\ 02/12/2024 Patient is lethargic and is not alert awake oriented during my any examination. No change in clinical status since yesterday. Family did speak to the primary team and patient is now DNR and DNI. Still all the CSF studies have not been sent and will be sent in the next 1 to 2 days as per the primary team Patient is still on IV antibiotic Rocephin and acyclovir as well as vancomycin. Patient has not been eating for few days Neurology is following the patient but unclear of the diagnosis. Working diagnosis encephalitis and MRI was performed and did not show any major acute pathology It still only shows MRI brain right frontal bone lesion which is unchanged with increased white matter signal consistent with age. EEG has been ordered along with Gram stain culture and CSF analysis which showed slightly elevated proteins and WBC with mostly pleomorphic. 02/15/2024 ?Patient still lethargic, nonverbal, and not awake or alert during examination ?Bicarb 20.3 today ? Patient's family decided to go with hospice and comfort after goals of care discussion with primary care team ?Continue current management as per primary team. 4. History of diffuse large B-cell lymphoma s/p treatment in remission with recurrence in the abdomen on treatment until March status post radiation to head and neck sites at [facility] and chemotherapy in [place] Dr. Tapia, radiation oncologist was consulted. Brain CT showed showed 33 x 32 mm right frontal bone lesion with soft tissue component. Bone survey completed Brain MRI significant for increased white matter signal, right frontal bone lesion, MRI brain images severely degraded by patient motion. Continue management as per radiation oncology 5. CKD stage III On admission CR 1.4. From chart review baseline appears to be between 1.2?1.4 Current Cr 2.7 Continue management as per primary team 6. Protein calorie malnutrition with cachexia 7 . Progressive senile dementia with possible delirium 8. Poor oral intake and patient is mildly dehydrated Continue management as per primary team Continue rest of management as per primary team. We are grateful to be able to participate in Ms. Hill's care. Thank you for the consult Plan of care discussed with attending Home Service Demonstrator, Dr Kristy Sepulveda MD PGY-1 Attending Provider Attestation/Addendum I have personally seen and examined the patient separately on the above date of service and discussed the plan of care with the resident. I reviewed the resident Dr. Vo consultation progress note and agree with the resident findings and plan in the note above and have also edited the documentation to reflect my findings and plan. Fabio Wagner M.D. Interventional Cardiology
--- NOTE | 2024-02-15 09:50 | PC.SS ---
DEPUTY SHERIFF BUILDING GUARD informed by resident need to to schedule family today with patient's family. DEPUTY SHERIFF BUILDING GUARD contacted patient's son, Dilip Hill; to discuss family meeting. Patient's son will be unavailable due to being out of the area at current time. Patient's son requested that DEPUTY SHERIFF BUILDING GUARD reach out to sister, Barbara Hill. DEPUTY SHERIFF BUILDING GUARD contacted patient's daughter, Barbara Hill; who confirmed that she will be present at patient's bedside at 02:30 pm for family meeting. DEPUTY SHERIFF BUILDING GUARD notified resident.
[2024-02-15 12:36] LABS: Collection Type, Urine Catheter; Squamous Epithelial Cell,Urine 0 /hpf (0-5)
[2024-02-15 12:57] LABS: Amorphous Crystals,Urine Present (Absent); Bilirubin,Urine Negative (Negative); Blood,Urine 3+ (Negative); Glucose, Urine 2+ (Negative); Ketones,Urine Trace (Negative); Leukocyte Esterase,Urine Positive (Negative); Nitrite,Urine Negative (Negative); PH,Urine 5.5 (5.0-7.0); Protein,Urine 1+ (Neg - Trace); RBC,Urine 2055 /hpf (0-3); Specific Gravity,Urine 1.011 (1.001-1.035); Urobilinogen,Urine Negative mg/dL (0.0-1.0); WBC,Urine 45 /hpf (0-5)
[2024-02-15 13:07] LABS: Clarity,Urine Cloudy (Clear/Hazy); Color,Urine Brown (Lt Yel-Yel)
[2024-02-15] MEDS: ENOXAPARIN SOD INJ 60 MG/0.6 ML SYRINGE 52 MG SC (14:15)
--- NOTE | 2024-02-15 15:58 | PC.SS ---
Family meeting conducted with patient daughterBarbara and family. Dr. Stanley and Dr. Bolaños provided overview on patient's condition, treatment plan and prognosis. Family informed of patient's worsening kidney condition, WBC increase and both HR/BP trending upward. In addition family informed that feeding via NG tube temporary. Discussion of comfort care initiated. [employer] provided overview of hospice services. Family requesting time to discuss matter with extended members of family. If hospice is decided plan would be to transition the patient home w/hospice. Preferred hospice agency [facility] VP [employer] to reach out to patient's daughter, Barbara; tomorrow with family's decision. P
--- NOTE | 2024-02-15 16:06 | PC.NURSE ---
Pt.s' family asked to speak with the doctor upon the doctors arrival the POC and family discussed the benefits of comfort care with the doctor. The doctor explained to the POC and family what that would entail and answered their questions. At the end of the conversation the family and POC wished to proceed with comfort care and had no further questions at this time.
--- NOTE | 2024-02-15 16:19 | PC.SS ---
[employer]GER [employer] informed by resident, Dr. Bolaños; that patient's family has made decision to transition the patient to comfort care. [employer]GER [employer] confirmed with patient's daughter, Barbara Hill. Hospice referral to be submitted to [facility].
--- NOTE | 2024-02-15 16:32 | PC.PT ---
Patient will be dc from PT services secondary to patient will be transitioning to comfort care.
[2024-02-15] MEDS: MORPHINE SULF INJ 10 MG/ML VIAL 2 MG IVP ×2 (16:49→20:20)
[2024-02-15] MEDS: GLYCOPYRROLATE INJ 0.2 MG/ML VIAL IV (17:16)
--- NOTE | 2024-02-15 23:48 | VVPN_ITS ---
Telemedicine visit statement This visit was conducted with the use of phone was obtained on 02/15/24 at 2348. Documentation for date of: 02/15/24 Subjective Subjective Interval history: Patient continues to be unresponsive, no seizures/involuntary movements noted. Patient's family has changed the CODE STATUS to hospice care. Virtual exam Vital Signs Temp Pulse Resp BP Pulse Ox O2 Del Method O2 Flow Rate 98.2 F 124 H 13 121/66 89 L Nasal Cannula 4 02/15/24 20:00 02/15/24 21:40 02/15/24 21:40 02/15/24 20:00 02/15/24 20:00 02/15/24 20:00 02/15/24 21:40 Objective Labs 02/15/24 05:19 02/15/24 05:19 Labs: Laboratory Results - last 24 hr 02/15/24 02/15/24 02/21/24 05:19 12:00 00:06 WBC 32.7 H RBC 4.45 Hgb 12.1 Hct 36.2 MCV 81 MCH 27.2 MCHC 33.4 RDW Std Deviation 51.0 H Plt Count 261 D Neut % (Auto) 93 H Lymph % (Auto) 0 L [place] % (Auto) 5 Eos % (Auto) 0 Baso % (Auto) 0 Neut # (Auto) 30.5 H Lymph # (Auto) 0.1 L [place] # (Auto) 1.7 H Eos # (Auto) 0.0 Baso # (Auto) 0.1 Immature Gran # (Auto) 0.34 H Absolute Nucleated RBC 0.02 H Immature Gran % 1 H Nucleated RBC % 0 Sodium 136 Potassium 3.4 Chloride 101 Carbon Dioxide 20.3 Anion Gap 15 BUN 45 H Creatinine 2.7 H D Estim Creat Clear Calc 11.8 L eGFR 17 L BUN/Creatinine Ratio 17 Glucose 273 H D Calculated Osmolality 293 Calcium 8.5 Corrected Calcium 8.7 Phosphorus 2.2 L Magnesium 2.0 Total Bilirubin 0.3 AST 17 ALT < 7 L Alkaline Phosphatase 71 Total Protein 5.7 Albumin 3.7 D Globulin 2.0 L Albumin/Globulin Ratio 1.9 Ur Collection Type Catheter Urine Color Brown A Urine Clarity Cloudy A Urine pH 5.5 Ur Specific [place] 1.011 Urine Protein 1+ A Urine Glucose (UA) 2+ A Urine Ketones Trace Urine Blood 3+ A Urine Nitrite Negative Urine Bilirubin Negative Urine Urobilinogen (Auto) Negative Ur Leukocyte Esterase Positive Urine RBC 2055 H Urine WBC 45 H Ur Squamous Epith Cells 0 Amorphous Crystals Present A Urine Bacteria None CSF Source Cancelled CSF VDRL Cancelled CSF Herpes I DNA (PCR) Cancelled CSF Herpes II DNA (PCR) Cancelled CSF West Nile IgG Ab Cancelled CSF West Nile IgM Ab Cancelled ABG Interpretation ABG results: 02/07/24 02/14/24 01:46 07:34 ABG pH 7.43 7.45 ABG pCO2 30 L 30 L ABG pO2 163 H 101 ABG HCO3 20 21 ABG O2 Saturation 100 H 99 H ABG Base Excess -4 L -2 Assessment & Plan Assessment 1) AMS (altered mental status): Status: Acute Assessment and plan: Etiology: Difficult to obtain MRI brain: Not significantly abnormal, chronic white matter changes CSF analysis shows pleomorphic leukocytosis, normal glucose and elevated protein, Gram stain and culture: So far negative. Discontinued antibiotics as the CSF analysis is negative for infection. (2) Paroxysmal A-fib: Used to be on amiodarone for rate control, but on hold now as hypothyroidism was suspected Now on heparin
[2024-02-16] VITALS (10 sets, daily range): BP systolic 85–121; BP diastolic 59–91; PULSE 65–121; RESP 12–100; TEMP 35.9–36.3; O2SAT 86–100
[2024-02-16] MEDS: MORPHINE SULF INJ 10 MG/ML VIAL 2 MG IVP (03:27)
[2024-02-16 07:09] LABS: HSV1 IgG Type Specific Ab* <0.90 INDEX; HSV2 IgG Type Specific Ab* <0.90 INDEX
--- NOTE | 2024-02-16 08:43 | ESPR_ITS ---
Documentation for date of: 02/16/24 Subjective Subjective Interval history: Patient was seen and examined at bedside this AM. Patient overnight was in and out of A-fib and had a run of bigeminy. Patient still nonverbal and obtunded. Clinically patient has had no change Patient's family decided to go with hospice and to not have any aggressive management at this time. Patient got her NG tube taken out as well as daily labs are not being taken as of now. Patient is not on any medication at this time as per family's wishes. Will sign off, but please reach out with any questions. Exam Vital Signs Temp Pulse Resp BP Pulse Ox O2 Del Method O2 Flow Rate 96.9 F 116 H 18 87/60 L 100 Nasal Cannula 2 02/16/24 07:55 02/16/24 08:34 02/16/24 08:34 02/16/24 07:55 02/16/24 07:55 02/16/24 07:55 02/16/24 08:34 Narrative Exam General: Non verbal, non responsive Eyes:Eys closed. HEENT: Atraumatic, normocephalic. No JVD noted. Mucosa dry. Cardiovascular: Normal S1 and S2. irregularly irregular 2/ 6 ejection systolic murmur noted aortic area no peripheral pitting edema noted. Respiratory: No respiratory distress. Lungs are clear to auscultation bilaterally. No wheezing or crackles heard. Abdomen: Soft, nontender, nondistended. Skin: No rash. cold STEFANI hands. Musculoskeletal: No gross injuries. Objective Labs 02/15/24 05:19 02/15/24 05:19 Labs: Laboratory Results - last 24 hr 02/09/24 02/15/24 00:33 12:00 Ur Collection Type Catheter Urine Color Brown A Urine Clarity Cloudy A Urine pH 5.5 Ur Specific Holderness 1.011 Urine Protein 1+ A Urine Glucose (UA) 2+ A Urine Ketones Trace Urine Blood 3+ A Urine Nitrite Negative Urine Bilirubin Negative Urine Urobilinogen (Auto) Negative Ur Leukocyte Esterase Positive Urine RBC 2055 H Urine WBC 45 H Ur Squamous Epith Cells 0 Amorphous Crystals Present A Urine Bacteria None HSV I IgG Ab <0.90 HSV II IgG <0.90 ABG Interpretation ABG results: 02/07/24 02/14/24 01:46 07:34 ABG pH 7.43 7.45 ABG pCO2 30 L 30 L ABG pO2 163 H 101 ABG HCO3 20 21 ABG O2 Saturation 100 H 99 H ABG Base Excess -4 L -2 Quality Measures Quality Measures none Advance care planning discussed with:: patient and child Assessment & Plan Assessment Current Active Medications: Generic Name Dose Route Start Last Admin Trade Name Freq PRN Reason Stop Dose Admin Acetaminophen 650 mg 02/12/24 09:53 Acetaminophen Supp 650 Mg Supp MO 03/08/24 03:31 Q6HR PRN FEVER>101.5 Artificial Tears 1 drop 02/15/24 16:15 Artificial Tears 225 Drop/15 Ml Btl BOTH EYES 03/16/24 16:14 Q4HR PRN Dry eyes Atorvastatin Calcium 40 mg 02/14/24 21:00 02/15/24 20:25 Atorvastatin Calcium 20 Mg Tablet GT 03/15/24 20:59 Not Given HS GENE Enoxaparin Sodium 52 mg 02/11/24 14:00 02/15/24 14:15 Enoxaparin Sod Inj 60 Mg/0.6 Ml Syringe SC 02/25/24 13:59 52 mg QDAY@1400 GENE Administration Glycopyrrolate 0.2 mg 02/15/24 16:15 02/15/24 17:16 Glycopyrrolate Inj 0.2 Mg/Ml Vial IV 03/16/24 16:14 0.2 mg QID PRN Administration As needed for secretions Morphine Sulfate 2 mg 02/15/24 16:15 02/16/24 03:27 Morphine Sulf Inj 10 Mg/Ml Vial IVP 02/20/24 16:14 2 mg Q4H PRN Administration AGITATION (SEVERE) Multivitamins/Minerals 15 ml 02/14/24 14:15 02/15/24 09:08 Multivitamin 15 Ml Udc GT 03/15/24 14:14 15 ml QDAY GENE Administration Ondansetron HCl 4 mg 02/07/24 03:32 Ondansetron Inj 2 Mg/Ml Inj 2 Ml IV 03/08/24 03:31 Q6H PRN NAUSEA OR VOMITING Protocol Pantoprazole Sodium 40 mg 02/07/24 09:00 02/15/24 09:07 Pantoprazole Inj 40 Mg Vial IVP 03/08/24 08:59 40 mg QDAY GENE Administration Thiamine HCl 100 mg 02/12/24 09:00 02/15/24 09:07 Thiamine Inj 100 Mg/Ml Vial 2 Ml IVP 03/13/24 08:59 100 mg QDAY GENE Administration Plan 72-year-old female with a past medical history of 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 Cardiology was consulted for A-fib. 1. Paroxysmal atrial fibrillation with SVR Patient confused and unable to give any history of any chest pain/pressure or palpitations on admission. EKG on admission showed sinus rhythm, rate 60 and repeat EKG showed sinus bradycardia with rate 59. At home patient on metoprolol XL and amiodarone 200 Mg p.o. daily. From telemetry review patient does not appear to be in A-fib on this admission. [id number] 3; 3.2% stroke risk per year [age, female] HAS-BLED : 1 points; low risk for major bleeding Transthoracic echocardiogram completed on 02/07/2024 findings include: Negative bubble study. No evidence of PFO or ASD. Consider MEAGAN if high clinical suspicion. Normal LV size and function. Estimated EF 60-65% Normal RV size and function. Mild AV stenosis, mean gradient 12mmHg, vmax 2.6m/s. Mild to moderate AI. Mild MR, TR. 02/16/2024 ?Patient overnight was in and out of A-fib and had a run of bigeminy. ?Patient still nonverbal and not alert or awake, clinically unchanged. Plan: ?Patient's family elected to not pursue any aggressive treatment at this time ?Decided to DC NG tube therefore p.o. medications cannot be administered ?Patient will be on hospice. -Will sign off, but please reach out with any questions. 2. Acute metabolic encephalopathy secondary to fever of unknown origin 3. High anion gap metabolic acidosis likely secondary to starvation ketoacidosis On admission SIRS 2/4 for tachypnea and temperature 102.6 F Blood and urine cultures currently pending and no obvious source of infection. Patient had LP and nuclear bone scan. CSF analysis showed WBC 53 and protein 104. Neurology on board and recommended to continue current antibiotic regimen. Continue management as per primary team and Neurology 02/11/2024 On examination patient is definitely cachectic with severe temporal wasting and patient also losing significant weight recently. Patient family at the bedside including the son as well as the [id number] as well as the grandchildren. Had a long discussion for more than 20 minutes with the patient family. Considering her significant prolonged course with the lymphoma and other comorbidities family wanted to make the patient DNR and DNI at the present moment. Recommended the son and the family to also speak to the primary team for further goals of care discussion in the long-term care plan.\ 02/12/2024 Patient is lethargic and is not alert awake oriented during my any examination. No change in clinical status since yesterday. Family did speak to the primary team and patient is now DNR and DNI. Still all the CSF studies have not been sent and will be sent in the next 1 to 2 days as per the primary team Patient is still on IV antibiotic Rocephin and acyclovir as well as vancomycin. Patient has not been eating for few days Neurology is following the patient but unclear of the diagnosis. Working diagnosis encephalitis and MRI was performed and did not show any major acute pathology It still only shows MRI brain right frontal bone lesion which is unchanged with increased white matter signal consistent with age. EEG has been ordered along with Gram stain culture and CSF analysis which showed slightly elevated proteins and WBC with mostly pleomorphic. 02/15/2024 ?Patient still lethargic, nonverbal, and not awake or alert during examination ?Bicarb 20.3 yesterdar, no more labs. ? Patient's family decided to go with hospice and comfort after goals of care discussion with primary care team ?Continue current management as per primary team. 4. History of diffuse large B-cell lymphoma s/p treatment in remission with recurrence in the abdomen on treatment until March status post radiation to head and neck sites at [facility] and chemotherapy in [place] Dr. Tapia, radiation oncologist was consulted. Brain CT showed showed 33 x 32 mm right frontal bone lesion with soft tissue component. Bone survey completed Brain MRI significant for increased white matter signal, right frontal bone lesion, MRI brain images severely degraded by patient motion. Continue management as per radiation oncology 5. CKD stage III On admission CR 1.4. From chart review baseline appears to be between 1.2?1.4 Current Cr 2.7 from yesterday Continue management as per primary team 6. Protein calorie malnutrition with cachexia 7 . Progressive senile dementia with possible delirium 8. Poor oral intake and patient is mildly dehydrated Continue management as per primary team Will sign off, but please reach out with any questions. Continue rest of management as per primary team. We are grateful to be able to participate in Ms. Hill's care. Thank you for the consult Plan of care discussed with attending Tourist Information Assistant, Dr Kristy Sepulveda MD PGY-1 Attending Provider Attestation/Addendum I have personally seen and examined the patient separately on the above date of service and discussed the plan of care with the resident. I reviewed the resident Dr. Vo consultation progress note and agree with the resident findings and plan in the note above and have also edited the documentation to reflect my findings and plan. Fabio Wagner M.D. Interventional Cardiology
[2024-02-16] MEDS: THIAMINE INJ 100 MG/ML VIAL 2 ML IVP (09:02)
[2024-02-16] MEDS: PANTOPRAZOLE INJ 40 MG VIAL IVP (09:02)
[2024-02-16] MEDS: GLYCOPYRROLATE INJ 0.2 MG/ML VIAL IV (09:20)
--- NOTE | 2024-02-16 10:17 | PC.SS ---
Addendum entered and electronically signed by PHI Vaca 02/16/24 15:13: DISTRICT CUSTOMS DIRECTOR met with patient's daughter to obtain timeline on when residence will be prepared to receive patient. Patient's daughter unable to provide timeframe. Patient's daughter stated that patient's son Dilip will arrive tomorrow. DISTRICT CUSTOMS DIRECTOR updated resident team. Original Note: DISTRICT CUSTOMS DIRECTOR met with patient's daughter, Barbara; at patient's bedside to confirm plan to d/c patient home with [facility]. Patient's daughter informed DISTRICT CUSTOMS DIRECTOR of need to prepare residence for patient's arrival.
--- NOTE | 2024-02-16 15:08 | PC.SS ---
LANDSCAPER contacted [facility] to obtain status on transportation request. LANDSCAPER notified by [facility] staff, Dominick; that request will be expedited. [facility] confirmed that initial submittal occurred over 3hrs ago with no authorization obtained. [facility] staff confirmed [facility] as preferred transport.
--- NOTE | 2024-02-16 15:24 | ESPR_ITS ---
Documentation for date of: 02/16/24 Subjective Subjective Interval history: Patient seen today at the bedside found obtunded and non responsive to various stimulu. Family at bedside, discussed the various options involved with the patients Hospice care. Spoke to health social work professor, current options for family include home with hospice. Family making arrangements to accomodate patient at discharge. Exam Vital Signs Temp Pulse Resp BP Pulse Ox O2 Del Method O2 Flow Rate 97.2 F 65 15 95/59 L 100 Nasal Cannula 2 02/16/24 11:55 02/16/24 12:00 02/16/24 11:55 02/16/24 11:55 02/16/24 11:55 02/16/24 11:55 02/16/24 11:55 Narrative Exam Physical Exam GENERAL: NAD, obtunded not responsive to various stimuli, frail, temporal wasting HEENT: dry mucosa. CARDIO: Heart RRR, no obvious murmurs PULM: No noted coughing/dyspnea. Lungs CTA B/L, no R/W/R GI: Abdomen soft, nondistended, no pain on palpation. BSx4 URO/BASIC SCIENCES PROFESSOR:: No further abnormalities noted. SKIN/MSK/EXT: no pain on palpation. Pedal pulses present B/L Objective Labs 02/15/24 05:19 02/15/24 05:19 Labs: Laboratory Results - last 24 hr 02/09/24 00:33 HSV I IgG Ab <0.90 HSV II IgG <0.90 ABG Interpretation ABG results: 02/07/24 02/14/24 01:46 07:34 ABG pH 7.43 7.45 ABG pCO2 30 L 30 L ABG pO2 163 H 101 ABG HCO3 20 21 ABG O2 Saturation 100 H 99 H ABG Base Excess -4 L -2 Quality Measures Quality Measures none Advance care planning discussed with:: patient and child Assessment & Plan Assessment Current Active Medications: Generic Name Dose Route Start Last Admin Trade Name Freq PRN Reason Stop Dose Admin Acetaminophen 650 mg 02/12/24 09:53 Acetaminophen Supp 650 Mg Supp MT 03/08/24 03:31 Q6HR PRN FEVER>101.5 Artificial Tears 1 drop 02/15/24 16:15 Artificial Tears 225 Drop/15 Ml Btl BOTH EYES 03/16/24 16:14 Q4HR PRN Dry eyes Atorvastatin Calcium 40 mg 02/14/24 21:00 02/15/24 20:25 Atorvastatin Calcium 20 Mg Tablet GT 03/15/24 20:59 Not Given HS [facility] Enoxaparin Sodium 52 mg 02/11/24 14:00 02/16/24 13:26 Enoxaparin Sod Inj 60 Mg/0.6 Ml Syringe SC 02/25/24 13:59 Not Given QDAY@1400 GENE Glycopyrrolate 0.2 mg 02/15/24 16:15 02/16/24 09:20 Glycopyrrolate Inj 0.2 Mg/Ml Vial IV 03/16/24 16:14 0.2 mg QID PRN Administration As needed for secretions Morphine Sulfate 2 mg 02/15/24 16:15 02/16/24 03:27 Morphine Sulf Inj 10 Mg/Ml Vial IVP 02/20/24 16:14 2 mg Q4H PRN Administration AGITATION (SEVERE) Multivitamins/Minerals 15 ml 02/14/24 14:15 02/16/24 09:02 Multivitamin 15 Ml Udc GT 03/15/24 14:14 Not Given QDAY GENE Ondansetron HCl 4 mg 02/07/24 03:32 Ondansetron Inj 2 Mg/Ml Inj 2 Ml IV 03/08/24 03:31 Q6H PRN NAUSEA OR VOMITING Protocol Pantoprazole Sodium 40 mg 02/07/24 09:00 02/16/24 09:02 Pantoprazole Inj 40 Mg Vial IVP 03/08/24 08:59 40 mg QDAY GENE Administration Thiamine HCl 100 mg 02/12/24 09:00 02/16/24 09:02 Thiamine Inj 100 Mg/Ml Vial 2 Ml IVP 03/13/24 08:59 100 mg QDAY GENE Administration Plan 79y/o F with PMHx of lymphoma status post remission and recurrence with abdominal and pulmonary metastasis, CKD, dementia, atrial fibrillation on Eliquis who is admitted for acute encephalopathy and acute kidney injury in setting of CKD. #Acute Encephalopathy #Acute CVA vs TIA-ruled out #Fever of unknown origin #Rule out Encephalitis #SIRS 2/4 #Dementia Patient was found on the bathroom floor for an unknown period of time. Patient was SIRS 2/4, fever, elevated WBCs on admission with no source identified. Mentation fluctuates throughout the day as per son who lives with her Family decided to have patients CODE STATUS changed to DNR UA was negative for leukocyte esterase, nitrites, patient denies dysuria. Will continue IV thiamine and will hold amiodarone for suspicion of amiodarone toxicity. Patient's CSF studies pending, gram stain and culture negative. Goals of Care discussion with patient's family at bedside about patient's prognosis and will continue medical management and monitor for improvement in a.m. Discussed with family about nutrition goals and possible requirement of PEG tube placement in near future, family will discuss among themselves and will give a decision at a later time. Goals of care discussion with patients family at bedside about the patients prognosis and decided to proceed with hospice care. Family still making arrangements to take the patient home with hospice - family decided to pursue comfort and hospice care, family making arrangements to accomodate patient at home #Acute on chronic kidney injury #Acute kidney injury #CKD IIIB #Atrial fibrillation [id number] score 3 Patient's home medication include amiodarone and Eliquis 2.5 mg #Hx of Lymphoma Patient has history of lymphoma with abdominal and pulmonary metastasis CT abdomen pelvis shows Enlarging of soft tissue tumor mass in the right hemipelvis Patient follows up with oncologist in [place] Suspicion of pulmonary metastasis as CTA chest positive for pulmonary nodules Bone survey done showed osteolytic lesions in the right frontal and parietal lobe with suspicions for lesions in the left hip. Bone scan positive for increased uptake in right frontal bone, midshaft left tibia, metastatic disease possible differential -Oncologist consulted, appreciate recommendations # Status post ground-level fall # History of orthostatic hypotension Per son patient has history of orthostatic hypotension. Patient presented status post ground-level fall, denies hitting head. Patient is on Eliquis at home for A-fib. Face CT, head CT, lumbar spine CT and thoracic spine CT negative Orthostatic vitals negative Case discussed with my senior Dr. Stanley PGY-2, and my attending Dr. Kd Cleary MD PGY-1 Disposition: Telemetry, comfort and hospice care Fluids: None Feeding: NPO Thrombo prophylaxis: SCDs Gastric Ulcer prophylaxis: none CODE STATUS: DNR Senior resident attestation: I discussed with and supervised the undergraduate intern physician who took care of this patient. I personally saw and examined the patient and discussed the assessment and plan with the entire medicine team, including my attending Dr. Yi, I agree with the assessment and plan as documented above. The patient is a 79-year-old female with PMH of A-fib, CKD, dementia, B-cell lymphoma status post chemo/radiation and recurrence who presented to ER following a fall and following encephalopathy. The has been in a persistent vegetative state since admission. 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 Also noted A-fib RVR, amiodarone drip was started, family was undecided about PEG tube, but patient had been n.p.o. for the past few days, nasogastric tube was passed for initiating tube feeds as well as medications via G-tube. Neurology will follow the patient and discontinued antibiotics and antivirals after no improvement, recommended hospice care. 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 Awaiting placement at SNF with comfort care measures. MD Lizeth PGY2 Attending Provider Attestation/Addendum I have discussed and was present for the essential components of the history, physical examination, diagnosis, and treatment plan with the resident. I agree with the patient's care as documented by the resident and amended herein by me. Fidel Yi, DO. Patient seen and evaluated this AM. Discussing options for hospice care, but will likely have to be at home or SNF with comfort measures only. Although this document has been carefully reviewed, there may still be some phonetic and other typographical errors. These errors are purely grammatical due to imperfections in the software program and should not be construed in any way to compromise the substance of the patient's medical care during this visit.
--- NOTE | 2024-02-16 23:53 | PD.NEUROPROG ---
Documentation for date of: 02/16/24 Subjective Subjective Interval history: Patient was seen in telemetry today at the bedside. Continues to be somnolent and not communicative. Exam - Neurology Vital Signs Temp Pulse Resp BP Pulse Ox O2 Del Method O2 Flow Rate 96.6 F L 85 12 121/91 H 99 Nasal Cannula 2 02/16/24 20:00 02/16/24 20:00 02/16/24 20:00 02/16/24 20:00 02/16/24 20:00 02/16/24 20:00 02/16/24 20:00 Narrative Exam GENERAL APPEARANCE: Well-developed, thin built female in no acute distress. HEENT: Normocephalic, atraumatic, extraocular movements intact. Pupils: Equal reacting to light NECK: Supple, no JVD or bruits. CARDIOVASULAR: Heart: S1, S2 heard, irregular without S3-S4 or murmur no rubs or gallops. LUNGS/CHEST: Clear to auscultation bilaterally. No rails, rhonchi, or wheezing. Normal inspection. ABDOMEN: Soft, nontender, with normal bowel sounds. No pulsatile masses. No rebound, rigidity, or guarding. Normal inspection and palpation. EXTREMITIES: Normal inspection and palpation. No edema, clubbing or cyanosis. SKIN: Warm and dry without rashes. Normal inspection. MUSCULOSKELETAL: No cervical, thoracic, lumbar or midline bony tenderness. Normal inspection. NEURO: Continues to be lethargic, barely opens her eyes but not tracking. Brainstem function: Intact, rest of the exam: Limited PSYCHIATRIC: Limited Objective Labs 02/15/24 05:19 02/15/24 05:19 Labs: Laboratory Results - last 24 hr 02/09/24 00:33 HSV I IgG Ab <0.90 HSV II IgG <0.90 ABG Interpretation ABG results: 02/07/24 02/14/24 01:46 07:34 ABG pH 7.43 7.45 ABG pCO2 30 L 30 L ABG pO2 163 H 101 ABG HCO3 20 21 ABG O2 Saturation 100 H 99 H ABG Base Excess -4 L -2 Assessment & Plan Assessment and plan (1) AMS (altered mental status): Status: Acute Assessment and plan: MRI brain: chronic white matter changes CSF analysis shows pleomorphic leukocytosis, normal glucose and elevated protein, Gram stain and culture: negative. Discontinue acyclovir ceftriaxone and vancomycin. Her condition is critical and her prognosis is poor. Patient is waiting for placement in [facility] with hospice (2) Paroxysmal A-fib: Status: Chronic Assessment and plan: Used to be on amiodarone for rate control, but on hold now as hypothyroidism was suspected
[2024-02-17] VITALS: BP 133/68; PULSE 84; PULSE 85; RESP 16; TEMP 35.5; O2SAT 96
[2024-02-17] MEDS: MORPHINE SULF INJ 10 MG/ML VIAL 2 MG IVP (03:44)
[2024-02-17 04:00] VITALS: BP 102/60; PULSE 78; PULSE 86; RESP 13; TEMP 35.8; O2SAT 98
--- NOTE | 2024-02-17 04:45 | PD.DPN ---
Documentation for date of: 02/17/24 Pronouncement Note Date and Time of Date of : 02/17/24 Time of : 04:37 PCOD Preliminary cause of : Cardiopulmonary arrest Contributing Factors (1) AMS (altered mental status): (2) Paroxysmal A-fib: Summary Additional details: Called to see patient for unresponsiveness. On exam the patient did not respond to verbal or physical stimuli. Absent heart and breath sounds. Absent peripheral pulses. Pupils are fixed and dilated. Patient pronounced at 04:37. Dr. Oswald notified. Next of kin/family, Dilip Hill notified. Dyllan Huerta, PGY-1 Additional Data Confirmation of : no pulse, no respirations, no heart sounds and pupils fixed and dilated Family: contacted Additional persons at bedside: other Attending/PCP notified?: Yes Attending physician: Didier Oswald MD Was code activated?: No
--- NOTE | 2024-02-17 05:02 | PC.NURSE ---
0430-notified Michaelian, patient HR 0, respiratory rate - 0 MD came to assess patient and at 436 time of . Family notified. Update given to daughter Barbara. IVs removed, bed bath given to patient.
--- NOTE | 2024-02-17 07:01 | DES_ITS ---
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 Patient on admission had sepsis likely the cause of acute metabolic encephalopathy as well as some diarrhea. Later, the patient developed progressive weakness until she was unable to follow commands and became completely encephalopathic. During hospital admission patient was worked up for stroke, including Head CT which showed large right frontal lobe defect, CTA was negative for any acute LVO, CT head read right frontal calvarium lesion, concern of primary/secondary neoplasm. Management of encephalopathy was done wi blood cultures, urine cultures, IV antibiotics, brain MRI. Neurology was consulted and recommended EEG study as well as lumbar puncture with appropiate CSF studies to rule out Encephalitis while continuing IV antibiotics and IV steroid medication. Cardiology was also consulted as patient had history of atrial fibrillation, was put on amiodarone po but at one point there was concern for toxicity and was discontinued, however patient later developed atrial fibrillation with rapid ventricular response requiring amiodarone drip. Later on, due to patients mentation and concern with nutritional status, discussion with the family was had in regards to proceeding with PEG tube in order to give PO medications and nutritional support. Family was undecided about PEG tube, but patient had been n.p.o. for the past few days, nasogastric tube was passed for initiating tube feeds as well as medications via G-tube. 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 On 02/17/2024 Night resident was called due to patient being unresponsive. Patient was examined the patient did not respond to verbal or physical stimuli. Absent heart and breath sounds. Absent peripheral pulses. Pupils are fixed and dilated. Patient was pronounced at 04:37. Problem List: #Acute Encephalopathy #Acute CVA vs TIA-ruled out #Fever of unknown origin #Rule out Encephalitis #SIRS 2/4 #Dementia #Acute on chronic kidney injury #Acute kidney injury #CKD IIIB #Atrial fibrillation #Hx of Lymphoma Casd discussed with my senior Dr. Stanley PGY-[address] Kd Cleary MD PGY-1 -------- I discussed with and supervised the business analyst intern physician who took care of this patie nt. Agree with the above documentation. Lizeth, pgy2 Additional Data Confirmation of as documented by pronouncing clinician: no pulse, no respirations, no heart sounds and pupils fixed and dilated Family: contacted Attending physician: Lukasz Yi, DO Visit Providers Provider Primary care physician: Physician No Primary/Family Consults: 02/06/24 19:45 Referral Physical Therapy Stat Comment: Physician Instructions: 02/07/24 03:39 Consult to Neurology / Tele-Neurology Stat Comment: Consulting Provider: Oswald Holguin Consult to Oncology Stat Comment: Consulting Provider: Ambrose Tapia 02/07/24 16:46 Consult to Cardiology Routine Comment: Consulting Provider: Fabio Wagner 02/08/24 16:03 Referral Speech Therapy Routine Comment: 02/14/24 10:38 Referral Registered Dietitian Stat Comment: tube feeds 02/15/24 16:16 Referral Hospice Stat Comment: Diagnosis Contributing Factors (1) AMS (altered mental status): (2) Paroxysmal A-fib: Discharge Plan Plan Patient Disposition: Prescriptions/Referrals Referrals: No Primary/Family,Physician [Primary Care Provider] - Patient/Caregiver Discharge Instructions Print Language: Armenian
[2024-02-21 03:04] LABS: HSV-1 DNA, CSF NOT DETECTED copies/mL; HSV-1 DNA, CSF Source CEREBROSPINAL FLUID; West Nile Virus (IgG), CSF <1.30
[2024-02-21 06:58] LABS: HSV-2 DNA, CSF NOT DETECTED copies/mL; VDRL, CSF Qual* NON-REACTIVE; West Nile Virus (IgM), CSF <0.90
[2024-02-24 06:55] LABS: Angiotensin Convert Enz, CSF* 6 U/L (< OR = 15); Oligoclonal Bands, CSF* ABSENT (ABSENT)
== END 2024-02-17 04:37 | disposition expired | DRG 71 ==
LOC: SERX 02-07 01:32 → SERHOLD 02-07 04:27 → S2NX 02-07 06:28
PROVIDERS: Internal Medicine; Psychiatry & Neurology Neurology; Student in an Organized Health Care Education/Training Program; Admitting Provider Student in an Organized Health Care Education/Training Program; Emergency Provider Emergency Medicine; Referring Provider Emergency Medicine; Visit Provider Student in an Organized Health Care Education/Training Program
DX: G93.41 Metabolic encephalopathy (principal); C78.00 Secondary malignant neoplasm of unspecified lung; F03.94 Unspecified dementia, unspecified severity, with anxiety; C83.30 Diffuse large B-cell lymphoma, unspecified site; C79.89 Secondary malignant neoplasm of other specified sites; N17.9 Acute kidney failure, unspecified; E46 Unspecified protein-calorie malnutrition; R64 Cachexia; Z68.1 Body mass index [BMI] 19.9 or less, adult; E87.20 Acidosis, unspecified; R40.3 Persistent vegetative state; Z79.01 Long term (current) use of anticoagulants; N18.32 Chronic kidney disease, stage 3b; I48.0 Paroxysmal atrial fibrillation; H91.90 Unspecified hearing loss, unspecified ear; Z86.16 Personal history of COVID-19; E86.0 Dehydration; M89.58 Osteolysis, other site; Z66 Do not resuscitate; I46.9 Cardiac arrest, cause unspecified; G25.3 Myoclonus
CPT/HCPCS: 36415; 36600; 70450; 70496; 70498; 70544; 70551; 71045; 77074; 78306; 80053; 80061; 80202; 81001; 82164; 82803; 82945; 83605; 83735; 83880; 83916; 84100; 84145; 84157; 84443; 84484; 85025; 85610; 85652; 85730; 86140; 86171; 86308; 86592; 86695; 86696; 86788; 86789; 87040; 87070; 87081; 87086; 87205; 87400; 87530; 87634; 87651; 87811; 89051; 92526; 92610; 93005; 93306; 95816; 96365; 96367; 96375; 97162; 99285; A4649; A9503; J0133; J0283; J0360; J0692; J0696; J1100; J1643; J1650; J1885; J2270; J2470; J3370; J3371; J3411; J3475; J3480; J3490; J7030; J7040; J7050; J7120; J7121; Q9967; A9270; J1596; J1644